=== PATIENT | male | born 1940 | race Caucasian/White ===

== ENCOUNTER 2016-12-21 11:12 | Inpatient (IN) ==
--- NOTE | 2016-12-21 12:03 | XRay Report ---
Exam: XR chest 1V portable Indication: Fever Shortness of breath Comparison study: May 26, 2014 Findings: The heart, mediastinum and bony structures are stable from prior. Right chest tube being is in similar position and appears intact. There has been development of patchy perihilar and basilar interstitial opacities, which may represent atelectasis or developing interstitial infiltrates. There is no focal consolidation, pneumothorax or pleural effusion identified. Cholecystectomy clips are noted Impression: Patchy perihilar and basilar interstitial opacities may represent atelectasis or developing infiltrates. No focal consolidation. No pneumothorax. PROCEDURE INTERPRETED AT [facility] DEPARTMENT OF RADIOLOGY Final Report Signed by: Wil Mack
[2016-12-21 12:38] LABS: Basophils # 0.1 10*3/uL (0.0-0.2); Basophils % 0.9 % (0.0-0.8); Eosinophils # 0.2 10*3/uL (0.0-0.87); Eosinophils % 3.1 % (0.00-10.9); Hematocrit 32.8 VOL% (42.0-52.0); Hemoglobin 10.2 GM/DL (14.0-18.0); Immature Granulocytes % 0.4 %; Immature Granulocytes Absolute 0.03 #; Lymphocytes # 1.2 10*3/uL (1.4-4.0); Lymphocytes % 15.5 % (21.2-54.2); Mean Corpuscular HGB Conc 31.1 GM/DL (32-36); Mean Corpuscular Hemoglobin 29 PG (27-34); Mean Corpuscular Volume 94.5 FL (87-102); Mean Platelet Volume 8.5 FL (9.6-12.0); Monocytes # 0.7 10*3/uL (0.11-0.8); Monocytes % 9.4 % (1.7-12.7); Neutrophils # 5.5 10*3/uL (1.4-7.4); Neutrophils % 70.7 % (38.7-73.9); Platelet Count 448 T/CUMM (130-400); Red Blood Count 3.47 MC/CUMM (3.8-5.5); Red Cell Distribution Width 14.2 % (9.3-17.3); White Blood Count 7.8 T/CUMM (4-12)
[2016-12-21 13:14] LABS: Alanine Aminotransferase 38 U/L (16-61); Albumin 2.7 G/DL (3.4-5.0); Alkaline Phosphatase 78 U/L (45-117); Aspartate Amino Transferase 31 U/L (0-37); Bilirubin,Total < 0.39 MG/DL (0.2-1.0); Blood Urea Nitrogen 47 MG/DL (7-18); Calcium 8.9 MG/DL (8.5-10.1); Glucose 122 MG/DL (74-106); Osmolality,Calculated 298.8 MOS/KG (273-304); Potassium 5.1 MMOL/L (3.5-5.1); Sodium 144 MMOL/L (136-145); Total Protein 7.7 G/DL (6.4-8.3)
[2016-12-21 13:40] LABS: Apearance,Urine Clear (Clear); Bilirubin,Urine Negative (Negative); Blood, Urine Small mg/dL (Negative); Glucose,Urine (UA) Negative (Negative); Ketones,Urine Negative (Negative); Nitrite,Urine Negative (Negative); Protein,Urine 100 MG/DL; RBC,Urine 33 /HPF (0-4); Urine Color Yellow (Yellow); Urine Specific Gravity 1.005 (1.001-1.035); WBC,Urine 236 /HPF (0-6)
[2016-12-21 13:41] LABS: Mucus,Urine Occasional /LPF (Occasional); Squamous Epithelial Cell,Urine Occasional /HPF (0-10); Urine Urobilinogen 0.2 EU/DL (0.2-1.0)
--- NOTE | 2016-12-21 13:41 | Emergency Department Note ---
Dylan Hurtado Brooke, am scribing for, and in the presence of, Juan Pablo Ortega MD 11:41. Shannon Hurtado Phillip K, MD, personally performed the services described in this documentation, ascribed by Roya Richardson in my presence, and it is both accurate and complete [id number] . Arrival - Arrival Chief Complaint: Non-Specific ED Nursing Triage Note: family states pt has not had a good bm in a week and has been taking stuff for constipation. strong smell to urine and low grade temp Mode of Arrival: Stretcher Limitations: No Limitations Source: Patient, Family, RN Notes Reviewed Time Seen by Provider: 12/21/16 11:26 - History of Present Illness HPI Narrative: Patient is a 76 year old male brought into the ED by EMS with c/o fever and cough. Patient is a poor historian. Family says Patient has had the fever for about two weeks and that it has been intermittent. Family says she has been [facility] know what Patient's temperature has been but says they have not done anything. Family says Patient has a "rattling" cough. Family denies any vomiting or diarrhea but says he has been constipated. Family has been giving Patient laxatives and Milk of Magnesia. She says about a week ago, there was "something green" in Patient's peg tube. She says she was unsure of what to do but says she went ahead and gave Patient his feeding. She says she has not seen anymore "green" since. Patient says EMS was able to flush the peg tube. Patient has Onset (ago): week(s) (2) Allergies/Adverse Reactions: Allergies Allergy/AdvReac Type Severity Reaction Status Date / Time Unable to Obtain Allergy Unverified 07/12/16 14:34 Home Medications: Home Medications Medication Instructions Recorded Confirmed Type Aspirin [Ecotrin] 81 mg PO DAILY 07/12/16 12/21/16 History Metoprolol Tartrate 100 mg PO DAILY 12/21/16 12/21/16 History Review of System - Review of System 12 point system: reviewed and no additional remarkable complaints except as stated - Review of System Constitutional: Present: fever Respiratory: Present: cough ("rattling"). Absent: respiratory distress Gastrointestinal: Present: constipation, other ("something green" in peg tube). Absent: nausea, vomiting, diarrhea Skin: Absent: rash Medical,Surgical,& Family Hx - Medical History Cardio: History of: Hypertension - Social History Smoking Status: Never smoker Frequency of Alcohol Use: None Type of Drug Use: None Exam Vital Signs: Vital Signs Temperature 97.8 F 12/21/16 11:19 Pulse Rate 97 H 12/21/16 11:19 Respiratory Rate 18 12/21/16 11:19 Blood Pressure 165/87 12/21/16 11:19 O2 Sat by Pulse Oximetry 98 12/21/16 11:19 - General General appearance: alert, in no apparent distress - Head Head exam: Present: atraumatic, normocephalic - Eye Eye exam: Present: normal appearance, PERRL, EOMI - ENT ENT exam: Present: normal exam - Neck Neck exam: Present: normal inspection - Chest Chest inspection: Present: normal inspection, symmetric chest wall rise - Respiratory Respiratory exam: Present: normal lung sounds bilaterally - Cardiovascular Cardiovascular exam: Present: regular rate, normal rhythm, normal heart sounds - Abdominal Exam Abdominal exam: Present: soft, normal bowel sounds. Absent: distention, tenderness - Extremities Exam Extremities exam: Present: normal inspection - Back Exam Back exam: Present: normal inspection - Neurological Exam Neurological exam: Present: alert - Psychiatric Psychiatric exam: Present: normal affect, normal mood - Skin Skin exam: Present: warm, dry, intact, normal color Course Course Narrative: Admit to the hospitalist. Results - Labs CBC & BMP: 12/21/16 12:16 12/21/16 12:16 Lab Results: I have reviewed the patients labs Labs: Laboratory Tests 12/21/16 12:16 RBC 3.47 L Hgb 10.2 L Hct 32.8 L MCHC 31.1 L Plt Count 448 H MPV 8.5 L Lymph % (Auto) 15.5 L Baso % (Auto) 0.9 H Lymph # (Auto) 1.2 L Laboratory Tests 12/21/16 12:16 Anion Gap 15.1 H BUN 47 H Creatinine 1.40 H BUN/Creatinine Ratio 33.00 H Glucose 122 H Albumin 2.7 L Globulin 5.0 H Albumin/Globulin Ratio 0.5 L Laboratory Tests 12/21/16 11:40 Urine Leukocytes Moderate H - Diagnostic Findings Procedure: Chest x-ray: report reviewed by me (Patchy perihilar and basilar interstitial opacities may represent atelectasis or developing infiltrates. No focal consolidation. No pneumothorax.) Disposition Clinical Impression: Dehydration, History of fever, perihilar pneumonia Case discussed with: patient's family Disposition: Disch To Home/Self Care Condition: Guarded Additional Instructions: Admitted to the hospitalist.
[2016-12-21] MEDS ORDERED: LEVOFLOXACIN INJ 500 MG in PREMIX 1 EACH IV STA (13:43)
[2016-12-21] MEDS ORDERED: DOCUSATE SODIUM 100 MG CAPSULE PO PRN (13:47)
[2016-12-21] MEDS ORDERED: ONDANSETRON 4 MG/2 ML VIAL IV PRN (13:47)
[2016-12-21] MEDS ORDERED: ALBUTEROL 2.5 MG/3 ML NEB RESP TX PRN (14:32)
--- NOTE | 2016-12-21 14:34 | Hospitalist History & Physical ---
Assessment and Plan (1) Pneumonia Status: Acute Assessment and plan: Admit patient to service. Pt to be starting on breathing treatments and IV antibiotics. Current Visit: Yes (2) Dehydration Status: Acute Assessment and plan: Pt will be given IV fluids. Will monitor for any electrolyte imbalance. Labs in am. Current Visit: Yes History of Present Illness Chief complaint: pneumonia/dehydration History of present illness: Patient is a 76 year old male brought into the ED by EMS with c/o fever and cough. Pt's is at bedside. She states Patient has had the fever for about two weeks on and off. Pt had a stroke 15 yrs ago which has left him nonverbal; therefore, pt is a poor historian. Pt's is also unable to answer questions about patient's medical history. CXR showed opacities that may be indicative of atelectasis and infiltrates developing. Lab work suggests dehydration. Pt will be admitted to the hospitalist program and given IV fluids along with antibiotics. MD to follow. Home Medications Medication Instructions Recorded Confirmed Type Aspirin [Ecotrin] 81 mg PO DAILY 07/12/16 12/21/16 History Metoprolol Tartrate 100 mg PO DAILY 12/21/16 12/21/16 History Allergies Allergy/AdvReac Type Severity Reaction Status Date / Time Unable to Obtain Allergy Verified 12/21/16 15:49 Medical,Surgical,& Family Hx - Medical History Cardio: History of: Hypertension Neurology: History of: Cerebrovascular Accident - Social History Smoking Status: Never smoker Frequency of Alcohol Use: None Type of Drug Use: None ROS unobtainable: due to mental status - Constitutional Constitutional: Present: fever(s) (information given per . Fever on and off since 12/04; highest being 102.4) - Respiratory Respiratory: Present: cough (per ), dyspnea (per his ) Exam - Constitutional Vitals: Period Temp Pulse Resp BP Sys/Ferrara Pulse Ox Last 24 Hr 97.8 F-97.8 F 97-97 18-18 165-165/87-87 98 General appearance: normal weight, no acute distress, disheveled - Head Head exam: Present: normal inspection, normocephalic - Respiratory Respiratory exam: Present: decreased breath sounds (decreased at the bases) - GI/Abdominal GI/Abdominal exam: Present: normal bowel sounds, soft, other (pt has peg tube) - Extremities Exam Extremities exam: Absent: full ROM, edema - Neurological Exam Neurological exam: Present: other (pt nonverbal) - Skin Skin exam: Present: warm, dry Results - Labs CBC & BMP: 12/21/16 12:16 12/21/16 12:16 Lab Results: I have reviewed the past 24 hour labs - Diagnostic Findings Procedure: Chest x-ray: report reviewed by me
[2016-12-21] MEDS ORDERED: LEVOFLOXACIN INJ 100 ML IV ONE (15:38)
[2016-12-21] MEDS: SODIUM CHLORIDE 0.9% 1,000 ML IV SCH (17:30)
[2016-12-21] MEDS: PIPERACILLIN/TAZOBACTAM 3,375 MG in SODIUM CHLORIDE 0.9% 100 ML IV SCH (18:23)
[2016-12-21] MEDS: ALBUTEROL/IPRATROPIUM 3 ML NEB RESP TX SCH (19:13)
[2016-12-22] MEDS: ALBUTEROL/IPRATROPIUM 3 ML NEB RESP TX SCH ×3 (00:21→14:36)
[2016-12-22] MEDS: PIPERACILLIN/TAZOBACTAM 3,375 MG in SODIUM CHLORIDE 0.9% 100 ML IV SCH ×3 (01:46→18:04)
[2016-12-22 08:16] LABS: Basophils # 0.1 10*3/uL (0.0-0.2); Basophils % 0.5 % (0.0-0.8); Eosinophils # 0.2 10*3/uL (0.0-0.87); Eosinophils % 2.4 % (0.00-10.9); Hematocrit 29.7 VOL% (42.0-52.0); Hemoglobin 8.9 GM/DL (14.0-18.0); Immature Granulocytes % 0.5 %; Immature Granulocytes Absolute 0.05 #; Lymphocytes # 1.5 10*3/uL (1.4-4.0); Lymphocytes % 15.1 % (21.2-54.2); Mean Corpuscular Hemoglobin 29 PG (27-34); Mean Corpuscular Volume 96.4 FL (87-102); Mean Platelet Volume 8.7 FL (9.6-12.0); Monocytes % 10.5 % (1.7-12.7); Neutrophils # 6.9 10*3/uL (1.4-7.4); Platelet Count 425 T/CUMM (130-400); Red Blood Count 3.08 MC/CUMM (3.8-5.5); Red Cell Distribution Width 14.1 % (9.3-17.3); White Blood Count 9.7 T/CUMM (4-12)
[2016-12-22] MEDS: METOPROLOL TARTRATE 100 MG TABLET PO SCH (12:38)
[2016-12-22] MEDS: PANTOPRAZOLE 40 MG TABLET PO SCH (12:38)
[2016-12-22] MEDS: ASPIRIN EC 81 MG TABLET PO SCH (12:38)
[2016-12-22] MEDS: DESITIN 4OZ/NYSTATIN 15 GRAM MIXTURE PASTE TOP SCH ×2 (12:45→22:00)
--- NOTE | 2016-12-22 14:53 | Hospitalist Progress Note ---
Assessment and Plan (1) Dehydration Status: Acute Assessment and plan: This is secondary to poor intake at home. He seemed to be getting better in turgor since starting IV fluids yesterday. If the dietitian to look into caloric needs fluid needs. Consultation going to put in today as discussed with the primary care nurse about this issue Current Visit: Yes (2) History of fever Status: Acute Assessment and plan: Is likely secondary to subclinical aspiration. According to the with the primary behavioral health care coordinator said to me that at times of heart problems are feeding him. At one point to the tube was clogged and give out some greenish gunk that she never knew what it was. My suspicion that it was probably inspissated with some bile reflux material Current Visit: Yes (3) Pneumonia Status: Acute Assessment and plan: Slightly this is secondary to aspiration pneumonia is perihilar but mostly in the right middle lobe. Patient is on broad-spectrum antibiotics. Continue this and examined and needed in the coming 4 days. Current Visit: Yes Qualifiers: Pneumonia type: aspiration pneumonia Aspiration pneumonia type: unspecified Laterality: right Lung location: middle lobe of lung Qualified Code(s): J69.0 - Pneumonitis due to inhalation of food and vomit Hospitalist: Subjective Interval history: Stent is seen and examined unfortunately no family members at the bedside. 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 I discussed the case with charge nurse on the floor, no acute events veins have occurred since I saw him last. He has a PEG tube for feeding dysfunction need to get a dietitian look into caloric needs and regular feeding. Because of low-grade temperatures of 99.9 my suspicion from the get go has been that he has continuous subclinical aspiration; this could even be of upper airway secretion. Exam - Constitutional Vitals: Period Temp Pulse Resp BP Sys/Ferrara Pulse Ox Last 24 Hr 97.6 F-99.9 F 91-115 16-20 124-160/62-80 98-100 General appearance: normal weight - Head Head exam: Present: other (Stroke) - Eye Eye exam: Present: other (Not able to assess) Pupils: Present: unequal (I cannot assess) - ENT ENT exam: Present: other (Not able to assess) - Neck Neck exam: Present: other (Generalized rigidity including neck stiffness) - Respiratory Respiratory exam: Present: other (No rhonchi no wheezing distant lung sounds) - Cardiovascular Cardiovascular exam: Present: irregular rhythm, other (Rate below 100) - GI/Abdominal GI/Abdominal exam: Present: other (Functional PEG tube in place) - Extremities Exam Extremities exam: Present: other (Contractures from old stroke) - Neurological Exam Neurological exam: Present: other (Expressive aphasia most likely receptive aphasia patient is not responding to verbal stimulus) - Psychiatric Psychiatric exam: Present: other (As above) - Skin Skin exam: Present: normal color, warm, dry Results - Labs CBC & BMP: 12/22/16 07:44 12/21/16 12:16 Lab Results: I have reviewed the past 24 hour labs
[2016-12-22] MEDS: SODIUM CHLORIDE 0.9% 1,000 ML IV SCH ×2 (16:56→20:23)
[2016-12-23] MEDS: ALBUTEROL/IPRATROPIUM 3 ML NEB RESP TX SCH ×5 (00:53→20:59)
[2016-12-23] MEDS: ACETAMINOPHEN 325 MG TABLET PO PRN (01:12)
[2016-12-23] MEDS: PIPERACILLIN/TAZOBACTAM 3,375 MG in SODIUM CHLORIDE 0.9% 100 ML IV SCH ×3 (04:32→17:42)
[2016-12-23] MEDS: DESITIN 4OZ/NYSTATIN 15 GRAM MIXTURE PASTE TOP SCH ×2 (07:00→20:00)
[2016-12-23] MEDS: PANTOPRAZOLE 40 MG TABLET PO SCH (10:12)
[2016-12-23] MEDS: METOPROLOL TARTRATE 100 MG TABLET PO SCH (10:12)
[2016-12-23] MEDS: ASPIRIN EC 81 MG TABLET PO SCH (10:12)
--- NOTE | 2016-12-23 16:13 | Hospitalist Progress Note ---
Assessment and Plan (1) Pneumonia Status: Acute Assessment and plan: We'll continue current antibiotics and follow the blood cultures repeat x-ray tomorrow morning Current Visit: Yes Qualifiers: Pneumonia type: aspiration pneumonia Aspiration pneumonia type: unspecified Laterality: right Lung location: middle lobe of lung Qualified Code(s): J69.0 - Pneumonitis due to inhalation of food and vomit (2) UTI (urinary tract infection) Status: Acute Assessment and plan: Patient has 2 different organism on urine culture will continue Zosyn as it covered both. We will follow the blood culture. I'm not sure what was the primary source of fever or is describing. We'll follow blood culture and if and patient remained stable and probably will switch to oral antibiotics Current Visit: Yes (3) Dehydration Status: Acute Assessment and plan: With my HPI on admission will check the chemistry tomorrow Current Visit: Yes Hospitalist: Subjective Interval history: Patient is a 76 year old male brought to ED by EMS with c/o fever and cough. Reported to have fever for about two weeks on and off. Pt had a stroke 15 yrs ago which has left him nonverbal unable to get subjective symptoms. Has been afebrile Patient has been afebrile now. He was treated empirically for pneumonia based on chest x-ray finding and symptoms his urine also grew Escherichia coli and Klebsiella. She has been on Zosyn. Exam - Constitutional Vitals: Period Temp Pulse Resp BP Sys/Ferrara Pulse Ox Last 24 Hr 98.0 F-99.3 F 82-108 18-20 132-158/60-92 92-99 General appearance: no no acute distress - Respiratory Respiratory exam: Present: clear to auscultation bilaterally. Absent: rales, rhonchi - Cardiovascular Cardiovascular exam: Present: regular rate and rhythm. Absent: tachycardia - GI/Abdominal GI/Abdominal exam: Present: normal bowel sounds, soft. Absent: tenderness - Extremities Exam Extremities exam: Absent: edema (nonverbal) - Neurological Exam Neurological exam: Present: other Results - Labs CBC & BMP: 12/22/16 07:44 12/21/16 12:16 Lab Results: I have reviewed the past 24 hour labs
--- NOTE | 2016-12-23 17:33 | XRay Report ---
Exam: XR chest 1V Date: 12/23/2016 4:17 PM Comparison: 12/21/2016 Indication: Pneumonia Technique:[Portable AP sitting chest] Findings: The heart is borderline in size with calcification in the aortic knob. Right COP EXAMINER shunt catheter. Chronic scarring in the lungs with progressive parenchymal findings at the lung bases, especially the left. Small left pleural effusion. Stable mediastinum with degenerative changes. Impression: Progressive bilateral infiltration especially at the left lung base with small left pleural effusion. PROCEDURE INTERPRETED AT [facility] DEPARTMENT OF RADIOLOGY Final Report Signed by: Dr. Jennifer Goyal
[2016-12-23] MEDS: SODIUM CHLORIDE 0.9% 1,000 ML IV SCH ×2 (17:44→22:49)
[2016-12-24] MEDS: PIPERACILLIN/TAZOBACTAM 3,375 MG in SODIUM CHLORIDE 0.9% 100 ML IV SCH ×3 (01:36→17:33)
[2016-12-24] MEDS: ALBUTEROL/IPRATROPIUM 3 ML NEB RESP TX SCH ×4 (01:40→20:10)
[2016-12-24 06:51] LABS: Basophils # 0.1 10*3/uL (0.0-0.2); Eosinophils # 0.3 10*3/uL (0.0-0.87); Hematocrit 26.8 VOL% (42.0-52.0); Hemoglobin 8.2 GM/DL (14.0-18.0); Immature Granulocytes % 0.3 %; Immature Granulocytes Absolute 0.02 #; Lymphocytes # 1.2 10*3/uL (1.4-4.0); Lymphocytes % 16.6 % (21.2-54.2); Mean Corpuscular HGB Conc 30.6 GM/DL (32-36); Mean Corpuscular Hemoglobin 29 PG (27-34); Mean Corpuscular Volume 93.1 FL (87-102); Mean Platelet Volume 8.8 FL (9.6-12.0); Monocytes # 0.7 10*3/uL (0.11-0.8); Monocytes % 9.8 % (1.7-12.7); Neutrophils # 4.8 10*3/uL (1.4-7.4); Neutrophils % 68.3 % (38.7-73.9); Platelet Count 367 T/CUMM (130-400); Red Blood Count 2.88 MC/CUMM (3.8-5.5); Red Cell Distribution Width 13.7 % (9.3-17.3)
[2016-12-24 07:19] LABS: Magnesium 2.3 MG/DL (1.8-2.4); Osmolality,Calculated 301.3 MOS/KG (273-304); Potassium 4.8 MMOL/L (3.5-5.1); Prealbumin 15.5 MG/DL (20-40)
[2016-12-24] MEDS: ASPIRIN EC 81 MG TABLET PO SCH (09:44)
[2016-12-24] MEDS: METOPROLOL TARTRATE 100 MG TABLET PO SCH (09:44)
[2016-12-24] MEDS: DESITIN 4OZ/NYSTATIN 15 GRAM MIXTURE PASTE TOP SCH ×2 (09:44→22:22)
[2016-12-24] MEDS: PANTOPRAZOLE 40 MG TABLET PO SCH (09:44)
--- NOTE | 2016-12-24 16:00 | Hospitalist Progress Note ---
Assessment and Plan (1) Pneumonia Status: Acute Assessment and plan: Blood c/s neg from 12/21. I had initially planned to discharge him today on by mouth clindamycin and third generation by mouth cephalosporin to combine treatment of her pneumonia and UTI noted his hemoglobin and hematocrit down from admission. I will continue IV antibiotics since he is still in the hospital. Current Visit: Yes Qualifiers: Pneumonia type: aspiration pneumonia Aspiration pneumonia type: unspecified Laterality: right Lung location: middle lobe of lung Qualified Code(s): J69.0 - Pneumonitis due to inhalation of food and vomit (2) UTI (urinary tract infection) Status: Acute Assessment and plan: Patient has 2 different organism on urine culture will continue Zosyn as it covered both. Blood cultures negative continue IV antibiotics as long as patient is staying the hospital Current Visit: Yes (3) Dehydration Status: Acute Assessment and plan: Hypernatremia noted will give IV D5 w recheck labs am Current Visit: Yes (4) Anemia Status: Acute Assessment and plan: Given hematocrit down from the admission will order a stool Hemoccult patient is on PPI . Repat labs for am ordered Current Visit: Yes Hospitalist: Subjective Interval history: Patient is a 76 year old male brought to ED by EMS with c/o fever and cough. Reported to have fever for about two weeks on and off. Pt had a stroke 15 yrs ago which has left him nonverbal unable to get subjective symptoms. He was treated empirically for pneumonia based on chest x-ray finding and symptoms his urine also grew Escherichia coli and Klebsiella. She has been on Zosyn. Pt has been afebrile stable hemodynamics Exam - Constitutional Vitals: Period Temp Pulse Resp BP Sys/Ferrara Pulse Ox Last 24 Hr 97.9 F-99.0 F 74-114 18-20 125-182/64-78 94-99 General appearance: no acute distress - Respiratory Respiratory exam: Present: clear to auscultation bilaterally. Absent: rales, rhonchi - Cardiovascular Cardiovascular exam: Present: regular rate and rhythm. Absent: tachycardia - GI/Abdominal GI/Abdominal exam: Present: normal bowel sounds, soft. Absent: tenderness - Neurological Exam Neurological exam: Present: alert, other Results - Labs CBC & BMP: 12/24/16 06:07 12/24/16 06:07
[2016-12-24] MEDS: SODIUM CHLORIDE 0.9% 1,000 ML IV SCH (16:44)
[2016-12-24] MEDS: DEXTROSE 5% 1,000 ML IV SCH (16:45)
[2016-12-24] MEDS: ACETAMINOPHEN 325 MG TABLET PO PRN (22:42)
[2016-12-25] MEDS: ALBUTEROL/IPRATROPIUM 3 ML NEB RESP TX SCH ×4 (00:57→19:14)
[2016-12-25] MEDS: PIPERACILLIN/TAZOBACTAM 3,375 MG in SODIUM CHLORIDE 0.9% 100 ML IV SCH ×3 (01:23→17:05)
[2016-12-25 03:44] LABS: Basophils # 0.1 10*3/uL (0.0-0.2); Basophils % 0.8 % (0.0-0.8); Eosinophils # 0.2 10*3/uL (0.0-0.87); Eosinophils % 3.1 % (0.00-10.9); Hematocrit 25.7 VOL% (42.0-52.0); Hemoglobin 7.9 GM/DL (14.0-18.0); Immature Granulocytes % 0.4 %; Immature Granulocytes Absolute 0.03 #; Lymphocytes # 1.4 10*3/uL (1.4-4.0); Lymphocytes % 18.7 % (21.2-54.2); Mean Corpuscular HGB Conc 30.7 GM/DL (32-36); Mean Corpuscular Hemoglobin 29 PG (27-34); Mean Corpuscular Volume 92.8 FL (87-102); Mean Platelet Volume 8.7 FL (9.6-12.0); Monocytes # 0.7 10*3/uL (0.11-0.8); Monocytes % 9.3 % (1.7-12.7); Neutrophils # 5.1 10*3/uL (1.4-7.4); Neutrophils % 67.7 % (38.7-73.9); Platelet Count 352 T/CUMM (130-400); Red Blood Count 2.77 MC/CUMM (3.8-5.5); Red Cell Distribution Width 13.7 % (9.3-17.3); White Blood Count 7.5 T/CUMM (4-12)
[2016-12-25 04:10] LABS: Calcium 7.8 MG/DL (8.5-10.1); Osmolality,Calculated 306.3 MOS/KG (273-304); Potassium 4.7 MMOL/L (3.5-5.1)
[2016-12-25] MEDS: ACETAMINOPHEN 325 MG TABLET PO PRN ×2 (04:12→23:43)
[2016-12-25 04:13] LABS: % Iron Saturation 14.4 % (18-50); Ferritin 92.7 ng/ml (26-388)
[2016-12-25 04:20] LABS: Folate 20.9 NG/ML (5.4-24.0)
[2016-12-25] MEDS: PANTOPRAZOLE 40 MG TABLET PO SCH ×2 (09:40→21:01)
[2016-12-25] MEDS: DESITIN 4OZ/NYSTATIN 15 GRAM MIXTURE PASTE TOP SCH ×2 (09:40→21:01)
[2016-12-25] MEDS: ASPIRIN EC 81 MG TABLET PO SCH (09:40)
[2016-12-25] MEDS: METOPROLOL TARTRATE 100 MG TABLET PO SCH (09:40)
--- NOTE | 2016-12-25 13:49 | Hospitalist Progress Note ---
Assessment and Plan (1) Heme positive stool Status: Acute Current Visit: Yes (2) Dehydration Status: Acute Current Visit: Yes (3) History of fever Status: Acute Current Visit: Yes (4) Pneumonia Status: Acute Current Visit: Yes Qualifiers: Pneumonia type: aspiration pneumonia Aspiration pneumonia type: unspecified Laterality: right Lung location: middle lobe of lung Qualified Code(s): J69.0 - Pneumonitis due to inhalation of food and vomit (5) UTI (urinary tract infection) Status: Acute Current Visit: Yes (6) Anemia Status: Acute Current Visit: Yes Hospitalist: Subjective Interval history: hemoglobin not change much from yesterday but he is anemic and has heme positive stools. Some of this drop in hematocrit is delusional but he does take an aspirin and now has heme positive stools. He is last bladder scan showed about 320 mL of urine. Assessment and plan 12/25/2016: Recurrent UTI possibly exacerbated by urinary retention Anemia with heme-positive stools Pneumonia I'm not sure if he has true retention and if this is a true postvoid scan. We will repeated. In the meanwhile we would last GI to see the patient and stop his aspirin. We will also double his proton pump inhibitors. Continue current antibiotics for now. Exam - Constitutional Vitals: Period Temp Pulse Resp BP Sys/Ferrara Pulse Ox Last 24 Hr 98.2 F-100.1 F 71-102 18-22 133-169/61-81 93-100 Exam: General appearance: no acute distress - Respiratory Respiratory exam: Present: clear to auscultation bilaterally. Absent: rales, rhonchi - Cardiovascular Cardiovascular exam: Present: regular rate and rhythm. Absent: tachycardia - GI/Abdominal GI/Abdominal exam: Present: normal bowel sounds, soft. Absent: tenderness - Neurological Exam Neurological exam: Present: alert, other Results - Labs CBC & BMP: 12/25/16 03:01 12/25/16 03:01 Lab Results: I have reviewed the past 24 hour labs
[2016-12-25] MEDS: DEXTROSE 5% 1,000 ML IV SCH ×2 (23:19→23:32)
[2016-12-26] MEDS: ALBUTEROL/IPRATROPIUM 3 ML NEB RESP TX SCH ×4 (00:02→19:43)
[2016-12-26] MEDS: PIPERACILLIN/TAZOBACTAM 3,375 MG in SODIUM CHLORIDE 0.9% 100 ML IV SCH ×3 (02:01→17:11)
[2016-12-26 03:42] LABS: Basophils # 0.1 10*3/uL (0.0-0.2); Basophils % 1.2 % (0.0-0.8); Eosinophils # 0.3 10*3/uL (0.0-0.87); Hematocrit 27.7 VOL% (42.0-52.0); Hemoglobin 8.5 GM/DL (14.0-18.0); Immature Granulocytes % 0.6 %; Immature Granulocytes Absolute 0.05 #; Lymphocytes # 1.5 10*3/uL (1.4-4.0); Lymphocytes % 18.1 % (21.2-54.2); Mean Corpuscular HGB Conc 30.7 GM/DL (32-36); Mean Corpuscular Hemoglobin 29 PG (27-34); Mean Corpuscular Volume 93.6 FL (87-102); Mean Platelet Volume 8.7 FL (9.6-12.0); Monocytes # 0.6 10*3/uL (0.11-0.8); Monocytes % 7.9 % (1.7-12.7); Neutrophils # 5.5 10*3/uL (1.4-7.4); Neutrophils % 68.2 % (38.7-73.9); Platelet Count 360 T/CUMM (130-400); Red Blood Count 2.96 MC/CUMM (3.8-5.5); Red Cell Distribution Width 13.8 % (9.3-17.3); White Blood Count 8.1 T/CUMM (4-12)
[2016-12-26 04:07] LABS: Magnesium 2.1 MG/DL (1.8-2.4); Osmolality,Calculated 301.6 MOS/KG (273-304); Potassium 4.7 MMOL/L (3.5-5.1)
[2016-12-26] MEDS: ACETAMINOPHEN 325 MG TABLET PO PRN ×2 (04:59→21:50)
[2016-12-26] MEDS: DESITIN 4OZ/NYSTATIN 15 GRAM MIXTURE PASTE TOP SCH ×2 (08:30→21:45)
[2016-12-26] MEDS: PANTOPRAZOLE 40 MG TABLET PO SCH ×2 (11:05→21:45)
[2016-12-26] MEDS: METOPROLOL TARTRATE 100 MG TABLET PO SCH (11:05)
--- NOTE | 2016-12-26 11:08 | Gastrointestinal Consult Note ---
Assessment and Plan - Time spent with patient Time spent with patient: Greater than 30 minutes (1) Heme positive stool Status: Acute Current Visit: Yes (2) Anemia Status: Acute Current Visit: Yes (3) Other specified counseling Status: Acute Current Visit: Yes History of Present Illness History of present illness: Mr. Preciado is a 76 year old male Home Medications Medication Instructions Recorded Confirmed Type Aspirin [Ecotrin] 81 mg PO DAILY 07/12/16 12/21/16 History Metoprolol Tartrate 100 mg PO DAILY 12/21/16 12/21/16 History Allergies Allergy/AdvReac Type Severity Reaction Status Date / Time morphine Allergy Severe RASH Verified 12/22/16 10:30 Medical,Surgical,& Family Hx - Medical History Cardio: History of: Hypertension, Cardiovascular Problems (Dr Hudson) Neurology: History of: Cerebrovascular Accident Gastrointestinal: History of: Gastrointestinal Cancer (Colon) Musculoskeletal: History of: Musculoskeletal Problems (Contracted) - Surgical History Abdominal Surgeries: Surgical HX of: Abdominal Surgery (PEG), Appendectomy, Cholecystectomy - Social History Smoking Status: Never smoker Frequency of Alcohol Use: None Type of Drug Use: None Exam - Constitutional Vitals: Period Temp Pulse Resp BP Sys/Ferrara Pulse Ox Last 24 Hr 98.4 F-99.8 F 80-102 18-21 142-169/79-97 93-100 Results - Labs CBC & BMP: 12/26/16 03:15 12/26/16 03:15 Note Addendum: PLEASE NOTE -- automatic citation of patient information is unavoidable in this electronic note. I have made a reasonable effort to review the information cited , but it is not a part of my evaluation, impression, or recommendation unless specifically discussed in the dictated text that follows. As well, voice recognition software was used in the creation of this clinical note. Reasonable effort was made to identify and correct gross errors. Despite proofreading, errors in ager operator may be present, including nonsense verbiage at times. If you encounter such an error, please contact me at for discussion and correction. -- Ivette Chief complaint: symptomatic anemia History of present illness: This is a new patient, a 76-year-old male seen by consultation for evaluation of symptomatic anemia with positive fecal occult blood test. The patient is admitted to the hospitalist service with a primary diagnosis of pneumonia. The patient is nonverbal and cannot contribute to our interview. The patient is not accompanied by family at present. Review of systems: unable to provide Outpatient medications: Toprol, aspirin Inpatient medications: Tylenol, albuterol, Duoneb, Colace, Lopressor, Zofran, Protonix, Zosyn, Flomax Past Medical History: hypertension, cerebrovascular accident, pneumonia Social history: negative tobacco. Negative alcohol Family history: no gastrointestinal cancers Physical examination: Vital Signs: Current vital signs reviewed and documented above. General Appearance: the patient is lying in bed sleeping, comfortable, and didn' t know apparent distress. Head: Normocephalic with mild torticollis. Neck: Palpation of the neck revealed no abnormalities. Eyes: No scleral icterus. No scleral injection. No conjunctival pallor. Oral Cavity: Odor of breath was normal. No drooling was observed. Lips showed no abnormalities. Floor of the mouth showed no abnormalities. Lungs: Respiration rhythm and depth was normal. Cardiovascular: Heart rate and rhythm were normal. No murmurs were appreciated. Abdomen: abdomen was not distended. Abdominal palpation revealed no tenderness and no hepatosplenomegaly. Ascites was not discovered. Abdominal auscultation revealed positive bowel sounds. Musculoskeletal System: Musculoskeletal system was grossly normal. Neurological: on arousal, patient was verbal but noncommunicative Skin: General appearance was normal. Color and pigmentation were normal. No skin lesions. Laboratory: white blood count 8.1, hemoglobin 8.5, hematocrit 7.7, platelets 360 , ALT 38, AST 31, total bilirubin 0.4, alkaline phosphatase 78 Radiology: reviewed Impressions: 1. Hematochezia -- the differential diagnosis includes diverticular bleeding, infectious/inflammatory enterocolitis, arteriovenous malformation, hemorrhoidal bleeding, colon polyps (including cancer), and upper gastrointestinal bleeding. I recommend aggressive crystalloid resuscitation in addition to transfusion as indicated. I recommend serial hemoglobin and hematocrit monitoring. I recommend intravenous proton pump inhibitor. Patient will need upper endoscopy and colonoscopy with timing dependent on clinical progress. If overt bleeding presents, this will likely need to be done during this admission. If not, we could consider outpatient colonoscopy once he is adequately resuscitated. 2. Anemia -- as discussed, this will need to be evaluated further. This will also need to be followed during convalescence for monitoring and management as indicated. 3. Other specified counseling: The patient was seen for greater than 30 minutes. The patient was counseled for greater than 50% of this time regarding differential diagnosis, likely diagnosis, diagnostic and therapeutic alternatives, risks/benefits/alternatives of medications and procedures, and plan of care generally. The patient expressed understanding and wishes to proceed. Recommendations: -- aggressive crystalloid resuscitation -- transfusion as indicated -- serial hemoglobin and hematocrit monitoring -- daily proton pump inhibitor -- upper endoscopy and colonoscopy with timing dependent on clinical progress -- thank you for consultation. Dr. Jay will assume G.I. care for this patient tomorrow
[2016-12-26 14:06] LABS: Apearance,Urine CLOUDY (Clear); Bacteria,Urine Few /HPF (Few); Bilirubin,Urine Negative (Negative); Blood, Urine Small mg/dL (Negative); Glucose,Urine (UA) Negative (Negative); Ketones,Urine Negative (Negative); Nitrite,Urine Negative (Negative); Protein,Urine 100 MG/DL; RBC,Urine 4174 /HPF (0-4); Urine Color Amber (Yellow); Urine Specific Gravity 1.011 (1.001-1.035); Urine Urobilinogen < 2.0 EU/DL (0.2-1.0); WBC,Urine 29525 /HPF (0-6)
[2016-12-26] MEDS: DEXTROSE 5% 1,000 ML IV SCH (14:25)
[2016-12-26] MEDS: TAMSULOSIN 0.4 MG CAPSULE PO SCH (14:25)
--- NOTE | 2016-12-26 14:49 | Hospitalist Progress Note ---
Assessment and Plan (1) Heme positive stool Status: Acute Current Visit: Yes (2) Dehydration Status: Acute Current Visit: Yes (3) History of fever Status: Acute Current Visit: Yes (4) Pneumonia Status: Acute Current Visit: Yes Qualifiers: Pneumonia type: aspiration pneumonia Aspiration pneumonia type: unspecified Laterality: right Lung location: middle lobe of lung Qualified Code(s): J69.0 - Pneumonitis due to inhalation of food and vomit (5) UTI (urinary tract infection) Status: Acute Current Visit: Yes (6) Anemia Status: Acute Current Visit: Yes Hospitalist: Subjective Interval history: Patient seen. He doesn't not speak and his is not in the room. He appears comfortable. His hematocrit actually slightly better than yesterday although he did have heme positive stools yesterday and GI were consulted. His repeat bladder scan still is over 400 mL. Assessment and plan recurrent urinary tract infection Bedbound status Anemia with heme-positive stools Pneumonia Patient's hematocrit is actually improved from yesterday therefore I will continue with oral PPI for the time being. Recurrent urinary tract infection more than likely is exacerbated by urinary retention. I've started him on Flomax and place a Dc catheter. A voiding trial in a due to can be done and see if he is voiding better. He may need urology evaluation. GI has seen him as well. If his hematocrit stays stable and GI did not think that he needs endoscopy anytime soon he might be able to go home in the next few days. Exam - Constitutional Vitals: Period Temp Pulse Resp BP Sys/Ferrara Pulse Ox Last 24 Hr 98.4 F-99.8 F 80-106 16-21 142-153/79-97 93-99 Exam: General appearance: no acute distress - Respiratory Respiratory exam: Present: clear to auscultation bilaterally. Absent: rales, rhonchi - Cardiovascular Cardiovascular exam: Present: regular rate and rhythm. Absent: tachycardia - GI/Abdominal GI/Abdominal exam: Present: normal bowel sounds, soft. Absent: tenderness - Neurological Exam Neurological exam: Present: alert, other Results - Labs CBC & BMP: 12/26/16 03:15 12/26/16 03:15 Lab Results: I have reviewed the past 24 hour labs
[2016-12-27] MEDS: ALBUTEROL/IPRATROPIUM 3 ML NEB RESP TX SCH ×4 (00:59→20:09)
[2016-12-27] MEDS: DEXTROSE 5% 1,000 ML IV SCH (01:47)
[2016-12-27] MEDS: PIPERACILLIN/TAZOBACTAM 3,375 MG in SODIUM CHLORIDE 0.9% 100 ML IV SCH ×2 (02:15→11:16)
[2016-12-27] MEDS: ACETAMINOPHEN 325 MG TABLET PO PRN (05:57)
[2016-12-27 05:58] LABS: Basophils # 0.1 10*3/uL (0.0-0.2); Basophils % 0.8 % (0.0-0.8); Eosinophils # 0.3 10*3/uL (0.0-0.87); Eosinophils % 4.1 % (0.00-10.9); Hematocrit 27.9 VOL% (42.0-52.0); Hemoglobin 8.7 GM/DL (14.0-18.0); Immature Granulocytes % 0.8 %; Immature Granulocytes Absolute 0.06 #; Lymphocytes # 1.3 10*3/uL (1.4-4.0); Lymphocytes % 17.5 % (21.2-54.2); Mean Corpuscular HGB Conc 31.2 GM/DL (32-36); Mean Corpuscular Hemoglobin 29 PG (27-34); Mean Corpuscular Volume 91.8 FL (87-102); Mean Platelet Volume 8.9 FL (9.6-12.0); Monocytes # 0.5 10*3/uL (0.11-0.8); Monocytes % 6.9 % (1.7-12.7); Neutrophils # 5.3 10*3/uL (1.4-7.4); Neutrophils % 69.9 % (38.7-73.9); Platelet Count 318 T/CUMM (130-400); Red Blood Count 3.04 MC/CUMM (3.8-5.5); Red Cell Distribution Width 14.1 % (9.3-17.3); White Blood Count 7.5 T/CUMM (4-12)
[2016-12-27] MEDS ORDERED: DEXTROSE 50% 25 GM/50 ML VIAL IV PRN (09:00)
[2016-12-27] MEDS ORDERED: GLUCAGON 1 MG VIAL IM PRN (09:00)
--- NOTE | 2016-12-27 10:02 | Hospitalist Progress Note ---
Assessment and Plan (1) Anemia Status: Acute Assessment and plan: H/H stable at 8.7&27.9 up from 8.5&29.7. Continue PPI's and monitor for overt bleeding. Awaiting GI for possible EGD/Colonscopy. Current Visit: Yes Qualifiers: Other causes of anemia: other cause, not classified (2) Dehydration Status: Acute Assessment and plan: Continue IVF as previously ordered; will check lytes. Current Visit: Yes Exam - Constitutional Vitals: Period Temp Pulse Resp BP Sys/Ferrara Pulse Ox Last 24 Hr 98.6 F-100.1 F 79-101 17-24 120-182/67-84 92-100 General appearance: normal weight, no acute distress - Head Head exam: Present: normal inspection - Eye Eye exam: Present: EOMI Pupils: Present: BETO - ENT ENT exam: Present: normal exam - Neck Neck exam: Present: normal inspection - Respiratory Respiratory exam: Present: decreased breath sounds - Cardiovascular Cardiovascular exam: Present: regular rate and rhythm. Absent: carotid bruit, diastolic murmur, gallop, JVD, systolic murmur, tachycardia - GI/Abdominal GI/Abdominal exam: Present: normal bowel sounds, soft. Absent: distended, firm , mass, tenderness - Extremities Exam Extremities exam: Present: normal inspection - Back Exam Back exam: Present: normal inspection - Neurological Exam Neurological exam: Present: alert - Psychiatric Psychiatric exam: Present: normal affect - Skin Skin exam: Present: normal color, dry Results - Labs CBC & BMP: 12/27/16 05:32 12/26/16 03:15
[2016-12-27 10:35] LABS: Alanine Aminotransferase 37 U/L (16-61); Albumin 2.3 G/DL (3.4-5.0); Alkaline Phosphatase 54 U/L (45-117); Aspartate Amino Transferase 15 U/L (0-37); Bilirubin,Total < 0.39 MG/DL (0.2-1.0); Blood Urea Nitrogen 24 MG/DL (7-18); Glucose 309 MG/DL (74-106); Magnesium 1.9 MG/DL (1.8-2.4); Osmolality,Calculated 303.7 MOS/KG (273-304); Potassium 4.7 MMOL/L (3.5-5.1); Sodium 145 MMOL/L (136-145); Total Protein 6.4 G/DL (6.4-8.3)
[2016-12-27] MEDS: PANTOPRAZOLE 40 MG TABLET PO SCH ×2 (11:09→23:42)
[2016-12-27] MEDS: METOPROLOL TARTRATE 100 MG TABLET PO SCH (11:09)
[2016-12-27] MEDS: TAMSULOSIN 0.4 MG CAPSULE PO SCH ×2 (11:09→23:42)
--- NOTE | 2016-12-27 11:09 | Gastrointestinal Progress Note ---
Assessment and Plan (1) Anemia Status: Acute Assessment and plan: 12/27-History of anemia per , monitored by [facility] in [place]. Findings of heme positive stool on admission, no overt bleeding reported. Hemoglobin 10 on admission now 8.7.Last colonoscopy prior to 1999, history of colon cancer surgically removed. Plan an addendum to followed by Dr. Jay Current Visit: Yes Qualifiers: Other causes of anemia: other cause, not classified Gastroenterology - PN: Subj Interval history: CC: Anemia, heme positive stool Patient is seen with eyes open however nonverbal. is at side this morning. Patient's states he seems to be in severe pain at times. She does not recall seeing any overt bleeding in his stools however states she feels like he has had some in the past. He has a reported history of colon cancer in 1999 that was surgically removed and required no further treatments. He has not had any further screening colonoscopy since this time. He is also treated at the [facility] and she does report he has a history of anemia and has been followed for this there. No report of blood transfusions. Abdomen is soft, nontender. PEG tube appears patent. Last EGD in 2008 with hiatal hernia and esophageal stricture which was dilated. He is noted to have 1+ positive occult blood stool. Hemoglobin on admission was 10.2 now down at 8.7. BUN/creatinine ratio 21. Review of systems: No acute distress noted Exam (Progress Note) - Constitutional Vitals: Period Temp Pulse Resp BP Sys/Ferrara Pulse Ox Last 24 Hr 98.6 F-100.1 F 79-101 17-24 120-182/67-84 92-100 General appearance: normal weight, no acute distress - Head Head exam: Present: normal inspection, normocephalic - Eye Eye exam: Present: other (lids and conjunctiva unremarakble). Absent: scleral icterus - ENT ENT exam: Present: normal exam, normal oropharynx - Neck Neck exam: Present: normal inspection - Respiratory Respiratory exam: Present: clear to auscultation bilaterally. Absent: rales, rhonchi, wheezes - Cardiovascular Cardiovascular exam: Present: regular rate and rhythm. Absent: diastolic murmur , JVD, systolic murmur - GI/Abdominal GI/Abdominal exam: Present: normal bowel sounds, soft. Absent: ascites, distended, mass, organomegaly, tenderness - Extremities Exam Extremities exam: Present: normal inspection, full ROM - Back Exam Back exam: Present: normal inspection - Neurological Exam Neurological exam: Present: alert, altered - Psychiatric Psychiatric exam: Present: other - Skin Skin exam: Present: normal color, warm, dry Results - Labs CBC & BMP: 12/27/16 05:32 12/27/16 05:31 Lab Results: I have reviewed the past 24 hour labs
[2016-12-27] MEDS: INSULIN REGULAR 100 UNIT/ML SUBCUT SCH ×2 (12:58→21:21)
[2016-12-27] MEDS ORDERED: cefTRIAXone 1,000 MG in SODIUM CHLORIDE 0.9% 100 ML IV SCH (15:00)
--- NOTE | 2016-12-27 16:10 | Urology Consultation ---
History of Present Illness - Data of Consult Consult date: 12/27/16 - Consult Narrative History of present illness: Mr. Preciado is a 76 year old male This 76-year-old white male is seen in consultation because of elevated residual urine on bladder scan. History is obtained from the patient's I am unable to get any information from the patient. The patient is bed ridden and post CVA and is been in a diaper voiding in the diaper and is unable to communicate if he has difficulty voiding or not. He has had 2 bladder scans one that show slightly over 300 cc and the other over 400 cc he has a Dc catheter in now. The patient has a past history of prostate problems but I am not sure if he is on prostate medication at home he is currently on Flomax. His initial urinalysis showed hematuria and pyuria and his initial urine culture grew out Klebsiella and E. coli follow-up urine culture grew out only yeast. He is currently on Levaquin. I am going recommend that we increase the Flomax dose at [facility] and will do a baseline PSA and then given a trial of voiding after a few more days of medication for BPH. Because the patient cannot tell us when he is voided is hard to tell if the bladder scan is a true residual urine CC: Steffen Reyes MD - Home Medications and Allergies Home Medications: Home Medications Medication Instructions Recorded Confirmed Type Aspirin [Ecotrin] 81 mg PO DAILY 07/12/16 12/21/16 History Metoprolol Tartrate 100 mg PO DAILY 12/21/16 12/21/16 History Allergies/Adverse Reactions: Allergies Allergy/AdvReac Type Severity Reaction Status Date / Time morphine Allergy Severe RASH Verified 12/22/16 10:30 Exam - Constitutional Vitals: Period Temp Pulse Resp BP Sys/Ferrara Pulse Ox Last 24 Hr 98.6 F-100.1 F 79-101 16-24 120-157/67-74 92-99 Results - Labs CBC & BMP: 12/27/16 05:32 12/27/16 05:31
[2016-12-27] MEDS: LEVOFLOXACIN INJ 500 MG in PREMIX 1 EACH IV SCH (17:04)
[2016-12-27] MEDS: FINASTERIDE 5 MG TABLET PO SCH (17:13)
[2016-12-27] MEDS: DESITIN 4OZ/NYSTATIN 15 GRAM MIXTURE PASTE TOP SCH ×2 (21:22→23:57)
[2016-12-28] MEDS: ALBUTEROL/IPRATROPIUM 3 ML NEB RESP TX SCH ×4 (01:04→20:18)
[2016-12-28] MEDS: ACETAMINOPHEN 325 MG TABLET PO PRN ×2 (01:36→23:05)
[2016-12-28] MEDS: INSULIN REGULAR 100 UNIT/ML SUBCUT SCH ×4 (01:37→18:32)
[2016-12-28] MEDS: DEXTROSE 5% 1,000 ML IV SCH ×3 (04:05→23:37)
[2016-12-28 06:37] LABS: Basophils # 0.1 10*3/uL (0.0-0.2); Basophils % 1.1 % (0.0-0.8); Eosinophils # 0.4 10*3/uL (0.0-0.87); Eosinophils % 4.3 % (0.00-10.9); Hematocrit 29.8 VOL% (42.0-52.0); Hemoglobin 9.2 GM/DL (14.0-18.0); Immature Granulocytes % 0.8 %; Immature Granulocytes Absolute 0.08 #; Lymphocytes # 1.3 10*3/uL (1.4-4.0); Lymphocytes % 12.4 % (21.2-54.2); Mean Corpuscular HGB Conc 30.9 GM/DL (32-36); Mean Corpuscular Hemoglobin 29 PG (27-34); Mean Corpuscular Volume 93.4 FL (87-102); Mean Platelet Volume 8.6 FL (9.6-12.0); Monocytes # 0.8 10*3/uL (0.11-0.8); Monocytes % 7.8 % (1.7-12.7); Neutrophils # 7.5 10*3/uL (1.4-7.4); Neutrophils % 73.6 % (38.7-73.9); Platelet Count 325 T/CUMM (130-400); Red Blood Count 3.19 MC/CUMM (3.8-5.5); Red Cell Distribution Width 14.1 % (9.3-17.3); White Blood Count 10.1 T/CUMM (4-12)
[2016-12-28 07:21] LABS: Alanine Aminotransferase 40 U/L (16-61); Albumin 2.4 G/DL (3.4-5.0); Alkaline Phosphatase 54 U/L (45-117); Aspartate Amino Transferase 18 U/L (0-37); Bilirubin,Total < 0.39 MG/DL (0.2-1.0); Blood Urea Nitrogen 24 MG/DL (7-18); Calcium 8.9 MG/DL (8.5-10.1); Glucose 210 MG/DL (74-106); Magnesium 2.1 MG/DL (1.8-2.4); Osmolality,Calculated 292.1 MOS/KG (273-304); Phosphorous 2.4 MG/DL (2.5-4.9); Sodium 142 MMOL/L (136-145); Total Protein 6.6 G/DL (6.4-8.3)
--- NOTE | 2016-12-28 07:41 | Urology Progress Note ---
Urology - PN: Subj Interval history: The patient's PSA is 1.7. I have increased his Flomax dose and add Proscar. I will give him a trial of voiding tomorrow Exam - Constitutional Vitals: Period Temp Pulse Resp BP Sys/Ferrara Pulse Ox Last 24 Hr 98.2 F-99.2 F 79-119 16-20 120-161/51-87 91-100 Results - Labs CBC & BMP: 12/28/16 06:21 12/28/16 06:21
[2016-12-28] MEDS ORDERED: FLUCONAZOLE 150 MG TABLET PO ONE (08:41)
--- NOTE | 2016-12-28 08:48 | Hospitalist Progress Note ---
Assessment and Plan - Time spent with patient Time spent with patient: Less than 30 minutes (1) Dehydration Status: Acute Assessment and plan: Upon admission patient's creatinine was 1.4 and with rehydration patient's creatinine is now normal. Will have dietary continue to work with patient's on PEG feedings. Dietary apparently wanting feedings every 4 hours and is refusing and only wants to feed the patient 3 times a day. Will discuss this with dietitian. Current Visit: Yes (2) Pneumonia Status: Acute Assessment and plan: Patient's white count is normal, he is afebrile, and his chest is clear. He is on Levaquin for pneumonia. We will continue this while he is here. Current Visit: Yes Qualifiers: Pneumonia type: aspiration pneumonia Aspiration pneumonia type: unspecified Laterality: right Lung location: middle lobe of lung Qualified Code(s): J69.0 - Pneumonitis due to inhalation of food and vomit (3) UTI (urinary tract infection) Status: Acute Assessment and plan: Patient's urine grew out yeast and he has been started on Diflucan. This will be continued for home. Dr. Caputo from urology is also following patient and has doubled his Flomax and will try voiding trials today. Current Visit: Yes (4) Heme positive stool Status: Acute Assessment and plan: Patient is undergoing EGD today by Dr. Jay. Patient is anemic but his anemia is stable at this time. Patient's care is all been discussed with Dr. Reyes. Patient should be able to go home tomorrow if all continues to go well. We will repeat labs in the morning. Current Visit: Yes Hospitalist: Subjective Interval history: Patient is awake and alert lying in bed. There is no family in the room and patient is nonverbal. Nursing states he is headed for EGD this morning per Dr. Jay for GI bleed. Exam - Constitutional Vitals: Period Temp Pulse Resp BP Sys/Ferrara Pulse Ox Last 24 Hr 98.2 F-99.2 F 92-119 16-20 123-161/51-87 91-100 Exam: 76-year-old white male, no acute distress Chest clear CV regular rate and rhythm Abdomen soft, PEG tube intact Extremities no edema Results - Labs CBC & BMP: 12/28/16 06:21 03/21/17 06:21 Lab Results: I have reviewed the past 24 hour labs
[2016-12-28] MEDS: FINASTERIDE 5 MG TABLET PO SCH (09:15)
[2016-12-28] MEDS: TAMSULOSIN 0.4 MG CAPSULE PO SCH ×3 (09:15→23:05)
[2016-12-28] MEDS: cephALEXin 500 MG CAPSULE PO SCH ×3 (09:15→23:05)
[2016-12-28] MEDS: PANTOPRAZOLE 40 MG TABLET PO SCH ×2 (09:15→23:05)
[2016-12-28] MEDS: METOPROLOL TARTRATE 100 MG TABLET PO SCH (09:15)
[2016-12-28] MEDS: DESITIN 4OZ/NYSTATIN 15 GRAM MIXTURE PASTE TOP SCH ×2 (09:20→23:38)
[2016-12-28] MEDS ORDERED: PROPOFOL 200 MG/20 ML VIAL IV ONE (12:46)
[2016-12-28] MEDS ORDERED: LIDOCAINE 100 MG/5 ML SYRINGE ONE (12:46)
--- NOTE | 2016-12-28 13:02 | History and Physical Update ---
History and Physical Update - Physical Exam Mental Status: alert and oriented Heart: regular rate and rhythm Lung: clear to auscultation Abdomen: within normal limits Vitals: within normal limits History and Physical Changes: 76-year-old male has had recent fall in his hemoglobin from 12 down to 8.5 with no gross GI bleeding but documented occult blood in stool. He also has had dysphagia to solids reported by family.
--- NOTE | 2016-12-28 13:06 | Operative Note ---
Date of procedure: 12/28/16 Pre-op diagnosis: Blood in stool, dysphagia Procedure: Procedure: Esophagogastroduodenoscopy Brief clinical abstract: Patient is a 76-year-old male admitted with UTI. He was noted to have had fallen his hemoglobin from 12 range down to 8.5-9 and found to have occult blood in stool. No gross GI bleeding has been noted. He has been noted to have had some dysphagia symptoms with solids. Indication for procedure: Blood in stool, dysphagia Endoscopic findings:[After informed consent was obtained, the patient was placed in the left lateral decubitus position. The gastroscope was inserted in the upper esophagus under direct vision with no resistance encountered. Esophageal mucosa appeared normal down to the squamocolumnar junction. There was a mildly obstructive ringlike stricture at that level consistent with reflux etiology. A small 1-2 cm hiatal hernia is present just distal to this. The endoscope was advanced in the stomach which was carefully examined including retroflexed view of the cardia and fundus. Patient has had previous PEG tube placement with normal appearance of this noted. Remainder the stomach appeared normal. The pyloric channel, duodenal bulb, second and third portion of the duodenum were normal. The endoscope was withdrawn and Gonzales dilator size 52 Kinyarwanda was inserted in the upper esophagus and advanced beyond the level of the GE junction with mild resistance encountered. No blood was noted on the dilator afterwards and he had no chest pain. He appeared to tolerate the procedure well. Impression: #1 distal esophageal stricture secondary to GERD-status post bougie dilation #2 small hiatal hernia #3 previous PEG tube placement Recommendations: Discussed with family about further evaluation. I have recommended not evaluating this with colonoscopy given his overall poor condition but yesterday states that she wants definitive diagnosis for source of bleeding. Anesthesia: [facility] [place], [place] Surgeon / Physician: Aryan Jay Estimated blood loss: none Specimens: none sent Condition: stable Disposition: post procedure unit Results - Labs CBC & BMP: 12/28/16 06:21 12/28/16 06:21 Discharge Plan - Discharge Medications No Action Aspirin [Ecotrin] 81 mg PO DAILY Metoprolol Tartrate 100 mg PO DAILY - Follow Up or Referral - Forms/Instructions
--- NOTE | 2016-12-28 13:49 | Anesthesia ---
Anesthesia Post OP - Post Ansesthetic Evaluation Patient seen in post op: Yes Resp: within normal limits CV: within normal limits Mental: within normal limits Temp: within normal limits [id number]: within normal limits Nausea and Vomiting: within normal limits Pain: within normal limits
[2016-12-28] MEDS: LEVOFLOXACIN INJ 500 MG in PREMIX 1 EACH IV SCH (15:47)
[2016-12-29] MEDS: ALBUTEROL/IPRATROPIUM 3 ML NEB RESP TX SCH ×4 (00:48→19:47)
[2016-12-29] MEDS: INSULIN REGULAR 100 UNIT/ML SUBCUT SCH ×4 (00:57→19:09)
[2016-12-29 02:53] LABS: Basophils # 0.1 10*3/uL (0.0-0.2); Basophils % 0.9 % (0.0-0.8); Eosinophils # 0.4 10*3/uL (0.0-0.87); Eosinophils % 3.5 % (0.00-10.9); Hematocrit 29.5 VOL% (42.0-52.0); Hemoglobin 9.1 GM/DL (14.0-18.0); Immature Granulocytes % 0.6 %; Immature Granulocytes Absolute 0.06 #; Lymphocytes # 1.3 10*3/uL (1.4-4.0); Lymphocytes % 11.8 % (21.2-54.2); Mean Corpuscular HGB Conc 30.8 GM/DL (32-36); Mean Corpuscular Hemoglobin 29 PG (27-34); Mean Corpuscular Volume 93.9 FL (87-102); Mean Platelet Volume 8.9 FL (9.6-12.0); Monocytes # 0.8 10*3/uL (0.11-0.8); Monocytes % 7.2 % (1.7-12.7); Neutrophils # 8.2 10*3/uL (1.4-7.4); Platelet Count 320 T/CUMM (130-400); Red Blood Count 3.14 MC/CUMM (3.8-5.5); Red Cell Distribution Width 14.4 % (9.3-17.3); White Blood Count 10.7 T/CUMM (4-12)
--- NOTE | 2016-12-29 07:47 | Urology Progress Note ---
Urology - PN: Subj Interval history: Trial of voiding today Exam - Constitutional Vitals: Period Temp Pulse Resp BP Sys/Ferrara Pulse Ox Last 24 Hr 98.7 F-99.1 F 72-124 18-24 101-155/49-78 93-100 Results - Labs CBC & BMP: 12/29/16 02:26 12/28/16 06:21
--- NOTE | 2016-12-29 09:43 | Gastrointestinal Progress Note ---
Assessment and Plan (1) Anemia Status: Acute Assessment and plan: 12/29-hemoglobin stable at 9.1. EGD findings noted. No plans to proceed with colonoscopy at this time. Plan an addendum to follow by Dr. Jay. 12/27-History of anemia per , monitored by [facility] in [place]. Findings of heme positive stool on admission, no overt bleeding reported. Hemoglobin 10 on admission now 8.7.Last colonoscopy prior to 1999, history of colon cancer surgically removed. Plan an addendum to followed by Dr. Jay Current Visit: Yes Qualifiers: Other causes of anemia: other cause, not classified Gastroenterology - PN: Subj Interval history: CC: Blood in stool, dysphagia Patient is seen, more alert but nonverbal. at bedside. EGD findings noted with esophageal stricture, post dilation and small hiatal hernia. Patient 's has decided this morning that she does not want to proceed with a colonoscopy at this time. She has concerns when they return home regarding detecting blood in his stools are anemia. Reviewed with patient's signs and symptoms to look for regarding this. Hemoglobin is stable at 9.1. Abdomen is soft, nontender. Review of systems: No acute distress noted Exam (Progress Note) - Constitutional Vitals: Period Temp Pulse Resp BP Sys/Ferrara Pulse Ox Last 24 Hr 98.7 F-99.6 F 72-124 18-24 101-171/49-86 93-100 General appearance: normal weight, no acute distress - Head Head exam: Present: normal inspection, normocephalic - Eye Eye exam: Present: other (Lids and conjunctive are unremarkable). Absent: scleral icterus - ENT ENT exam: Present: normal exam, normal oropharynx - Neck Neck exam: Present: normal inspection - Respiratory Respiratory exam: Present: clear to auscultation bilaterally. Absent: rales, rhonchi, wheezes - Cardiovascular Cardiovascular exam: Present: regular rate and rhythm. Absent: diastolic murmur , JVD, systolic murmur - GI/Abdominal GI/Abdominal exam: Present: normal bowel sounds, soft. Absent: ascites, distended, mass, organomegaly, tenderness - Extremities Exam Extremities exam: Present: normal inspection - Back Exam Back exam: Present: normal inspection - Neurological Exam Neurological exam: Present: alert, altered - Psychiatric Psychiatric exam: Present: flat affect, other - Skin Skin exam: Present: normal color, warm, dry Results - Labs CBC & BMP: 12/29/16 02:26 12/28/16 06:21 Lab Results: I have reviewed the past 24 hour labs
[2016-12-29] MEDS: DEXTROSE 5% 1,000 ML IV SCH ×3 (09:44→15:36)
[2016-12-29] MEDS: METOPROLOL TARTRATE 100 MG TABLET PO SCH (09:45)
--- NOTE | 2016-12-29 09:47 | Hospitalist Progress Note ---
Assessment and Plan (1) Anemia Status: Acute Assessment and plan: H/H stable 91./29.5. Continue PPI's and monitor for overt bleeding. No plans for colonoscopy at this time. Current Visit: Yes Qualifiers: Other causes of anemia: other cause, not classified (2) Dehydration Status: Acute Assessment and plan: Continue IVF as previously ordered; will check lytes. Current Visit: Yes Hospitalist: Subjective Interval history: Patient seen and examined. Trial voiding to start today. Seen by GI; however refuses colonoscopy at this time. No significant overnight events otherwise. May be appropriate for discharge in AM if okay with Urology. Exam - Constitutional Vitals: Period Temp Pulse Resp BP Sys/Ferrara Pulse Ox Last 24 Hr 98.7 F-99.6 F 72-124 18-24 101-171/49-86 93-100 General appearance: normal weight, no acute distress - Head Head exam: Present: normal inspection, normocephalic, atraumatic - Eye Eye exam: Present: EOMI. Absent: periorbital swelling, scleral icterus Pupils: Present: BETO, normal accommodation - ENT ENT exam: Present: normal exam - Neck Neck exam: Present: normal inspection. Absent: lymphadenopathy, meningismus, tenderness, thyromegaly - Respiratory Respiratory exam: Present: decreased breath sounds - Cardiovascular Cardiovascular exam: Present: regular rate and rhythm. Absent: carotid bruit, diastolic murmur, gallop, JVD, rubs, systolic murmur - GI/Abdominal GI/Abdominal exam: Present: normal bowel sounds, soft. Absent: distended, mass - Extremities Exam Extremities exam: Present: other (contractures to upper and lower extremeties) - Neurological Exam Neurological exam: Present: alert, altered - Psychiatric Psychiatric exam: Present: normal affect - Skin Skin exam: Present: dry, pallor Results - Labs CBC & BMP: 12/29/16 02:26 12/28/16 06:21 Lab Results: I have reviewed the past 24 hour labs
[2016-12-29] MEDS: cephALEXin 500 MG CAPSULE PO SCH ×3 (10:14→21:30)
[2016-12-29] MEDS: FINASTERIDE 5 MG TABLET PO SCH (10:14)
[2016-12-29] MEDS: TAMSULOSIN 0.4 MG CAPSULE PO SCH ×3 (10:15→21:30)
[2016-12-29] MEDS: DESITIN 4OZ/NYSTATIN 15 GRAM MIXTURE PASTE TOP SCH ×2 (10:15→22:39)
[2016-12-29] MEDS: PANTOPRAZOLE 40 MG TABLET PO SCH ×2 (15:08→21:30)
[2016-12-29] MEDS: LEVOFLOXACIN INJ 500 MG in PREMIX 1 EACH IV SCH (15:08)
[2016-12-29] MEDS: ACETAMINOPHEN 325 MG TABLET PO PRN (21:29)
[2016-12-30] MEDS: ALBUTEROL/IPRATROPIUM 3 ML NEB RESP TX SCH ×4 (00:59→19:46)
[2016-12-30] MEDS: INSULIN REGULAR 100 UNIT/ML SUBCUT SCH ×4 (01:20→19:54)
[2016-12-30] MEDS: ACETAMINOPHEN 325 MG TABLET PO PRN ×2 (05:10→22:56)
[2016-12-30] MEDS: DEXTROSE 5% 1,000 ML IV SCH ×2 (05:13→20:26)
[2016-12-30 05:28] LABS: Basophils # 0.1 10*3/uL (0.0-0.2); Eosinophils # 0.4 10*3/uL (0.0-0.87); Eosinophils % 4.7 % (0.00-10.9); Hematocrit 29.9 VOL% (42.0-52.0); Hemoglobin 9.3 GM/DL (14.0-18.0); Immature Granulocytes % 0.9 %; Immature Granulocytes Absolute 0.08 #; Lymphocytes # 1.5 10*3/uL (1.4-4.0); Lymphocytes % 17.4 % (21.2-54.2); Mean Corpuscular HGB Conc 31.1 GM/DL (32-36); Mean Corpuscular Hemoglobin 29 PG (27-34); Mean Corpuscular Volume 92.6 FL (87-102); Mean Platelet Volume 8.8 FL (9.6-12.0); Monocytes # 0.8 10*3/uL (0.11-0.8); Monocytes % 9.4 % (1.7-12.7); Neutrophils # 5.9 10*3/uL (1.4-7.4); Neutrophils % 66.6 % (38.7-73.9); Platelet Count 289 T/CUMM (130-400); Red Blood Count 3.23 MC/CUMM (3.8-5.5); Red Cell Distribution Width 14.8 % (9.3-17.3); White Blood Count 8.9 T/CUMM (4-12)
[2016-12-30 06:21] LABS: Albumin 2.6 G/DL (3.4-5.0); Bilirubin,Total 0.5 MG/DL (0.2-1.0); Calcium 8.6 MG/DL (8.5-10.1); Magnesium 2.2 MG/DL (1.8-2.4); Osmolality,Calculated 293.1 MOS/KG (273-304); Phosphorous 3.6 MG/DL (2.5-4.9); Potassium 4.8 MMOL/L (3.5-5.1)
--- NOTE | 2016-12-30 08:05 | Urology Progress Note ---
Urology - PN: Subj Interval history: The patient has 100-250 cc in his bladder when catheterized. Because we cannot be 100% sure that the patient voids prior to catheterization I cannot be totally sure that this is a true residual urine. The fact that he had 100 cc on one catheterization would indicate that the patient is emptying his bladder. I will have the nurses see if they can instruct the on intermittent catheterization in case this has to be done post discharge Exam - Constitutional Vitals: Period Temp Pulse Resp BP Sys/Ferrara Pulse Ox Last 24 Hr 97.4 F-99.2 F 96-119 16-20 111-131/56-67 92-99 Results - Labs CBC & BMP: 12/30/16 05:13 12/30/16 05:13
--- NOTE | 2016-12-30 08:17 | XRay Report ---
Portable chest Date: 12/30/2016 Clinical history: COPD Comparison: 12/23/2016 Technique: Portable AP sitting chest Findings: The heart is minimally enlarged with calcification in the aortic knob. Right [employer] shunt catheter with postoperative atelectasis and thoracic inlet. Chronic scarring in the lungs with right skin fold. Minimally progressive parenchymal findings in the right lung with minimal reduction in the parenchymal findings at the left lung base. Degenerative changes are noted with stable mediastinum. Prior cholecystectomy. Impression: Reduced infiltration at the left lung base. Minimally progressive diffuse infiltration in the right lung. Skinfold limits evaluation of the right chest. [employer] shunt catheter. PROCEDURE INTERPRETED AT [facility] DEPARTMENT OF RADIOLOGY Final Report Signed by: Dr. Jennifer Goyal
[2016-12-30] MEDS: TAMSULOSIN 0.4 MG CAPSULE PO SCH ×3 (08:43→20:35)
[2016-12-30] MEDS: METOPROLOL TARTRATE 100 MG TABLET PO SCH (10:07)
[2016-12-30] MEDS: FINASTERIDE 5 MG TABLET PO SCH (10:07)
[2016-12-30] MEDS: PANTOPRAZOLE 40 MG TABLET PO SCH ×2 (10:08→20:35)
[2016-12-30] MEDS: cephALEXin 500 MG CAPSULE PO SCH (10:11)
[2016-12-30] MEDS: DESITIN 4OZ/NYSTATIN 15 GRAM MIXTURE PASTE TOP SCH ×2 (10:11→20:35)
--- NOTE | 2016-12-30 10:38 | Hospitalist Progress Note ---
Assessment and Plan - Time spent with patient Time spent with patient: Less than 30 minutes (1) Dehydration Status: Acute Assessment and plan: Upon admission patient's creatinine was 1.4 and with rehydration patient's creatinine is now normal. Will have dietary continue to work with patient's on PEG feedings. Dietary apparently wanting feedings every 4 hours and is refusing and only wants to feed the patient 3 times a day. Will discuss this with dietitian. Current Visit: Yes (2) Pneumonia Status: Acute Assessment and plan: Patient's white count is normal, he is afebrile, and his chest is clear. He is on Levaquin for pneumonia. We will continue this while he is here. 12/30/16 pneumonia resolving. xr improved. on levaquin Current Visit: Yes Qualifiers: Pneumonia type: aspiration pneumonia Aspiration pneumonia type: unspecified Laterality: right Lung location: middle lobe of lung Qualified Code(s): J69.0 - Pneumonitis due to inhalation of food and vomit (3) UTI (urinary tract infection) Status: Acute Assessment and plan: Patient's urine grew out yeast and he has been started on Diflucan. This will be continued for home. Dr. Caputo from urology is also following patient and has doubled his Flomax and will try voiding trials today. 12/30/16 on diflucan. cont for home. pt w some residuals on voiding trials. nursing to teach to intermittent cath today. cont flomax. Current Visit: Yes (4) Heme positive stool Status: Acute Assessment and plan: Patient is undergoing EGD today by Dr. Jay. Patient is anemic but his anemia is stable at this time. Patient's care is all been discussed with Dr. Reyes. Patient should be able to go home tomorrow if all continues to go well. We will repeat labs in the morning. 12/30/[address] jay on 12/28/16 w esophageal dilation. pt also w peg tube feedings. is refusing CS. no bleeding noted per nursing staff. this has all been discussed w dr reyes. is really resistant to going home. am preparing her today for dc in am. pt has reached maximum hospital benefit. Current Visit: Yes Hospitalist: Subjective Interval history: pt awake and making eye contact. in the room and says shes not ready to go home today. maybe she will be ready tomorrow. Exam - Constitutional Vitals: Period Temp Pulse Resp BP Sys/Ferrara Pulse Ox Last 24 Hr 97.4 F-99.4 F 96-119 16-20 111-179/56-77 92-99 Exam: 78WM, NAD, awake chest clear cv rrr abd soft, nt ext no edema Results - Labs CBC & BMP: 12/30/16 05:13 12/30/16 05:13 Lab Results: I have reviewed the past 24 hour labs - Diagnostic Findings Procedure: Chest x-ray: report reviewed by me (mild improvement)
[2016-12-30] MEDS: FLUCONAZOLE 100 MG TABLET PO SCH (15:34)
[2016-12-30] MEDS: cephALEXin 250 MG CAPSULE PO SCH ×2 (15:34→20:35)
[2016-12-30] MEDS: LEVOFLOXACIN INJ 500 MG in PREMIX 1 EACH IV SCH (15:34)
[2016-12-31] MEDS: ALBUTEROL/IPRATROPIUM 3 ML NEB RESP TX SCH ×3 (00:01→14:04)
[2016-12-31] MEDS: INSULIN REGULAR 100 UNIT/ML SUBCUT SCH ×3 (00:46→11:52)
[2016-12-31 06:32] LABS: Calcium 8.8 MG/DL (8.5-10.1); Osmolality,Calculated 291.1 MOS/KG (273-304); Potassium 4.9 MMOL/L (3.5-5.1)
--- NOTE | 2016-12-31 07:51 | Urology Progress Note ---
Urology - PN: Subj Interval history: The patient last residual was 100 cc. Again it is hard to tell if it is a true residual collection to be 100% sure the patient is voiding prior to catheterization. I am going to decrease the frequency of catheterization to 3 times daily and as needed Exam - Constitutional Vitals: Period Temp Pulse Resp BP Sys/Ferrara Pulse Ox Last 24 Hr 98.0 F-99.6 F 91-112 16-20 128-179/55-77 95-98 Results - Labs CBC & BMP: 12/30/16 05:13 12/31/16 04:59
[2016-12-31] MEDS: FINASTERIDE 5 MG TABLET PO SCH (08:44)
[2016-12-31] MEDS: PANTOPRAZOLE 40 MG TABLET PO SCH (08:44)
[2016-12-31] MEDS: FLUCONAZOLE 100 MG TABLET PO SCH (08:44)
[2016-12-31] MEDS: METOPROLOL TARTRATE 100 MG TABLET PO SCH (08:45)
[2016-12-31] MEDS: DEXTROSE 5% 1,000 ML IV SCH (08:45)
[2016-12-31] MEDS: TAMSULOSIN 0.4 MG CAPSULE PO SCH ×2 (08:45)
[2016-12-31] MEDS: DESITIN 4OZ/NYSTATIN 15 GRAM MIXTURE PASTE TOP SCH (08:45)
[2016-12-31] MEDS: cephALEXin 250 MG CAPSULE PO SCH ×2 (08:52→14:54)
--- NOTE | 2016-12-31 09:51 | Discharge Summary ---
Hospital Course - Hospital Course Hospital Course: The patient was admitted to the hospital with fever. He was found to have urinary tract infection due to urinary retention. Urine culture revealed Klebsiella and E. coli bacteria. These were resistant to Cipro but sensitive to Keflex. We had consultation with Dr. Caputo concerning urinary retention which was apparent lead due to benign prostatic hypertrophy. Dr. Caputo added Proscar and increased Flomax to twice daily. The patient tolerated these changes well. The patient was on intermittent bladder catheterization in the last 72 hours of his hospital stay. Dr. Caputo feels that the patient should be able to be managed without intermittent catheterization program at home, but wishes home health to check the patient residual daily for 7 days and report back to him. At the time of admission to the hospital, the patient had question of rectal bleeding. Dr. Jay was consulted and offered esophagogastroduodenoscopy. The patient's esophagus was dilated due to some esophageal stricture disease. No ulcer was seen. Dr. Jay did not feel that colonoscopy was indicated. On the date of discharge, the patient's chest is clear and abdomen soft. Heart has regular rate and rhythm. I coordinated care with Dr. Caputo as well as the home health care case manager to arrange home health. The patient has a nurse practitioner who sees him in the home setting to avoid him having to go to the [facility] personally. - Time spent with patient Time with patient DS: Greater than 30 minutes Diagnosis - Discharge Diagnosis (1) Heme positive stool Status: Resolved (2) UTI (urinary tract infection) Status: Resolved Discharge Plan - Discharge Data Disposition: Home Health Service Condition at Discharge: Stable Discharge Diet: heart healthy Wound / Dressing Care Instructions: In/Out Bladder Catheter daily by home health for 7 days, then call result to Dr. Caputo - Discharge Medications New Tamsulosin [Flomax] 0.4 mg PO BID #100 capsule cephALEXin [Keflex] 250 mg PO TID #20 capsule Finasteride [Proscar] 5 mg PO DAILY #60 tablet Continue Aspirin [Ecotrin] 81 mg PO DAILY Metoprolol Tartrate 100 mg PO DAILY - Follow Up or Referral - Forms/Instructions Exam - Constitutional Vitals: Period Temp Pulse Resp BP Sys/Ferrara Pulse Ox Last 24 Hr 98.0 F-99.6 F 91-112 16-20 128-159/55-67 96-98 Discharge Results Procedures and tests throughout hospitalization: Pending Orders 12/25/16 10:05 Occult Blood, Stool Routine 01/03/17 04:00 Prealbumin MOTH Labs on day of discharge: Labs from last 24 hours 12/31/16 12/31/16 12/30/16 05:44 04:59 23:02 Sodium 142 Potassium 4.9 Chloride 104 Carbon Dioxide 28 Anion Gap 14.9 BUN 33 H Creatinine 1.20 GFR Calculation 66 BUN/Creatinine Ratio 27.00 H Glucose 140 H POC Glucose 145 H 198 H Calculated Osmolality 291.1 Calcium 8.8 12/30/16 12/30/16 18:57 11:35 Sodium Potassium Chloride Carbon Dioxide Anion Gap BUN Creatinine GFR Calculation BUN/Creatinine Ratio Glucose POC Glucose 158 H 289 H Calculated Osmolality Calcium DS: Provider Date of admission: 12/21/16 13:47 Primary care physician: . No PCP Attending physician on admission: Mohan Aguirre MD Consults: 12/21/16 14:12 Consult to Pharmacy [CONS] Routine Reason for Pharmacy Consult: Adjust Meds Renal Funct 12/22/16 17:58 Consult to Dietitian [CONS] Routine Reason for Dietitian: TF-Initiate/Manage Consult Comment: PATIENT WITH PEG. RECOMENDATIONS PLEASE! 12/25/16 13:28 Consult to Physician [CONS] Routine Comment: Consulting Provider: Aryan Jay Consulting Provider Notified: Yes When should Consulting Provider be notified: In am Consult to Specialist Group: Gastroenterology When should Consulting Provider be notified: Now Person Notified: connor Date Notified: 12/27/16 Time Notified: 09:08 Consult Notification Comment: Worsening anemia with heme-positive stools helen called with consult 12/27/16 13:22 Consult to Physician [CONS] Routine Comment: urinary retention Consulting Provider: Nicho Caputo Consulting Provider Notified: Yes When should Consulting Provider be notified: Now Person Notified: janina called Date Notified: 12/27/16 Time Notified: 13:54 Discharging clinician: Steffen Reyes MD
[2016-12-31 12:13] VITALS: BP 150/76
[2016-12-31] MEDS: LEVOFLOXACIN INJ 500 MG in PREMIX 1 EACH IV SCH (13:37)
== END 2016-12-31 16:09 | disposition home health service (06) | DRG 178 ==
LOC: EDUNIT# 11:12 → EDBD 11:12 → N.ED 11:12 → SUATTDRO 13:47 → N.EDINP 13:47 → N.3E 14:19
PROVIDERS: ADMIT Internal Medicine Infectious Disease; ATTEND Internal Medicine

== ENCOUNTER 2017-12-09 20:45 | Inpatient (IN) ==
[2017-12-09] MEDS ORDERED: LEVOFLOXACIN INJ 750 MG in PREMIX 1 EACH IV STA (21:17)
[2017-12-09] MEDS ORDERED: ALBUTEROL/IPRATROPIUM 3 ML NEB RESP TX STA (21:17)
[2017-12-09] MEDS ORDERED: SODIUM CHLORIDE 0.9% 1,000 ML IV STA ×2 (21:17→22:29)
[2017-12-09] MEDS ORDERED: LEVOFLOXACIN INJ 150 ML IV ONE (21:26)
[2017-12-09 21:33] LABS: Basophils # 0.1 10*3/uL (0.0-0.2); Basophils % 0.5 % (0.0-0.8); Eosinophils # 0.1 10*3/uL (0.0-0.87); Eosinophils % 1.2 % (0.00-10.9); Hematocrit 35.1 VOL% (42.0-52.0); Hemoglobin 11.1 GM/DL (14.0-18.0); Immature Granulocytes % 0.3 %; Immature Granulocytes Absolute 0.04 #; Lymphocytes # 0.6 10*3/uL (1.4-4.0); Mean Corpuscular HGB Conc 31.6 GM/DL (32-36); Mean Corpuscular Hemoglobin 31 PG (27-34); Mean Corpuscular Volume 97.8 FL (87-102); Mean Platelet Volume 9.4 FL (9.6-12.0); Monocytes % 8.9 % (1.7-12.7); Neutrophils # 9.7 10*3/uL (1.4-7.4); Neutrophils % 84.1 % (38.7-73.9); Platelet Count 215 T/CUMM (130-400); Red Blood Count 3.59 MC/CUMM (3.8-5.5); Red Cell Distribution Width 14.7 % (9.3-17.3); White Blood Count 11.6 T/CUMM (4-12)
[2017-12-09 21:42] LABS: PT Patient Result 10.8 SECS
[2017-12-09 21:56] LABS: Alanine Aminotransferase 498 U/L (16-61); Alkaline Phosphatase 239 U/L (45-117); Aspartate Amino Transferase 230 U/L (0-37); Blood Urea Nitrogen 40 MG/DL (7-18); Calcium 8.7 MG/DL (8.5-10.1); Glucose 153 MG/DL (74-106); Osmolality,Calculated 285.8 MOS/KG (273-304); Potassium 5.4 MMOL/L (3.5-5.1); Sodium 137 MMOL/L (136-145); Total Protein 7.4 G/DL (6.4-8.3)
[2017-12-09 21:57] LABS: Apearance,Urine CLOUDY (Clear); Bacteria,Urine Many /HPF (Few); Bilirubin,Urine Negative (Negative); Blood, Urine Large mg/dL (Negative); Glucose,Urine (UA) Negative (Negative); Ketones,Urine Negative (Negative); Lactic Acid 2.6 MMOL/L (0.4-2.0); Nitrite,Urine Negative (Negative); Protein,Urine 100 MG/DL; RBC,Urine 532 /HPF (0-4); Urine Color Amber (Yellow); Urine Urobilinogen < 2.0 EU/DL (0.2-1.0); WBC,Urine 879 /HPF (0-6)
[2017-12-10] MEDS ORDERED: ONDANSETRON 4 MG/2 ML VIAL IV PRN (01:07)
[2017-12-10] MEDS ORDERED: MEROPENEM 1,000 MG VIAL IV ONE (01:14)
[2017-12-10] MEDS: MEROPENEM 1,000 MG in SYRINGE 1 EACH IV SCH ×3 (01:53→17:17)
[2017-12-10] MEDS ORDERED: ALBUTEROL 2.5 MG/3 ML NEB RESP TX PRN (02:30)
[2017-12-10] MEDS: SODIUM CHLORIDE 0.9% 1,000 ML IV SCH ×2 (03:46→15:05)
[2017-12-10] MEDS: ACETAMINOPHEN 325 MG TABLET PO PRN (05:41)
[2017-12-10 07:06] LABS: Basophils % 0.4 % (0.0-0.8); Eosinophils # 0.1 10*3/uL (0.0-0.87); Eosinophils % 1.5 % (0.00-10.9); Hemoglobin 10.2 GM/DL (14.0-18.0); Immature Granulocytes % 0.5 %; Immature Granulocytes Absolute 0.04 #; Lymphocytes # 0.6 10*3/uL (1.4-4.0); Lymphocytes % 7.7 % (21.2-54.2); Mean Corpuscular HGB Conc 31.9 GM/DL (32-36); Mean Corpuscular Hemoglobin 31 PG (27-34); Mean Corpuscular Volume 96.7 FL (87-102); Mean Platelet Volume 9.9 FL (9.6-12.0); Monocytes # 0.7 10*3/uL (0.11-0.8); Neutrophils # 5.9 10*3/uL (1.4-7.4); Neutrophils % 80.9 % (38.7-73.9); Platelet Count 206 T/CUMM (130-400); Red Blood Count 3.31 MC/CUMM (3.8-5.5); White Blood Count 7.3 T/CUMM (4-12)
[2017-12-10 07:17] LABS: Bacteria,Urine Occasional /HPF (Few); RBC,Urine 6986 /HPF (0-4); WBC,Urine 10099 /HPF (0-6)
[2017-12-10 07:18] LABS: Apearance,Urine Turbid (Clear); Bilirubin,Urine Negative (Negative); Glucose,Urine (UA) Negative (Negative); Ketones,Urine Negative (Negative); Nitrite,Urine Negative (Negative); Protein,Urine 100 MG/DL; Urine Color Red (Yellow)
[2017-12-10 07:19] LABS: Blood, Urine Large mg/dL (Negative); Urine Urobilinogen 0.2 EU/DL (0.2-1.0)
[2017-12-10] MEDS: ALBUTEROL/IPRATROPIUM 3 ML NEB RESP TX SCH ×3 (07:34→19:44)
[2017-12-10 07:36] LABS: Albumin 2.6 G/DL (3.4-5.0); Bilirubin,Total 0.7 MG/DL (0.2-1.0); Calcium 8.6 MG/DL (8.5-10.1); Osmolality,Calculated 286.4 MOS/KG (273-304); Potassium 5.1 MMOL/L (3.5-5.1); Total Protein 6.7 G/DL (6.4-8.3)
[2017-12-10] MEDS: MULTIVITAMIN (BEROCCA) TABLET PO SCH (08:59)
[2017-12-10] MEDS: TAMSULOSIN 0.4 MG CAPSULE PO SCH ×2 (08:59→21:27)
[2017-12-10] MEDS: FINASTERIDE 5 MG TABLET PO SCH (08:59)
[2017-12-10] MEDS: METOPROLOL TARTRATE 100 MG TABLET PO SCH (08:59)
[2017-12-10] MEDS: ASPIRIN EC 81 MG TABLET PO SCH (08:59)
[2017-12-10] MEDS ORDERED: ENOXAPARIN 40 MG/0.4 ML SYRINGE SUBCUT SCH (09:00)
[2017-12-10] MEDS: BISACODYL 10 MG SUPP RECTAL PRN (13:01)
[2017-12-10] MEDS: HYDROcod/ACETAMIN 7.5-325 MG/15 ML UDCUP PO PRN ×2 (15:05→22:36)
[2017-12-10] MEDS ORDERED: DEXTROSE 50% 25 GM/50 ML VIAL IV PRN (15:26)
[2017-12-10] MEDS ORDERED: GLUCAGON 1 MG VIAL IM PRN (15:26)
[2017-12-10] MEDS: OXYBUTYNIN 5 MG TABLET PO SCH (21:27)
[2017-12-10] MEDS: LEVOFLOXACIN INJ 750 MG in PREMIX 1 EACH IV SCH (21:32)
[2017-12-11] MEDS: ALBUTEROL/IPRATROPIUM 3 ML NEB RESP TX SCH ×4 (00:12→20:10)
[2017-12-11] MEDS: MEROPENEM 1,000 MG in SYRINGE 1 EACH IV SCH ×3 (04:18→16:50)
[2017-12-11] MEDS: HYDROcod/ACETAMIN 7.5-325 MG/15 ML UDCUP PO PRN ×3 (04:19→16:50)
[2017-12-11 06:32] LABS: Basophils % 0.6 % (0.0-0.8); Eosinophils # 0.2 10*3/uL (0.0-0.87); Eosinophils % 4.7 % (0.00-10.9); Hematocrit 26.9 VOL% (42.0-52.0); Hemoglobin 8.8 GM/DL (14.0-18.0); Immature Granulocytes % 0.6 %; Immature Granulocytes Absolute 0.03 #; Lymphocytes # 0.5 10*3/uL (1.4-4.0); Lymphocytes % 10.3 % (21.2-54.2); Mean Corpuscular HGB Conc 32.7 GM/DL (32-36); Mean Corpuscular Hemoglobin 32 PG (27-34); Mean Corpuscular Volume 97.5 FL (87-102); Mean Platelet Volume 9.2 FL (9.6-12.0); Monocytes # 0.6 10*3/uL (0.11-0.8); Monocytes % 12.5 % (1.7-12.7); Neutrophils # 3.7 10*3/uL (1.4-7.4); Neutrophils % 71.3 % (38.7-73.9); Platelet Count 181 T/CUMM (130-400); Red Blood Count 2.76 MC/CUMM (3.8-5.5); Red Cell Distribution Width 14.6 % (9.3-17.3); White Blood Count 5.1 T/CUMM (4-12)
[2017-12-11] MEDS: SODIUM CHLORIDE 0.9% 1,000 ML IV SCH ×2 (06:32→16:58)
[2017-12-11 06:55] LABS: Band Neutrophils 4 % (0-10); Eosinophils 4 % (0-10); Lymphocytes 23 % (20-55); Platelet Estimate Normal; Segmented Neutrophils 60 % (50-85); Total Cells Counted 100
[2017-12-11 06:56] LABS: Macrocytosis 2+
[2017-12-11 07:02] LABS: Albumin 2.2 G/DL (3.4-5.0); Bilirubin,Total 0.4 MG/DL (0.2-1.0); Calcium 8.3 MG/DL (8.5-10.1); Osmolality,Calculated 284.3 MOS/KG (273-304); Potassium 4.6 MMOL/L (3.5-5.1); Total Protein 5.9 G/DL (6.4-8.3)
[2017-12-11] MEDS: ASPIRIN EC 81 MG TABLET PO SCH (08:36)
[2017-12-11] MEDS: OXYBUTYNIN 5 MG TABLET PO SCH ×2 (08:36→14:36)
[2017-12-11] MEDS: TAMSULOSIN 0.4 MG CAPSULE PO SCH ×2 (08:36→21:54)
[2017-12-11] MEDS: FINASTERIDE 5 MG TABLET PO SCH (08:36)
[2017-12-11] MEDS: METOPROLOL TARTRATE 100 MG TABLET PO SCH (08:36)
[2017-12-11] MEDS: MULTIVITAMIN (BEROCCA) TABLET PO SCH (08:36)
[2017-12-11] MEDS: ACETAMINOPHEN 325 MG TABLET PO PRN ×3 (09:32→22:07)
[2017-12-11] MEDS ORDERED: HYDROmorphone 2 MG/1 ML VIAL IV PRN (09:37)
[2017-12-11] MEDS: VANCOMYCIN INJ 1,250 MG in SODIUM CHLORIDE 0.9% 250 ML IV SCH (14:36)
[2017-12-11] MEDS: LEVOFLOXACIN INJ 750 MG in PREMIX 1 EACH IV SCH (21:55)
[2017-12-12] MEDS: ALBUTEROL/IPRATROPIUM 3 ML NEB RESP TX SCH ×4 (00:41→19:41)
[2017-12-12] MEDS: MEROPENEM 1,000 MG in SYRINGE 1 EACH IV SCH ×4 (00:41→23:27)
[2017-12-12] MEDS: VANCOMYCIN INJ 1,250 MG in SODIUM CHLORIDE 0.9% 250 ML IV SCH ×2 (02:32→14:59)
[2017-12-12 06:27] LABS: Basophils % 0.5 % (0.0-0.8); Eosinophils # 0.2 10*3/uL (0.0-0.87); Eosinophils % 2.7 % (0.00-10.9); Hematocrit 31.1 VOL% (42.0-52.0); Immature Granulocytes % 0.9 %; Immature Granulocytes Absolute 0.06 #; Lymphocytes # 0.7 10*3/uL (1.4-4.0); Lymphocytes % 11.2 % (21.2-54.2); Mean Corpuscular HGB Conc 32.2 GM/DL (32-36); Mean Corpuscular Hemoglobin 31 PG (27-34); Mean Corpuscular Volume 96.9 FL (87-102); Mean Platelet Volume 9.1 FL (9.6-12.0); Monocytes # 0.7 10*3/uL (0.11-0.8); Monocytes % 10.2 % (1.7-12.7); Neutrophils # 4.9 10*3/uL (1.4-7.4); Neutrophils % 74.5 % (38.7-73.9); Platelet Count 223 T/CUMM (130-400); Red Blood Count 3.21 MC/CUMM (3.8-5.5); Red Cell Distribution Width 14.5 % (9.3-17.3); White Blood Count 6.6 T/CUMM (4-12)
[2017-12-12 06:47] LABS: Calcium 8.2 MG/DL (8.5-10.1); Osmolality,Calculated 276.7 MOS/KG (273-304); Prealbumin 15.4 MG/DL (20-40)
[2017-12-12] MEDS: ACETAMINOPHEN 325 MG TABLET PO PRN (06:47)
[2017-12-12 06:50] LABS: Giant Platelets Few; Hypochromasia 1+; Platelet Estimate Adequate
[2017-12-12] MEDS: SODIUM CHLORIDE 0.9% 1,000 ML IV SCH ×2 (07:14→23:11)
[2017-12-12] MEDS: TAMSULOSIN 0.4 MG CAPSULE PO SCH ×2 (09:58→23:11)
[2017-12-12] MEDS: METOPROLOL TARTRATE 100 MG TABLET PO SCH (09:58)
[2017-12-12] MEDS: FINASTERIDE 5 MG TABLET PO SCH (09:58)
[2017-12-12] MEDS: ASPIRIN EC 81 MG TABLET PO SCH (09:58)
[2017-12-12] MEDS: MULTIVITAMIN (BEROCCA) TABLET PO SCH (09:58)
[2017-12-12] MEDS: LACTULOSE 20 GM/30 ML UDCUP PO SCH ×2 (10:23→23:11)
[2017-12-12] MEDS: OXYBUTYNIN 5 MG TABLET PO SCH ×2 (15:00→23:11)
[2017-12-12] MEDS: HYDROcod/ACETAMIN 7.5-325 MG/15 ML UDCUP PO PRN (15:47)
[2017-12-12] MEDS ORDERED: MAGNESIUM CITRATE 300 ML BOTTLE PEG ONE (18:20)
[2017-12-13] MEDS: ALBUTEROL/IPRATROPIUM 3 ML NEB RESP TX SCH ×5 (00:58→23:46)
[2017-12-13] MEDS: VANCOMYCIN INJ 1,250 MG in SODIUM CHLORIDE 0.9% 250 ML IV SCH ×2 (01:42→14:40)
[2017-12-13 08:08] LABS: Basophils % 0.7 % (0.0-0.8); Eosinophils # 0.2 10*3/uL (0.0-0.87); Eosinophils % 3.7 % (0.00-10.9); Hemoglobin 9.3 GM/DL (14.0-18.0); Immature Granulocytes % 0.7 %; Immature Granulocytes Absolute 0.04 #; Lymphocytes # 0.9 10*3/uL (1.4-4.0); Lymphocytes % 14.5 % (21.2-54.2); Mean Corpuscular Hemoglobin 30 PG (27-34); Mean Platelet Volume 9.1 FL (9.6-12.0); Monocytes # 0.7 10*3/uL (0.11-0.8); Monocytes % 11.5 % (1.7-12.7); Neutrophils # 4.1 10*3/uL (1.4-7.4); Neutrophils % 68.9 % (38.7-73.9); Platelet Count 209 T/CUMM (130-400); Red Blood Count 3.06 MC/CUMM (3.8-5.5); Red Cell Distribution Width 14.4 % (9.3-17.3)
[2017-12-13] MEDS: FINASTERIDE 5 MG TABLET PO SCH (08:09)
[2017-12-13] MEDS: TAMSULOSIN 0.4 MG CAPSULE PO SCH ×2 (08:09→22:43)
[2017-12-13] MEDS: OXYBUTYNIN 5 MG TABLET PO SCH ×3 (08:09→22:43)
[2017-12-13] MEDS: MULTIVITAMIN (BEROCCA) TABLET PO SCH (08:09)
[2017-12-13] MEDS: ASPIRIN EC 81 MG TABLET PO SCH (08:09)
[2017-12-13] MEDS: METOPROLOL TARTRATE 100 MG TABLET PO SCH (08:09)
[2017-12-13] MEDS: LACTULOSE 20 GM/30 ML UDCUP PO SCH (08:09)
[2017-12-13] MEDS: MEROPENEM 1,000 MG in SYRINGE 1 EACH IV SCH (08:10)
[2017-12-13 08:33] LABS: Calcium 8.1 MG/DL (8.5-10.1); Osmolality,Calculated 286.8 MOS/KG (273-304); Potassium 4.5 MMOL/L (3.5-5.1)
[2017-12-13] MEDS: BISACODYL 10 MG SUPP RECTAL PRN (10:04)
[2017-12-13] MEDS: ERTAPENEM 1,000 MG in SODIUM CHLORIDE 0.9% 100 ML IV SCH (15:37)
[2017-12-14 06:46] LABS: Basophils # 0.1 10*3/uL (0.0-0.2); Basophils % 1.1 % (0.0-0.8); Eosinophils # 0.4 10*3/uL (0.0-0.87); Hemoglobin 9.4 GM/DL (14.0-18.0); Immature Granulocytes % 1.1 %; Immature Granulocytes Absolute 0.07 #; Lymphocytes % 15.7 % (21.2-54.2); Mean Corpuscular HGB Conc 31.3 GM/DL (32-36); Mean Corpuscular Hemoglobin 31 PG (27-34); Monocytes # 0.6 10*3/uL (0.11-0.8); Monocytes % 9.5 % (1.7-12.7); Neutrophils % 65.6 % (38.7-73.9); Platelet Count 220 T/CUMM (130-400); Red Blood Count 3.06 MC/CUMM (3.8-5.5); Red Cell Distribution Width 14.3 % (9.3-17.3); White Blood Count 6.1 T/CUMM (4-12)
[2017-12-14 07:14] LABS: Albumin 2.3 G/DL (3.4-5.0); Bilirubin,Total 0.4 MG/DL (0.2-1.0); Calcium 7.9 MG/DL (8.5-10.1); Osmolality,Calculated 285.8 MOS/KG (273-304); Potassium 4.3 MMOL/L (3.5-5.1)
[2017-12-14] MEDS: ALBUTEROL/IPRATROPIUM 3 ML NEB RESP TX SCH ×3 (07:20→19:12)
[2017-12-14] MEDS: SODIUM CHLORIDE 0.9% 1,000 ML IV SCH ×2 (09:40→10:05)
[2017-12-14] MEDS: ASPIRIN EC 81 MG TABLET PO SCH (09:41)
[2017-12-14] MEDS: FINASTERIDE 5 MG TABLET PO SCH (09:41)
[2017-12-14] MEDS: MULTIVITAMIN (BEROCCA) TABLET PO SCH (09:41)
[2017-12-14] MEDS: METOPROLOL TARTRATE 100 MG TABLET PO SCH (09:41)
[2017-12-14] MEDS: MAGNESIUM HYDROXIDE SUSP 30 ML UDCUP PO SCH (09:41)
[2017-12-14] MEDS: TAMSULOSIN 0.4 MG CAPSULE PO SCH ×2 (09:41→22:27)
[2017-12-14] MEDS: OXYBUTYNIN 5 MG TABLET PO SCH ×3 (09:41→22:27)
[2017-12-14] MEDS: VANCOMYCIN INJ 1,250 MG in SODIUM CHLORIDE 0.9% 250 ML IV SCH (09:42)
[2017-12-14] MEDS: ERTAPENEM 1,000 MG in SODIUM CHLORIDE 0.9% 100 ML IV SCH (16:05)
[2017-12-15] MEDS: ALBUTEROL/IPRATROPIUM 3 ML NEB RESP TX SCH ×4 (00:10→20:17)
[2017-12-15] MEDS: SODIUM CHLORIDE 0.9% 1,000 ML IV SCH (04:12)
[2017-12-15 05:42] LABS: Basophils # 0.1 10*3/uL (0.0-0.2); Eosinophils # 0.5 10*3/uL (0.0-0.87); Eosinophils % 7.7 % (0.00-10.9); Hematocrit 27.8 VOL% (42.0-52.0); Hemoglobin 8.8 GM/DL (14.0-18.0); Immature Granulocytes % 0.9 %; Immature Granulocytes Absolute 0.06 #; Lymphocytes # 1.2 10*3/uL (1.4-4.0); Lymphocytes % 17.6 % (21.2-54.2); Mean Corpuscular HGB Conc 31.7 GM/DL (32-36); Mean Corpuscular Hemoglobin 30 PG (27-34); Mean Corpuscular Volume 96.2 FL (87-102); Mean Platelet Volume 8.7 FL (9.6-12.0); Monocytes # 0.7 10*3/uL (0.11-0.8); Monocytes % 9.4 % (1.7-12.7); Neutrophils # 4.5 10*3/uL (1.4-7.4); Neutrophils % 63.4 % (38.7-73.9); Platelet Count 224 T/CUMM (130-400); Red Blood Count 2.89 MC/CUMM (3.8-5.5); Red Cell Distribution Width 14.4 % (9.3-17.3); White Blood Count 7.1 T/CUMM (4-12)
[2017-12-15 06:27] LABS: Calcium 7.8 MG/DL (8.5-10.1); Osmolality,Calculated 285.3 MOS/KG (273-304); Potassium 4.2 MMOL/L (3.5-5.1)
[2017-12-15] MEDS: ASPIRIN EC 81 MG TABLET PO SCH (11:23)
[2017-12-15] MEDS: MULTIVITAMIN (BEROCCA) TABLET PO SCH (11:23)
[2017-12-15] MEDS: FINASTERIDE 5 MG TABLET PO SCH (11:24)
[2017-12-15] MEDS: VANCOMYCIN INJ 1,250 MG in SODIUM CHLORIDE 0.9% 250 ML IV SCH (11:24)
[2017-12-15] MEDS: OXYBUTYNIN 5 MG TABLET PO SCH ×3 (11:24→20:57)
[2017-12-15] MEDS: TAMSULOSIN 0.4 MG CAPSULE PO SCH ×2 (11:24→20:57)
[2017-12-15] MEDS: MAGNESIUM HYDROXIDE SUSP 30 ML UDCUP PO SCH (11:24)
[2017-12-15] MEDS: METOPROLOL TARTRATE 100 MG TABLET PO SCH (11:24)
[2017-12-15] MEDS: ERTAPENEM 1,000 MG in SODIUM CHLORIDE 0.9% 100 ML IV SCH (15:34)
[2017-12-15 16:22] LABS: Apearance,Urine CLOUDY (Clear); Bilirubin,Urine Negative (Negative); Blood, Urine Moderate mg/dL (Negative); Glucose,Urine (UA) 50 mg/dL (Negative); Ketones,Urine Negative (Negative); Mucus,Urine Occasional /LPF (Occasional); Nitrite,Urine Negative (Negative); Protein,Urine 30 MG/DL; RBC,Urine 158 /HPF (0-4); Urine Color Yellow (Yellow); Urine Specific Gravity 1.015 (1.001-1.035); Urine Urobilinogen < 2.0 EU/DL (0.2-1.0); WBC,Urine 69 /HPF (0-6)
[2017-12-15] MEDS: ACETAMINOPHEN 325 MG TABLET PO PRN (20:57)
[2017-12-16] MEDS: SODIUM CHLORIDE 0.9% 1,000 ML IV SCH (00:15)
[2017-12-16] MEDS: ALBUTEROL/IPRATROPIUM 3 ML NEB RESP TX SCH ×4 (01:48→19:10)
[2017-12-16 07:38] LABS: Basophils # 0.1 10*3/uL (0.0-0.2); Basophils % 0.8 % (0.0-0.8); Eosinophils # 0.5 10*3/uL (0.0-0.87); Eosinophils % 6.7 % (0.00-10.9); Hematocrit 28.9 VOL% (42.0-52.0); Hemoglobin 9.1 GM/DL (14.0-18.0); Immature Granulocytes % 1.4 %; Lymphocytes # 1.2 10*3/uL (1.4-4.0); Lymphocytes % 16.8 % (21.2-54.2); Mean Corpuscular HGB Conc 31.5 GM/DL (32-36); Mean Corpuscular Hemoglobin 31 PG (27-34); Mean Platelet Volume 8.7 FL (9.6-12.0); Monocytes # 0.7 10*3/uL (0.11-0.8); Monocytes % 9.9 % (1.7-12.7); Neutrophils # 4.7 10*3/uL (1.4-7.4); Neutrophils % 64.4 % (38.7-73.9); Platelet Count 249 T/CUMM (130-400); Red Blood Count 2.98 MC/CUMM (3.8-5.5); Red Cell Distribution Width 14.4 % (9.3-17.3); White Blood Count 7.3 T/CUMM (4-12)
[2017-12-16] MEDS ORDERED: FUROSEMIDE 40 MG/4 ML VIAL IV ONE (08:40)
[2017-12-16 08:47] LABS: Calcium 7.6 MG/DL (8.5-10.1); Potassium 4.7 MMOL/L (3.5-5.1)
[2017-12-16] MEDS: TAMSULOSIN 0.4 MG CAPSULE PO SCH ×2 (09:42→20:12)
[2017-12-16] MEDS: OXYBUTYNIN 5 MG TABLET PO SCH ×3 (09:43→20:12)
[2017-12-16] MEDS: MAGNESIUM HYDROXIDE SUSP 30 ML UDCUP PO SCH (09:43)
[2017-12-16] MEDS: VANCOMYCIN INJ 1,250 MG in SODIUM CHLORIDE 0.9% 250 ML IV SCH (09:43)
[2017-12-16] MEDS: ASPIRIN EC 81 MG TABLET PO SCH (09:43)
[2017-12-16] MEDS: MULTIVITAMIN (BEROCCA) TABLET PO SCH (09:43)
[2017-12-16] MEDS: METOPROLOL TARTRATE 100 MG TABLET PO SCH (09:43)
[2017-12-16] MEDS: FINASTERIDE 5 MG TABLET PO SCH (09:43)
[2017-12-16] MEDS: ERTAPENEM 1,000 MG in SODIUM CHLORIDE 0.9% 100 ML IV SCH (16:26)
[2017-12-17] MEDS: ALBUTEROL/IPRATROPIUM 3 ML NEB RESP TX SCH ×4 (00:32→19:29)
[2017-12-17] MEDS: OXYBUTYNIN 5 MG TABLET PO SCH ×3 (09:09→20:35)
[2017-12-17] MEDS: ASPIRIN EC 81 MG TABLET PO SCH (09:09)
[2017-12-17] MEDS: MULTIVITAMIN (BEROCCA) TABLET PO SCH (09:09)
[2017-12-17] MEDS: METOPROLOL TARTRATE 100 MG TABLET PO SCH (09:09)
[2017-12-17] MEDS: TAMSULOSIN 0.4 MG CAPSULE PO SCH ×2 (09:09→20:36)
[2017-12-17] MEDS: FINASTERIDE 5 MG TABLET PO SCH (09:10)
[2017-12-17] MEDS: MAGNESIUM HYDROXIDE SUSP 30 ML UDCUP PO SCH (09:10)
[2017-12-17] MEDS: VANCOMYCIN INJ 1,250 MG in SODIUM CHLORIDE 0.9% 250 ML IV SCH (09:23)
[2017-12-17] MEDS: ERTAPENEM 1,000 MG in SODIUM CHLORIDE 0.9% 100 ML IV SCH (15:22)
[2017-12-18] MEDS: ALBUTEROL/IPRATROPIUM 3 ML NEB RESP TX SCH ×4 (00:16→19:25)
[2017-12-18] MEDS: ACETAMINOPHEN 325 MG/10.15 ML UDCUP PO PRN (00:31)
[2017-12-18 07:49] LABS: Alanine Aminotransferase 43 U/L (16-61); Albumin 2.4 G/DL (3.4-5.0); Alkaline Phosphatase 116 U/L (45-117); Aspartate Amino Transferase 22 U/L (0-37); Bilirubin,Direct < 0.100 MG/DL (0.0-0.20); Bilirubin,Indirect 0.3 MG/DL (0.0-1.0); Bilirubin,Total < 0.39 MG/DL (0.2-1.0)
[2017-12-18] MEDS ORDERED: FUROSEMIDE 40 MG/4 ML VIAL IV SCH ×2 (08:19→16:00)
[2017-12-18] MEDS ORDERED: FUROSEMIDE 40 MG/4 ML VIAL IV ONE (08:36)
[2017-12-18] MEDS: FLUCONAZOLE INJ 200 MG in PREMIX 1 EACH IV SCH (08:51)
[2017-12-18] MEDS: MAGNESIUM HYDROXIDE SUSP 30 ML UDCUP PO SCH (08:54)
[2017-12-18] MEDS: ASPIRIN EC 81 MG TABLET PO SCH (08:55)
[2017-12-18] MEDS: OXYBUTYNIN 5 MG TABLET PO SCH ×3 (08:55→20:40)
[2017-12-18] MEDS: MULTIVITAMIN (BEROCCA) TABLET PO SCH (08:55)
[2017-12-18] MEDS: TAMSULOSIN 0.4 MG CAPSULE PO SCH ×2 (08:55→20:40)
[2017-12-18] MEDS: FINASTERIDE 5 MG TABLET PO SCH (08:55)
[2017-12-18] MEDS: METOPROLOL TARTRATE 100 MG TABLET PO SCH (08:55)
[2017-12-18] MEDS: VANCOMYCIN INJ 1,250 MG in SODIUM CHLORIDE 0.9% 250 ML IV SCH (10:35)
[2017-12-18] MEDS: ERTAPENEM 1,000 MG in SODIUM CHLORIDE 0.9% 100 ML IV SCH (15:44)
[2017-12-19] MEDS: ALBUTEROL/IPRATROPIUM 3 ML NEB RESP TX SCH ×4 (01:22→19:30)
[2017-12-19 06:32] LABS: Basophils # 0.1 10*3/uL (0.0-0.2); Eosinophils # 0.4 10*3/uL (0.0-0.87); Eosinophils % 4.8 % (0.00-10.9); Hematocrit 31.9 VOL% (42.0-52.0); Hemoglobin 10.4 GM/DL (14.0-18.0); Immature Granulocytes % 0.8 %; Immature Granulocytes Absolute 0.07 #; Lymphocytes # 1.7 10*3/uL (1.4-4.0); Mean Corpuscular HGB Conc 32.6 GM/DL (32-36); Mean Corpuscular Hemoglobin 31 PG (27-34); Mean Corpuscular Volume 93.5 FL (87-102); Mean Platelet Volume 8.7 FL (9.6-12.0); Monocytes # 0.8 10*3/uL (0.11-0.8); Monocytes % 8.4 % (1.7-12.7); Neutrophils # 6.2 10*3/uL (1.4-7.4); Platelet Count 322 T/CUMM (130-400); Red Blood Count 3.41 MC/CUMM (3.8-5.5); Red Cell Distribution Width 14.7 % (9.3-17.3); White Blood Count 9.2 T/CUMM (4-12)
[2017-12-19 06:58] LABS: Calcium 8.7 MG/DL (8.5-10.1); Osmolality,Calculated 288.4 MOS/KG (273-304); Potassium 4.9 MMOL/L (3.5-5.1); Prealbumin 20.8 MG/DL (20-40)
[2017-12-19] MEDS: FLUCONAZOLE INJ 200 MG in PREMIX 1 EACH IV SCH (09:14)
[2017-12-19] MEDS: ASPIRIN EC 81 MG TABLET PO SCH (09:15)
[2017-12-19] MEDS: FINASTERIDE 5 MG TABLET PO SCH (09:15)
[2017-12-19] MEDS: FUROSEMIDE 40 MG/4 ML VIAL IV SCH ×2 (09:15→15:55)
[2017-12-19] MEDS: TAMSULOSIN 0.4 MG CAPSULE PO SCH ×2 (09:15→21:52)
[2017-12-19] MEDS: OXYBUTYNIN 5 MG TABLET PO SCH ×3 (09:15→21:52)
[2017-12-19] MEDS: MAGNESIUM HYDROXIDE SUSP 30 ML UDCUP PO SCH (09:15)
[2017-12-19] MEDS: METOPROLOL TARTRATE 100 MG TABLET PO SCH (09:15)
[2017-12-19] MEDS: MULTIVITAMIN (BEROCCA) TABLET PO SCH (09:15)
[2017-12-19] MEDS: VANCOMYCIN INJ 1,250 MG in SODIUM CHLORIDE 0.9% 250 ML IV SCH (10:37)
[2017-12-19] MEDS: ERTAPENEM 1,000 MG in SODIUM CHLORIDE 0.9% 100 ML IV SCH (15:09)
[2017-12-19] MEDS: ACETAMINOPHEN 325 MG/10.15 ML UDCUP PO PRN (21:54)
[2017-12-20] MEDS: ALBUTEROL/IPRATROPIUM 3 ML NEB RESP TX SCH ×2 (00:29→07:47)
[2017-12-20 06:28] LABS: Basophils # 0.1 10*3/uL (0.0-0.2); Basophils % 0.7 % (0.0-0.8); Eosinophils # 0.4 10*3/uL (0.0-0.87); Eosinophils % 3.4 % (0.00-10.9); Hematocrit 31.5 VOL% (42.0-52.0); Hemoglobin 10.3 GM/DL (14.0-18.0); Immature Granulocytes % 0.8 %; Lymphocytes # 1.7 10*3/uL (1.4-4.0); Lymphocytes % 14.5 % (21.2-54.2); Mean Corpuscular HGB Conc 32.7 GM/DL (32-36); Mean Corpuscular Hemoglobin 31 PG (27-34); Mean Corpuscular Volume 93.2 FL (87-102); Mean Platelet Volume 8.8 FL (9.6-12.0); Monocytes % 8.8 % (1.7-12.7); Neutrophils # 8.5 10*3/uL (1.4-7.4); Neutrophils % 71.8 % (38.7-73.9); Platelet Count 319 T/CUMM (130-400); Red Blood Count 3.38 MC/CUMM (3.8-5.5); Red Cell Distribution Width 14.6 % (9.3-17.3); White Blood Count 11.8 T/CUMM (4-12)
[2017-12-20 07:00] LABS: Calcium 8.7 MG/DL (8.5-10.1); Osmolality,Calculated 286.8 MOS/KG (273-304); Potassium 5.2 MMOL/L (3.5-5.1)
[2017-12-20 07:39] VITALS: BP 126/74
[2017-12-20] MEDS: FLUCONAZOLE INJ 200 MG in PREMIX 1 EACH IV SCH (08:08)
[2017-12-20] MEDS: FINASTERIDE 5 MG TABLET PO SCH (08:12)
[2017-12-20] MEDS: MAGNESIUM HYDROXIDE SUSP 30 ML UDCUP PO SCH (08:12)
[2017-12-20] MEDS: METOPROLOL TARTRATE 100 MG TABLET PO SCH (08:12)
[2017-12-20] MEDS: FUROSEMIDE 40 MG/4 ML VIAL IV SCH (08:12)
[2017-12-20] MEDS: MULTIVITAMIN (BEROCCA) TABLET PO SCH (08:12)
[2017-12-20] MEDS: OXYBUTYNIN 5 MG TABLET PO SCH (08:13)
[2017-12-20] MEDS: ASPIRIN EC 81 MG TABLET PO SCH (08:13)
[2017-12-20] MEDS: TAMSULOSIN 0.4 MG CAPSULE PO SCH (08:13)
== END 2017-12-20 11:27 | disposition home health service (06) | DRG 871 ==
LOC: EDUNIT# → EDBD → N.ED 20:45 → N.EDINP 12-10 00:55 → N.5E 12-10 01:34

== ENCOUNTER 2018-02-11 19:13 | Inpatient (IN) ==
[2018-02-11] MEDS ORDERED: PIPERACILLIN/TAZOBACTAM 3,375 MG in SODIUM CHLORIDE 0.9% 100 ML IV STA (19:40)
[2018-02-11] MEDS ORDERED: SODIUM CHLORIDE 0.9% 1,000 ML IV STA (19:40)
[2018-02-11 20:03] LABS: Basophils # 0.1 10*3/uL (0.0-0.2); Basophils % 0.6 % (0.0-0.8); Eosinophils % 0.3 % (0.00-10.9); Hematocrit 32.4 VOL% (42.0-52.0); Hemoglobin 10.7 GM/DL (14.0-18.0); Immature Granulocytes % 0.4 %; Immature Granulocytes Absolute 0.07 #; Lymphocytes # 0.4 10*3/uL (1.4-4.0); Lymphocytes % 2.5 % (21.2-54.2); Mean Corpuscular Hemoglobin 30 PG (27-34); Mean Corpuscular Volume 91.5 FL (87-102); Mean Platelet Volume 9.3 FL (9.6-12.0); Monocytes % 6.2 % (1.7-12.7); Neutrophils # 14.1 10*3/uL (1.4-7.4); Platelet Count 251 T/CUMM (130-400); Red Blood Count 3.54 MC/CUMM (3.8-5.5); Red Cell Distribution Width 14.7 % (9.3-17.3); White Blood Count 15.7 T/CUMM (4-12)
[2018-02-11 20:12] LABS: Alanine Aminotransferase 25 U/L (16-61); Albumin 2.8 G/DL (3.4-5.0); Alkaline Phosphatase 89 U/L (45-117); Aspartate Amino Transferase 21 U/L (0-37); Bilirubin,Total < 0.39 MG/DL (0.2-1.0); Blood Urea Nitrogen 36 MG/DL (7-18); Calcium 8.3 MG/DL (8.5-10.1); Glucose 138 MG/DL (74-106); Lactic Acid 2.2 MMOL/L (0.4-2.0); Osmolality,Calculated 273.5 MOS/KG (273-304); PT Patient Result 10.4 SECS; Potassium 4.8 MMOL/L (3.5-5.1); Sodium 132 MMOL/L (136-145); Total Protein 7.3 G/DL (6.4-8.3)
[2018-02-11 20:59] LABS: Band Neutrophils 8 % (0-10); Eosinophils 1 % (0-10); Lymphocytes 4 % (20-55); Segmented Neutrophils 82 % (50-85); Total Cells Counted 100
[2018-02-11 21:00] LABS: Anisocytosis 1+; Polychromasia Few
[2018-02-11 21:01] LABS: Ovalocytes Few
[2018-02-11 21:03] LABS: Macrocytosis 1+
[2018-02-11 21:04] LABS: Stomatocytes 1+
[2018-02-11 21:06] LABS: Platelet Estimate Normal
[2018-02-11] MEDS ORDERED: PIPERACILLIN/TAZOBACTAM 3,375 MG VIAL IV ONE (21:10)
[2018-02-11] MEDS ORDERED: SODIUM CHLORIDE 0.9% 100 ML IV ONE (21:11)
[2018-02-11 21:33] LABS: Apearance,Urine CLOUDY (Clear); Bacteria,Urine Many /HPF (Few); Bilirubin,Urine Negative (Negative); Blood, Urine Large mg/dL (Negative); Glucose,Urine (UA) 150 mg/dL (Negative); Ketones,Urine Negative (Negative); Nitrite,Urine Negative (Negative); Protein,Urine 30 MG/DL; RBC,Urine 61 /HPF (0-4); Urine Color Amber (Yellow); Urine Specific Gravity 1.006 (1.001-1.035); Urine Urobilinogen < 2.0 EU/DL (0.2-1.0); WBC,Urine 403 /HPF (0-6)
[2018-02-11 22:35] LABS: Sedimentation Rate-Westergren 109 MM/HR (0-20)
[2018-02-11] MEDS ORDERED: ONDANSETRON 4 MG/2 ML VIAL IV PRN (23:19)
[2018-02-12] MEDS ORDERED: SODIUM CHLORIDE 0.9% 100 ML IV ONE (00:34)
[2018-02-12] MEDS: ENOXAPARIN 40 MG/0.4 ML SYRINGE SUBCUT SCH ×2 (00:35→20:40)
[2018-02-12] MEDS: MEROPENEM 1,000 MG in SYRINGE 1 EACH IV SCH ×4 (00:36→23:19)
[2018-02-12] MEDS: SODIUM CHLORIDE 0.9% 1,000 ML IV SCH ×2 (00:37→14:45)
[2018-02-12 06:50] LABS: Basophils # 0.1 10*3/uL (0.0-0.2); Basophils % 0.5 % (0.0-0.8); Eosinophils # 0.1 10*3/uL (0.0-0.87); Hematocrit 30.3 VOL% (42.0-52.0); Hemoglobin 9.9 GM/DL (14.0-18.0); Immature Granulocytes % 0.3 %; Immature Granulocytes Absolute 0.04 #; Lymphocytes # 1.2 10*3/uL (1.4-4.0); Lymphocytes % 9.4 % (21.2-54.2); Mean Corpuscular HGB Conc 32.7 GM/DL (32-36); Mean Corpuscular Hemoglobin 30 PG (27-34); Mean Corpuscular Volume 92.7 FL (87-102); Mean Platelet Volume 9.1 FL (9.6-12.0); Monocytes # 1.1 10*3/uL (0.11-0.8); Monocytes % 8.5 % (1.7-12.7); Neutrophils % 80.3 % (38.7-73.9); Platelet Count 232 T/CUMM (130-400); Red Blood Count 3.27 MC/CUMM (3.8-5.5); Red Cell Distribution Width 14.9 % (9.3-17.3); White Blood Count 12.5 T/CUMM (4-12)
[2018-02-12 07:31] LABS: Calcium 8.2 MG/DL (8.5-10.1); Osmolality,Calculated 282.7 MOS/KG (273-304); Potassium 4.8 MMOL/L (3.5-5.1)
[2018-02-12] MEDS: OXYBUTYNIN 5 MG TABLET PO SCH ×3 (10:50→20:40)
[2018-02-12] MEDS: ASPIRIN EC 81 MG TABLET PO SCH (10:50)
[2018-02-12] MEDS: METOPROLOL TARTRATE 100 MG TABLET PO SCH (10:50)
[2018-02-13] MEDS: SODIUM CHLORIDE 0.9% 1,000 ML IV SCH ×3 (02:45→21:20)
[2018-02-13 07:04] LABS: Basophils # 0.1 10*3/uL (0.0-0.2); Basophils % 1.2 % (0.0-0.8); Eosinophils # 0.2 10*3/uL (0.0-0.87); Eosinophils % 3.3 % (0.00-10.9); Hematocrit 29.8 VOL% (42.0-52.0); Hemoglobin 9.6 GM/DL (14.0-18.0); Immature Granulocytes % 0.5 %; Immature Granulocytes Absolute 0.03 #; Mean Corpuscular HGB Conc 32.2 GM/DL (32-36); Mean Corpuscular Hemoglobin 30 PG (27-34); Mean Corpuscular Volume 92.3 FL (87-102); Mean Platelet Volume 9.5 FL (9.6-12.0); Monocytes # 0.7 10*3/uL (0.11-0.8); Monocytes % 11.2 % (1.7-12.7); Neutrophils # 4.1 10*3/uL (1.4-7.4); Neutrophils % 67.8 % (38.7-73.9); Platelet Count 218 T/CUMM (130-400); Red Blood Count 3.23 MC/CUMM (3.8-5.5); Red Cell Distribution Width 14.8 % (9.3-17.3); White Blood Count 6.1 T/CUMM (4-12)
[2018-02-13 07:23] LABS: Calcium 8.2 MG/DL (8.5-10.1); Osmolality,Calculated 282.3 MOS/KG (273-304); Osmolality,Calculated 284.1 MOS/KG (273-304); Potassium 4.5 MMOL/L (3.5-5.1)
[2018-02-13] MEDS ORDERED: GLUCAGON 1 MG VIAL IM PRN (08:02)
[2018-02-13] MEDS ORDERED: DEXTROSE 50% 25 GM/50 ML VIAL IV PRN (08:02)
[2018-02-13] MEDS: MEROPENEM 1,000 MG in SYRINGE 1 EACH IV SCH ×2 (09:25→16:15)
[2018-02-13] MEDS: METOPROLOL TARTRATE 100 MG TABLET PO SCH (09:26)
[2018-02-13] MEDS: ASPIRIN EC 81 MG TABLET PO SCH (09:26)
[2018-02-13] MEDS: OXYBUTYNIN 5 MG TABLET PO SCH ×3 (09:26→21:15)
[2018-02-13] MEDS ORDERED: VANCOMYCIN INJ 2,000 MG in SODIUM CHLORIDE 0.9% 500 ML IV ONE (10:00)
[2018-02-13] MEDS: INSULIN REGULAR 100 UNIT/ML SUBCUT SCH ×2 (12:34→17:42)
[2018-02-13] MEDS: VANCOMYCIN INJ 1,250 MG in SODIUM CHLORIDE 0.9% 250 ML IV SCH (21:15)
[2018-02-13] MEDS: ACETAMINOPHEN 500 MG TABLET PER TUBE PRN (21:15)
[2018-02-13] MEDS: ENOXAPARIN 40 MG/0.4 ML SYRINGE SUBCUT SCH (21:15)
[2018-02-14] MEDS: INSULIN REGULAR 100 UNIT/ML SUBCUT SCH ×4 (00:57→17:31)
[2018-02-14] MEDS: MEROPENEM 1,000 MG in SYRINGE 1 EACH IV SCH ×3 (01:33→17:04)
[2018-02-14 05:32] LABS: Calcium 7.8 MG/DL (8.5-10.1); Osmolality,Calculated 286.1 MOS/KG (273-304); Potassium 4.3 MMOL/L (3.5-5.1); Prealbumin 16.8 MG/DL (20-40)
[2018-02-14] MEDS: OXYBUTYNIN 5 MG TABLET PO SCH ×3 (08:37→21:13)
[2018-02-14] MEDS: ASPIRIN EC 81 MG TABLET PO SCH (08:37)
[2018-02-14] MEDS: METOPROLOL TARTRATE 100 MG TABLET PO SCH (08:37)
[2018-02-14] MEDS: VANCOMYCIN INJ 1,250 MG in SODIUM CHLORIDE 0.9% 250 ML IV SCH ×2 (10:12→23:18)
[2018-02-14] MEDS: SODIUM CHLORIDE 0.9% 1,000 ML IV SCH ×2 (11:59→23:23)
[2018-02-14] MEDS: ACETAMINOPHEN 500 MG TABLET PER TUBE PRN (17:05)
[2018-02-14] MEDS: ENOXAPARIN 40 MG/0.4 ML SYRINGE SUBCUT SCH (21:13)
[2018-02-14] MEDS: ceFAZolin 2,000 MG in SYRINGE 1 EACH IV SCH (21:13)
[2018-02-15] MEDS: INSULIN REGULAR 100 UNIT/ML SUBCUT SCH ×4 (00:17→18:32)
[2018-02-15] MEDS: SODIUM CHLORIDE 0.9% 1,000 ML IV SCH ×3 (01:14→17:48)
[2018-02-15] MEDS: ceFAZolin 2,000 MG in SYRINGE 1 EACH IV SCH ×3 (04:50→21:01)
[2018-02-15 07:53] LABS: Basophils # 0.1 10*3/uL (0.0-0.2); Basophils % 0.7 % (0.0-0.8); Eosinophils # 0.4 10*3/uL (0.0-0.87); Eosinophils % 5.2 % (0.00-10.9); Hematocrit 31.9 VOL% (42.0-52.0); Hemoglobin 10.5 GM/DL (14.0-18.0); Immature Granulocytes % 0.7 %; Immature Granulocytes Absolute 0.05 #; Lymphocytes # 1.1 10*3/uL (1.4-4.0); Lymphocytes % 16.6 % (21.2-54.2); Mean Corpuscular HGB Conc 32.9 GM/DL (32-36); Mean Corpuscular Hemoglobin 30 PG (27-34); Mean Corpuscular Volume 89.9 FL (87-102); Monocytes # 0.5 10*3/uL (0.11-0.8); Monocytes % 7.8 % (1.7-12.7); Neutrophils # 4.7 10*3/uL (1.4-7.4); Platelet Count 247 T/CUMM (130-400); Red Blood Count 3.55 MC/CUMM (3.8-5.5); Red Cell Distribution Width 14.6 % (9.3-17.3); White Blood Count 6.8 T/CUMM (4-12)
[2018-02-15 08:22] LABS: Calcium 8.4 MG/DL (8.5-10.1); Potassium 4.5 MMOL/L (3.5-5.1)
[2018-02-15] MEDS: METOPROLOL TARTRATE 100 MG TABLET PO SCH (11:15)
[2018-02-15] MEDS: OXYBUTYNIN 5 MG TABLET PO SCH ×3 (11:15→21:01)
[2018-02-15] MEDS: ASPIRIN EC 81 MG TABLET PO SCH (11:15)
[2018-02-15] MEDS ORDERED: VANCOMYCIN INJ 1,250 MG in SODIUM CHLORIDE 0.9% 250 ML IV SCH (20:00)
[2018-02-15] MEDS: ENOXAPARIN 40 MG/0.4 ML SYRINGE SUBCUT SCH (21:01)
[2018-02-16] MEDS: INSULIN REGULAR 100 UNIT/ML SUBCUT SCH ×4 (00:18→18:15)
[2018-02-16] MEDS: cloNIDine 0.1 MG TABLET PO PRN ×2 (00:24→16:34)
[2018-02-16] MEDS: ACETAMINOPHEN 500 MG TABLET PER TUBE PRN ×2 (00:34→21:00)
[2018-02-16] MEDS: SODIUM CHLORIDE 0.9% 1,000 ML IV SCH ×3 (03:10→23:25)
[2018-02-16 05:27] LABS: Calcium 7.8 MG/DL (8.5-10.1); Potassium 4.4 MMOL/L (3.5-5.1); Prealbumin 17.4 MG/DL (20-40)
[2018-02-16] MEDS: METOPROLOL TARTRATE 100 MG TABLET PO SCH (10:15)
[2018-02-16] MEDS: ASPIRIN EC 81 MG TABLET PO SCH (10:15)
[2018-02-16] MEDS: OXYBUTYNIN 5 MG TABLET PO SCH ×3 (10:15→21:00)
[2018-02-16] MEDS: cefTRIAXone 2,000 MG in SYRINGE 1 EACH IV SCH (10:15)
[2018-02-16] MEDS: VANCOMYCIN INJ 1,250 MG in SODIUM CHLORIDE 0.9% 250 ML IV SCH (16:26)
[2018-02-16] MEDS: ENOXAPARIN 40 MG/0.4 ML SYRINGE SUBCUT SCH (21:00)
[2018-02-17] MEDS: INSULIN REGULAR 100 UNIT/ML SUBCUT SCH ×3 (01:14→12:11)
[2018-02-17] MEDS: SODIUM CHLORIDE 0.9% 1,000 ML IV SCH (02:33)
[2018-02-17] MEDS: cefTRIAXone 2,000 MG in SYRINGE 1 EACH IV SCH (09:55)
[2018-02-17] MEDS: OXYBUTYNIN 5 MG TABLET PO SCH ×2 (09:55→18:29)
[2018-02-17] MEDS: METOPROLOL TARTRATE 100 MG TABLET PO SCH (09:55)
[2018-02-17] MEDS: ASPIRIN EC 81 MG TABLET PO SCH (09:55)
[2018-02-17] MEDS: VANCOMYCIN INJ 1,250 MG in SODIUM CHLORIDE 0.9% 250 ML IV SCH (12:05)
[2018-02-17] MEDS ORDERED: VANCOMYCIN INJ 1,250 MG in SODIUM CHLORIDE 0.9% 250 ML IV SCH (16:00)
[2018-02-17 16:04] VITALS: BP 141/65
== END 2018-02-17 17:55 | disposition home health service (06) | DRG 871 ==
LOC: EDBD → EDUNIT# → N.ED 19:13 → N.EDINP 23:19 → SUATTDRO 23:19 → N.2E 02-12 00:48
PROVIDERS: ADMIT Internal Medicine; ATTEND Internal Medicine

== ENCOUNTER 2018-03-31 14:32 | Inpatient (IN) ==
[2018-03-31] MEDS ORDERED: SODIUM CHLORIDE 0.9% 1,000 ML IV STA (15:01)
[2018-03-31] MEDS ORDERED: PIPERACILLIN/TAZOBACTAM 3,375 MG in SODIUM CHLORIDE 0.9% 100 ML IV STA (15:02)
[2018-03-31 15:20] LABS: Basophils # 0.1 10*3/uL (0.0-0.2); Basophils % 0.6 % (0.0-0.8); Eosinophils % 0.3 % (0.00-10.9); Hematocrit 34.4 VOL% (42.0-52.0); Hemoglobin 10.8 GM/DL (14.0-18.0); Immature Granulocytes % 0.3 %; Immature Granulocytes Absolute 0.04 #; Lymphocytes # 1.6 10*3/uL (1.4-4.0); Lymphocytes % 10.7 % (21.2-54.2); Mean Corpuscular HGB Conc 31.4 GM/DL (32-36); Mean Corpuscular Hemoglobin 29 PG (27-34); Mean Corpuscular Volume 92.5 FL (87-102); Mean Platelet Volume 9.4 FL (9.6-12.0); Monocytes # 1.3 10*3/uL (0.11-0.8); Monocytes % 8.6 % (1.7-12.7); Neutrophils # 11.7 10*3/uL (1.4-7.4); Neutrophils % 79.5 % (38.7-73.9); Platelet Count 264 T/CUMM (130-400); Red Blood Count 3.72 MC/CUMM (3.8-5.5); Red Cell Distribution Width 14.4 % (9.3-17.3); White Blood Count 14.7 T/CUMM (4-12)
[2018-03-31 15:28] LABS: Partial Thromboplastin Time 31.3 SECS (0-40)
[2018-03-31 15:35] LABS: Albumin 2.9 G/DL (3.4-5.0); Bilirubin,Total 0.4 MG/DL (0.2-1.0); Calcium 8.8 MG/DL (8.5-10.1); Osmolality,Calculated 279.2 MOS/KG (273-304); Total Protein 7.9 G/DL (6.4-8.3)
[2018-03-31 16:03] LABS: Lactic Acid 2.2 MMOL/L (0.4-2.0)
[2018-03-31 16:30] LABS: Apearance,Urine CLOUDY (Clear); Bilirubin,Urine Negative (Negative); Blood, Urine Large mg/dL (Negative); Glucose,Urine (UA) Negative (Negative); Ketones,Urine Negative (Negative); Nitrite,Urine Negative (Negative); Protein,Urine 100 MG/DL; RBC,Urine 709 /HPF (0-4); Urine Color Yellow (Yellow); Urine Specific Gravity 1.013 (1.001-1.035); Urine Urobilinogen < 2.0 EU/DL (0.2-1.0); WBC,Urine 848 /HPF (0-6)
[2018-03-31] MEDS ORDERED: cefTRIAXone 1,000 MG VIAL ONE (16:31)
[2018-03-31] MEDS ORDERED: cefTRIAXone 1,000 MG in SYRINGE 1 EACH IV SCH (17:00)
[2018-03-31] MEDS ORDERED: GLUCAGON 1 MG VIAL IM PRN (17:49)
[2018-03-31] MEDS ORDERED: DEXTROSE 50% 25 GM/50 ML VIAL IV PRN (17:49)
[2018-03-31] MEDS: INSULIN LISPRO 100 UNIT/ML SUBCUT SCH (21:08)
[2018-03-31] MEDS: TAMSULOSIN 0.4 MG CAPSULE PO SCH (21:10)
[2018-03-31] MEDS: OXYBUTYNIN 5 MG TABLET PEG SCH (21:10)
[2018-03-31] MEDS: LEVOFLOXACIN INJ 750 MG in PREMIX 1 EACH IV SCH (23:20)
[2018-04-01] MEDS: PIPERACILLIN/TAZOBACTAM 3,375 MG in SODIUM CHLORIDE 0.9% 100 ML IV SCH ×3 (02:52→17:52)
[2018-04-01 05:17] LABS: Basophils # 0.1 10*3/uL (0.0-0.2); Basophils % 0.7 % (0.0-0.8); Eosinophils # 0.2 10*3/uL (0.0-0.87); Eosinophils % 2.3 % (0.00-10.9); Hematocrit 31.6 VOL% (42.0-52.0); Hemoglobin 9.8 GM/DL (14.0-18.0); Immature Granulocytes % 0.4 %; Immature Granulocytes Absolute 0.04 #; Mean Corpuscular Hemoglobin 29 PG (27-34); Mean Corpuscular Volume 93.2 FL (87-102); Mean Platelet Volume 9.7 FL (9.6-12.0); Monocytes % 10.2 % (1.7-12.7); Neutrophils # 7.6 10*3/uL (1.4-7.4); Neutrophils % 76.4 % (38.7-73.9); Platelet Count 245 T/CUMM (130-400); Red Blood Count 3.39 MC/CUMM (3.8-5.5); Red Cell Distribution Width 14.2 % (9.3-17.3); White Blood Count 9.9 T/CUMM (4-12)
[2018-04-01 05:24] LABS: Calcium 8.5 MG/DL (8.5-10.1); Potassium 4.6 MMOL/L (3.5-5.1)
[2018-04-01] MEDS: ASPIRIN EC 81 MG TABLET PO SCH (10:35)
[2018-04-01] MEDS: CLOPIDOGREL 75 MG TABLET PEG SCH (10:36)
[2018-04-01] MEDS: OXYBUTYNIN 5 MG TABLET PEG SCH ×3 (10:36→20:57)
[2018-04-01] MEDS: TAMSULOSIN 0.4 MG CAPSULE PO SCH ×2 (10:36→20:57)
[2018-04-01] MEDS: INSULIN LISPRO 100 UNIT/ML SUBCUT SCH ×4 (11:07→20:58)
[2018-04-01] MEDS: POLYETHYLENE GLYCOL POWDER 17 GM PACK PO SCH (20:57)
[2018-04-01] MEDS: LEVOFLOXACIN INJ 750 MG in PREMIX 1 EACH IV SCH (22:55)
[2018-04-02] MEDS: PIPERACILLIN/TAZOBACTAM 3,375 MG in SODIUM CHLORIDE 0.9% 100 ML IV SCH ×3 (03:26→17:53)
[2018-04-02 04:32] LABS: Basophils # 0.1 10*3/uL (0.0-0.2); Basophils % 0.6 % (0.0-0.8); Eosinophils # 0.2 10*3/uL (0.0-0.87); Eosinophils % 1.6 % (0.00-10.9); Hematocrit 33.1 VOL% (42.0-52.0); Hemoglobin 10.4 GM/DL (14.0-18.0); Immature Granulocytes % 1.1 %; Lymphocytes # 0.9 10*3/uL (1.4-4.0); Lymphocytes % 9.2 % (21.2-54.2); Mean Corpuscular HGB Conc 31.4 GM/DL (32-36); Mean Corpuscular Hemoglobin 29 PG (27-34); Mean Corpuscular Volume 92.2 FL (87-102); Monocytes # 0.8 10*3/uL (0.11-0.8); Monocytes % 8.7 % (1.7-12.7); Neutrophils # 7.3 10*3/uL (1.4-7.4); Neutrophils % 78.8 % (38.7-73.9); Platelet Count 252 T/CUMM (130-400); Red Blood Count 3.59 MC/CUMM (3.8-5.5); Red Cell Distribution Width 13.7 % (9.3-17.3); White Blood Count 9.3 T/CUMM (4-12)
[2018-04-02 05:08] LABS: Calcium 8.8 MG/DL (8.5-10.1); Potassium 4.3 MMOL/L (3.5-5.1)
[2018-04-02] MEDS: OXYBUTYNIN 5 MG TABLET PEG SCH ×3 (09:16→21:34)
[2018-04-02] MEDS: ASPIRIN EC 81 MG TABLET PO SCH (09:16)
[2018-04-02] MEDS: TAMSULOSIN 0.4 MG CAPSULE PO SCH ×2 (09:16→21:34)
[2018-04-02] MEDS: CLOPIDOGREL 75 MG TABLET PEG SCH (09:16)
[2018-04-02] MEDS: POLYETHYLENE GLYCOL POWDER 17 GM PACK PO SCH (09:16)
[2018-04-02] MEDS: INSULIN LISPRO 100 UNIT/ML SUBCUT SCH ×4 (09:18→22:02)
[2018-04-02] MEDS: SODIUM CHLORIDE 0.9% 1,000 ML IV SCH (21:31)
[2018-04-02] MEDS: LEVOFLOXACIN INJ 750 MG in PREMIX 1 EACH IV SCH (21:34)
[2018-04-03] MEDS: PIPERACILLIN/TAZOBACTAM 3,375 MG in SODIUM CHLORIDE 0.9% 100 ML IV SCH ×3 (02:59→17:13)
[2018-04-03 05:31] LABS: Basophils # 0.1 10*3/uL (0.0-0.2); Basophils % 0.7 % (0.0-0.8); Eosinophils # 0.3 10*3/uL (0.0-0.87); Eosinophils % 3.1 % (0.00-10.9); Hematocrit 33.4 VOL% (42.0-52.0); Hemoglobin 10.4 GM/DL (14.0-18.0); Immature Granulocytes % 0.7 %; Immature Granulocytes Absolute 0.06 #; Lymphocytes # 1.2 10*3/uL (1.4-4.0); Lymphocytes % 14.6 % (21.2-54.2); Mean Corpuscular HGB Conc 31.1 GM/DL (32-36); Mean Corpuscular Hemoglobin 29 PG (27-34); Mean Corpuscular Volume 92.3 FL (87-102); Mean Platelet Volume 9.1 FL (9.6-12.0); Monocytes # 0.8 10*3/uL (0.11-0.8); Monocytes % 9.8 % (1.7-12.7); Neutrophils # 5.9 10*3/uL (1.4-7.4); Neutrophils % 71.1 % (38.7-73.9); Platelet Count 295 T/CUMM (130-400); Red Blood Count 3.62 MC/CUMM (3.8-5.5); Red Cell Distribution Width 13.8 % (9.3-17.3); White Blood Count 8.3 T/CUMM (4-12)
[2018-04-03 05:50] LABS: Calcium 8.8 MG/DL (8.5-10.1); Osmolality,Calculated 286.4 MOS/KG (273-304); Potassium 4.4 MMOL/L (3.5-5.1)
[2018-04-03 05:54] LABS: Prealbumin 15.5 MG/DL (20-40)
[2018-04-03] MEDS: POLYETHYLENE GLYCOL POWDER 17 GM PACK PO SCH (09:28)
[2018-04-03] MEDS: INSULIN LISPRO 100 UNIT/ML SUBCUT SCH ×4 (09:28→21:49)
[2018-04-03] MEDS: TAMSULOSIN 0.4 MG CAPSULE PO SCH ×2 (09:29→21:48)
[2018-04-03] MEDS: ASPIRIN EC 81 MG TABLET PO SCH (09:29)
[2018-04-03] MEDS: OXYBUTYNIN 5 MG TABLET PEG SCH ×3 (09:29→21:48)
[2018-04-03] MEDS: CLOPIDOGREL 75 MG TABLET PEG SCH (09:29)
[2018-04-03] MEDS: SODIUM CHLORIDE 0.9% 1,000 ML IV SCH ×2 (09:30→21:39)
[2018-04-03] MEDS: DESITIN 4OZ/NYSTATIN 15 GRAM MIXTURE PASTE TOP SCH ×2 (13:44→23:32)
[2018-04-03] MEDS: LEVOFLOXACIN INJ 750 MG in PREMIX 1 EACH IV SCH (23:32)
[2018-04-04] MEDS: PIPERACILLIN/TAZOBACTAM 3,375 MG in SODIUM CHLORIDE 0.9% 100 ML IV SCH ×3 (01:17→17:14)
[2018-04-04 05:51] LABS: Basophils # 0.1 10*3/uL (0.0-0.2); Basophils % 0.8 % (0.0-0.8); Eosinophils # 0.4 10*3/uL (0.0-0.87); Hematocrit 33.4 VOL% (42.0-52.0); Hemoglobin 10.7 GM/DL (14.0-18.0); Immature Granulocytes % 1.6 %; Immature Granulocytes Absolute 0.14 #; Lymphocytes # 1.3 10*3/uL (1.4-4.0); Lymphocytes % 14.6 % (21.2-54.2); Mean Corpuscular Hemoglobin 29 PG (27-34); Mean Corpuscular Volume 91.3 FL (87-102); Mean Platelet Volume 9.2 FL (9.6-12.0); Monocytes # 0.8 10*3/uL (0.11-0.8); Monocytes % 9.2 % (1.7-12.7); Neutrophils # 6.3 10*3/uL (1.4-7.4); Neutrophils % 69.8 % (38.7-73.9); Platelet Count 288 T/CUMM (130-400); Red Blood Count 3.66 MC/CUMM (3.8-5.5); Red Cell Distribution Width 13.7 % (9.3-17.3)
[2018-04-04 06:24] LABS: Calcium 8.7 MG/DL (8.5-10.1); Osmolality,Calculated 285.5 MOS/KG (273-304); Potassium 4.7 MMOL/L (3.5-5.1)
[2018-04-04] MEDS: INSULIN LISPRO 100 UNIT/ML SUBCUT SCH ×4 (09:15→21:03)
[2018-04-04] MEDS: TAMSULOSIN 0.4 MG CAPSULE PO SCH ×2 (09:15→21:03)
[2018-04-04] MEDS: LACTOBACILLUS RHAMNOSUS GG CAPSULE PO SCH ×2 (09:15→21:03)
[2018-04-04] MEDS: CLOPIDOGREL 75 MG TABLET PEG SCH (09:15)
[2018-04-04] MEDS: ASPIRIN EC 81 MG TABLET PO SCH (09:15)
[2018-04-04] MEDS: OXYBUTYNIN 5 MG TABLET PEG SCH ×3 (09:15→21:03)
[2018-04-04] MEDS: DESITIN 4OZ/NYSTATIN 15 GRAM MIXTURE PASTE TOP SCH ×2 (10:55→21:03)
[2018-04-04] MEDS: SODIUM CHLORIDE 0.9% 1,000 ML IV SCH ×2 (10:55→23:26)
[2018-04-04] MEDS: POLYETHYLENE GLYCOL POWDER 17 GM PACK PO SCH (10:55)
[2018-04-04] MEDS: LEVOFLOXACIN INJ 750 MG in PREMIX 1 EACH IV SCH (21:04)
[2018-04-05] MEDS: PIPERACILLIN/TAZOBACTAM 3,375 MG in SODIUM CHLORIDE 0.9% 100 ML IV SCH ×2 (01:59→15:49)
[2018-04-05 04:29] LABS: Basophils # 0.1 10*3/uL (0.0-0.2); Basophils % 0.8 % (0.0-0.8); Eosinophils # 0.3 10*3/uL (0.0-0.87); Eosinophils % 3.8 % (0.00-10.9); Hematocrit 32.1 VOL% (42.0-52.0); Hemoglobin 10.3 GM/DL (14.0-18.0); Immature Granulocytes % 2.3 %; Immature Granulocytes Absolute 0.17 #; Lymphocytes # 1.2 10*3/uL (1.4-4.0); Lymphocytes % 15.9 % (21.2-54.2); Mean Corpuscular HGB Conc 32.1 GM/DL (32-36); Mean Corpuscular Hemoglobin 29 PG (27-34); Mean Corpuscular Volume 90.4 FL (87-102); Mean Platelet Volume 9.3 FL (9.6-12.0); Monocytes # 0.8 10*3/uL (0.11-0.8); Monocytes % 10.6 % (1.7-12.7); Neutrophils # 4.9 10*3/uL (1.4-7.4); Neutrophils % 66.6 % (38.7-73.9); Platelet Count 278 T/CUMM (130-400); Red Blood Count 3.55 MC/CUMM (3.8-5.5); Red Cell Distribution Width 13.6 % (9.3-17.3); White Blood Count 7.4 T/CUMM (4-12)
[2018-04-05 05:06] LABS: Calcium 8.5 MG/DL (8.5-10.1); Osmolality,Calculated 286.4 MOS/KG (273-304); Potassium 4.5 MMOL/L (3.5-5.1)
[2018-04-05] MEDS: TAMSULOSIN 0.4 MG CAPSULE PO SCH ×2 (09:31→21:12)
[2018-04-05] MEDS: POLYETHYLENE GLYCOL POWDER 17 GM PACK PO SCH (09:32)
[2018-04-05] MEDS: LACTOBACILLUS RHAMNOSUS GG CAPSULE PO SCH ×2 (09:32→21:12)
[2018-04-05] MEDS: CLOPIDOGREL 75 MG TABLET PEG SCH (09:32)
[2018-04-05] MEDS: OXYBUTYNIN 5 MG TABLET PEG SCH ×3 (09:32→22:42)
[2018-04-05] MEDS: DESITIN 4OZ/NYSTATIN 15 GRAM MIXTURE PASTE TOP SCH ×2 (09:33→22:19)
[2018-04-05] MEDS: ASPIRIN EC 81 MG TABLET PO SCH (09:44)
[2018-04-05] MEDS: INSULIN LISPRO 100 UNIT/ML SUBCUT SCH ×4 (14:37→21:12)
[2018-04-05] MEDS: SODIUM CHLORIDE 0.9% 1,000 ML IV SCH (15:39)
[2018-04-05] MEDS: LEVOFLOXACIN INJ 750 MG in PREMIX 1 EACH IV SCH (22:42)
[2018-04-06] MEDS: SODIUM CHLORIDE 0.9% 1,000 ML IV SCH (00:38)
[2018-04-06] MEDS: INSULIN LISPRO 100 UNIT/ML SUBCUT SCH ×2 (09:20→12:00)
[2018-04-06] MEDS: OXYBUTYNIN 5 MG TABLET PEG SCH (09:21)
[2018-04-06] MEDS: CLOPIDOGREL 75 MG TABLET PEG SCH (09:21)
[2018-04-06] MEDS: ASPIRIN EC 81 MG TABLET PO SCH (09:21)
[2018-04-06] MEDS: TAMSULOSIN 0.4 MG CAPSULE PO SCH (09:21)
[2018-04-06] MEDS: POLYETHYLENE GLYCOL POWDER 17 GM PACK PO SCH (09:21)
[2018-04-06] MEDS: LACTOBACILLUS RHAMNOSUS GG CAPSULE PO SCH (09:21)
[2018-04-06] MEDS: DESITIN 4OZ/NYSTATIN 15 GRAM MIXTURE PASTE TOP SCH (09:22)
[2018-04-06 12:04] VITALS: BP 150/74
== END 2018-04-06 17:00 | disposition home health service (06) | DRG 871 ==
LOC: EDUNIT# → EDBD → N.ED 14:32 → SUATTDRO 15:45 → N.EDINP 15:45 → N.TELEN 19:09
PROVIDERS: ADMIT Internal Medicine; ATTEND Internal Medicine

== ENCOUNTER 2018-10-05 21:08 | Inpatient (IN) ==
[2018-10-05] MEDS ORDERED: LEVOFLOXACIN INJ 750 MG in PREMIX 1 EACH IV STA (21:40)
[2018-10-05] MEDS ORDERED: ALBUTEROL/IPRATROPIUM 3 ML NEB RESP TX STA (21:40)
[2018-10-05] MEDS ORDERED: SODIUM CHLORIDE 0.9% 1,000 ML IV STA (21:40)
[2018-10-05] MEDS ORDERED: ACETAMINOPHEN 325 MG/10.15 ML UDCUP PO STA (21:40)
[2018-10-05 22:38] LABS: Apearance,Urine CLOUDY (Clear); Bilirubin,Urine Negative (Negative); Blood, Urine Moderate mg/dL (Negative); Glucose,Urine (UA) 50 mg/dL (Negative); Ketones,Urine Negative (Negative); Mucus,Urine Occasional /LPF (Occasional); Nitrite,Urine Negative (Negative); Protein,Urine 100 MG/DL; RBC,Urine 21 /HPF (0-4); Urine Color Yellow (Yellow); Urine Specific Gravity 1.011 (1.001-1.035); Urine Urobilinogen < 2.0 EU/DL (0.2-1.0); WBC,Urine 187 /HPF (0-6)
[2018-10-05 23:09] LABS: Basophils # 0.1 10*3/uL (0.0-0.2); Basophils % 0.4 % (0.0-0.8); Eosinophils % 0.1 % (0.00-10.9); Hematocrit 35.5 VOL% (42.0-52.0); Hemoglobin 11.7 GM/DL (14.0-18.0); Immature Granulocytes % 0.4 %; Immature Granulocytes Absolute 0.06 #; Lymphocytes % 7.1 % (21.2-54.2); Mean Corpuscular Hemoglobin 31 PG (27-34); Mean Corpuscular Volume 94.7 FL (87-102); Mean Platelet Volume 8.9 FL (9.6-12.0); Monocytes # 1.2 10*3/uL (0.11-0.8); Monocytes % 8.9 % (1.7-12.7); Neutrophils # 11.6 10*3/uL (1.4-7.4); Neutrophils % 83.1 % (38.7-73.9); Platelet Count 223 T/CUMM (130-400); Red Blood Count 3.75 MC/CUMM (3.8-5.5); Red Cell Distribution Width 14.7 % (9.3-17.3)
[2018-10-05 23:18] LABS: PT Patient Result 10.7 SECS
[2018-10-05 23:36] LABS: Alanine Aminotransferase 27 U/L (16-61); Albumin 2.6 G/DL (3.4-5.0); Alkaline Phosphatase 98 U/L (45-117); Aspartate Amino Transferase 20 U/L (0-37); Blood Urea Nitrogen 34 MG/DL (7-18); Calcium 8.6 MG/DL (8.5-10.1); Glucose 226 MG/DL (74-106); Osmolality,Calculated 269.2 MOS/KG (273-304); Potassium 5.3 MMOL/L (3.5-5.1); Sodium 127 MMOL/L (136-145); Total Protein 7.6 G/DL (6.4-8.3); Troponin I < 0.015 NG/ML (0.00-0.045)
[2018-10-05 23:59] LABS: Lactic Acid 2.3 MMOL/L (0.4-2.0)
[2018-10-06] MEDS ORDERED: guaiFENesin 200 MG/10 ML UDCUP PEG PRN (02:35)
[2018-10-06] MEDS ORDERED: ONDANSETRON 4 MG/2 ML VIAL IV PRN (02:35)
[2018-10-06] MEDS ORDERED: ACETAMINOPHEN 325 MG TABLET PO PRN (02:35)
[2018-10-06] MEDS ORDERED: diphenhydrAMINE CAP 25 MG CAPSULE PO PRN (02:35)
[2018-10-06] MEDS ORDERED: guaiFENesin/DM ER 600-30 MG TABLET PO PRN (02:35)
[2018-10-06] MEDS ORDERED: SODIUM CHLORIDE 0.9% 1,000 ML IV ONE (02:35)
[2018-10-06] MEDS: ALBUTEROL/IPRATROPIUM 3 ML NEB RESP TX SCH ×6 (03:38→23:23)
[2018-10-06 04:20] LABS: Basophils # 0.1 10*3/uL (0.0-0.2); Basophils % 0.3 % (0.0-0.8); Eosinophils % 0.1 % (0.00-10.9); Hematocrit 32.3 VOL% (42.0-52.0); Hemoglobin 10.6 GM/DL (14.0-18.0); Immature Granulocytes % 0.6 %; Immature Granulocytes Absolute 0.09 #; Lymphocytes # 1.5 10*3/uL (1.4-4.0); Lymphocytes % 9.7 % (21.2-54.2); Mean Corpuscular HGB Conc 32.8 GM/DL (32-36); Mean Corpuscular Hemoglobin 32 PG (27-34); Mean Corpuscular Volume 96.7 FL (87-102); Mean Platelet Volume 9.1 FL (9.6-12.0); Monocytes # 1.6 10*3/uL (0.11-0.8); Monocytes % 10.7 % (1.7-12.7); Neutrophils % 78.6 % (38.7-73.9); Platelet Count 235 T/CUMM (130-400); Red Blood Count 3.34 MC/CUMM (3.8-5.5); Red Cell Distribution Width 14.7 % (9.3-17.3); White Blood Count 15.2 T/CUMM (4-12)
[2018-10-06 04:39] LABS: Lactic Acid 3.1 MMOL/L (0.4-2.0)
[2018-10-06] MEDS: SODIUM CHLORIDE 0.9% 1,000 ML IV SCH ×2 (05:46→21:43)
[2018-10-06] MEDS: LEVOFLOXACIN INJ 750 MG in PREMIX 1 EACH IV SCH (05:56)
[2018-10-06] MEDS ORDERED: SODIUM CHLORIDE 0.9% IV ONE (06:40)
[2018-10-06] MEDS: METOPROLOL TARTRATE 100 MG TABLET PEG SCH (09:17)
[2018-10-06] MEDS: PIPERACILLIN/TAZOBACTAM 3,375 MG in SODIUM CHLORIDE 0.9% 100 ML IV SCH ×2 (09:17→16:32)
[2018-10-06] MEDS: ENOXAPARIN 40 MG/0.4 ML SYRINGE SUBCUT SCH (09:18)
[2018-10-06] MEDS: CLOPIDOGREL 75 MG TABLET PEG SCH (09:18)
[2018-10-06] MEDS ORDERED: GLUCAGON 1 MG VIAL IM PRN (10:12)
[2018-10-06] MEDS ORDERED: DEXTROSE 50% 25 GM/50 ML VIAL IV PRN (10:12)
[2018-10-06] MEDS: INSULIN REGULAR 100 UNIT/ML SUBCUT SCH ×2 (12:00→19:02)
[2018-10-06] MEDS: ACETAMINOPHEN 325 MG TABLET PO PRN ×2 (16:33→21:03)
[2018-10-07] MEDS: INSULIN REGULAR 100 UNIT/ML SUBCUT SCH ×4 (00:51→18:30)
[2018-10-07] MEDS: PIPERACILLIN/TAZOBACTAM 3,375 MG in SODIUM CHLORIDE 0.9% 100 ML IV SCH ×3 (00:52→15:58)
[2018-10-07] MEDS: ALBUTEROL/IPRATROPIUM 3 ML NEB RESP TX SCH ×6 (02:39→22:45)
[2018-10-07] MEDS: LEVOFLOXACIN INJ 750 MG in PREMIX 1 EACH IV SCH (05:57)
[2018-10-07 07:19] LABS: Basophils % 0.2 % (0.0-0.8); Eosinophils % 0.2 % (0.00-10.9); Hematocrit 31.7 VOL% (42.0-52.0); Hemoglobin 10.1 GM/DL (14.0-18.0); Immature Granulocytes % 0.4 %; Immature Granulocytes Absolute 0.04 #; Lymphocytes # 0.6 10*3/uL (1.4-4.0); Lymphocytes % 6.2 % (21.2-54.2); Mean Corpuscular HGB Conc 31.9 GM/DL (32-36); Mean Corpuscular Hemoglobin 31 PG (27-34); Mean Corpuscular Volume 96.6 FL (87-102); Mean Platelet Volume 8.7 FL (9.6-12.0); Monocytes # 1.1 10*3/uL (0.11-0.8); Monocytes % 10.8 % (1.7-12.7); Neutrophils # 8.3 10*3/uL (1.4-7.4); Neutrophils % 82.2 % (38.7-73.9); Platelet Count 226 T/CUMM (130-400); Red Blood Count 3.28 MC/CUMM (3.8-5.5); Red Cell Distribution Width 14.8 % (9.3-17.3); White Blood Count 10.1 T/CUMM (4-12)
[2018-10-07 07:36] LABS: Alanine Aminotransferase 30 U/L (16-61); Albumin 2.2 G/DL (3.4-5.0); Alkaline Phosphatase 80 U/L (45-117); Aspartate Amino Transferase 23 U/L (0-37); Bilirubin,Total < 0.39 MG/DL (0.2-1.0); Blood Urea Nitrogen 32 MG/DL (7-18); Calcium 8.1 MG/DL (8.5-10.1); Glucose 182 MG/DL (74-106); Potassium 5.1 MMOL/L (3.5-5.1); Sodium 136 MMOL/L (136-145)
[2018-10-07 07:38] LABS: Calcium 8.2 MG/DL (8.5-10.1); Osmolality,Calculated 280.1 MOS/KG (273-304); Potassium 5.1 MMOL/L (3.5-5.1); Prealbumin 10.4 MG/DL (20-40)
[2018-10-07] MEDS: LACTOBACILLUS ACIDOPHILUS/BULGARICUS 1 PACKET PEG SCH (09:00)
[2018-10-07] MEDS ORDERED: FUROSEMIDE 40 MG/4 ML VIAL IV ONE (09:54)
[2018-10-07] MEDS ORDERED: POTASSIUM CHLORIDE RIDER 10 MEQ in PREMIX 1 EACH IV PRN (09:56)
[2018-10-07] MEDS ORDERED: MAGNESIUM SULF RIDER 2 GM in PREMIX 1 EACH IV PRN (09:56)
[2018-10-07] MEDS ORDERED: MAGNESIUM SULF RIDER 4 GM in PREMIX 1 EACH IV PRN (09:56)
[2018-10-07] MEDS: GLIMEPIRIDE 2 MG TABLET PEG SCH (09:59)
[2018-10-07] MEDS: CLOPIDOGREL 75 MG TABLET PEG SCH (10:00)
[2018-10-07] MEDS: METOPROLOL TARTRATE 100 MG TABLET PEG SCH (10:00)
[2018-10-07] MEDS: ENOXAPARIN 40 MG/0.4 ML SYRINGE SUBCUT SCH (11:33)
[2018-10-07] MEDS: INSULIN GLARGINE 100 UNIT/ML SUBCUT SCH (21:13)
[2018-10-07] MEDS: ACETAMINOPHEN 325 MG TABLET PO PRN (21:16)
[2018-10-07] MEDS: MAGNESIUM HYDROXIDE SUSP 30 ML UDCUP PO PRN (21:27)
[2018-10-07] MEDS ORDERED: METOPROLOL TARTRATE 100 MG TABLET PO ONE (22:09)
[2018-10-08] MEDS: PIPERACILLIN/TAZOBACTAM 3,375 MG in SODIUM CHLORIDE 0.9% 100 ML IV SCH ×3 (00:17→16:31)
[2018-10-08] MEDS: INSULIN REGULAR 100 UNIT/ML SUBCUT SCH ×5 (00:20→18:35)
[2018-10-08] MEDS: SODIUM CHLORIDE 0.9% 1,000 ML IV SCH ×3 (01:30→21:12)
[2018-10-08] MEDS: ALBUTEROL/IPRATROPIUM 3 ML NEB RESP TX SCH ×5 (03:17→19:52)
[2018-10-08 05:55] LABS: Basophils % 0.3 % (0.0-0.8); Eosinophils % 0.3 % (0.00-10.9); Hematocrit 31.1 VOL% (42.0-52.0); Hemoglobin 9.9 GM/DL (14.0-18.0); Immature Granulocytes % 0.5 %; Immature Granulocytes Absolute 0.05 #; Lymphocytes # 0.9 10*3/uL (1.4-4.0); Lymphocytes % 9.1 % (21.2-54.2); Mean Corpuscular HGB Conc 31.8 GM/DL (32-36); Mean Corpuscular Hemoglobin 31 PG (27-34); Mean Platelet Volume 8.7 FL (9.6-12.0); Monocytes # 1.2 10*3/uL (0.11-0.8); Monocytes % 12.3 % (1.7-12.7); Neutrophils # 7.4 10*3/uL (1.4-7.4); Neutrophils % 77.5 % (38.7-73.9); Platelet Count 230 T/CUMM (130-400); Red Blood Count 3.24 MC/CUMM (3.8-5.5); Red Cell Distribution Width 14.7 % (9.3-17.3); White Blood Count 9.5 T/CUMM (4-12)
[2018-10-08] MEDS: LEVOFLOXACIN INJ 750 MG in PREMIX 1 EACH IV SCH (06:10)
[2018-10-08 06:12] LABS: Albumin 2.1 G/DL (3.4-5.0); Bilirubin,Total 0.8 MG/DL (0.2-1.0); Calcium 8.4 MG/DL (8.5-10.1); Osmolality,Calculated 279.8 MOS/KG (273-304); Potassium 4.5 MMOL/L (3.5-5.1)
[2018-10-08] MEDS: GLIMEPIRIDE 2 MG TABLET PEG SCH (07:35)
[2018-10-08] MEDS: CLOPIDOGREL 75 MG TABLET PEG SCH (08:25)
[2018-10-08] MEDS: ENOXAPARIN 40 MG/0.4 ML SYRINGE SUBCUT SCH (08:25)
[2018-10-08] MEDS: METOPROLOL TARTRATE 100 MG TABLET PEG SCH (08:25)
[2018-10-08] MEDS: LACTOBACILLUS ACIDOPHILUS/BULGARICUS 1 PACKET PEG SCH (09:32)
[2018-10-08] MEDS: methylPREDNISolone SOD SUC 125 MG/2 ML VIAL IV SCH ×3 (10:28→21:26)
[2018-10-08] MEDS: LACTULOSE 20 GM/30 ML UDCUP PO PRN (10:32)
[2018-10-08] MEDS: VANCOMYCIN INJ 1,250 MG in SODIUM CHLORIDE 0.9% 250 ML IV SCH (14:45)
[2018-10-08] MEDS: MAGNESIUM HYDROXIDE SUSP 30 ML UDCUP PO PRN (14:58)
[2018-10-08] MEDS ORDERED: FUROSEMIDE 40 MG/4 ML VIAL IV SCH (16:00)
[2018-10-08] MEDS: INSULIN GLARGINE 100 UNIT/ML SUBCUT SCH (21:32)
[2018-10-09] MEDS: ALBUTEROL/IPRATROPIUM 3 ML NEB RESP TX SCH ×7 (00:03→23:10)
[2018-10-09] MEDS: PIPERACILLIN/TAZOBACTAM 3,375 MG in SODIUM CHLORIDE 0.9% 100 ML IV SCH ×3 (00:22→21:30)
[2018-10-09] MEDS ORDERED: BISACODYL 10 MG SUPP RECTAL ONE (00:32)
[2018-10-09] MEDS: INSULIN REGULAR 100 UNIT/ML SUBCUT SCH ×4 (00:40→19:32)
[2018-10-09] MEDS: methylPREDNISolone SOD SUC 125 MG/2 ML VIAL IV SCH ×2 (04:51→21:27)
[2018-10-09] MEDS: LEVOFLOXACIN INJ 750 MG in PREMIX 1 EACH IV SCH (04:53)
[2018-10-09 05:29] LABS: Basophils % 0.1 % (0.0-0.8); Hematocrit 29.7 VOL% (42.0-52.0); Hemoglobin 9.3 GM/DL (14.0-18.0); Immature Granulocytes Absolute 0.08 #; Lymphocytes # 0.6 10*3/uL (1.4-4.0); Lymphocytes % 7.1 % (21.2-54.2); Mean Corpuscular HGB Conc 31.3 GM/DL (32-36); Mean Corpuscular Hemoglobin 30 PG (27-34); Mean Corpuscular Volume 96.4 FL (87-102); Monocytes # 0.4 10*3/uL (0.11-0.8); Monocytes % 5.2 % (1.7-12.7); Neutrophils % 86.6 % (38.7-73.9); Platelet Count 268 T/CUMM (130-400); Red Blood Count 3.08 MC/CUMM (3.8-5.5); Red Cell Distribution Width 14.6 % (9.3-17.3); White Blood Count 8.1 T/CUMM (4-12)
[2018-10-09 05:46] LABS: Alanine Aminotransferase 29 U/L (16-61); Alkaline Phosphatase 75 U/L (45-117); Aspartate Amino Transferase 29 U/L (0-37); Bilirubin,Total < 0.39 MG/DL (0.2-1.0); Blood Urea Nitrogen 45 MG/DL (7-18); Calcium 8.8 MG/DL (8.5-10.1); Glucose 243 MG/DL (74-106); Osmolality,Calculated 302.1 MOS/KG (273-304); Sodium 142 MMOL/L (136-145)
[2018-10-09 05:48] LABS: Calcium 8.3 MG/DL (8.5-10.1); Osmolality,Calculated 296.6 MOS/KG (273-304); Potassium 3.8 MMOL/L (3.5-5.1); Prealbumin 11.1 MG/DL (20-40)
[2018-10-09 06:05] LABS: Hypochromasia Slight; Platelet Estimate Normal; Polychromasia Few
[2018-10-09] MEDS: ENOXAPARIN 40 MG/0.4 ML SYRINGE SUBCUT SCH (09:37)
[2018-10-09] MEDS: GLIMEPIRIDE 2 MG TABLET PEG SCH (09:38)
[2018-10-09] MEDS: CLOPIDOGREL 75 MG TABLET PEG SCH (09:38)
[2018-10-09] MEDS: LACTOBACILLUS ACIDOPHILUS/BULGARICUS 1 PACKET PEG SCH (09:40)
[2018-10-09] MEDS: METOPROLOL TARTRATE 100 MG TABLET PEG SCH (09:40)
[2018-10-09] MEDS: VANCOMYCIN INJ 1,250 MG in SODIUM CHLORIDE 0.9% 250 ML IV SCH (16:34)
[2018-10-09] MEDS: SODIUM CHLORIDE 0.9% 1,000 ML IV SCH (19:33)
[2018-10-09] MEDS: INSULIN GLARGINE 100 UNIT/ML SUBCUT SCH (21:29)
[2018-10-10] MEDS: INSULIN REGULAR 100 UNIT/ML SUBCUT SCH ×4 (00:56→19:18)
[2018-10-10] MEDS: ALBUTEROL/IPRATROPIUM 3 ML NEB RESP TX SCH ×5 (03:10→19:00)
[2018-10-10] MEDS: LEVOFLOXACIN INJ 750 MG in PREMIX 1 EACH IV SCH (03:25)
[2018-10-10] MEDS: PIPERACILLIN/TAZOBACTAM 3,375 MG in SODIUM CHLORIDE 0.9% 100 ML IV SCH ×3 (05:38→21:47)
[2018-10-10 07:00] LABS: Alanine Aminotransferase 36 U/L (16-61); Albumin 2.2 G/DL (3.4-5.0); Alkaline Phosphatase 69 U/L (45-117); Aspartate Amino Transferase 29 U/L (0-37); Bilirubin,Total < 0.39 MG/DL (0.2-1.0); Blood Urea Nitrogen 53 MG/DL (7-18); Calcium 8.9 MG/DL (8.5-10.1); Glucose 257 MG/DL (74-106); Osmolality,Calculated 312.6 MOS/KG (273-304); Potassium 4.7 MMOL/L (3.5-5.1); Sodium 146 MMOL/L (136-145); Total Protein 7.1 G/DL (6.4-8.3)
[2018-10-10] MEDS: CLOPIDOGREL 75 MG TABLET PEG SCH (09:09)
[2018-10-10] MEDS: METOPROLOL TARTRATE 100 MG TABLET PEG SCH (09:09)
[2018-10-10] MEDS: GLIMEPIRIDE 2 MG TABLET PEG SCH (09:09)
[2018-10-10] MEDS: ENOXAPARIN 40 MG/0.4 ML SYRINGE SUBCUT SCH (09:09)
[2018-10-10] MEDS: methylPREDNISolone SOD SUC 125 MG/2 ML VIAL IV SCH ×2 (09:10→21:49)
[2018-10-10] MEDS: LACTOBACILLUS ACIDOPHILUS/BULGARICUS 1 PACKET PEG SCH (11:31)
[2018-10-10] MEDS: LACTULOSE 20 GM/30 ML UDCUP PO PRN (11:31)
[2018-10-10] MEDS: VANCOMYCIN INJ 1,250 MG in SODIUM CHLORIDE 0.9% 250 ML IV SCH (11:31)
[2018-10-10] MEDS: MAGNESIUM HYDROXIDE SUSP 30 ML UDCUP PO PRN (11:31)
[2018-10-10] MEDS: INSULIN GLARGINE 100 UNIT/ML SUBCUT SCH (21:49)
[2018-10-11] MEDS: ALBUTEROL/IPRATROPIUM 3 ML NEB RESP TX SCH ×7 (00:32→23:51)
[2018-10-11] MEDS: INSULIN REGULAR 100 UNIT/ML SUBCUT SCH ×4 (01:40→18:36)
[2018-10-11] MEDS: LEVOFLOXACIN INJ 750 MG in PREMIX 1 EACH IV SCH (01:56)
[2018-10-11] MEDS: PIPERACILLIN/TAZOBACTAM 3,375 MG in SODIUM CHLORIDE 0.9% 100 ML IV SCH ×3 (05:00→23:26)
[2018-10-11] MEDS: ENOXAPARIN 40 MG/0.4 ML SYRINGE SUBCUT SCH (09:37)
[2018-10-11] MEDS: GLIMEPIRIDE 2 MG TABLET PEG SCH (09:37)
[2018-10-11] MEDS: methylPREDNISolone SOD SUC 125 MG/2 ML VIAL IV SCH (09:37)
[2018-10-11] MEDS: CLOPIDOGREL 75 MG TABLET PEG SCH (09:37)
[2018-10-11] MEDS: METOPROLOL TARTRATE 100 MG TABLET PEG SCH (09:43)
[2018-10-11] MEDS: LACTOBACILLUS ACIDOPHILUS/BULGARICUS 1 PACKET PEG SCH (09:43)
[2018-10-11] MEDS: methylPREDNISolone SOD SUC 40 MG/1 ML VIAL IV SCH (15:52)
[2018-10-11] MEDS: VANCOMYCIN INJ 1,250 MG in SODIUM CHLORIDE 0.9% 250 ML IV SCH (16:12)
[2018-10-11] MEDS: INSULIN GLARGINE 100 UNIT/ML SUBCUT SCH (23:26)
[2018-10-12] MEDS: INSULIN REGULAR 100 UNIT/ML SUBCUT SCH ×4 (00:43→23:00)
[2018-10-12] MEDS: ALBUTEROL/IPRATROPIUM 3 ML NEB RESP TX SCH ×5 (03:34→20:25)
[2018-10-12] MEDS: methylPREDNISolone SOD SUC 40 MG/1 ML VIAL IV SCH (03:35)
[2018-10-12] MEDS: PIPERACILLIN/TAZOBACTAM 3,375 MG in SODIUM CHLORIDE 0.9% 100 ML IV SCH ×2 (04:28→13:39)
[2018-10-12 05:38] LABS: Calcium 8.5 MG/DL (8.5-10.1); Osmolality,Calculated 311.3 MOS/KG (273-304); Potassium 4.3 MMOL/L (3.5-5.1); Prealbumin 21.9 MG/DL (20-40)
[2018-10-12 08:08] LABS: Basophils % 0.1 % (0.0-0.8); Hematocrit 30.7 VOL% (42.0-52.0); Hemoglobin 9.4 GM/DL (14.0-18.0); Immature Granulocytes % 4.3 %; Immature Granulocytes Absolute 0.39 #; Lymphocytes % 11.4 % (21.2-54.2); Mean Corpuscular HGB Conc 30.6 GM/DL (32-36); Mean Corpuscular Hemoglobin 31 PG (27-34); Mean Platelet Volume 8.7 FL (9.6-12.0); Monocytes % 10.9 % (1.7-12.7); Neutrophils # 6.7 10*3/uL (1.4-7.4); Neutrophils % 73.3 % (38.7-73.9); Platelet Count 301 T/CUMM (130-400); Red Blood Count 3.07 MC/CUMM (3.8-5.5); Red Cell Distribution Width 14.8 % (9.3-17.3); White Blood Count 9.1 T/CUMM (4-12)
[2018-10-12] MEDS: METOPROLOL TARTRATE 100 MG TABLET PEG SCH (08:58)
[2018-10-12] MEDS: CLOPIDOGREL 75 MG TABLET PEG SCH (08:58)
[2018-10-12] MEDS: GLIMEPIRIDE 2 MG TABLET PEG SCH (08:58)
[2018-10-12] MEDS: ENOXAPARIN 40 MG/0.4 ML SYRINGE SUBCUT SCH (08:59)
[2018-10-12] MEDS: LACTOBACILLUS ACIDOPHILUS/BULGARICUS 1 PACKET PEG SCH (08:59)
[2018-10-12] MEDS: VANCOMYCIN INJ 1,250 MG in SODIUM CHLORIDE 0.9% 250 ML IV SCH (11:54)
[2018-10-12] MEDS ORDERED: BISACODYL 10 MG SUPP RECTAL PRN (12:12)
[2018-10-12] MEDS: INSULIN GLARGINE 100 UNIT/ML SUBCUT SCH (22:17)
[2018-10-12] MEDS: DOCUSATE SODIUM 100 MG/10 ML UDCUP PEG SCH (22:17)
[2018-10-12] MEDS: CEFUROXIME 50 MG/ML 100 ML/BOTTLE PEG SCH (22:17)
[2018-10-13] MEDS: ALBUTEROL/IPRATROPIUM 3 ML NEB RESP TX SCH ×4 (00:07→11:39)
[2018-10-13] MEDS: INSULIN REGULAR 100 UNIT/ML SUBCUT SCH ×2 (00:57→07:03)
[2018-10-13] MEDS ORDERED: POLYETHYLENE GLYCOL POWDER 17 GM PACK PEG SCH (09:00)
[2018-10-13] MEDS ORDERED: predniSONE 10 MG TABLET PER TUBE SCH (09:00)
[2018-10-13] MEDS: MAGNESIUM HYDROXIDE SUSP 30 ML UDCUP PO PRN (09:04)
[2018-10-13] MEDS: ENOXAPARIN 40 MG/0.4 ML SYRINGE SUBCUT SCH (09:04)
[2018-10-13] MEDS: DOCUSATE SODIUM 100 MG/10 ML UDCUP PEG SCH (09:04)
[2018-10-13] MEDS: GLIMEPIRIDE 2 MG TABLET PEG SCH (09:05)
[2018-10-13] MEDS: METOPROLOL TARTRATE 100 MG TABLET PEG SCH (09:05)
[2018-10-13] MEDS: CLOPIDOGREL 75 MG TABLET PEG SCH (09:05)
[2018-10-13] MEDS: LACTOBACILLUS ACIDOPHILUS/BULGARICUS 1 PACKET PEG SCH (09:13)
[2018-10-13] MEDS: CEFUROXIME 50 MG/ML 100 ML/BOTTLE PEG SCH (09:13)
[2018-10-13 17:29] VITALS: BP 138/88
== END 2018-10-13 16:30 | disposition home or self-care (01) | DRG 871 ==
LOC: EDBD → EDUNIT# → N.ED 21:08 → N.EDINP 10-06 00:03 → SUATTDRO 10-06 00:03 → N.5E 10-06 02:06
PROVIDERS: ADMIT Internal Medicine; ATTEND Internal Medicine

== ENCOUNTER 2018-11-09 17:15 | Inpatient (IN) ==
[2018-11-09] MEDS ORDERED: SODIUM CHLORIDE 0.9% 1,000 ML IV STA (18:56)
[2018-11-09] MEDS ORDERED: VANCOMYCIN INJ 1,250 MG in SODIUM CHLORIDE 0.9% 250 ML IV STA (18:56)
[2018-11-09] MEDS ORDERED: CEFEPIME 2,000 MG in SODIUM CHLORIDE 0.9% 100 ML IV STA (18:56)
[2018-11-09 19:28] LABS: Basophils % 0.4 % (0.0-0.8); Eosinophils # 0.2 10*3/uL (0.0-0.87); Eosinophils % 1.5 % (0.00-10.9); Hematocrit 33.6 VOL% (42.0-52.0); Hemoglobin 10.9 GM/DL (14.0-18.0); Immature Granulocytes % 1.4 %; Immature Granulocytes Absolute 0.14 #; Lymphocytes # 1.1 10*3/uL (1.4-4.0); Lymphocytes % 10.4 % (21.2-54.2); Mean Corpuscular HGB Conc 32.4 GM/DL (32-36); Mean Corpuscular Hemoglobin 31 PG (27-34); Mean Corpuscular Volume 95.7 FL (87-102); Mean Platelet Volume 9.6 FL (9.6-12.0); Monocytes # 1.1 10*3/uL (0.11-0.8); Monocytes % 10.9 % (1.7-12.7); Neutrophils # 7.6 10*3/uL (1.4-7.4); Neutrophils % 75.4 % (38.7-73.9); Platelet Count 262 T/CUMM (130-400); Red Blood Count 3.51 MC/CUMM (3.8-5.5); Red Cell Distribution Width 15.9 % (9.3-17.3); White Blood Count 10.1 T/CUMM (4-12)
[2018-11-09 20:10] LABS: Alanine Aminotransferase 18 U/L (16-61); Albumin 2.7 G/DL (3.4-5.0); Alkaline Phosphatase 111 U/L (45-117); Aspartate Amino Transferase 17 U/L (0-37); Bilirubin,Total < 0.39 MG/DL (0.2-1.0); Blood Urea Nitrogen 37 MG/DL (7-18); Glucose 259 MG/DL (74-106); Osmolality,Calculated 275.9 MOS/KG (273-304); Potassium 5.2 MMOL/L (3.5-5.1); Sodium 129 MMOL/L (136-145); Total Protein 7.7 G/DL (6.4-8.3)
[2018-11-09 20:13] LABS: Calcium 8.5 MG/DL (8.5-10.1)
[2018-11-09] MEDS ORDERED: CEFEPIME 2,000 MG VIAL ONE (20:18)
[2018-11-09 20:28] LABS: Apearance,Urine CLOUDY (Clear); Bacteria,Urine Many /HPF (Few); Bilirubin,Urine Negative (Negative); Blood, Urine Moderate mg/dL (Negative); Glucose,Urine (UA) >=500 mg/dL (Negative); Ketones,Urine Negative (Negative); Nitrite,Urine Negative (Negative); Protein,Urine 100 MG/DL; RBC,Urine 48 /HPF (0-4); Urine Color Amber (Yellow); Urine Specific Gravity 1.011 (1.001-1.035); Urine Urobilinogen < 2.0 EU/DL (0.2-1.0); WBC,Urine 1083 /HPF (0-6)
[2018-11-09] MEDS ORDERED: MEROPENEM 1,000 MG in SODIUM CHLORIDE 0.9% 100 ML IV SCH (23:45)
[2018-11-09] MEDS ORDERED: ACETAMINOPHEN 325 MG TABLET PO PRN (23:52)
[2018-11-09] MEDS ORDERED: ONDANSETRON 4 MG/2 ML VIAL IV PRN (23:52)
[2018-11-10] MEDS: SODIUM CHLORIDE 0.9% 1,000 ML IV SCH ×2 (01:30→17:41)
[2018-11-10] MEDS: MEROPENEM 1,000 MG in SODIUM CHLORIDE 0.9% 100 ML IV SCH ×4 (03:30→18:20)
[2018-11-10 05:46] LABS: Basophils % 0.4 % (0.0-0.8); Eosinophils # 0.2 10*3/uL (0.0-0.87); Eosinophils % 1.8 % (0.00-10.9); Hematocrit 28.7 VOL% (42.0-52.0); Hemoglobin 9.2 GM/DL (14.0-18.0); Immature Granulocytes % 1.3 %; Immature Granulocytes Absolute 0.12 #; Lymphocytes # 0.7 10*3/uL (1.4-4.0); Lymphocytes % 7.9 % (21.2-54.2); Mean Corpuscular HGB Conc 32.1 GM/DL (32-36); Mean Corpuscular Hemoglobin 31 PG (27-34); Mean Corpuscular Volume 96.3 FL (87-102); Monocytes # 0.7 10*3/uL (0.11-0.8); Monocytes % 8.2 % (1.7-12.7); Neutrophils # 7.2 10*3/uL (1.4-7.4); Neutrophils % 80.4 % (38.7-73.9); Platelet Count 225 T/CUMM (130-400); Red Blood Count 2.98 MC/CUMM (3.8-5.5); Red Cell Distribution Width 16.1 % (9.3-17.3); White Blood Count 8.9 T/CUMM (4-12)
[2018-11-10 06:03] LABS: Calcium 8.1 MG/DL (8.5-10.1); Osmolality,Calculated 287.2 MOS/KG (273-304)
[2018-11-10] MEDS ORDERED: DEXTROSE 50% 25 GM/50 ML VIAL IV PRN (07:19)
[2018-11-10] MEDS ORDERED: GLUCAGON 1 MG VIAL IM PRN (07:19)
[2018-11-10] MEDS ORDERED: CLOPIDOGREL 75 MG TABLET PEG SCH (09:00)
[2018-11-10] MEDS ORDERED: ASPIRIN EC 81 MG TABLET PO SCH (09:00)
[2018-11-10] MEDS ORDERED: PANTOPRAZOLE 40 MG TABLET PO SCH (09:00)
[2018-11-10] MEDS ORDERED: METOPROLOL TARTRATE 100 MG TABLET PEG SCH (09:00)
[2018-11-10] MEDS: TAMSULOSIN 0.4 MG CAPSULE PO SCH ×2 (09:01→22:52)
[2018-11-10] MEDS: CHOLECALCIFEROL 1,000 UNIT TABLET PEG SCH (09:01)
[2018-11-10] MEDS: GLIMEPIRIDE 2 MG TABLET PEG SCH (09:01)
[2018-11-10] MEDS: POLYETHYLENE GLYCOL POWDER 17 GM PACK PEG SCH (09:01)
[2018-11-10] MEDS: VANCOMYCIN INJ 1,250 MG in SODIUM CHLORIDE 0.9% 250 ML IV SCH ×2 (09:01→22:52)
[2018-11-10] MEDS: PANTOPRAZOLE 40 MG VIAL IV SCH (09:02)
[2018-11-10] MEDS: LACTOBACILLUS ACIDOPHILUS/BULGARICUS 1 PACKET PEG SCH (09:12)
[2018-11-10] MEDS: INSULIN REGULAR 100 UNIT/ML SUBCUT SCH ×2 (12:15→17:39)
[2018-11-10] MEDS ORDERED: MAGNESIUM HYDROXIDE SUSP 30 ML UDCUP PO PRN (21:01)
[2018-11-10] MEDS: DESITIN 4OZ/NYSTATIN 15 GRAM MIXTURE PASTE TOP SCH (22:52)
[2018-11-10] MEDS: METOPROLOL TARTRATE 100 MG TABLET PEG SCH (22:52)
[2018-11-11] MEDS: INSULIN REGULAR 100 UNIT/ML SUBCUT SCH ×4 (00:10→17:43)
[2018-11-11] MEDS: MEROPENEM 1,000 MG in SODIUM CHLORIDE 0.9% 100 ML IV SCH ×4 (03:19→18:34)
[2018-11-11] MEDS: SODIUM CHLORIDE 0.9% 1,000 ML IV SCH ×2 (03:21→07:10)
[2018-11-11 05:01] LABS: Basophils # 0.1 10*3/uL (0.0-0.2); Basophils % 1.3 % (0.0-0.8); Eosinophils # 0.4 10*3/uL (0.0-0.87); Eosinophils % 6.3 % (0.00-10.9); Hematocrit 29.7 VOL% (42.0-52.0); Hemoglobin 9.3 GM/DL (14.0-18.0); Immature Granulocytes % 2.5 %; Immature Granulocytes Absolute 0.14 #; Lymphocytes # 0.9 10*3/uL (1.4-4.0); Lymphocytes % 16.7 % (21.2-54.2); Mean Corpuscular HGB Conc 31.3 GM/DL (32-36); Mean Corpuscular Hemoglobin 31 PG (27-34); Mean Corpuscular Volume 97.4 FL (87-102); Mean Platelet Volume 9.2 FL (9.6-12.0); Monocytes # 0.5 10*3/uL (0.11-0.8); Neutrophils # 3.6 10*3/uL (1.4-7.4); Neutrophils % 64.2 % (38.7-73.9); Platelet Count 262 T/CUMM (130-400); Red Blood Count 3.05 MC/CUMM (3.8-5.5); Red Cell Distribution Width 15.9 % (9.3-17.3); White Blood Count 5.6 T/CUMM (4-12)
[2018-11-11 05:17] LABS: Albumin 2.2 G/DL (3.4-5.0); Calcium 8.4 MG/DL (8.5-10.1); Osmolality,Calculated 284.4 MOS/KG (273-304); Potassium 4.7 MMOL/L (3.5-5.1); Total Protein 6.5 G/DL (6.4-8.3)
[2018-11-11 05:35] LABS: Calcium 8.4 MG/DL (8.5-10.1); Osmolality,Calculated 285.4 MOS/KG (273-304); Potassium 4.8 MMOL/L (3.5-5.1)
[2018-11-11] MEDS: TAMSULOSIN 0.4 MG CAPSULE PO SCH ×2 (08:26→21:38)
[2018-11-11] MEDS: GLIMEPIRIDE 2 MG TABLET PEG SCH (08:26)
[2018-11-11] MEDS: CHOLECALCIFEROL 1,000 UNIT TABLET PEG SCH (08:26)
[2018-11-11] MEDS: PANTOPRAZOLE 40 MG VIAL IV SCH (08:27)
[2018-11-11] MEDS: POLYETHYLENE GLYCOL POWDER 17 GM PACK PEG SCH (08:27)
[2018-11-11] MEDS: METOPROLOL TARTRATE 100 MG TABLET PEG SCH ×2 (08:28→21:38)
[2018-11-11] MEDS: VANCOMYCIN INJ 1,250 MG in SODIUM CHLORIDE 0.9% 250 ML IV SCH ×2 (08:35→21:39)
[2018-11-11] MEDS: DESITIN 4OZ/NYSTATIN 15 GRAM MIXTURE PASTE TOP SCH ×2 (08:35→21:39)
[2018-11-11] MEDS: LACTOBACILLUS ACIDOPHILUS/BULGARICUS 1 PACKET PEG SCH (08:35)
[2018-11-11] MEDS ORDERED: ALBUTEROL/IPRATROPIUM 3 ML NEB RESP TX PRN (20:34)
[2018-11-12] MEDS: INSULIN REGULAR 100 UNIT/ML SUBCUT SCH ×4 (00:40→17:41)
[2018-11-12] MEDS: MEROPENEM 1,000 MG in SODIUM CHLORIDE 0.9% 100 ML IV SCH ×3 (03:31→18:25)
[2018-11-12] MEDS: SODIUM CHLORIDE 0.9% 1,000 ML IV SCH ×2 (05:23→14:50)
[2018-11-12 05:30] LABS: Basophils % 0.7 % (0.0-0.8); Eosinophils # 0.3 10*3/uL (0.0-0.87); Eosinophils % 5.2 % (0.00-10.9); Hematocrit 29.7 VOL% (42.0-52.0); Hemoglobin 9.2 GM/DL (14.0-18.0); Immature Granulocytes % 2.1 %; Immature Granulocytes Absolute 0.13 #; Lymphocytes # 1.1 10*3/uL (1.4-4.0); Lymphocytes % 18.4 % (21.2-54.2); Mean Corpuscular Hemoglobin 31 PG (27-34); Mean Corpuscular Volume 98.3 FL (87-102); Mean Platelet Volume 9.4 FL (9.6-12.0); Monocytes # 0.7 10*3/uL (0.11-0.8); Monocytes % 11.9 % (1.7-12.7); Neutrophils # 3.8 10*3/uL (1.4-7.4); Neutrophils % 61.7 % (38.7-73.9); Platelet Count 283 T/CUMM (130-400); Red Blood Count 3.02 MC/CUMM (3.8-5.5); Red Cell Distribution Width 15.9 % (9.3-17.3); White Blood Count 6.1 T/CUMM (4-12)
[2018-11-12 06:10] LABS: Alanine Aminotransferase 23 U/L (16-61); Albumin 2.3 G/DL (3.4-5.0); Alkaline Phosphatase 90 U/L (45-117); Aspartate Amino Transferase 17 U/L (0-37); Bilirubin,Total < 0.39 MG/DL (0.2-1.0); Blood Urea Nitrogen 24 MG/DL (7-18); Calcium 8.2 MG/DL (8.5-10.1); Glucose 137 MG/DL (74-106); Osmolality,Calculated 288.1 MOS/KG (273-304); Potassium 4.7 MMOL/L (3.5-5.1); Sodium 142 MMOL/L (136-145); Total Protein 6.6 G/DL (6.4-8.3)
[2018-11-12] MEDS ORDERED: SODIUM PHOSPHATE INJ 30 MMOL in SODIUM CHLORIDE 0.9% 250 ML IV ONE (08:00)
[2018-11-12] MEDS: POLYETHYLENE GLYCOL POWDER 17 GM PACK PEG SCH (09:03)
[2018-11-12] MEDS: GLIMEPIRIDE 2 MG TABLET PEG SCH (09:03)
[2018-11-12] MEDS: LACTOBACILLUS ACIDOPHILUS/BULGARICUS 1 PACKET PEG SCH (09:03)
[2018-11-12] MEDS: CHOLECALCIFEROL 1,000 UNIT TABLET PEG SCH (09:03)
[2018-11-12] MEDS: TAMSULOSIN 0.4 MG CAPSULE PO SCH ×2 (09:03→22:30)
[2018-11-12] MEDS: DESITIN 4OZ/NYSTATIN 15 GRAM MIXTURE PASTE TOP SCH ×2 (09:04→22:29)
[2018-11-12] MEDS: METOPROLOL TARTRATE 100 MG TABLET PEG SCH ×2 (09:06→22:30)
[2018-11-12] MEDS: PANTOPRAZOLE 40 MG VIAL IV SCH (11:27)
[2018-11-12] MEDS: FLUCONAZOLE INJ 200 MG in PREMIX 1 EACH IV SCH (11:28)
[2018-11-12] MEDS ORDERED: IPRATROPIUM 500 MCG/2.5 ML NEB RESP TX ONE (12:55)
[2018-11-12 13:21] LABS: ABG HCO3 21.9 MMOL/L (20-26); ABG Oxygen Saturation 94.5 % (95-100); ABG PH 7.354 (7.35-7.45); ABG PO2 73.6 MM HG (80-95); ABG TCO2 20.3 MMOL/L (23-27)
[2018-11-12] MEDS: HEPARIN 5,000 UNIT/1 ML VIAL SUBCUT SCH ×2 (14:49→22:30)
[2018-11-12 14:53] LABS: Basophils # 0.1 10*3/uL (0.0-0.2); Basophils % 0.6 % (0.0-0.8); Eosinophils # 0.1 10*3/uL (0.0-0.87); Hematocrit 28.6 VOL% (42.0-52.0); Immature Granulocytes % 1.7 %; Immature Granulocytes Absolute 0.15 #; Lymphocytes # 0.5 10*3/uL (1.4-4.0); Lymphocytes % 5.5 % (21.2-54.2); Mean Corpuscular HGB Conc 31.5 GM/DL (32-36); Mean Corpuscular Hemoglobin 31 PG (27-34); Mean Corpuscular Volume 99.3 FL (87-102); Mean Platelet Volume 8.9 FL (9.6-12.0); Monocytes # 0.5 10*3/uL (0.11-0.8); Monocytes % 5.2 % (1.7-12.7); Neutrophils # 7.8 10*3/uL (1.4-7.4); Platelet Count 254 T/CUMM (130-400); Red Blood Count 2.88 MC/CUMM (3.8-5.5); Red Cell Distribution Width 15.7 % (9.3-17.3); White Blood Count 9.1 T/CUMM (4-12)
[2018-11-12 15:22] LABS: Alanine Aminotransferase 25 U/L (16-61); Albumin 2.2 G/DL (3.4-5.0); Alkaline Phosphatase 95 U/L (45-117); Aspartate Amino Transferase 16 U/L (0-37); Bilirubin,Total < 0.39 MG/DL (0.2-1.0); Blood Urea Nitrogen 30 MG/DL (7-18); Calcium 7.9 MG/DL (8.5-10.1); Glucose 245 MG/DL (74-106); Osmolality,Calculated 292.4 MOS/KG (273-304); Sodium 140 MMOL/L (136-145); Total Protein 6.4 G/DL (6.4-8.3)
[2018-11-12] MEDS: ALBUTEROL/IPRATROPIUM 3 ML NEB RESP TX SCH (19:29)
[2018-11-13] MEDS: INSULIN REGULAR 100 UNIT/ML SUBCUT SCH ×4 (01:23→18:40)
[2018-11-13] MEDS: ALBUTEROL/IPRATROPIUM 3 ML NEB RESP TX SCH ×4 (02:11→19:05)
[2018-11-13] MEDS: MEROPENEM 1,000 MG in SODIUM CHLORIDE 0.9% 100 ML IV SCH ×3 (03:28→18:44)
[2018-11-13 06:35] LABS: Basophils # 0.1 10*3/uL (0.0-0.2); Basophils % 0.8 % (0.0-0.8); Eosinophils # 0.3 10*3/uL (0.0-0.87); Eosinophils % 4.7 % (0.00-10.9); Immature Granulocytes % 2.1 %; Immature Granulocytes Absolute 0.14 #; Lymphocytes # 0.8 10*3/uL (1.4-4.0); Lymphocytes % 12.7 % (21.2-54.2); Mean Corpuscular Hemoglobin 31 PG (27-34); Mean Platelet Volume 9.7 FL (9.6-12.0); Monocytes # 0.6 10*3/uL (0.11-0.8); Monocytes % 9.4 % (1.7-12.7); NRBC # 0.02 10*3/uL; Neutrophils # 4.7 10*3/uL (1.4-7.4); Neutrophils % 70.3 % (38.7-73.9); Platelet Count 248 T/CUMM (130-400); Red Blood Count 2.93 MC/CUMM (3.8-5.5); Red Cell Distribution Width 15.9 % (9.3-17.3); White Blood Count 6.6 T/CUMM (4-12)
[2018-11-13] MEDS: SODIUM CHLORIDE 0.9% 1,000 ML IV SCH ×2 (06:45→22:05)
[2018-11-13] MEDS: HEPARIN 5,000 UNIT/1 ML VIAL SUBCUT SCH ×3 (06:45→22:09)
[2018-11-13 06:59] LABS: Albumin 2.1 G/DL (3.4-5.0); Bilirubin,Total 1.4 MG/DL (0.2-1.0); Calcium 8.1 MG/DL (8.5-10.1); Osmolality,Calculated 289.8 MOS/KG (273-304); Potassium 4.4 MMOL/L (3.5-5.1)
[2018-11-13] MEDS: LACTOBACILLUS ACIDOPHILUS/BULGARICUS 1 PACKET PEG SCH (09:00)
[2018-11-13] MEDS: DESITIN 4OZ/NYSTATIN 15 GRAM MIXTURE PASTE TOP SCH ×2 (09:30→22:09)
[2018-11-13] MEDS: PANTOPRAZOLE 40 MG VIAL IV SCH (09:30)
[2018-11-13] MEDS: TAMSULOSIN 0.4 MG CAPSULE PO SCH ×2 (10:00→22:05)
[2018-11-13] MEDS: CHOLECALCIFEROL 1,000 UNIT TABLET PEG SCH (10:28)
[2018-11-13] MEDS: METOPROLOL TARTRATE 100 MG TABLET PEG SCH ×2 (10:28→22:05)
[2018-11-13] MEDS: GLIMEPIRIDE 2 MG TABLET PEG SCH (10:28)
[2018-11-13] MEDS: POLYETHYLENE GLYCOL POWDER 17 GM PACK PEG SCH (10:28)
[2018-11-13 14:38] LABS: ABG Base Excess -0.3 MMOL/L (-2.5-2.5); ABG HCO3 24.2 MMOL/L (20-26); ABG Oxygen Saturation 98.9 % (95-100); ABG TCO2 22.8 MMOL/L (23-27)
[2018-11-13] MEDS: VANCOMYCIN INJ 1,250 MG in SODIUM CHLORIDE 0.9% 250 ML IV SCH (14:55)
[2018-11-13] MEDS: FLUCONAZOLE INJ 200 MG in PREMIX 1 EACH IV SCH (18:49)
[2018-11-13] MEDS ORDERED: guaiFENesin 200 MG/10 ML UDCUP PO PRN (23:46)
[2018-11-14] MEDS: INSULIN REGULAR 100 UNIT/ML SUBCUT SCH ×4 (00:23→22:42)
[2018-11-14] MEDS: ALBUTEROL/IPRATROPIUM 3 ML NEB RESP TX SCH ×4 (00:49→19:01)
[2018-11-14 01:32] LABS: ABG Base Excess -2.8 MMOL/L (-2.5-2.5); ABG HCO3 22.1 MMOL/L (20-26); ABG PCO2 42.5 MM HG (35-48); ABG TCO2 20.2 MMOL/L (23-27); Allen Test Positive; Pt O2 Delivery Device Other
[2018-11-14] MEDS: MEROPENEM 1,000 MG in SODIUM CHLORIDE 0.9% 100 ML IV SCH ×3 (03:38→22:42)
[2018-11-14 06:10] LABS: Basophils # 0.1 10*3/uL (0.0-0.2); Basophils % 0.8 % (0.0-0.8); Eosinophils # 0.2 10*3/uL (0.0-0.87); Eosinophils % 3.1 % (0.00-10.9); Hemoglobin 8.7 GM/DL (14.0-18.0); Immature Granulocytes % 2.1 %; Immature Granulocytes Absolute 0.16 #; Lymphocytes # 1.3 10*3/uL (1.4-4.0); Lymphocytes % 16.7 % (21.2-54.2); Mean Corpuscular Hemoglobin 30 PG (27-34); Mean Corpuscular Volume 100.3 FL (87-102); Mean Platelet Volume 9.1 FL (9.6-12.0); Monocytes # 0.7 10*3/uL (0.11-0.8); Monocytes % 8.5 % (1.7-12.7); Neutrophils # 5.3 10*3/uL (1.4-7.4); Neutrophils % 68.8 % (38.7-73.9); Platelet Count 267 T/CUMM (130-400); Red Blood Count 2.89 MC/CUMM (3.8-5.5); Red Cell Distribution Width 15.7 % (9.3-17.3); White Blood Count 7.7 T/CUMM (4-12)
[2018-11-14 06:26] LABS: Albumin 2.3 G/DL (3.4-5.0); Calcium 8.3 MG/DL (8.5-10.1); Osmolality,Calculated 291.8 MOS/KG (273-304); Potassium 5.2 MMOL/L (3.5-5.1); Total Protein 6.3 G/DL (6.4-8.3)
[2018-11-14] MEDS: HEPARIN 5,000 UNIT/1 ML VIAL SUBCUT SCH ×3 (06:49→22:42)
[2018-11-14] MEDS: GLIMEPIRIDE 2 MG TABLET PEG SCH (07:30)
[2018-11-14] MEDS: LACTOBACILLUS ACIDOPHILUS/BULGARICUS 1 PACKET PEG SCH (09:00)
[2018-11-14] MEDS ORDERED: SODIUM POLYSTYRENE SULFATE 15 GM/60 ML BOTTLE PEG ONE (10:21)
[2018-11-14] MEDS ORDERED: FUROSEMIDE 40 MG/4 ML VIAL IV ONE (10:24)
[2018-11-14] MEDS: PANTOPRAZOLE 40 MG VIAL IV SCH (10:45)
[2018-11-14] MEDS: METOPROLOL TARTRATE 100 MG TABLET PEG SCH ×2 (10:45→22:42)
[2018-11-14] MEDS: TAMSULOSIN 0.4 MG CAPSULE PO SCH ×2 (10:45→22:42)
[2018-11-14] MEDS: CHOLECALCIFEROL 1,000 UNIT TABLET PEG SCH (10:45)
[2018-11-14] MEDS: DESITIN 4OZ/NYSTATIN 15 GRAM MIXTURE PASTE TOP SCH ×2 (13:00→22:43)
[2018-11-14 14:09] LABS: Alanine Aminotransferase 26 U/L (16-61); Albumin 2.2 G/DL (3.4-5.0); Alkaline Phosphatase 91 U/L (45-117); Aspartate Amino Transferase 16 U/L (0-37); Bilirubin,Total < 0.39 MG/DL (0.2-1.0); Blood Urea Nitrogen 19 MG/DL (7-18); Calcium 8.1 MG/DL (8.5-10.1); Glucose 179 MG/DL (74-106); Osmolality,Calculated 286.3 MOS/KG (273-304); Potassium 4.8 MMOL/L (3.5-5.1); Sodium 141 MMOL/L (136-145); Total Protein 6.5 G/DL (6.4-8.3)
[2018-11-14] MEDS: POLYETHYLENE GLYCOL POWDER 17 GM PACK PEG SCH (16:24)
[2018-11-14] MEDS: VANCOMYCIN INJ 1,250 MG in SODIUM CHLORIDE 0.9% 250 ML IV SCH (16:56)
[2018-11-14] MEDS: SODIUM CHLORIDE 0.9% 1,000 ML IV SCH (23:40)
[2018-11-15] MEDS: ALBUTEROL/IPRATROPIUM 3 ML NEB RESP TX SCH ×3 (00:42→13:00)
[2018-11-15] MEDS: INSULIN REGULAR 100 UNIT/ML SUBCUT SCH ×3 (01:03→14:00)
[2018-11-15] MEDS: MEROPENEM 1,000 MG in SODIUM CHLORIDE 0.9% 100 ML IV SCH (03:18)
[2018-11-15 05:08] LABS: Basophils # 0.1 10*3/uL (0.0-0.2); Basophils % 0.8 % (0.0-0.8); Eosinophils # 0.3 10*3/uL (0.0-0.87); Eosinophils % 3.8 % (0.00-10.9); Hematocrit 28.4 VOL% (42.0-52.0); Hemoglobin 8.8 GM/DL (14.0-18.0); Immature Granulocytes % 1.6 %; Immature Granulocytes Absolute 0.12 #; Lymphocytes # 1.6 10*3/uL (1.4-4.0); Lymphocytes % 21.3 % (21.2-54.2); Mean Corpuscular Hemoglobin 31 PG (27-34); Monocytes # 0.7 10*3/uL (0.11-0.8); Monocytes % 8.8 % (1.7-12.7); Neutrophils # 4.7 10*3/uL (1.4-7.4); Neutrophils % 63.7 % (38.7-73.9); Platelet Count 262 T/CUMM (130-400); Red Blood Count 2.87 MC/CUMM (3.8-5.5); Red Cell Distribution Width 15.8 % (9.3-17.3); White Blood Count 7.4 T/CUMM (4-12)
[2018-11-15 05:22] LABS: Albumin 2.2 G/DL (3.4-5.0); Bilirubin,Total 0.4 MG/DL (0.2-1.0); Calcium 8.3 MG/DL (8.5-10.1); Osmolality,Calculated 288.1 MOS/KG (273-304); Potassium 4.6 MMOL/L (3.5-5.1); Total Protein 6.3 G/DL (6.4-8.3)
[2018-11-15] MEDS: HEPARIN 5,000 UNIT/1 ML VIAL SUBCUT SCH ×2 (06:47→14:00)
[2018-11-15] MEDS ORDERED: SODIUM PHOSPHATE INJ 15 MMOL in SODIUM CHLORIDE 0.9% 250 ML IV ONE (08:00)
[2018-11-15] MEDS: TAMSULOSIN 0.4 MG CAPSULE PO SCH (09:24)
[2018-11-15] MEDS: LACTOBACILLUS ACIDOPHILUS/BULGARICUS 1 PACKET PEG SCH (09:24)
[2018-11-15] MEDS: GLIMEPIRIDE 2 MG TABLET PEG SCH (09:24)
[2018-11-15] MEDS: CHOLECALCIFEROL 1,000 UNIT TABLET PEG SCH (09:24)
[2018-11-15] MEDS: DESITIN 4OZ/NYSTATIN 15 GRAM MIXTURE PASTE TOP SCH (09:24)
[2018-11-15] MEDS: POLYETHYLENE GLYCOL POWDER 17 GM PACK PEG SCH (09:24)
[2018-11-15] MEDS: PANTOPRAZOLE 40 MG VIAL IV SCH (09:24)
[2018-11-15] MEDS: METOPROLOL TARTRATE 100 MG TABLET PEG SCH (09:24)
[2018-11-15] MEDS: VANCOMYCIN INJ 1,250 MG in SODIUM CHLORIDE 0.9% 250 ML IV SCH (14:00)
[2018-11-15 16:03] VITALS: BP 138/76
== END 2018-11-15 16:30 | disposition home health service (06) | DRG 871 ==
LOC: EDUNIT# → EDBD → N.ED 17:15 → N.EDINP 23:35 → SUATTDRO 23:35 → N.EDINP 11-10 00:32 → N.5E 11-10 00:50
PROVIDERS: ADMIT Internal Medicine; ATTEND Internal Medicine Geriatric Medicine

== ENCOUNTER 2019-05-02 17:52 | Inpatient (IN) ==
[2019-05-02] MEDS ORDERED: LEVOFLOXACIN INJ 750 MG in PREMIX 1 EACH IV STA (18:16)
[2019-05-02] MEDS ORDERED: SODIUM CHLORIDE 0.9% 1,000 ML IV STA ×2 (18:16→19:53)
[2019-05-02 18:30] LABS: Basophils # 0.1 10*3/uL (0.0-0.2); Basophils % 0.5 % (0.0-0.8); Eosinophils # 0.4 10*3/uL (0.0-0.87); Eosinophils % 3.4 % (0.00-10.9); Hematocrit 26.2 VOL% (42.0-52.0); Hemoglobin 8.1 GM/DL (14.0-18.0); Immature Granulocytes % 1.6 %; Immature Granulocytes Absolute 0.17 #; Lymphocytes # 1.4 10*3/uL (1.4-4.0); Lymphocytes % 12.4 % (21.2-54.2); Mean Corpuscular HGB Conc 30.9 GM/DL (32-36); Mean Corpuscular Volume 92.6 FL (87-102); Mean Platelet Volume 8.7 FL (9.6-12.0); Monocytes % 9.8 % (1.7-12.7); Neutrophils % 72.3 % (38.7-73.9); Platelet Count 335 T/CUMM (130-400); Red Blood Count 2.83 MC/CUMM (3.8-5.5); White Blood Count 10.9 T/CUMM (4-12)
[2019-05-02 18:57] LABS: Apearance,Urine CLOUDY (Clear); Bilirubin,Urine Negative (Negative); Blood, Urine Small mg/dL (Negative); Glucose,Urine (UA) 50 mg/dL (Negative); Ketones,Urine Negative (Negative); Mucus,Urine Occasional /LPF (Occasional); Nitrite,Urine Negative (Negative); Protein,Urine Negative; RBC,Urine 132 /HPF (0-4); Urine Color Yellow (Yellow); Urine Specific Gravity 1.011 (1.001-1.035); Urine Urobilinogen < 2.0 EU/DL (0.2-1.0); WBC,Urine 514 /HPF (0-6)
[2019-05-02 18:59] LABS: INR 0.9; PT Patient Result 9.5 SECS
[2019-05-02 19:01] LABS: Alanine Aminotransferase 19 U/L (16-61); Albumin 2.3 G/DL (3.4-5.0); Alkaline Phosphatase 89 U/L (45-117); Amylase 39 U/L (25-115); Aspartate Amino Transferase 11 U/L (0-37); Bilirubin,Total < 0.39 MG/DL (0.2-1.0); Blood Urea Nitrogen 133 MG/DL (7-18); Calcium 8.4 MG/DL (8.5-10.1); Glucose 224 MG/DL (74-106); Osmolality,Calculated 294.9 MOS/KG (273-304); Total Protein 7.3 G/DL (6.4-8.3); Troponin I < 0.015 NG/ML (0.00-0.045)
[2019-05-02] MEDS ORDERED: CALCIUM CHLORIDE 1,000 MG/10 ML SYRINGE IV STA (19:17)
[2019-05-02] MEDS ORDERED: ALBUTEROL NEB SOLN 5 MG/ML 20 ML/BOTTLE CONT NEB STA (19:17)
[2019-05-02] MEDS ORDERED: ALBUTEROL/IPRATROPIUM 3 ML NEB RESP TX PRN (20:37)
[2019-05-02] MEDS ORDERED: POLYETHYLENE GLYCOL POWDER 17 GM PACK PEG PRN (20:37)
[2019-05-02] MEDS ORDERED: DEXTROSE 50% 25 GM/50 ML VIAL IV PRN ×3 (20:41→20:55)
[2019-05-02] MEDS ORDERED: GLUCAGON 1 MG VIAL IM PRN ×2 (20:41→20:55)
[2019-05-02] MEDS ORDERED: ONDANSETRON 4 MG/2 ML VIAL IV PRN (20:41)
[2019-05-02 22:39] LABS: Calcium 8.5 MG/DL (8.5-10.1); Osmolality,Calculated 298.1 MOS/KG (273-304)
[2019-05-02] MEDS: INSULIN LISPRO 100 UNIT/ML SUBCUT SCH (23:53)
[2019-05-03] MEDS: SODIUM CHLORIDE 0.9% 1,000 ML IV SCH ×5 (00:11→21:52)
[2019-05-03 05:26] LABS: Basophils % 0.2 % (0.0-0.8); Eosinophils # 0.2 10*3/uL (0.0-0.87); Eosinophils % 1.7 % (0.00-10.9); Hematocrit 24.4 VOL% (42.0-52.0); Hemoglobin 7.7 GM/DL (14.0-18.0); Immature Granulocytes % 1.5 %; Immature Granulocytes Absolute 0.13 #; Lymphocytes # 1.2 10*3/uL (1.4-4.0); Lymphocytes % 13.1 % (21.2-54.2); Mean Corpuscular HGB Conc 31.6 GM/DL (32-36); Mean Corpuscular Volume 93.8 FL (87-102); Mean Platelet Volume 8.8 FL (9.6-12.0); Monocytes % 9.6 % (1.7-12.7); Neutrophils % 73.9 % (38.7-73.9); Platelet Count 323 T/CUMM (130-400); Red Cell Distribution Width 17.2 % (9.3-17.3); White Blood Count 8.9 T/CUMM (4-12)
[2019-05-03 05:46] LABS: Osmolality,Calculated 297.7 MOS/KG (273-304); Thyroid Stimulating Hormone 2.39 uIU/ml (0.358-3.74); VLDL CHOLESTEROL 27.8 MG/DL
[2019-05-03] MEDS: CLOPIDOGREL 75 MG TABLET PEG SCH (09:53)
[2019-05-03] MEDS: ASCORBIC ACID 500 MG TABLET PEG SCH (09:54)
[2019-05-03] MEDS: LACTOBACILLUS ACIDOPHILUS/BULGARICUS CAPLET PEG SCH (09:54)
[2019-05-03] MEDS: INSULIN LISPRO 100 UNIT/ML SUBCUT SCH ×4 (09:54→21:11)
[2019-05-03] MEDS: CHOLECALCIFEROL 1,000 UNIT TABLET PEG SCH (09:54)
[2019-05-03] MEDS: TAMSULOSIN 0.4 MG CAPSULE PO SCH (11:38)
[2019-05-03] MEDS: OXYBUTYNIN 5 MG TABLET PO SCH ×2 (15:41→21:11)
[2019-05-03] MEDS: ACETAMINOPHEN 325 MG/10.15 ML UDCUP PO PRN (17:12)
[2019-05-04 05:09] LABS: Osmolality,Calculated 301.1 MOS/KG (273-304); Prealbumin 15.7 MG/DL (20-40)
[2019-05-04 05:22] LABS: Basophils % 0.4 % (0.0-0.8); Eosinophils # 0.2 10*3/uL (0.0-0.87); Eosinophils % 2.8 % (0.00-10.9); Hematocrit 23.8 VOL% (42.0-52.0); Hemoglobin 7.2 GM/DL (14.0-18.0); Immature Granulocytes % 2.1 %; Immature Granulocytes Absolute 0.16 #; Lymphocytes # 1.2 10*3/uL (1.4-4.0); Lymphocytes % 16.2 % (21.2-54.2); Mean Corpuscular HGB Conc 30.3 GM/DL (32-36); Mean Platelet Volume 8.7 FL (9.6-12.0); Monocytes % 12.4 % (1.7-12.7); NRBC # 0.05 10*3/uL; Neutrophils % 66.1 % (38.7-73.9); Platelet Count 276 T/CUMM (130-400); Red Blood Count 2.48 MC/CUMM (3.8-5.5); Red Cell Distribution Width 17.2 % (9.3-17.3); White Blood Count 7.5 T/CUMM (4-12)
[2019-05-04] MEDS ORDERED: SODIUM CHLORIDE 0.9% 1,000 ML IV PRN (07:08)
[2019-05-04] MEDS: OXYBUTYNIN 5 MG TABLET PO SCH ×3 (09:17→22:09)
[2019-05-04] MEDS: TAMSULOSIN 0.4 MG CAPSULE PO SCH (09:17)
[2019-05-04] MEDS: ASCORBIC ACID 500 MG TABLET PEG SCH (09:18)
[2019-05-04] MEDS: CHOLECALCIFEROL 1,000 UNIT TABLET PEG SCH (09:18)
[2019-05-04] MEDS: LACTOBACILLUS ACIDOPHILUS/BULGARICUS CAPLET PEG SCH (09:18)
[2019-05-04] MEDS: CLOPIDOGREL 75 MG TABLET PEG SCH (09:21)
[2019-05-04] MEDS: SODIUM CHLORIDE 0.9% 1,000 ML IV SCH ×2 (10:03→20:00)
[2019-05-04] MEDS: INSULIN LISPRO 100 UNIT/ML SUBCUT SCH ×4 (11:46→22:33)
[2019-05-04 18:14] LABS: Hematocrit 26.8 VOL% (42.0-52.0); Hemoglobin 8.4 GM/DL (14.0-18.0)
[2019-05-04] MEDS ORDERED: LEVOFLOXACIN INJ 750 MG in PREMIX 1 EACH IV SCH (21:00)
[2019-05-05] MEDS: SODIUM CHLORIDE 0.9% 1,000 ML IV SCH ×2 (05:18→12:40)
[2019-05-05 06:03] LABS: Basophils # 0.1 10*3/uL (0.0-0.2); Basophils % 0.8 % (0.0-0.8); Eosinophils # 0.2 10*3/uL (0.0-0.87); Eosinophils % 2.1 % (0.00-10.9); Hematocrit 28.3 VOL% (42.0-52.0); Hemoglobin 8.8 GM/DL (14.0-18.0); Immature Granulocytes % 4.3 %; Immature Granulocytes Absolute 0.43 #; Lymphocytes # 1.2 10*3/uL (1.4-4.0); Lymphocytes % 12.3 % (21.2-54.2); Mean Corpuscular HGB Conc 31.1 GM/DL (32-36); Mean Corpuscular Volume 96.3 FL (87-102); Mean Platelet Volume 8.6 FL (9.6-12.0); Monocytes % 9.5 % (1.7-12.7); NRBC # 0.05 10*3/uL; Platelet Count 315 T/CUMM (130-400); Red Blood Count 2.94 MC/CUMM (3.8-5.5); Red Cell Distribution Width 17.2 % (9.3-17.3); White Blood Count 10.1 T/CUMM (4-12)
[2019-05-05 06:41] LABS: Calcium 8.7 MG/DL (8.5-10.1); Osmolality,Calculated 300.7 MOS/KG (273-304)
[2019-05-05] MEDS ORDERED: SODIUM CHLORIDE 0.65% NASAL SPRAY 45 ML BOTTLE BOTH NARES PRN (08:47)
[2019-05-05] MEDS: OXYBUTYNIN 5 MG TABLET PO SCH ×3 (09:56→22:44)
[2019-05-05] MEDS: LACTOBACILLUS ACIDOPHILUS/BULGARICUS CAPLET PEG SCH (09:56)
[2019-05-05] MEDS: CHOLECALCIFEROL 1,000 UNIT TABLET PEG SCH (09:56)
[2019-05-05] MEDS: guaiFENesin 200 MG/10 ML UDCUP PO PRN (09:56)
[2019-05-05] MEDS: TAMSULOSIN 0.4 MG CAPSULE PO SCH (09:57)
[2019-05-05] MEDS: ASCORBIC ACID 500 MG TABLET PEG SCH (09:57)
[2019-05-05] MEDS: FLUCONAZOLE INJ 200 MG in PREMIX 1 EACH IV SCH (09:57)
[2019-05-05] MEDS: CLOPIDOGREL 75 MG TABLET PEG SCH (09:58)
[2019-05-05] MEDS: INSULIN LISPRO 100 UNIT/ML SUBCUT SCH ×4 (09:58→22:45)
[2019-05-05] MEDS: ALBUTEROL/IPRATROPIUM 3 ML NEB RESP TX SCH ×2 (13:58→19:28)
[2019-05-05] MEDS ORDERED: INSULIN GLARGINE 100 UNIT/ML SUBCUT SCH (21:00)
[2019-05-06] MEDS: ALBUTEROL/IPRATROPIUM 3 ML NEB RESP TX SCH ×4 (00:54→19:24)
[2019-05-06 03:45] LABS: Basophils # 0.1 10*3/uL (0.0-0.2); Basophils % 0.6 % (0.0-0.8); Eosinophils # 0.2 10*3/uL (0.0-0.87); Eosinophils % 2.2 % (0.00-10.9); Hematocrit 26.5 VOL% (42.0-52.0); Hemoglobin 7.9 GM/DL (14.0-18.0); Immature Granulocytes % 4.3 %; Immature Granulocytes Absolute 0.43 #; Lymphocytes # 1.6 10*3/uL (1.4-4.0); Lymphocytes % 15.9 % (21.2-54.2); Mean Corpuscular HGB Conc 29.8 GM/DL (32-36); Mean Corpuscular Volume 97.4 FL (87-102); Mean Platelet Volume 8.3 FL (9.6-12.0); Monocytes % 11.6 % (1.7-12.7); NRBC # 0.04 10*3/uL; Neutrophils % 65.4 % (38.7-73.9); Platelet Count 304 T/CUMM (130-400); Red Blood Count 2.72 MC/CUMM (3.8-5.5); Red Cell Distribution Width 17.3 % (9.3-17.3); White Blood Count 9.9 T/CUMM (4-12)
[2019-05-06 04:12] LABS: Calcium 8.4 MG/DL (8.5-10.1); Osmolality,Calculated 299.6 MOS/KG (273-304)
[2019-05-06] MEDS ORDERED: FUROSEMIDE 40 MG/4 ML VIAL IV ONE (09:55)
[2019-05-06] MEDS: INSULIN LISPRO 100 UNIT/ML SUBCUT SCH ×2 (10:12→13:54)
[2019-05-06] MEDS: LACTOBACILLUS ACIDOPHILUS/BULGARICUS CAPLET PEG SCH (10:12)
[2019-05-06] MEDS: CLOPIDOGREL 75 MG TABLET PEG SCH (10:13)
[2019-05-06] MEDS: ASCORBIC ACID 500 MG TABLET PEG SCH (10:13)
[2019-05-06] MEDS: TAMSULOSIN 0.4 MG CAPSULE PO SCH (10:13)
[2019-05-06] MEDS: SODIUM CHLORIDE 0.9% 1,000 ML IV SCH (10:13)
[2019-05-06] MEDS: OXYBUTYNIN 5 MG TABLET PO SCH ×3 (10:13→21:44)
[2019-05-06] MEDS: CHOLECALCIFEROL 1,000 UNIT TABLET PEG SCH (10:13)
[2019-05-06] MEDS: GLIMEPIRIDE 2 MG TABLET PEG SCH (10:14)
[2019-05-06] MEDS ORDERED: GLUCAGON 1 MG VIAL IM PRN (11:54)
[2019-05-06] MEDS ORDERED: DEXTROSE 50% 25 GM/50 ML VIAL IV PRN (11:54)
[2019-05-06] MEDS: FLUCONAZOLE INJ 200 MG in PREMIX 1 EACH IV SCH (12:18)
[2019-05-06] MEDS: INSULIN REGULAR 100 UNIT/ML SUBCUT SCH ×2 (12:18→16:42)
[2019-05-06 16:29] LABS: Hematocrit 29.2 VOL% (42.0-52.0); Hemoglobin 8.8 GM/DL (14.0-18.0)
[2019-05-06] MEDS: guaiFENesin 200 MG/10 ML UDCUP PO PRN (21:44)
[2019-05-07] MEDS: ALBUTEROL/IPRATROPIUM 3 ML NEB RESP TX SCH ×4 (00:25→20:05)
[2019-05-07] MEDS: INSULIN REGULAR 100 UNIT/ML SUBCUT SCH ×5 (00:53→23:42)
[2019-05-07 06:03] LABS: Basophils # 0.1 10*3/uL (0.0-0.2); Basophils % 0.8 % (0.0-0.8); Eosinophils # 0.3 10*3/uL (0.0-0.87); Eosinophils % 3.7 % (0.00-10.9); Hematocrit 28.2 VOL% (42.0-52.0); Hemoglobin 8.6 GM/DL (14.0-18.0); Immature Granulocytes % 3.4 %; Immature Granulocytes Absolute 0.31 #; Lymphocytes # 1.4 10*3/uL (1.4-4.0); Lymphocytes % 15.5 % (21.2-54.2); Mean Corpuscular HGB Conc 30.5 GM/DL (32-36); Mean Corpuscular Volume 97.9 FL (87-102); Mean Platelet Volume 8.3 FL (9.6-12.0); Monocytes % 10.5 % (1.7-12.7); NRBC # 0.02 10*3/uL; Neutrophils % 66.1 % (38.7-73.9); Platelet Count 345 T/CUMM (130-400); Red Blood Count 2.88 MC/CUMM (3.8-5.5)
[2019-05-07] MEDS: SODIUM CHLORIDE 0.9% 1,000 ML IV SCH (06:30)
[2019-05-07 06:41] LABS: Calcium 8.9 MG/DL (8.5-10.1); Osmolality,Calculated 297.6 MOS/KG (273-304); Prealbumin 16.2 MG/DL (20-40)
[2019-05-07] MEDS: LACTOBACILLUS ACIDOPHILUS/BULGARICUS CAPLET PEG SCH (09:21)
[2019-05-07] MEDS: GLIMEPIRIDE 2 MG TABLET PEG SCH (09:21)
[2019-05-07] MEDS: CHOLECALCIFEROL 1,000 UNIT TABLET PEG SCH (09:21)
[2019-05-07] MEDS: ASCORBIC ACID 500 MG TABLET PEG SCH (09:21)
[2019-05-07] MEDS: TAMSULOSIN 0.4 MG CAPSULE PO SCH (09:22)
[2019-05-07] MEDS: CLOPIDOGREL 75 MG TABLET PEG SCH (09:22)
[2019-05-07] MEDS: FLUCONAZOLE INJ 200 MG in PREMIX 1 EACH IV SCH (09:22)
[2019-05-07] MEDS: OXYBUTYNIN 5 MG TABLET PO SCH ×3 (09:22→20:23)
[2019-05-07] MEDS: ERYTHROMYCIN 0.5% OPHT OINT 3.5 GM TUBE RIGHT EYE SCH ×3 (13:02→20:23)
[2019-05-07] MEDS: METOPROLOL TARTRATE 100 MG TABLET PEG SCH ×2 (13:02→20:23)
[2019-05-07] MEDS: ACETAMINOPHEN 325 MG/10.15 ML UDCUP PO PRN (21:13)
[2019-05-08] MEDS: ALBUTEROL/IPRATROPIUM 3 ML NEB RESP TX SCH ×4 (00:42→19:21)
[2019-05-08 05:38] LABS: Basophils # 0.1 10*3/uL (0.0-0.2); Basophils % 0.9 % (0.0-0.8); Eosinophils # 0.4 10*3/uL (0.0-0.87); Eosinophils % 4.8 % (0.00-10.9); Hematocrit 30.3 VOL% (42.0-52.0); Hemoglobin 9.1 GM/DL (14.0-18.0); Immature Granulocytes % 1.6 %; Immature Granulocytes Absolute 0.13 #; Lymphocytes # 1.5 10*3/uL (1.4-4.0); Lymphocytes % 18.3 % (21.2-54.2); Mean Corpuscular Volume 98.7 FL (87-102); Mean Platelet Volume 8.1 FL (9.6-12.0); Neutrophils % 63.4 % (38.7-73.9); Platelet Count 318 T/CUMM (130-400); Red Blood Count 3.07 MC/CUMM (3.8-5.5); Red Cell Distribution Width 16.8 % (9.3-17.3); White Blood Count 8.2 T/CUMM (4-12)
[2019-05-08 05:46] LABS: Calcium 8.8 MG/DL (8.5-10.1); Osmolality,Calculated 291.8 MOS/KG (273-304)
[2019-05-08] MEDS: INSULIN REGULAR 100 UNIT/ML SUBCUT SCH ×3 (05:54→17:30)
[2019-05-08] MEDS ORDERED: MAGNESIUM SULF RIDER 4 GM in PREMIX 1 EACH IV PRN (08:05)
[2019-05-08] MEDS ORDERED: MAGNESIUM SULF RIDER 2 GM in PREMIX 1 EACH IV PRN (08:05)
[2019-05-08] MEDS: FLUCONAZOLE INJ 200 MG in PREMIX 1 EACH IV SCH (08:27)
[2019-05-08] MEDS: ERYTHROMYCIN 0.5% OPHT OINT 3.5 GM TUBE RIGHT EYE SCH ×4 (08:28→21:21)
[2019-05-08] MEDS ORDERED: LIDOCAINE 2% 5 ML VIAL ONE (09:00)
[2019-05-08] MEDS ORDERED: PROPOFOL 200 MG/20 ML VIAL IV ONE (09:00)
[2019-05-08] MEDS: LACTATED RINGERS 1,000 ML IV SCH (12:39)
[2019-05-08] MEDS: OXYBUTYNIN 5 MG TABLET PO SCH ×3 (14:49→21:20)
[2019-05-08] MEDS: METOPROLOL TARTRATE 100 MG TABLET PEG SCH ×2 (14:49→21:20)
[2019-05-08] MEDS: LACTOBACILLUS ACIDOPHILUS/BULGARICUS CAPLET PEG SCH (15:25)
[2019-05-08] MEDS: CHOLECALCIFEROL 1,000 UNIT TABLET PEG SCH (15:25)
[2019-05-08] MEDS: ASCORBIC ACID 500 MG TABLET PEG SCH (15:25)
[2019-05-08] MEDS: GLIMEPIRIDE 2 MG TABLET PEG SCH (15:26)
[2019-05-08] MEDS: TAMSULOSIN 0.4 MG CAPSULE PO SCH (15:26)
[2019-05-08] MEDS: ACETAMINOPHEN 325 MG/10.15 ML UDCUP PO PRN (21:21)
[2019-05-09] MEDS: INSULIN REGULAR 100 UNIT/ML SUBCUT SCH ×4 (00:14→19:22)
[2019-05-09] MEDS: ALBUTEROL/IPRATROPIUM 3 ML NEB RESP TX SCH ×4 (01:44→19:27)
[2019-05-09 06:21] LABS: Basophils # 0.1 10*3/uL (0.0-0.2); Eosinophils # 0.2 10*3/uL (0.0-0.87); Eosinophils % 2.9 % (0.00-10.9); Hematocrit 31.8 VOL% (42.0-52.0); Immature Granulocytes % 1.1 %; Immature Granulocytes Absolute 0.09 #; Lymphocytes # 1.4 10*3/uL (1.4-4.0); Lymphocytes % 16.8 % (21.2-54.2); Mean Corpuscular HGB Conc 28.9 GM/DL (32-36); Mean Corpuscular Volume 100.6 FL (87-102); Mean Platelet Volume 8.1 FL (9.6-12.0); Monocytes % 10.4 % (1.7-12.7); Neutrophils % 67.8 % (38.7-73.9); Platelet Count 314 T/CUMM (130-400); Red Blood Count 3.16 MC/CUMM (3.8-5.5); Red Cell Distribution Width 16.1 % (9.3-17.3); White Blood Count 8.2 T/CUMM (4-12)
[2019-05-09 06:22] LABS: Hemoglobin 9.2 GM/DL (14.0-18.0)
[2019-05-09 06:26] LABS: Hypochromasia 1+; Platelet Estimate Adequate
[2019-05-09] MEDS: METOPROLOL TARTRATE 100 MG TABLET PEG SCH ×2 (08:51→20:32)
[2019-05-09] MEDS: CHOLECALCIFEROL 1,000 UNIT TABLET PEG SCH (08:51)
[2019-05-09] MEDS: FLUCONAZOLE INJ 200 MG in PREMIX 1 EACH IV SCH (08:52)
[2019-05-09] MEDS: LACTOBACILLUS ACIDOPHILUS/BULGARICUS CAPLET PEG SCH (08:52)
[2019-05-09] MEDS: OXYBUTYNIN 5 MG TABLET PO SCH ×3 (08:52→20:33)
[2019-05-09] MEDS: ASCORBIC ACID 500 MG TABLET PEG SCH (08:52)
[2019-05-09] MEDS: GLIMEPIRIDE 2 MG TABLET PEG SCH (08:52)
[2019-05-09] MEDS: TAMSULOSIN 0.4 MG CAPSULE PO SCH (08:52)
[2019-05-09] MEDS: LACTATED RINGERS 1,000 ML IV SCH (08:53)
[2019-05-09] MEDS: ERYTHROMYCIN 0.5% OPHT OINT 3.5 GM TUBE RIGHT EYE SCH ×4 (08:55→20:33)
[2019-05-09] MEDS: ACETAMINOPHEN 325 MG/10.15 ML UDCUP PO PRN (20:33)
[2019-05-10] MEDS: ALBUTEROL/IPRATROPIUM 3 ML NEB RESP TX SCH ×4 (00:33→19:06)
[2019-05-10] MEDS: INSULIN REGULAR 100 UNIT/ML SUBCUT SCH ×4 (00:35→18:17)
[2019-05-10] MEDS: LACTATED RINGERS 1,000 ML IV SCH (08:59)
[2019-05-10] MEDS: CHOLECALCIFEROL 1,000 UNIT TABLET PEG SCH (09:03)
[2019-05-10] MEDS: ASCORBIC ACID 500 MG TABLET PEG SCH (09:04)
[2019-05-10] MEDS: LACTOBACILLUS ACIDOPHILUS/BULGARICUS CAPLET PEG SCH (09:04)
[2019-05-10] MEDS: OXYBUTYNIN 5 MG TABLET PO SCH ×3 (09:04→21:05)
[2019-05-10] MEDS: GLIMEPIRIDE 2 MG TABLET PEG SCH (09:04)
[2019-05-10] MEDS: TAMSULOSIN 0.4 MG CAPSULE PO SCH (09:04)
[2019-05-10] MEDS: METOPROLOL TARTRATE 100 MG TABLET PEG SCH ×2 (09:04→21:05)
[2019-05-10] MEDS: FLUCONAZOLE INJ 200 MG in PREMIX 1 EACH IV SCH (09:20)
[2019-05-10] MEDS: ERYTHROMYCIN 0.5% OPHT OINT 3.5 GM TUBE RIGHT EYE SCH ×4 (09:23→21:05)
[2019-05-10] MEDS ORDERED: BISACODYL 5 MG TABLET PO ONE (12:00)
[2019-05-10] MEDS ORDERED: POLYETHYLENE GLYCOL 3350/ELECTROLYTES 4,000 ML BOTTLE PO ONE (15:00)
[2019-05-11] MEDS: ALBUTEROL/IPRATROPIUM 3 ML NEB RESP TX SCH ×4 (00:13→19:11)
[2019-05-11] MEDS: INSULIN REGULAR 100 UNIT/ML SUBCUT SCH ×4 (00:32→18:18)
[2019-05-11 04:58] LABS: Basophils # 0.1 10*3/uL (0.0-0.2); Basophils % 1.1 % (0.0-0.8); Eosinophils # 0.2 10*3/uL (0.0-0.87); Eosinophils % 2.2 % (0.00-10.9); Hematocrit 28.9 VOL% (42.0-52.0); Hemoglobin 8.4 GM/DL (14.0-18.0); Immature Granulocytes % 0.4 %; Immature Granulocytes Absolute 0.03 #; Lymphocytes % 13.6 % (21.2-54.2); Mean Corpuscular HGB Conc 29.1 GM/DL (32-36); Mean Corpuscular Volume 98.3 FL (87-102); Mean Platelet Volume 8.4 FL (9.6-12.0); Monocytes % 10.7 % (1.7-12.7); Platelet Count 278 T/CUMM (130-400); Red Blood Count 2.94 MC/CUMM (3.8-5.5); Red Cell Distribution Width 15.8 % (9.3-17.3); White Blood Count 7.6 T/CUMM (4-12)
[2019-05-11 05:22] LABS: Calcium 8.7 MG/DL (8.5-10.1)
[2019-05-11] MEDS ORDERED: MAGNESIUM CITRATE 300 ML BOTTLE PO ONE (06:00)
[2019-05-11] MEDS: OXYBUTYNIN 5 MG TABLET PO SCH ×2 (08:13→15:58)
[2019-05-11] MEDS: GLIMEPIRIDE 2 MG TABLET PEG SCH (08:13)
[2019-05-11] MEDS: TAMSULOSIN 0.4 MG CAPSULE PO SCH (08:13)
[2019-05-11] MEDS: METOPROLOL TARTRATE 100 MG TABLET PEG SCH (08:13)
[2019-05-11] MEDS: CHOLECALCIFEROL 1,000 UNIT TABLET PEG SCH (08:13)
[2019-05-11] MEDS: ASCORBIC ACID 500 MG TABLET PEG SCH (08:13)
[2019-05-11] MEDS: LACTOBACILLUS ACIDOPHILUS/BULGARICUS CAPLET PEG SCH (08:14)
[2019-05-11] MEDS: FLUCONAZOLE INJ 200 MG in PREMIX 1 EACH IV SCH (08:24)
[2019-05-11] MEDS: ERYTHROMYCIN 0.5% OPHT OINT 3.5 GM TUBE RIGHT EYE SCH ×3 (08:42→17:56)
[2019-05-11] MEDS: LACTATED RINGERS 1,000 ML IV SCH ×2 (08:57→13:53)
[2019-05-11] MEDS ORDERED: ETOMIDATE 20 MG/10 ML VIAL IV ONE (09:00)
[2019-05-11] MEDS ORDERED: LIDOCAINE 100 MG/5 ML SYRINGE ONE (09:00)
[2019-05-11 16:07] VITALS: BP 138/69
== END 2019-05-11 22:40 | disposition home health service (06) | DRG 727 ==
LOC: EDUNIT# → EDBD → N.ED 17:52 → N.EDINP 20:41 → SUATTDRO 20:41 → N.2E 22:48
PROVIDERS: ADMIT Internal Medicine Cardiovascular Disease; ATTEND Internal Medicine Nephrology

== ENCOUNTER 2019-12-19 11:35 | Inpatient (IN) ==
[2019-12-19] MEDS ORDERED: SODIUM CHLORIDE 0.9% 1,000 ML IV STA (12:17)
[2019-12-19 13:08] LABS: Alanine Aminotransferase 28 U/L (16-61); Albumin 2.5 G/DL (3.4-5.0); Alkaline Phosphatase 78 U/L (45-117); Aspartate Amino Transferase 21 U/L (0-37); Bilirubin,Total < 0.39 MG/DL (0.2-1.0); Blood Urea Nitrogen 75 MG/DL (7-18); Calcium 10.2 MG/DL (8.5-10.1); Estimated Glom Filtration Rate 44 ML/MIN; Glucose 267 MG/DL (74-106); Osmolality,Calculated 292.7 MOS/KG (273-304); Total Protein 7.3 G/DL (6.4-8.3)
[2019-12-19 13:09] LABS: ABG Base Excess 4.8 MMOL/L (-2.5-2.5); ABG HCO3 28.4 MMOL/L (20-26); ABG Oxygen Saturation 81.7 % (95-100); ABG PCO2 57.7 MM HG (35-48); ABG PH 7.347 (7.35-7.45); ABG PO2 48.7 MM HG (80-95); ABG TCO2 29.3 MMOL/L (23-27)
[2019-12-19 13:14] LABS: Apearance,Urine CLOUDY (Clear); Bacteria,Urine Many /HPF (Few); Bilirubin,Urine Negative (Negative); Blood, Urine Moderate mg/dL (Negative); Glucose,Urine (UA) Negative (Negative); Ketones,Urine Negative (Negative); Mucus,Urine Occasional /LPF (Occasional); Nitrite,Urine Negative (Negative); Protein,Urine 30 MG/DL; RBC,Urine 8 /HPF (0-4); Urine Color Yellow (Yellow); Urine Specific Gravity 1.012 (1.001-1.035); Urine Urobilinogen < 2.0 EU/DL (0.2-1.0); WBC,Urine 69 /HPF (0-6)
[2019-12-19 13:24] LABS: Basophils % 0.3 % (0.0-0.8); Hematocrit 29.8 VOL% (42.0-52.0); Hemoglobin 9.1 GM/DL (14.0-18.0); Immature Granulocytes % 1.8 %; Immature Granulocytes Absolute 0.22 #; Lymphocytes # 0.9 10*3/uL (1.4-4.0); Lymphocytes % 7.1 % (21.2-54.2); Mean Corpuscular HGB Conc 30.5 GM/DL (32-36); Mean Platelet Volume 8.9 FL (9.6-12.0); Monocytes % 8.8 % (1.7-12.7); NRBC # 0.02 10*3/uL; Platelet Count 389 T/CUMM (130-400); Red Blood Count 3.17 MC/CUMM (3.8-5.5); Red Cell Distribution Width 17.3 % (9.3-17.3); White Blood Count 12.4 T/CUMM (4-12)
[2019-12-19 13:31] LABS: INR 0.9; PT Patient Result 10.3 SECS (9.6-12.2)
[2019-12-19 13:44] LABS: Anisocytosis Slight; Macrocytosis 1+; Platelet Estimate Normal; Polychromasia 1+
[2019-12-19] MEDS ORDERED: SODIUM CHLORIDE 0.9% 500 ML IV STA (13:55)
[2019-12-19] MEDS ORDERED: ONDANSETRON 4 MG/2 ML VIAL IV PRN (15:30)
[2019-12-19] MEDS ORDERED: POLYVINYL ALCOHOL 1.4% OPH SOLN 15 ML BOTTLE BOTH EYES PRN (15:33)
[2019-12-19] MEDS ORDERED: SODIUM CHLORIDE 0.65% NASAL SPRAY 45 ML BOTTLE BOTH NARES PRN (15:33)
[2019-12-19] MEDS ORDERED: LEVOFLOXACIN INJ 750 MG in PREMIX 1 EACH IV SCH (17:00)
[2019-12-19] MEDS: PIPERACILLIN/TAZOBACTAM 3,375 MG in SODIUM CHLORIDE 0.9% 100 ML IV SCH (19:28)
[2019-12-19] MEDS: INSULIN GLARGINE 100 UNIT/ML SUBCUT SCH (19:28)
[2019-12-19] MEDS: SODIUM CHLORIDE 0.9% 1,000 ML IV SCH (19:29)
[2019-12-19] MEDS: ALBUTEROL/IPRATROPIUM 3 ML NEB RESP TX SCH (20:14)
[2019-12-19] MEDS: METOPROLOL TARTRATE 25 MG TABLET PEG SCH (22:24)
[2019-12-19] MEDS: MAGNESIUM OXIDE 400 MG TABLET PEG SCH (22:24)
[2019-12-19] MEDS: OXYBUTYNIN 5 MG TABLET PEG SCH (22:24)
[2019-12-19] MEDS: MINERAL OIL/PETROLATUM OPH OINT 3.5 GM TUBE BOTH EYES SCH (23:02)
[2019-12-20] MEDS: ALBUTEROL/IPRATROPIUM 3 ML NEB RESP TX SCH ×4 (01:08→19:29)
[2019-12-20] MEDS: PIPERACILLIN/TAZOBACTAM 3,375 MG in SODIUM CHLORIDE 0.9% 100 ML IV SCH ×3 (02:36→16:48)
[2019-12-20 06:49] LABS: Basophils # 0.1 10*3/uL (0.0-0.2); Basophils % 0.6 % (0.0-0.8); Eosinophils % 0.4 % (0.00-10.9); Hematocrit 25.6 VOL% (42.0-52.0); Hemoglobin 7.9 GM/DL (14.0-18.0); Immature Granulocytes % 1.1 %; Immature Granulocytes Absolute 0.12 #; Lymphocytes # 1.1 10*3/uL (1.4-4.0); Lymphocytes % 9.9 % (21.2-54.2); Mean Corpuscular HGB Conc 30.9 GM/DL (32-36); Mean Corpuscular Volume 91.1 FL (87-102); Mean Platelet Volume 8.6 FL (9.6-12.0); Monocytes % 9.8 % (1.7-12.7); Neutrophils % 78.2 % (38.7-73.9); Platelet Count 336 T/CUMM (130-400); Red Blood Count 2.81 MC/CUMM (3.8-5.5); Red Cell Distribution Width 17.3 % (9.3-17.3); White Blood Count 11.3 T/CUMM (4-12)
[2019-12-20 08:00] LABS: Calcium 9.3 MG/DL (8.5-10.1); Thyroid Stimulating Hormone 1.92 uIU/ml (0.358-3.74)
[2019-12-20] MEDS ORDERED: LANSOPRAZOLE ODT 30 MG TABLET PEG SCH (09:00)
[2019-12-20] MEDS: MAGNESIUM OXIDE 400 MG TABLET PEG SCH ×2 (09:08→20:49)
[2019-12-20] MEDS: CHOLECALCIFEROL 1,000 UNIT TABLET PEG SCH (09:09)
[2019-12-20] MEDS: ASPIRIN CHEW 81 MG TABLET PO SCH (09:09)
[2019-12-20] MEDS: CLOPIDOGREL 75 MG TABLET PEG SCH (09:09)
[2019-12-20] MEDS: METOPROLOL TARTRATE 25 MG TABLET PEG SCH ×2 (09:09→22:56)
[2019-12-20] MEDS: OXYBUTYNIN 5 MG TABLET PEG SCH ×3 (09:09→20:50)
[2019-12-20] MEDS: lisinopriL 2.5 MG TABLET PEG SCH (09:09)
[2019-12-20] MEDS: POTASSIUM CHLORIDE 20 MEQ TABLET PO SCH (09:10)
[2019-12-20] MEDS: ENOXAPARIN 40 MG/0.4 ML SYRINGE SUBCUT SCH (09:10)
[2019-12-20 12:41] LABS: Hematocrit 28.9 VOL% (42.0-52.0); Hemoglobin 8.7 GM/DL (14.0-18.0)
[2019-12-20] MEDS: INSULIN REGULAR 100 UNIT/ML SUBCUT SCH ×2 (13:25→16:49)
[2019-12-20] MEDS: SODIUM CHLORIDE 0.9% 1,000 ML IV SCH (16:51)
[2019-12-20] MEDS: INSULIN GLARGINE 100 UNIT/ML SUBCUT SCH (18:26)
[2019-12-20] MEDS: ACETAMINOPHEN 325 MG TABLET PO PRN (20:49)
[2019-12-20] MEDS: MINERAL OIL/PETROLATUM OPH OINT 3.5 GM TUBE BOTH EYES SCH (22:56)
[2019-12-21] MEDS: ALBUTEROL/IPRATROPIUM 3 ML NEB RESP TX SCH ×4 (00:39→19:47)
[2019-12-21] MEDS: PIPERACILLIN/TAZOBACTAM 3,375 MG in SODIUM CHLORIDE 0.9% 100 ML IV SCH ×2 (02:37→09:59)
[2019-12-21 06:27] LABS: Basophils # 0.1 10*3/uL (0.0-0.2); Basophils % 0.9 % (0.0-0.8); Eosinophils # 0.2 10*3/uL (0.0-0.87); Eosinophils % 1.9 % (0.00-10.9); Hematocrit 27.4 VOL% (42.0-52.0); Immature Granulocytes % 1.1 %; Immature Granulocytes Absolute 0.09 #; Lymphocytes # 1.2 10*3/uL (1.4-4.0); Lymphocytes % 15.7 % (21.2-54.2); Mean Corpuscular HGB Conc 29.2 GM/DL (32-36); Mean Corpuscular Volume 95.8 FL (87-102); Monocytes % 12.5 % (1.7-12.7); Neutrophils % 67.9 % (38.7-73.9); Platelet Count 318 T/CUMM (130-400); Red Blood Count 2.86 MC/CUMM (3.8-5.5); Red Cell Distribution Width 17.1 % (9.3-17.3); White Blood Count 7.8 T/CUMM (4-12)
[2019-12-21 07:00] LABS: Calcium 9.6 MG/DL (8.5-10.1)
[2019-12-21] MEDS: OMEPRAZOLE ODT 20 MG TABLET PEG SCH (09:59)
[2019-12-21] MEDS: METOPROLOL TARTRATE 25 MG TABLET PEG SCH ×2 (09:59→22:11)
[2019-12-21] MEDS: lisinopriL 2.5 MG TABLET PEG SCH (09:59)
[2019-12-21] MEDS: CLOPIDOGREL 75 MG TABLET PEG SCH (10:00)
[2019-12-21] MEDS: ASPIRIN CHEW 81 MG TABLET PO SCH (10:00)
[2019-12-21] MEDS: POTASSIUM CHLORIDE 20 MEQ TABLET PO SCH (10:00)
[2019-12-21] MEDS: ENOXAPARIN 40 MG/0.4 ML SYRINGE SUBCUT SCH (10:00)
[2019-12-21] MEDS: MAGNESIUM OXIDE 400 MG TABLET PEG SCH ×2 (10:00→22:11)
[2019-12-21] MEDS: OXYBUTYNIN 5 MG TABLET PEG SCH ×3 (10:00→22:10)
[2019-12-21] MEDS: CHOLECALCIFEROL 1,000 UNIT TABLET PEG SCH (10:00)
[2019-12-21] MEDS: INSULIN REGULAR 100 UNIT/ML SUBCUT SCH ×3 (10:40→16:36)
[2019-12-21] MEDS: DESITIN 4OZ/NYSTATIN 15 GRAM MIXTURE PASTE TOP SCH ×2 (16:36→22:17)
[2019-12-21] MEDS: SODIUM CHLORIDE 0.9% 1,000 ML IV SCH (17:21)
[2019-12-21] MEDS: INSULIN GLARGINE 100 UNIT/ML SUBCUT SCH (18:06)
[2019-12-21] MEDS: MEROPENEM 500 MG in SODIUM CHLORIDE 0.9% 100 ML IV SCH (18:07)
[2019-12-21] MEDS: MINERAL OIL/PETROLATUM OPH OINT 3.5 GM TUBE BOTH EYES SCH (22:17)
[2019-12-22] MEDS: ALBUTEROL/IPRATROPIUM 3 ML NEB RESP TX SCH ×4 (00:16→19:48)
[2019-12-22] MEDS: MEROPENEM 500 MG in SODIUM CHLORIDE 0.9% 100 ML IV SCH ×4 (01:17→17:06)
[2019-12-22 05:48] LABS: Basophils # 0.1 10*3/uL (0.0-0.2); Basophils % 1.1 % (0.0-0.8); Eosinophils # 0.2 10*3/uL (0.0-0.87); Eosinophils % 2.3 % (0.00-10.9); Hematocrit 27.2 VOL% (42.0-52.0); Immature Granulocytes % 1.4 %; Immature Granulocytes Absolute 0.13 #; Lymphocytes # 1.1 10*3/uL (1.4-4.0); Lymphocytes % 11.3 % (21.2-54.2); Mean Corpuscular HGB Conc 29.4 GM/DL (32-36); Mean Corpuscular Volume 93.8 FL (87-102); Mean Platelet Volume 8.1 FL (9.6-12.0); Monocytes % 8.6 % (1.7-12.7); Neutrophils % 75.3 % (38.7-73.9); Platelet Count 319 T/CUMM (130-400); Red Cell Distribution Width 16.9 % (9.3-17.3); White Blood Count 9.3 T/CUMM (4-12)
[2019-12-22 06:16] LABS: Calcium 9.7 MG/DL (8.5-10.1); Osmolality,Calculated 293.8 MOS/KG (273-304)
[2019-12-22] MEDS: INSULIN REGULAR 100 UNIT/ML SUBCUT SCH ×3 (08:17→17:05)
[2019-12-22] MEDS: MAGNESIUM OXIDE 400 MG TABLET PEG SCH ×2 (10:04→21:36)
[2019-12-22] MEDS: POTASSIUM CHLORIDE 20 MEQ TABLET PO SCH (10:04)
[2019-12-22] MEDS: CHOLECALCIFEROL 1,000 UNIT TABLET PEG SCH (10:05)
[2019-12-22] MEDS: METOPROLOL TARTRATE 25 MG TABLET PEG SCH ×2 (10:05→21:35)
[2019-12-22] MEDS: lisinopriL 2.5 MG TABLET PEG SCH (10:05)
[2019-12-22] MEDS: CLOPIDOGREL 75 MG TABLET PEG SCH (10:05)
[2019-12-22] MEDS: OMEPRAZOLE ODT 20 MG TABLET PEG SCH (10:05)
[2019-12-22] MEDS: ASPIRIN CHEW 81 MG TABLET PO SCH (10:05)
[2019-12-22] MEDS: ENOXAPARIN 40 MG/0.4 ML SYRINGE SUBCUT SCH (10:06)
[2019-12-22] MEDS: DESITIN 4OZ/NYSTATIN 15 GRAM MIXTURE PASTE TOP SCH ×2 (10:06→21:36)
[2019-12-22] MEDS: OXYBUTYNIN 5 MG TABLET PEG SCH ×3 (10:06→21:35)
[2019-12-22] MEDS: SODIUM CHLORIDE 0.9% 1,000 ML IV SCH ×2 (12:42→13:55)
[2019-12-22] MEDS: INSULIN GLARGINE 100 UNIT/ML SUBCUT SCH (17:05)
[2019-12-22] MEDS: MINERAL OIL/PETROLATUM OPH OINT 3.5 GM TUBE BOTH EYES SCH (21:36)
[2019-12-23] MEDS: ALBUTEROL/IPRATROPIUM 3 ML NEB RESP TX SCH ×4 (00:26→19:38)
[2019-12-23] MEDS: MEROPENEM 500 MG in SODIUM CHLORIDE 0.9% 100 ML IV SCH ×4 (00:50→17:37)
[2019-12-23] MEDS: SODIUM CHLORIDE 0.9% 1,000 ML IV SCH ×2 (02:45→17:58)
[2019-12-23 05:29] LABS: Basophils # 0.1 10*3/uL (0.0-0.2); Basophils % 1.1 % (0.0-0.8); Eosinophils # 0.4 10*3/uL (0.0-0.87); Eosinophils % 3.6 % (0.00-10.9); Hematocrit 27.2 VOL% (42.0-52.0); Hemoglobin 7.9 GM/DL (14.0-18.0); Immature Granulocytes % 1.4 %; Immature Granulocytes Absolute 0.14 #; Lymphocytes # 1.4 10*3/uL (1.4-4.0); Lymphocytes % 13.7 % (21.2-54.2); Mean Corpuscular Volume 95.1 FL (87-102); Mean Platelet Volume 8.1 FL (9.6-12.0); Monocytes % 7.8 % (1.7-12.7); Neutrophils % 72.4 % (38.7-73.9); Platelet Count 328 T/CUMM (130-400); Red Blood Count 2.86 MC/CUMM (3.8-5.5); White Blood Count 10.1 T/CUMM (4-12)
[2019-12-23 05:45] LABS: Calcium 9.2 MG/DL (8.5-10.1); Osmolality,Calculated 299.6 MOS/KG (273-304)
[2019-12-23] MEDS: lisinopriL 2.5 MG TABLET PEG SCH (10:16)
[2019-12-23] MEDS: POTASSIUM CHLORIDE 20 MEQ TABLET PO SCH (10:16)
[2019-12-23] MEDS: OMEPRAZOLE ODT 20 MG TABLET PEG SCH (10:16)
[2019-12-23] MEDS: ASPIRIN CHEW 81 MG TABLET PO SCH (10:17)
[2019-12-23] MEDS: CLOPIDOGREL 75 MG TABLET PEG SCH (10:17)
[2019-12-23] MEDS: OXYBUTYNIN 5 MG TABLET PEG SCH ×3 (10:17→22:08)
[2019-12-23] MEDS: MAGNESIUM OXIDE 400 MG TABLET PEG SCH ×2 (10:17→22:09)
[2019-12-23] MEDS: METOPROLOL TARTRATE 25 MG TABLET PEG SCH ×2 (10:17→22:08)
[2019-12-23] MEDS: INSULIN REGULAR 100 UNIT/ML SUBCUT SCH ×3 (10:17→17:36)
[2019-12-23] MEDS: CHOLECALCIFEROL 1,000 UNIT TABLET PEG SCH (10:17)
[2019-12-23] MEDS: DESITIN 4OZ/NYSTATIN 15 GRAM MIXTURE PASTE TOP SCH ×2 (10:21→22:09)
[2019-12-23] MEDS: POLYETHYLENE GLYCOL POWDER 17 GM PACK PO SCH (10:21)
[2019-12-23] MEDS: ENOXAPARIN 40 MG/0.4 ML SYRINGE SUBCUT SCH (10:21)
[2019-12-23] MEDS: INSULIN GLARGINE 100 UNIT/ML SUBCUT SCH (17:37)
[2019-12-23] MEDS: MINERAL OIL/PETROLATUM OPH OINT 3.5 GM TUBE BOTH EYES SCH (22:09)
[2019-12-24] MEDS: MEROPENEM 500 MG in SODIUM CHLORIDE 0.9% 100 ML IV SCH ×4 (00:33→18:05)
[2019-12-24] MEDS: ALBUTEROL/IPRATROPIUM 3 ML NEB RESP TX SCH ×4 (02:05→20:09)
[2019-12-24] MEDS: ACETAMINOPHEN 325 MG TABLET PO PRN (04:23)
[2019-12-24 05:56] LABS: Basophils # 0.1 10*3/uL (0.0-0.2); Basophils % 0.8 % (0.0-0.8); Eosinophils # 0.2 10*3/uL (0.0-0.87); Eosinophils % 1.7 % (0.00-10.9); Hematocrit 28.3 VOL% (42.0-52.0); Hemoglobin 8.6 GM/DL (14.0-18.0); Immature Granulocytes % 1.3 %; Immature Granulocytes Absolute 0.17 #; Lymphocytes # 1.4 10*3/uL (1.4-4.0); Lymphocytes % 10.4 % (21.2-54.2); Mean Corpuscular HGB Conc 30.4 GM/DL (32-36); Mean Corpuscular Volume 92.5 FL (87-102); Monocytes % 7.8 % (1.7-12.7); NRBC # 0.02 10*3/uL; Platelet Count 317 T/CUMM (130-400); Red Blood Count 3.06 MC/CUMM (3.8-5.5); Red Cell Distribution Width 16.7 % (9.3-17.3); White Blood Count 13.3 T/CUMM (4-12)
[2019-12-24 06:16] LABS: Calcium 8.7 MG/DL (8.5-10.1)
[2019-12-24] MEDS: INSULIN REGULAR 100 UNIT/ML SUBCUT SCH ×3 (09:40→16:51)
[2019-12-24] MEDS: MAGNESIUM OXIDE 400 MG TABLET PEG SCH ×2 (11:53→20:48)
[2019-12-24] MEDS: CHOLECALCIFEROL 1,000 UNIT TABLET PEG SCH (11:53)
[2019-12-24] MEDS: METOPROLOL TARTRATE 25 MG TABLET PEG SCH ×2 (11:53→20:48)
[2019-12-24] MEDS: OXYBUTYNIN 5 MG TABLET PEG SCH ×3 (11:53→20:48)
[2019-12-24] MEDS: CLOPIDOGREL 75 MG TABLET PEG SCH (11:53)
[2019-12-24] MEDS: POTASSIUM CHLORIDE 20 MEQ TABLET PO SCH (11:53)
[2019-12-24] MEDS: DESITIN 4OZ/NYSTATIN 15 GRAM MIXTURE PASTE TOP SCH ×2 (11:54→20:48)
[2019-12-24] MEDS: lisinopriL 2.5 MG TABLET PEG SCH (11:54)
[2019-12-24] MEDS: OMEPRAZOLE ODT 20 MG TABLET PEG SCH (11:54)
[2019-12-24] MEDS: ENOXAPARIN 40 MG/0.4 ML SYRINGE SUBCUT SCH (11:54)
[2019-12-24] MEDS: POLYETHYLENE GLYCOL POWDER 17 GM PACK PO SCH (11:54)
[2019-12-24] MEDS: ASPIRIN CHEW 81 MG TABLET PO SCH (11:54)
[2019-12-24] MEDS: INSULIN GLARGINE 100 UNIT/ML SUBCUT SCH (18:05)
[2019-12-24] MEDS: MINERAL OIL/PETROLATUM OPH OINT 3.5 GM TUBE BOTH EYES SCH (20:48)
[2019-12-25] MEDS: MEROPENEM 500 MG in SODIUM CHLORIDE 0.9% 100 ML IV SCH ×5 (00:41→23:46)
[2019-12-25] MEDS: ALBUTEROL/IPRATROPIUM 3 ML NEB RESP TX SCH ×4 (01:25→19:27)
[2019-12-25 05:59] LABS: Basophils # 0.1 10*3/uL (0.0-0.2); Basophils % 0.9 % (0.0-0.8); Eosinophils # 0.3 10*3/uL (0.0-0.87); Eosinophils % 3.2 % (0.00-10.9); Immature Granulocytes % 1.5 %; Immature Granulocytes Absolute 0.16 #; Lymphocytes # 1.4 10*3/uL (1.4-4.0); Lymphocytes % 12.9 % (21.2-54.2); Mean Corpuscular HGB Conc 27.8 GM/DL (32-36); Mean Corpuscular Volume 98.4 FL (87-102); Mean Platelet Volume 8.2 FL (9.6-12.0); Monocytes % 7.4 % (1.7-12.7); Neutrophils % 74.1 % (38.7-73.9); Platelet Count 341 T/CUMM (130-400); Red Blood Count 3.11 MC/CUMM (3.8-5.5); Red Cell Distribution Width 16.9 % (9.3-17.3); White Blood Count 10.5 T/CUMM (4-12)
[2019-12-25 06:17] LABS: Calcium 9.1 MG/DL (8.5-10.1); Osmolality,Calculated 287.3 MOS/KG (273-304)
[2019-12-25 06:28] LABS: Hematocrit 30.5 VOL% (42.0-52.0)
[2019-12-25 06:29] LABS: Hemoglobin 8.6 GM/DL (14.0-18.0)
[2019-12-25 06:31] LABS: Hypochromasia 1+
[2019-12-25 06:32] LABS: Macrocytosis 1+; Platelet Estimate Normal; Polychromasia Slight
[2019-12-25] MEDS: INSULIN REGULAR 100 UNIT/ML SUBCUT SCH ×3 (07:41→17:14)
[2019-12-25] MEDS ORDERED: LIDOCAINE 2% VISCOUS 100 ML BOTTLE SWISH/SPIT ONE (08:00)
[2019-12-25] MEDS ORDERED: LIDOCAINE 2% 20 ML VIAL RESP TX ONE (08:00)
[2019-12-25] MEDS ORDERED: LIDOCAINE 1% 20 ML VIAL MISC INJ ONE (08:00)
[2019-12-25] MEDS: lisinopriL 2.5 MG TABLET PEG SCH (09:31)
[2019-12-25] MEDS: CHOLECALCIFEROL 1,000 UNIT TABLET PEG SCH (09:31)
[2019-12-25] MEDS: CLOPIDOGREL 75 MG TABLET PEG SCH (09:32)
[2019-12-25] MEDS: ENOXAPARIN 40 MG/0.4 ML SYRINGE SUBCUT SCH (09:32)
[2019-12-25] MEDS: MAGNESIUM OXIDE 400 MG TABLET PEG SCH ×2 (09:32→20:54)
[2019-12-25] MEDS: POLYETHYLENE GLYCOL POWDER 17 GM PACK PO SCH (09:32)
[2019-12-25] MEDS: OMEPRAZOLE ODT 20 MG TABLET PEG SCH (09:32)
[2019-12-25] MEDS: METOPROLOL TARTRATE 25 MG TABLET PEG SCH ×2 (09:32→20:54)
[2019-12-25] MEDS: ASPIRIN CHEW 81 MG TABLET PO SCH (09:33)
[2019-12-25] MEDS: POTASSIUM CHLORIDE 20 MEQ TABLET PO SCH (09:33)
[2019-12-25] MEDS: OXYBUTYNIN 5 MG TABLET PEG SCH ×3 (09:33→20:54)
[2019-12-25] MEDS: DESITIN 4OZ/NYSTATIN 15 GRAM MIXTURE PASTE TOP SCH ×2 (09:39→20:55)
[2019-12-25] MEDS: INSULIN GLARGINE 100 UNIT/ML SUBCUT SCH (17:15)
[2019-12-25] MEDS: MINERAL OIL/PETROLATUM OPH OINT 3.5 GM TUBE BOTH EYES SCH (22:25)
[2019-12-26] MEDS: ALBUTEROL/IPRATROPIUM 3 ML NEB RESP TX SCH ×5 (00:10→23:50)
[2019-12-26] MEDS: MEROPENEM 500 MG in SODIUM CHLORIDE 0.9% 100 ML IV SCH ×4 (05:43→23:45)
[2019-12-26] MEDS: INSULIN REGULAR 100 UNIT/ML SUBCUT SCH ×3 (08:02→17:35)
[2019-12-26] MEDS: OMEPRAZOLE ODT 20 MG TABLET PEG SCH (08:39)
[2019-12-26] MEDS: CLOPIDOGREL 75 MG TABLET PEG SCH (08:39)
[2019-12-26] MEDS: CHOLECALCIFEROL 1,000 UNIT TABLET PEG SCH (08:39)
[2019-12-26] MEDS: POTASSIUM CHLORIDE 20 MEQ TABLET PO SCH (08:39)
[2019-12-26] MEDS: ASPIRIN CHEW 81 MG TABLET PO SCH (08:39)
[2019-12-26] MEDS: lisinopriL 2.5 MG TABLET PEG SCH (08:39)
[2019-12-26] MEDS: MAGNESIUM OXIDE 400 MG TABLET PEG SCH ×2 (08:40→21:15)
[2019-12-26] MEDS: METOPROLOL TARTRATE 25 MG TABLET PEG SCH ×2 (08:40→21:15)
[2019-12-26] MEDS: POLYETHYLENE GLYCOL POWDER 17 GM PACK PO SCH (08:40)
[2019-12-26] MEDS: OXYBUTYNIN 5 MG TABLET PEG SCH ×3 (08:40→21:15)
[2019-12-26] MEDS: ENOXAPARIN 40 MG/0.4 ML SYRINGE SUBCUT SCH (08:44)
[2019-12-26] MEDS: DESITIN 4OZ/NYSTATIN 15 GRAM MIXTURE PASTE TOP SCH ×2 (09:14→21:12)
[2019-12-26] MEDS: INSULIN GLARGINE 100 UNIT/ML SUBCUT SCH (17:34)
[2019-12-26] MEDS: MINERAL OIL/PETROLATUM OPH OINT 3.5 GM TUBE BOTH EYES SCH (21:12)
[2019-12-26] MEDS: METHENAMINE HIPPURATE 1 GM TABLET PO SCH (21:15)
[2019-12-27] MEDS: ALBUTEROL/IPRATROPIUM 3 ML NEB RESP TX SCH ×4 (00:55→19:42)
[2019-12-27] MEDS: MEROPENEM 500 MG in SODIUM CHLORIDE 0.9% 100 ML IV SCH ×4 (05:06→19:48)
[2019-12-27 05:46] LABS: Basophils # 0.1 10*3/uL (0.0-0.2); Basophils % 0.8 % (0.0-0.8); Eosinophils # 0.4 10*3/uL (0.0-0.87); Eosinophils % 4.3 % (0.00-10.9); Hemoglobin 8.1 GM/DL (14.0-18.0); Immature Granulocytes % 1.1 %; Lymphocytes # 1.3 10*3/uL (1.4-4.0); Lymphocytes % 14.5 % (21.2-54.2); Mean Corpuscular HGB Conc 28.9 GM/DL (32-36); Mean Corpuscular Volume 95.2 FL (87-102); Mean Platelet Volume 9.3 FL (9.6-12.0); Monocytes % 7.9 % (1.7-12.7); Neutrophils % 71.4 % (38.7-73.9); Platelet Count 360 T/CUMM (130-400); Red Blood Count 2.94 MC/CUMM (3.8-5.5); Red Cell Distribution Width 16.5 % (9.3-17.3); White Blood Count 8.8 T/CUMM (4-12)
[2019-12-27 06:10] LABS: Osmolality,Calculated 284.5 MOS/KG (273-304)
[2019-12-27 06:14] LABS: Hypochromasia 1+; Platelet Estimate Adequate
[2019-12-27 06:15] LABS: Macrocytosis Slight; Polychromasia Slight
[2019-12-27] MEDS: INSULIN REGULAR 100 UNIT/ML SUBCUT SCH ×3 (07:39→17:33)
[2019-12-27] MEDS: ENOXAPARIN 40 MG/0.4 ML SYRINGE SUBCUT SCH (09:07)
[2019-12-27] MEDS: OXYBUTYNIN 5 MG TABLET PEG SCH ×3 (09:07→21:11)
[2019-12-27] MEDS: ASPIRIN CHEW 81 MG TABLET PO SCH (09:07)
[2019-12-27] MEDS: METHENAMINE HIPPURATE 1 GM TABLET PO SCH ×2 (09:07→21:11)
[2019-12-27] MEDS: METOPROLOL TARTRATE 25 MG TABLET PEG SCH ×2 (09:07→21:11)
[2019-12-27] MEDS: POLYETHYLENE GLYCOL POWDER 17 GM PACK PO SCH (09:08)
[2019-12-27] MEDS: MAGNESIUM OXIDE 400 MG TABLET PEG SCH ×2 (09:08→21:10)
[2019-12-27] MEDS: OMEPRAZOLE ODT 20 MG TABLET PEG SCH (09:08)
[2019-12-27] MEDS: CLOPIDOGREL 75 MG TABLET PEG SCH (09:08)
[2019-12-27] MEDS: lisinopriL 2.5 MG TABLET PEG SCH (09:09)
[2019-12-27] MEDS: DESITIN 4OZ/NYSTATIN 15 GRAM MIXTURE PASTE TOP SCH ×2 (09:09→21:11)
[2019-12-27] MEDS: CHOLECALCIFEROL 1,000 UNIT TABLET PEG SCH (09:09)
[2019-12-27] MEDS: POTASSIUM CHLORIDE 20 MEQ TABLET PO SCH (09:09)
[2019-12-27] MEDS: TOBRAMYCIN 80 MG/2 ML VIAL RESP TX SCH ×2 (14:38→19:50)
[2019-12-27] MEDS: INSULIN GLARGINE 100 UNIT/ML SUBCUT SCH (17:34)
[2019-12-27] MEDS: MINERAL OIL/PETROLATUM OPH OINT 3.5 GM TUBE BOTH EYES SCH (21:11)
[2019-12-28] MEDS: MEROPENEM 500 MG in SODIUM CHLORIDE 0.9% 100 ML IV SCH ×3 (00:35→13:07)
[2019-12-28] MEDS: ALBUTEROL/IPRATROPIUM 3 ML NEB RESP TX SCH ×3 (00:40→12:30)
[2019-12-28 05:29] LABS: Basophils # 0.1 10*3/uL (0.0-0.2); Eosinophils # 0.3 10*3/uL (0.0-0.87); Eosinophils % 4.2 % (0.00-10.9); Hematocrit 28.7 VOL% (42.0-52.0); Hemoglobin 8.4 GM/DL (14.0-18.0); Immature Granulocytes % 0.6 %; Immature Granulocytes Absolute 0.05 #; Lymphocytes # 1.2 10*3/uL (1.4-4.0); Lymphocytes % 15.3 % (21.2-54.2); Mean Corpuscular HGB Conc 29.3 GM/DL (32-36); Mean Corpuscular Volume 94.1 FL (87-102); Mean Platelet Volume 8.7 FL (9.6-12.0); Monocytes % 8.7 % (1.7-12.7); Neutrophils % 70.2 % (38.7-73.9); Platelet Count 371 T/CUMM (130-400); Red Blood Count 3.05 MC/CUMM (3.8-5.5); Red Cell Distribution Width 16.7 % (9.3-17.3)
[2019-12-28 06:11] LABS: Calcium 9.1 MG/DL (8.5-10.1)
[2019-12-28] MEDS: TOBRAMYCIN 80 MG/2 ML VIAL RESP TX SCH (07:15)
[2019-12-28] MEDS: METHENAMINE HIPPURATE 1 GM TABLET PO SCH (09:42)
[2019-12-28] MEDS: MAGNESIUM OXIDE 400 MG TABLET PEG SCH (09:42)
[2019-12-28] MEDS: CHOLECALCIFEROL 1,000 UNIT TABLET PEG SCH (09:42)
[2019-12-28] MEDS: CLOPIDOGREL 75 MG TABLET PEG SCH (09:42)
[2019-12-28] MEDS: METOPROLOL TARTRATE 25 MG TABLET PEG SCH (09:42)
[2019-12-28] MEDS: INSULIN REGULAR 100 UNIT/ML SUBCUT SCH ×2 (09:42→13:06)
[2019-12-28] MEDS: lisinopriL 2.5 MG TABLET PEG SCH (09:43)
[2019-12-28] MEDS: OXYBUTYNIN 5 MG TABLET PEG SCH (09:43)
[2019-12-28] MEDS: POTASSIUM CHLORIDE 20 MEQ TABLET PO SCH (09:43)
[2019-12-28] MEDS: POLYETHYLENE GLYCOL POWDER 17 GM PACK PO SCH (09:43)
[2019-12-28] MEDS: ASPIRIN CHEW 81 MG TABLET PO SCH (09:43)
[2019-12-28] MEDS: DESITIN 4OZ/NYSTATIN 15 GRAM MIXTURE PASTE TOP SCH (09:43)
[2019-12-28] MEDS: ENOXAPARIN 40 MG/0.4 ML SYRINGE SUBCUT SCH (09:43)
[2019-12-28] MEDS: OMEPRAZOLE ODT 20 MG TABLET PEG SCH (09:43)
[2019-12-28 16:10] VITALS: BP 118/44
== END 2019-12-28 15:40 | disposition home health service (06) | DRG 177 ==
LOC: N.ED 11:35 → SUATTDRO 14:31 → N.EDINP 14:31 → N.2E 16:14
PROVIDERS: ADMIT Internal Medicine; ATTEND Internal Medicine Geriatric Medicine

== ENCOUNTER 2020-02-28 19:31 | Inpatient (IN) ==
[2020-02-28] MEDS ORDERED: SODIUM CHLORIDE 0.9% 1,000 ML IV STA (19:55)
[2020-02-28 20:47] LABS: INR 1.1; PT Patient Result 11.7 SECS (9.8-11.9)
[2020-02-28 20:55] LABS: Apearance,Urine CLOUDY (Clear); Bilirubin,Urine Negative (Negative); Blood, Urine Large mg/dL (Negative); Glucose,Urine (UA) 50 mg/dL (Negative); Ketones,Urine Negative (Negative); Nitrite,Urine Negative (Negative); Protein,Urine 30 MG/DL; RBC,Urine 221 /HPF (0-4); Urine Color Yellow (Yellow); Urine Specific Gravity 1.011 (1.001-1.035); Urine Urobilinogen < 2.0 EU/DL (0.2-1.0); WBC,Urine 1052 /HPF (0-6)
[2020-02-28 21:10] LABS: Alanine Aminotransferase 10 U/L (16-61); Albumin 1.5 G/DL (3.4-5.0); Alkaline Phosphatase 50 U/L (45-117); Amylase 20 U/L (25-115); Aspartate Amino Transferase 7 U/L (0-37); Bilirubin,Total < 0.39 MG/DL (0.2-1.0); Blood Urea Nitrogen 110 MG/DL (7-18); Estimated Glom Filtration Rate 71 ML/MIN; Ferritin 15.5 ng/ml (26-388); Glucose 171 MG/DL (74-106); Total Protein 4.7 G/DL (6.4-8.3)
[2020-02-28] MEDS ORDERED: cefTRIAXone 1,000 MG in SODIUM CHLORIDE 0.9% 100 ML IV STA (21:13)
[2020-02-28] MEDS ORDERED: AZITHROMYCIN INJ 500 MG in SODIUM CHLORIDE 0.9% 250 ML IV STA (21:13)
[2020-02-28 21:43] LABS: Basophils % 0.4 % (0.0-0.8); Eosinophils # 0.2 10*3/uL (0.0-0.87); Eosinophils % 2.3 % (0.00-10.9); Hematocrit 25.3 VOL% (42.0-52.0); Hemoglobin 8.1 GM/DL (14.0-18.0); Lymphocytes % 10.1 % (21.2-54.2); Mean Corpuscular Volume 88.2 FL (87-102); Mean Platelet Volume 8.5 FL (9.6-12.0); Monocytes % 8.7 % (1.7-12.7); Neutrophils % 77.5 % (38.7-73.9); Platelet Count 290 T/CUMM (130-400); Red Blood Count 2.87 MC/CUMM (3.8-5.5); Red Cell Distribution Width 16.4 % (9.3-17.3); White Blood Count 9.6 T/CUMM (4-12)
[2020-02-28] MEDS ORDERED: DEXTROSE 10% 250 ML BAG IV PRN (23:10)
[2020-02-28] MEDS ORDERED: GLUCAGON 1 MG VIAL IM PRN (23:10)
[2020-02-28] MEDS ORDERED: ONDANSETRON 4 MG/2 ML VIAL IV PRN (23:22)
[2020-02-28] MEDS ORDERED: POTASSIUM CHLORIDE 20 MEQ/15 ML UDCUP PEG PRN (23:28)
[2020-02-29] MEDS: SODIUM BICARB INJ 50 MEQ in SODIUM CHLORIDE 0.45% 1,000 ML IV SCH ×3 (00:52→19:19)
[2020-02-29] MEDS: INSULIN REGULAR 100 UNIT/ML SUBCUT SCH ×5 (01:42→23:45)
[2020-02-29] MEDS: PANTOPRAZOLE 40 MG TABLET PO SCH (09:15)
[2020-02-29 10:09] LABS: Basophils # 0.1 10*3/uL (0.0-0.2); Basophils % 0.5 % (0.0-0.8); Eosinophils # 0.3 10*3/uL (0.0-0.87); Hematocrit 28.1 VOL% (42.0-52.0); Hemoglobin 9.2 GM/DL (14.0-18.0); Immature Granulocytes % 0.6 %; Immature Granulocytes Absolute 0.06 #; Lymphocytes # 0.9 10*3/uL (1.4-4.0); Lymphocytes % 9.6 % (21.2-54.2); Mean Corpuscular HGB Conc 32.7 GM/DL (32-36); Mean Corpuscular Volume 85.7 FL (87-102); Mean Platelet Volume 8.8 FL (9.6-12.0); Monocytes % 7.4 % (1.7-12.7); Neutrophils % 78.9 % (38.7-73.9); Platelet Count 359 T/CUMM (130-400); Red Blood Count 3.28 MC/CUMM (3.8-5.5); Red Cell Distribution Width 16.6 % (9.3-17.3); White Blood Count 9.5 T/CUMM (4-12)
[2020-02-29 10:34] LABS: Albumin 2.6 G/DL (3.4-5.0); Bilirubin,Total 0.4 MG/DL (0.2-1.0); Calcium 9.2 MG/DL (8.5-10.1); Ferritin 37.5 ng/ml (26-388); Osmolality,Calculated 311.5 MOS/KG (273-304); Total Protein 8.3 G/DL (6.4-8.3)
[2020-02-29] MEDS ORDERED: INSULIN GLARGINE 100 UNIT/ML SUBCUT SCH (18:00)
[2020-02-29] MEDS ORDERED: AZITHROMYCIN INJ 500 MG in SODIUM CHLORIDE 0.9% 250 ML IV SCH (21:00)
[2020-02-29] MEDS: ENOXAPARIN 40 MG/0.4 ML SYRINGE SUBCUT SCH (21:15)
[2020-02-29] MEDS: cefTRIAXone 1,000 MG in SODIUM CHLORIDE 0.9% 100 ML IV SCH (21:15)
[2020-03-01] MEDS: INSULIN REGULAR 100 UNIT/ML SUBCUT SCH ×3 (05:24→18:56)
[2020-03-01] MEDS: SODIUM BICARB INJ 50 MEQ in SODIUM CHLORIDE 0.45% 1,000 ML IV SCH (05:25)
[2020-03-01 07:04] LABS: Basophils % 0.4 % (0.0-0.8); Eosinophils # 0.2 10*3/uL (0.0-0.87); Eosinophils % 2.6 % (0.00-10.9); Hematocrit 25.2 VOL% (42.0-52.0); Immature Granulocytes % 0.5 %; Immature Granulocytes Absolute 0.04 #; Lymphocytes # 0.9 10*3/uL (1.4-4.0); Lymphocytes % 10.2 % (21.2-54.2); Mean Corpuscular HGB Conc 31.7 GM/DL (32-36); Mean Corpuscular Volume 86.9 FL (87-102); Mean Platelet Volume 8.6 FL (9.6-12.0); Monocytes % 9.6 % (1.7-12.7); Neutrophils % 76.7 % (38.7-73.9); Platelet Count 315 T/CUMM (130-400); Red Cell Distribution Width 16.9 % (9.3-17.3); White Blood Count 8.4 T/CUMM (4-12)
[2020-03-01 07:30] LABS: Calcium 8.2 MG/DL (8.5-10.1); Osmolality,Calculated 311.8 MOS/KG (273-304)
[2020-03-01] MEDS: PANTOPRAZOLE 40 MG TABLET PO SCH (08:05)
[2020-03-01] MEDS: cefTRIAXone 1,000 MG in SODIUM CHLORIDE 0.9% 100 ML IV SCH (20:38)
[2020-03-01] MEDS: INSULIN GLARGINE 100 UNIT/ML SUBCUT SCH (20:38)
[2020-03-01] MEDS: ENOXAPARIN 40 MG/0.4 ML SYRINGE SUBCUT SCH (20:38)
[2020-03-01] MEDS: AZITHROMYCIN 40 MG/ML 15 ML/BOTTLE PEG SCH (20:38)
[2020-03-02] MEDS: INSULIN REGULAR 100 UNIT/ML SUBCUT SCH ×4 (00:15→18:05)
[2020-03-02 06:26] LABS: Basophils # 0.1 10*3/uL (0.0-0.2); Basophils % 0.7 % (0.0-0.8); Eosinophils # 0.3 10*3/uL (0.0-0.87); Eosinophils % 4.3 % (0.00-10.9); Hematocrit 26.1 VOL% (42.0-52.0); Immature Granulocytes % 0.7 %; Immature Granulocytes Absolute 0.05 #; Lymphocytes % 13.9 % (21.2-54.2); Mean Corpuscular HGB Conc 30.7 GM/DL (32-36); Mean Corpuscular Volume 89.7 FL (87-102); Mean Platelet Volume 8.5 FL (9.6-12.0); Neutrophils % 68.4 % (38.7-73.9); Platelet Count 344 T/CUMM (130-400); Red Blood Count 2.91 MC/CUMM (3.8-5.5); Red Cell Distribution Width 17.1 % (9.3-17.3); White Blood Count 7.1 T/CUMM (4-12)
[2020-03-02 06:49] LABS: Calcium 8.4 MG/DL (8.5-10.1); Osmolality,Calculated 312.3 MOS/KG (273-304)
[2020-03-02] MEDS: ACETAMINOPHEN 325 MG/10.15 ML UDCUP PO PRN ×2 (16:05→22:44)
[2020-03-02] MEDS: ENOXAPARIN 40 MG/0.4 ML SYRINGE SUBCUT SCH (22:44)
[2020-03-02] MEDS: cefTRIAXone 1,000 MG in SODIUM CHLORIDE 0.9% 100 ML IV SCH (22:44)
[2020-03-02] MEDS: INSULIN GLARGINE 100 UNIT/ML SUBCUT SCH (22:44)
[2020-03-02] MEDS: SODIUM CHLORIDE 0.45% 1,000 ML IV SCH (22:44)
[2020-03-02] MEDS: AZITHROMYCIN 40 MG/ML 15 ML/BOTTLE PEG SCH (22:44)
[2020-03-03] MEDS: INSULIN REGULAR 100 UNIT/ML SUBCUT SCH ×5 (00:30→23:36)
[2020-03-03] MEDS: SODIUM CHLORIDE 0.45% 1,000 ML IV SCH ×2 (00:38→12:32)
[2020-03-03] MEDS ORDERED: hydrALAZINE 20 MG/1 ML VIAL IV PRN (04:22)
[2020-03-03 05:55] LABS: Basophils % 0.4 % (0.0-0.8); Eosinophils % 0.1 % (0.00-10.9); Hematocrit 27.1 VOL% (42.0-52.0); Hemoglobin 8.3 GM/DL (14.0-18.0); Lymphocytes # 0.8 10*3/uL (1.4-4.0); Lymphocytes % 7.7 % (21.2-54.2); Mean Corpuscular HGB Conc 30.6 GM/DL (32-36); Mean Platelet Volume 8.3 FL (9.6-12.0); Neutrophils % 84.8 % (38.7-73.9); Platelet Count 382 T/CUMM (130-400); Red Blood Count 3.01 MC/CUMM (3.8-5.5); White Blood Count 9.8 T/CUMM (4-12)
[2020-03-03 06:14] LABS: Prealbumin 16.4 MG/DL (20-40)
[2020-03-03 06:15] LABS: Calcium 8.7 MG/DL (8.5-10.1); Osmolality,Calculated 322.4 MOS/KG (273-304)
[2020-03-03] MEDS: ACETAMINOPHEN 325 MG/10.15 ML UDCUP PO PRN (06:45)
[2020-03-03] MEDS: METOPROLOL TARTRATE 25 MG TABLET PEG SCH ×2 (14:13→20:27)
[2020-03-03] MEDS: CHOLECALCIFEROL 1,000 UNIT TABLET PEG SCH (14:13)
[2020-03-03] MEDS: amLODIPine 2.5 MG TABLET PEG SCH (14:13)
[2020-03-03] MEDS: METHENAMINE HIPPURATE 1 GM TABLET PEG SCH ×2 (14:13→20:27)
[2020-03-03] MEDS: FAMOTIDINE 20 MG TABLET PEG SCH ×2 (14:13→20:27)
[2020-03-03] MEDS: LACTOBACILLUS ACIDOPHILUS/BULGARICUS CAPLET PEG SCH (14:13)
[2020-03-03] MEDS: ASPIRIN EC 81 MG TABLET PO SCH (14:13)
[2020-03-03] MEDS: POLYETHYLENE GLYCOL POWDER 17 GM PACK PO SCH (14:13)
[2020-03-03] MEDS: PIPERACILLIN/TAZOBACTAM 3,375 MG in SODIUM CHLORIDE 0.9% 100 ML IV SCH ×2 (14:14→20:27)
[2020-03-03] MEDS: OXYBUTYNIN 5 MG TABLET PEG SCH ×2 (14:15→20:27)
[2020-03-03] MEDS: ACETAMINOPHEN 325 MG TABLET PEG PRN (15:48)
[2020-03-03] MEDS: FLUCONAZOLE INJ 100 MG in IV BAG 1 EACH IV SCH (17:56)
[2020-03-03] MEDS: VANCOMYCIN INJ 1,500 MG in SODIUM CHLORIDE 0.9% 500 ML IV SCH (18:34)
[2020-03-03] MEDS: ENOXAPARIN 40 MG/0.4 ML SYRINGE SUBCUT SCH (20:27)
[2020-03-03] MEDS: INSULIN GLARGINE 100 UNIT/ML SUBCUT SCH (20:27)
[2020-03-04 05:21] LABS: Basophils % 0.4 % (0.0-0.8); Eosinophils % 0.2 % (0.00-10.9); Hematocrit 28.4 VOL% (42.0-52.0); Hemoglobin 8.3 GM/DL (14.0-18.0); Immature Granulocytes % 0.7 %; Immature Granulocytes Absolute 0.07 #; Lymphocytes # 1.2 10*3/uL (1.4-4.0); Lymphocytes % 10.9 % (21.2-54.2); Mean Corpuscular HGB Conc 29.2 GM/DL (32-36); Mean Corpuscular Volume 94.4 FL (87-102); Mean Platelet Volume 8.1 FL (9.6-12.0); Monocytes % 8.7 % (1.7-12.7); NRBC # 0.02 10*3/uL; Neutrophils % 79.1 % (38.7-73.9); Platelet Count 326 T/CUMM (130-400); Red Blood Count 3.01 MC/CUMM (3.8-5.5); Red Cell Distribution Width 17.2 % (9.3-17.3); White Blood Count 10.6 T/CUMM (4-12)
[2020-03-04 05:35] LABS: Calcium 8.3 MG/DL (8.5-10.1); Osmolality,Calculated 331.3 MOS/KG (273-304)
[2020-03-04] MEDS: PIPERACILLIN/TAZOBACTAM 3,375 MG in SODIUM CHLORIDE 0.9% 100 ML IV SCH ×3 (05:35→21:20)
[2020-03-04] MEDS: INSULIN REGULAR 100 UNIT/ML SUBCUT SCH ×3 (06:01→18:33)
[2020-03-04] MEDS ORDERED: DEXTROSE 5% NACL 0.45% 1,000 ML IV SCH (08:30)
[2020-03-04] MEDS: OXYBUTYNIN 5 MG TABLET PEG SCH ×3 (09:12→21:20)
[2020-03-04] MEDS: FAMOTIDINE 20 MG TABLET PEG SCH ×2 (09:12→21:20)
[2020-03-04] MEDS: METHENAMINE HIPPURATE 1 GM TABLET PEG SCH ×2 (09:12→21:20)
[2020-03-04] MEDS: ASPIRIN EC 81 MG TABLET PO SCH (09:12)
[2020-03-04] MEDS: METOPROLOL TARTRATE 25 MG TABLET PEG SCH (09:13)
[2020-03-04] MEDS: LACTOBACILLUS ACIDOPHILUS/BULGARICUS CAPLET PEG SCH (09:13)
[2020-03-04] MEDS: amLODIPine 2.5 MG TABLET PEG SCH (09:13)
[2020-03-04] MEDS: POLYETHYLENE GLYCOL POWDER 17 GM PACK PO SCH (09:13)
[2020-03-04] MEDS: ACETAMINOPHEN 325 MG TABLET PEG PRN (09:29)
[2020-03-04] MEDS: CHOLECALCIFEROL 1,000 UNIT TABLET PEG SCH (10:08)
[2020-03-04] MEDS: DESITIN 4OZ/NYSTATIN 15 GRAM MIXTURE PASTE TOP SCH ×2 (11:49→20:45)
[2020-03-04] MEDS: SODIUM CHLORIDE 0.45% 1,000 ML IV SCH ×2 (12:53→22:32)
[2020-03-04] MEDS: FLUCONAZOLE INJ 100 MG in IV BAG 1 EACH IV SCH (17:39)
[2020-03-04] MEDS: VANCOMYCIN INJ 1,500 MG in SODIUM CHLORIDE 0.9% 500 ML IV SCH (18:34)
[2020-03-04] MEDS: ENOXAPARIN 40 MG/0.4 ML SYRINGE SUBCUT SCH (21:20)
[2020-03-04] MEDS: METOPROLOL TARTRATE 50 MG TABLET PEG SCH (21:20)
[2020-03-04] MEDS: INSULIN GLARGINE 100 UNIT/ML SUBCUT SCH (21:20)
[2020-03-05] MEDS: INSULIN REGULAR 100 UNIT/ML SUBCUT SCH ×5 (00:48→23:05)
[2020-03-05 05:27] LABS: Basophils % 0.5 % (0.0-0.8); Eosinophils # 0.1 10*3/uL (0.0-0.87); Eosinophils % 0.7 % (0.00-10.9); Hematocrit 23.5 VOL% (42.0-52.0); Hemoglobin 6.6 GM/DL (14.0-18.0); Immature Granulocytes % 0.8 %; Immature Granulocytes Absolute 0.07 #; Lymphocytes # 1.2 10*3/uL (1.4-4.0); Lymphocytes % 13.5 % (21.2-54.2); Mean Corpuscular HGB Conc 28.1 GM/DL (32-36); Mean Corpuscular Volume 97.1 FL (87-102); Mean Platelet Volume 8.5 FL (9.6-12.0); Monocytes % 8.9 % (1.7-12.7); NRBC # 0.02 10*3/uL; Neutrophils % 75.6 % (38.7-73.9); Platelet Count 254 T/CUMM (130-400); Red Blood Count 2.42 MC/CUMM (3.8-5.5); Red Cell Distribution Width 17.4 % (9.3-17.3); White Blood Count 8.5 T/CUMM (4-12)
[2020-03-05 05:39] LABS: Osmolality,Calculated 306.8 MOS/KG (273-304)
[2020-03-05 05:41] LABS: Calcium 5.5 MG/DL (8.5-10.1)
[2020-03-05] MEDS: PIPERACILLIN/TAZOBACTAM 3,375 MG in SODIUM CHLORIDE 0.9% 100 ML IV SCH ×3 (05:50→22:16)
[2020-03-05 05:54] LABS: Hypochromasia 2+; Microcytosis Slight; Platelet Estimate Adequate
[2020-03-05] MEDS ORDERED: MAGNESIUM SULF RIDER 4 GM in PREMIX 1 EACH IV PRN (06:31)
[2020-03-05] MEDS ORDERED: MAGNESIUM SULF RIDER 2 GM in PREMIX 1 EACH IV PRN (06:31)
[2020-03-05] MEDS ORDERED: CALCIUM GLUCONATE 1,000 MG in SODIUM CHLORIDE 0.9% 100 ML IV ONE (07:30)
[2020-03-05 09:33] LABS: Basophils # 0.1 10*3/uL (0.0-0.2); Basophils % 0.5 % (0.0-0.8); Eosinophils # 0.1 10*3/uL (0.0-0.87); Hematocrit 27.5 VOL% (42.0-52.0); Immature Granulocytes % 0.5 %; Immature Granulocytes Absolute 0.05 #; Lymphocytes # 1.7 10*3/uL (1.4-4.0); Lymphocytes % 15.8 % (21.2-54.2); Mean Corpuscular HGB Conc 29.1 GM/DL (32-36); Mean Corpuscular Volume 94.2 FL (87-102); Mean Platelet Volume 8.8 FL (9.6-12.0); Monocytes % 8.5 % (1.7-12.7); NRBC # 0.02 10*3/uL; Neutrophils % 73.7 % (38.7-73.9); Platelet Count 306 T/CUMM (130-400); Red Blood Count 2.92 MC/CUMM (3.8-5.5); Red Cell Distribution Width 17.4 % (9.3-17.3); White Blood Count 10.4 T/CUMM (4-12)
[2020-03-05 09:41] LABS: Calcium 7.2 MG/DL (8.5-10.1); Osmolality,Calculated 330.2 MOS/KG (273-304)
[2020-03-05] MEDS: DESITIN 4OZ/NYSTATIN 15 GRAM MIXTURE PASTE TOP SCH ×2 (10:00→22:30)
[2020-03-05] MEDS: METOPROLOL TARTRATE 50 MG TABLET PEG SCH ×2 (10:00→22:16)
[2020-03-05] MEDS: OXYBUTYNIN 5 MG TABLET PEG SCH ×3 (10:00→22:15)
[2020-03-05] MEDS: ASPIRIN EC 81 MG TABLET PO SCH (10:00)
[2020-03-05] MEDS: amLODIPine 2.5 MG TABLET PEG SCH (10:00)
[2020-03-05] MEDS: LACTOBACILLUS ACIDOPHILUS/BULGARICUS CAPLET PEG SCH (10:00)
[2020-03-05] MEDS: CHOLECALCIFEROL 1,000 UNIT TABLET PEG SCH (10:00)
[2020-03-05] MEDS: FAMOTIDINE 20 MG TABLET PEG SCH ×2 (10:00→22:15)
[2020-03-05] MEDS: METHENAMINE HIPPURATE 1 GM TABLET PEG SCH ×2 (10:00→22:15)
[2020-03-05] MEDS: POLYETHYLENE GLYCOL POWDER 17 GM PACK PO SCH (10:00)
[2020-03-05 10:09] LABS: Hypochromasia 1+; Microcytosis 1+
[2020-03-05] MEDS: SODIUM CHLORIDE 0.45% 1,000 ML IV SCH ×2 (12:50→13:22)
[2020-03-05] MEDS: FLUCONAZOLE INJ 100 MG in IV BAG 1 EACH IV SCH (16:50)
[2020-03-05] MEDS: VANCOMYCIN INJ 1,500 MG in SODIUM CHLORIDE 0.9% 500 ML IV SCH (17:20)
[2020-03-05] MEDS: INSULIN GLARGINE 100 UNIT/ML SUBCUT SCH (22:15)
[2020-03-05] MEDS: ACETAMINOPHEN 325 MG TABLET PEG PRN (22:15)
[2020-03-05] MEDS: ENOXAPARIN 40 MG/0.4 ML SYRINGE SUBCUT SCH (22:15)
[2020-03-06] MEDS: PIPERACILLIN/TAZOBACTAM 3,375 MG in SODIUM CHLORIDE 0.9% 100 ML IV SCH (04:00)
[2020-03-06 05:34] LABS: Basophils # 0.1 10*3/uL (0.0-0.2); Basophils % 0.5 % (0.0-0.8); Eosinophils # 0.1 10*3/uL (0.0-0.87); Hematocrit 25.9 VOL% (42.0-52.0); Immature Granulocytes % 0.6 %; Immature Granulocytes Absolute 0.07 #; Lymphocytes # 1.3 10*3/uL (1.4-4.0); Lymphocytes % 11.5 % (21.2-54.2); Mean Corpuscular HGB Conc 29.3 GM/DL (32-36); Mean Corpuscular Volume 95.2 FL (87-102); Mean Platelet Volume 9.1 FL (9.6-12.0); NRBC # 0.02 10*3/uL; Neutrophils % 79.4 % (38.7-73.9); Platelet Count 269 T/CUMM (130-400); Red Blood Count 2.72 MC/CUMM (3.8-5.5); Red Cell Distribution Width 17.6 % (9.3-17.3); White Blood Count 10.8 T/CUMM (4-12)
[2020-03-06 05:36] LABS: Hemoglobin 7.6 GM/DL (14.0-18.0)
[2020-03-06 05:40] LABS: Calcium 6.4 MG/DL (8.5-10.1); Osmolality,Calculated 330.6 MOS/KG (273-304)
[2020-03-06 05:41] LABS: Ferritin 28.8 ng/ml (26-388)
[2020-03-06 06:15] LABS: Platelet Estimate Normal
[2020-03-06 06:16] LABS: Anisocytosis 1+; Polychromasia Slight
[2020-03-06] MEDS: INSULIN REGULAR 100 UNIT/ML SUBCUT SCH ×3 (06:40→17:57)
[2020-03-06] MEDS: FAMOTIDINE 20 MG TABLET PEG SCH ×2 (09:41→21:40)
[2020-03-06] MEDS: METHENAMINE HIPPURATE 1 GM TABLET PEG SCH ×2 (09:41→21:40)
[2020-03-06] MEDS: amLODIPine 2.5 MG TABLET PEG SCH (09:41)
[2020-03-06] MEDS: POLYETHYLENE GLYCOL POWDER 17 GM PACK PO SCH (09:41)
[2020-03-06] MEDS: ASPIRIN EC 81 MG TABLET PO SCH (09:41)
[2020-03-06] MEDS: CHOLECALCIFEROL 1,000 UNIT TABLET PEG SCH (09:41)
[2020-03-06] MEDS: METOPROLOL TARTRATE 50 MG TABLET PEG SCH ×2 (09:41→21:40)
[2020-03-06] MEDS: LACTOBACILLUS ACIDOPHILUS/BULGARICUS CAPLET PEG SCH (09:41)
[2020-03-06] MEDS: OXYBUTYNIN 5 MG TABLET PEG SCH ×3 (09:41→21:40)
[2020-03-06] MEDS: DESITIN 4OZ/NYSTATIN 15 GRAM MIXTURE PASTE TOP SCH ×2 (09:42→20:30)
[2020-03-06] MEDS: SODIUM CHLORIDE 0.45% 1,000 ML IV SCH ×2 (10:51→10:52)
[2020-03-06] MEDS: AMOXICILLIN/CLAV ES 600 125 ML/BOTTLE PO SCH (17:35)
[2020-03-06] MEDS: ENOXAPARIN 40 MG/0.4 ML SYRINGE SUBCUT SCH (21:40)
[2020-03-06] MEDS: INSULIN GLARGINE 100 UNIT/ML SUBCUT SCH (21:40)
[2020-03-07] MEDS: INSULIN REGULAR 100 UNIT/ML SUBCUT SCH ×4 (00:50→17:21)
[2020-03-07] MEDS: ACETAMINOPHEN 325 MG/10.15 ML UDCUP PO PRN (06:40)
[2020-03-07] MEDS ORDERED: AMOXICILLIN/CLAV ES 600 125 ML/BOTTLE PO SCH (08:01)
[2020-03-07] MEDS: ASPIRIN EC 81 MG TABLET PO SCH (08:31)
[2020-03-07] MEDS: DESITIN 4OZ/NYSTATIN 15 GRAM MIXTURE PASTE TOP SCH ×2 (08:32→21:00)
[2020-03-07] MEDS: FAMOTIDINE 20 MG TABLET PEG SCH ×2 (08:32→21:00)
[2020-03-07] MEDS: METHENAMINE HIPPURATE 1 GM TABLET PEG SCH ×2 (08:32→21:00)
[2020-03-07] MEDS: METOPROLOL TARTRATE 50 MG TABLET PEG SCH ×2 (08:32→21:00)
[2020-03-07] MEDS: LACTOBACILLUS ACIDOPHILUS/BULGARICUS CAPLET PEG SCH (08:32)
[2020-03-07] MEDS: CHOLECALCIFEROL 1,000 UNIT TABLET PEG SCH (08:32)
[2020-03-07] MEDS: POLYETHYLENE GLYCOL POWDER 17 GM PACK PO SCH (08:32)
[2020-03-07] MEDS: OXYBUTYNIN 5 MG TABLET PEG SCH ×3 (08:32→21:00)
[2020-03-07] MEDS: amLODIPine 2.5 MG TABLET PEG SCH (08:32)
[2020-03-07] MEDS: AMOXICILLIN/CLAV ES 600 125 ML/BOTTLE PO SCH (08:33)
[2020-03-07 09:30] LABS: Calcium 6.9 MG/DL (8.5-10.1); Osmolality,Calculated 322.3 MOS/KG (273-304)
[2020-03-07] MEDS: ENOXAPARIN 40 MG/0.4 ML SYRINGE SUBCUT SCH (21:00)
[2020-03-07] MEDS: INSULIN GLARGINE 100 UNIT/ML SUBCUT SCH (21:15)
[2020-03-08] MEDS: INSULIN REGULAR 100 UNIT/ML SUBCUT SCH ×4 (02:17→17:54)
[2020-03-08] MEDS: ERTAPENEM 1,000 MG in SODIUM CHLORIDE 0.9% 100 ML IV SCH ×2 (06:20→06:50)
[2020-03-08 06:26] LABS: Calcium 6.7 MG/DL (8.5-10.1); Osmolality,Calculated 328.2 MOS/KG (273-304)
[2020-03-08 07:23] LABS: Amorphous Crystals,Urine Occasional /HPF (Few); Apearance,Urine CLOUDY (Clear); Bilirubin,Urine Negative (Negative); Blood, Urine Small mg/dL (Negative); Glucose,Urine (UA) 150 mg/dL (Negative); Ketones,Urine Negative (Negative); Nitrite,Urine Negative (Negative); Protein,Urine 100 MG/DL; RBC,Urine 85 /HPF (0-4); Urine Color Yellow (Yellow); Urine Specific Gravity 1.014 (1.001-1.035); Urine Urobilinogen < 2.0 EU/DL (0.2-1.0); WBC,Urine 548 /HPF (0-6)
[2020-03-08] MEDS: ASPIRIN EC 81 MG TABLET PO SCH (08:32)
[2020-03-08] MEDS: OXYBUTYNIN 5 MG TABLET PEG SCH ×3 (08:34→20:52)
[2020-03-08] MEDS: DESITIN 4OZ/NYSTATIN 15 GRAM MIXTURE PASTE TOP SCH ×2 (08:34→20:52)
[2020-03-08] MEDS: FAMOTIDINE 20 MG TABLET PEG SCH ×2 (08:34→20:52)
[2020-03-08] MEDS: amLODIPine 2.5 MG TABLET PEG SCH (08:34)
[2020-03-08] MEDS: METOPROLOL TARTRATE 50 MG TABLET PEG SCH ×2 (08:34→20:52)
[2020-03-08] MEDS: CHOLECALCIFEROL 1,000 UNIT TABLET PEG SCH (08:34)
[2020-03-08] MEDS: METHENAMINE HIPPURATE 1 GM TABLET PEG SCH ×2 (08:34→20:52)
[2020-03-08] MEDS: LACTOBACILLUS ACIDOPHILUS/BULGARICUS CAPLET PEG SCH (08:34)
[2020-03-08] MEDS: POLYETHYLENE GLYCOL POWDER 17 GM PACK PO SCH (08:35)
[2020-03-08] MEDS: DEXTROSE 5% NACL 0.22% 1,000 ML IV SCH (11:30)
[2020-03-08] MEDS: ACETAMINOPHEN 325 MG TABLET PEG PRN (12:23)
[2020-03-08] MEDS: INSULIN GLARGINE 100 UNIT/ML SUBCUT SCH (20:52)
[2020-03-08] MEDS: ENOXAPARIN 40 MG/0.4 ML SYRINGE SUBCUT SCH (20:52)
[2020-03-08] MEDS: ALBUTEROL/IPRATROPIUM 3 ML NEB RESP TX SCH (22:40)
[2020-03-09] MEDS: INSULIN REGULAR 100 UNIT/ML SUBCUT SCH ×4 (00:12→18:00)
[2020-03-09] MEDS: DEXTROSE 5% NACL 0.22% 1,000 ML IV SCH ×3 (00:46→16:22)
[2020-03-09] MEDS: ERTAPENEM 1,000 MG in SODIUM CHLORIDE 0.9% 100 ML IV SCH (06:15)
[2020-03-09] MEDS: ALBUTEROL/IPRATROPIUM 3 ML NEB RESP TX SCH ×5 (06:18→19:44)
[2020-03-09] MEDS: METHENAMINE HIPPURATE 1 GM TABLET PEG SCH ×2 (08:42→20:45)
[2020-03-09] MEDS: POLYETHYLENE GLYCOL POWDER 17 GM PACK PO SCH (08:43)
[2020-03-09] MEDS: CHOLECALCIFEROL 1,000 UNIT TABLET PEG SCH (08:43)
[2020-03-09] MEDS: METOPROLOL TARTRATE 50 MG TABLET PEG SCH ×2 (08:43→20:45)
[2020-03-09] MEDS: OXYBUTYNIN 5 MG TABLET PEG SCH ×3 (08:43→20:45)
[2020-03-09] MEDS: FAMOTIDINE 20 MG TABLET PEG SCH ×2 (08:43→20:45)
[2020-03-09] MEDS: ASPIRIN EC 81 MG TABLET PO SCH (08:43)
[2020-03-09] MEDS: LACTOBACILLUS ACIDOPHILUS/BULGARICUS CAPLET PEG SCH (08:43)
[2020-03-09] MEDS: DESITIN 4OZ/NYSTATIN 15 GRAM MIXTURE PASTE TOP SCH ×2 (08:43→20:45)
[2020-03-09] MEDS: amLODIPine 2.5 MG TABLET PEG SCH (08:45)
[2020-03-09 09:15] LABS: Basophils # 0.1 10*3/uL (0.0-0.2); Basophils % 0.5 % (0.0-0.8); Eosinophils # 0.2 10*3/uL (0.0-0.87); Eosinophils % 1.9 % (0.00-10.9); Hematocrit 26.7 VOL% (42.0-52.0); Hemoglobin 7.6 GM/DL (14.0-18.0); Immature Granulocytes % 0.5 %; Immature Granulocytes Absolute 0.07 #; Lymphocytes # 1.6 10*3/uL (1.4-4.0); Lymphocytes % 12.7 % (21.2-54.2); Mean Corpuscular HGB Conc 28.5 GM/DL (32-36); Mean Corpuscular Volume 97.8 FL (87-102); Mean Platelet Volume 9.2 FL (9.6-12.0); Monocytes % 6.6 % (1.7-12.7); NRBC # 0.02 10*3/uL; Neutrophils % 77.8 % (38.7-73.9); Platelet Count 244 T/CUMM (130-400); Red Blood Count 2.73 MC/CUMM (3.8-5.5); Red Cell Distribution Width 18.3 % (9.3-17.3); White Blood Count 12.8 T/CUMM (4-12)
[2020-03-09 09:42] LABS: Hypochromasia 2+; Microcytosis 1+; Platelet Estimate Adequate
[2020-03-09 09:44] LABS: Calcium 7.4 MG/DL (8.5-10.1); Osmolality,Calculated 312.4 MOS/KG (273-304)
[2020-03-09] MEDS: ENOXAPARIN 40 MG/0.4 ML SYRINGE SUBCUT SCH (20:45)
[2020-03-09] MEDS: INSULIN GLARGINE 100 UNIT/ML SUBCUT SCH (22:00)
[2020-03-10] MEDS: ALBUTEROL/IPRATROPIUM 3 ML NEB RESP TX SCH ×5 (00:15→15:15)
[2020-03-10] MEDS: INSULIN REGULAR 100 UNIT/ML SUBCUT SCH ×3 (00:41→11:29)
[2020-03-10] MEDS: DEXTROSE 5% NACL 0.22% 1,000 ML IV SCH (04:07)
[2020-03-10] MEDS: ERTAPENEM 1,000 MG in SODIUM CHLORIDE 0.9% 100 ML IV SCH (05:33)
[2020-03-10 06:24] LABS: Calcium 7.7 MG/DL (8.5-10.1); Osmolality,Calculated 312.4 MOS/KG (273-304)
[2020-03-10] MEDS: FAMOTIDINE 20 MG TABLET PEG SCH (08:12)
[2020-03-10] MEDS: LACTOBACILLUS ACIDOPHILUS/BULGARICUS CAPLET PEG SCH (08:12)
[2020-03-10] MEDS: METHENAMINE HIPPURATE 1 GM TABLET PEG SCH (08:12)
[2020-03-10] MEDS: amLODIPine 2.5 MG TABLET PEG SCH (08:12)
[2020-03-10] MEDS: CHOLECALCIFEROL 1,000 UNIT TABLET PEG SCH (08:12)
[2020-03-10] MEDS: ASPIRIN EC 81 MG TABLET PO SCH (08:13)
[2020-03-10] MEDS: OXYBUTYNIN 5 MG TABLET PEG SCH ×2 (08:13→15:30)
[2020-03-10] MEDS: DESITIN 4OZ/NYSTATIN 15 GRAM MIXTURE PASTE TOP SCH (08:13)
[2020-03-10] MEDS: POLYETHYLENE GLYCOL POWDER 17 GM PACK PO SCH (08:13)
[2020-03-10] MEDS: METOPROLOL TARTRATE 50 MG TABLET PEG SCH (09:22)
[2020-03-10] MEDS: ACETAMINOPHEN 325 MG TABLET PEG PRN (11:30)
[2020-03-10 16:37] VITALS: BP 99/41
== END 2020-03-10 16:38 | DRG 177 ==
LOC: EDBD → EDUNIT# → N.ED 19:31 → N.EDINP 23:10 → SUATTDRO 23:10 → N.2E 02-29 00:23
PROVIDERS: ADMIT Family Medicine; ATTEND Family Medicine

== ENCOUNTER 2020-04-30 16:30 | Inpatient (IN) ==
[2020-04-30] MEDS ORDERED: methylPREDNISolone SOD SUC 125 MG/2 ML VIAL IV STA (17:15)
[2020-04-30] MEDS ORDERED: cefTRIAXone 1,000 MG in SODIUM CHLORIDE 0.9% 100 ML IV STA (17:15)
[2020-04-30 17:35] LABS: Basophils # 0.1 10*3/uL (0.0-0.2); Basophils % 0.6 % (0.0-0.8); Eosinophils # 0.1 10*3/uL (0.0-0.87); Eosinophils % 0.5 % (0.00-10.9); Hematocrit 30.8 VOL% (42.0-52.0); Hemoglobin 10.2 GM/DL (14.0-18.0); Immature Granulocytes % 1.7 %; Immature Granulocytes Absolute 0.27 #; Lymphocytes # 1.6 10*3/uL (1.4-4.0); Lymphocytes % 10.1 % (21.2-54.2); Mean Corpuscular HGB Conc 33.1 GM/DL (32-36); Mean Corpuscular Volume 86.8 FL (87-102); Mean Platelet Volume 8.9 FL (9.6-12.0); Monocytes % 8.8 % (1.7-12.7); Neutrophils % 78.3 % (38.7-73.9); Platelet Count 400 T/CUMM (130-400); Red Blood Count 3.55 MC/CUMM (3.8-5.5); Red Cell Distribution Width 16.3 % (9.3-17.3); White Blood Count 16.1 T/CUMM (4-12)
[2020-04-30 17:53] LABS: Alanine Aminotransferase 25 U/L (16-61); Albumin 2.8 G/DL (3.4-5.0); Alkaline Phosphatase 103 U/L (45-117); Aspartate Amino Transferase 11 U/L (0-37); Bilirubin,Total < 0.39 MG/DL (0.2-1.0); Blood Urea Nitrogen 94 MG/DL (7-18); Estimated Glom Filtration Rate 60 ML/MIN; Glucose 395 MG/DL (74-106); Osmolality,Calculated 288.1 MOS/KG (273-304); Total Protein 8.1 G/DL (6.4-8.3)
[2020-04-30] MEDS ORDERED: PIPERACILLIN/TAZOBACTAM 3,375 MG in SODIUM CHLORIDE 0.9% 100 ML IV STA (18:08)
[2020-04-30 18:11] LABS: Calcium 14.2 MG/DL (8.5-10.1)
[2020-04-30 18:19] LABS: Apearance,Urine CLOUDY (Clear); Bacteria,Urine Occasional /HPF (Few); Bilirubin,Urine Negative (Negative); Blood, Urine Large mg/dL (Negative); Glucose,Urine (UA) 150 mg/dL (Negative); Ketones,Urine Negative (Negative); Nitrite,Urine Negative (Negative); Protein,Urine Negative; RBC,Urine 147 /HPF (0-4); Urine Color Yellow (Yellow); Urine Specific Gravity 1.011 (1.001-1.035); Urine Urobilinogen < 2.0 EU/DL (0.2-1.0); WBC,Urine 144 /HPF (0-6)
[2020-04-30] MEDS ORDERED: LACTATED RINGERS 1,000 ML IV ONE (18:51)
[2020-04-30] MEDS ORDERED: INSULIN REGULAR 100 UNIT/ML SUBCUT STA (19:10)
[2020-04-30] MEDS: LACTATED RINGERS 1,000 ML IV SCH (20:04)
[2020-04-30] MEDS ORDERED: DEXTROSE 50% 25 GM/50 ML VIAL IV PRN (20:05)
[2020-04-30] MEDS ORDERED: ONDANSETRON 4 MG/2 ML VIAL IV PRN (20:05)
[2020-04-30] MEDS ORDERED: GLUCAGON 1 MG VIAL IM PRN (20:05)
[2020-04-30] MEDS ORDERED: SODIUM CHLORIDE 0.65% NASAL SPRAY 45 ML BOTTLE BOTH NARES PRN (20:12)
[2020-04-30] MEDS ORDERED: POLYVINYL ALCOHOL 1.4% OPH SOLN 15 ML BOTTLE BOTH EYES PRN (21:50)
[2020-04-30] MEDS ORDERED: CALCITONIN 400 UNIT/2 ML VIAL IM SCH (22:30)
[2020-04-30] MEDS: METOPROLOL TARTRATE 50 MG TABLET PEG SCH (23:05)
[2020-04-30] MEDS: FAMOTIDINE 20 MG TABLET PEG SCH (23:06)
[2020-04-30] MEDS: OXYBUTYNIN 5 MG TABLET PEG SCH (23:06)
[2020-04-30] MEDS: METHENAMINE HIPPURATE 1 GM TABLET PEG SCH (23:06)
[2020-04-30] MEDS: MAGNESIUM OXIDE 400 MG TABLET PEG SCH (23:06)
[2020-04-30] MEDS: CALCITONIN 400 UNIT/2 ML VIAL IM SCH (23:11)
[2020-04-30] MEDS: ERTAPENEM 1,000 MG in SODIUM CHLORIDE 0.9% 100 ML IV SCH (23:24)
[2020-05-01] MEDS: ALBUTEROL/IPRATROPIUM 3 ML NEB RESP TX SCH ×4 (00:03→19:06)
[2020-05-01] MEDS: INSULIN REGULAR 100 UNIT/ML SUBCUT SCH ×6 (00:30→19:47)
[2020-05-01 03:27] LABS: Basophils % 0.2 % (0.0-0.8); Hemoglobin 8.5 GM/DL (14.0-18.0); Immature Granulocytes % 0.9 %; Immature Granulocytes Absolute 0.11 #; Lymphocytes # 0.6 10*3/uL (1.4-4.0); Lymphocytes % 5.3 % (21.2-54.2); Mean Corpuscular HGB Conc 32.7 GM/DL (32-36); Mean Platelet Volume 8.9 FL (9.6-12.0); Monocytes % 2.3 % (1.7-12.7); Neutrophils % 91.3 % (38.7-73.9); Platelet Count 290 T/CUMM (130-400); Red Blood Count 2.99 MC/CUMM (3.8-5.5); White Blood Count 12.1 T/CUMM (4-12)
[2020-05-01 03:44] LABS: Calcium 13.2 MG/DL (8.5-10.1); Osmolality,Calculated 300.1 MOS/KG (273-304)
[2020-05-01 04:26] LABS: Band Neutrophils 2 % (0-10); Lymphocytes 1 % (20-55); Platelet Estimate Adequate; Segmented Neutrophils 93 % (50-85); Total Cells Counted 100
[2020-05-01 04:27] LABS: Hypochromasia 1+; Microcytosis Slight
[2020-05-01] MEDS: LACTATED RINGERS 1,000 ML IV SCH ×3 (06:18→23:16)
[2020-05-01] MEDS: SIMETHICONE CHEW 80 MG TABLET PO SCH ×3 (08:05→17:39)
[2020-05-01] MEDS: CHOLECALCIFEROL 1,000 UNIT TABLET PEG SCH (09:00)
[2020-05-01] MEDS: CLOPIDOGREL 75 MG TABLET PEG SCH (09:00)
[2020-05-01] MEDS: MAGNESIUM OXIDE 400 MG TABLET PEG SCH ×2 (09:07→21:40)
[2020-05-01] MEDS: OXYBUTYNIN 5 MG TABLET PEG SCH ×3 (09:07→21:40)
[2020-05-01] MEDS: METHENAMINE HIPPURATE 1 GM TABLET PEG SCH ×2 (09:08→21:40)
[2020-05-01] MEDS: FAMOTIDINE 20 MG TABLET PEG SCH ×2 (09:08→21:40)
[2020-05-01] MEDS: PANTOPRAZOLE 40 MG TABLET PO SCH (09:08)
[2020-05-01] MEDS: ASPIRIN EC 81 MG TABLET PO SCH (09:15)
[2020-05-01] MEDS: CALCITONIN 400 UNIT/2 ML VIAL IM SCH ×2 (15:20→23:15)
[2020-05-01] MEDS: CARBOXYMETHYLCELLULOSE 1% OPH SOLN BOTH EYES SCH (21:40)
[2020-05-01] MEDS: ERTAPENEM 1,000 MG in SODIUM CHLORIDE 0.9% 100 ML IV SCH (23:15)
[2020-05-02] MEDS: INSULIN REGULAR 100 UNIT/ML SUBCUT SCH ×6 (00:09→21:11)
[2020-05-02] MEDS: ALBUTEROL/IPRATROPIUM 3 ML NEB RESP TX SCH ×4 (00:43→19:57)
[2020-05-02] MEDS: LACTATED RINGERS 1,000 ML IV SCH ×3 (02:09→21:11)
[2020-05-02 04:51] LABS: Basophils % 0.3 % (0.0-0.8); Eosinophils # 0.1 10*3/uL (0.0-0.87); Eosinophils % 0.5 % (0.00-10.9); Hematocrit 27.5 VOL% (42.0-52.0); Hemoglobin 8.4 GM/DL (14.0-18.0); Immature Granulocytes % 1.5 %; Immature Granulocytes Absolute 0.17 #; Lymphocytes # 1.1 10*3/uL (1.4-4.0); Lymphocytes % 9.2 % (21.2-54.2); Mean Corpuscular HGB Conc 30.5 GM/DL (32-36); Mean Corpuscular Volume 92.6 FL (87-102); Mean Platelet Volume 8.9 FL (9.6-12.0); Monocytes % 9.8 % (1.7-12.7); Neutrophils % 78.7 % (38.7-73.9); Platelet Count 305 T/CUMM (130-400); Red Blood Count 2.97 MC/CUMM (3.8-5.5); Red Cell Distribution Width 16.2 % (9.3-17.3); White Blood Count 11.7 T/CUMM (4-12)
[2020-05-02 05:04] LABS: Calcium 11.1 MG/DL (8.5-10.1); Osmolality,Calculated 301.5 MOS/KG (273-304)
[2020-05-02 05:33] LABS: Prealbumin 16.2 MG/DL (20-40)
[2020-05-02] MEDS: SIMETHICONE CHEW 80 MG TABLET PO SCH ×3 (09:27→18:22)
[2020-05-02] MEDS: ASPIRIN EC 81 MG TABLET PO SCH (09:27)
[2020-05-02] MEDS: MAGNESIUM OXIDE 400 MG TABLET PEG SCH ×2 (09:27→21:10)
[2020-05-02] MEDS: METHENAMINE HIPPURATE 1 GM TABLET PEG SCH ×2 (09:27→21:10)
[2020-05-02] MEDS: PANTOPRAZOLE 40 MG TABLET PO SCH (09:27)
[2020-05-02] MEDS: FAMOTIDINE 20 MG TABLET PEG SCH ×2 (09:27→21:10)
[2020-05-02] MEDS: CHOLECALCIFEROL 1,000 UNIT TABLET PEG SCH (09:27)
[2020-05-02] MEDS: CLOPIDOGREL 75 MG TABLET PEG SCH (09:27)
[2020-05-02] MEDS: OXYBUTYNIN 5 MG TABLET PEG SCH ×3 (09:27→21:10)
[2020-05-02] MEDS: CALCITONIN 400 UNIT/2 ML VIAL IM SCH (15:08)
[2020-05-02] MEDS: CARBOXYMETHYLCELLULOSE 1% OPH SOLN BOTH EYES SCH (21:10)
[2020-05-02] MEDS: ERTAPENEM 1,000 MG in SODIUM CHLORIDE 0.9% 100 ML IV SCH (23:42)
[2020-05-03] MEDS: ALBUTEROL/IPRATROPIUM 3 ML NEB RESP TX SCH ×4 (01:05→20:09)
[2020-05-03] MEDS: INSULIN REGULAR 100 UNIT/ML SUBCUT SCH ×6 (01:46→21:38)
[2020-05-03 06:04] LABS: Basophils # 0.1 10*3/uL (0.0-0.2); Basophils % 0.5 % (0.0-0.8); Eosinophils # 0.1 10*3/uL (0.0-0.87); Eosinophils % 1.3 % (0.00-10.9); Hematocrit 28.2 VOL% (42.0-52.0); Hemoglobin 8.4 GM/DL (14.0-18.0); Immature Granulocytes % 0.9 %; Lymphocytes # 1.1 10*3/uL (1.4-4.0); Mean Corpuscular HGB Conc 29.8 GM/DL (32-36); Mean Corpuscular Volume 94.6 FL (87-102); Mean Platelet Volume 8.9 FL (9.6-12.0); Monocytes % 10.5 % (1.7-12.7); Neutrophils % 76.8 % (38.7-73.9); Platelet Count 343 T/CUMM (130-400); Red Blood Count 2.98 MC/CUMM (3.8-5.5); Red Cell Distribution Width 16.5 % (9.3-17.3)
[2020-05-03] MEDS: LACTATED RINGERS 1,000 ML IV SCH ×2 (06:53→15:30)
[2020-05-03] MEDS: OXYBUTYNIN 5 MG TABLET PEG SCH ×3 (09:53→21:39)
[2020-05-03] MEDS: CLOPIDOGREL 75 MG TABLET PEG SCH (09:53)
[2020-05-03] MEDS: PANTOPRAZOLE 40 MG TABLET PO SCH (09:53)
[2020-05-03] MEDS: CHOLECALCIFEROL 1,000 UNIT TABLET PEG SCH (09:53)
[2020-05-03] MEDS: METHENAMINE HIPPURATE 1 GM TABLET PEG SCH ×2 (09:53→21:39)
[2020-05-03] MEDS: ASPIRIN EC 81 MG TABLET PO SCH (09:53)
[2020-05-03] MEDS: SIMETHICONE CHEW 80 MG TABLET PO SCH ×3 (09:53→16:16)
[2020-05-03] MEDS: FAMOTIDINE 20 MG TABLET PEG SCH ×2 (09:53→21:39)
[2020-05-03] MEDS: MAGNESIUM OXIDE 400 MG TABLET PEG SCH ×2 (09:53→21:39)
[2020-05-03] MEDS: CALCITONIN 400 UNIT/2 ML VIAL IM SCH ×2 (09:55→21:38)
[2020-05-03] MEDS: DORNASE ALFA 2.5 MG/2.5 ML VIAL RESP TX SCH ×2 (12:07→20:19)
[2020-05-03] MEDS: CARBOXYMETHYLCELLULOSE 1% OPH SOLN BOTH EYES SCH (21:38)
[2020-05-03] MEDS: ERTAPENEM 1,000 MG in SODIUM CHLORIDE 0.9% 100 ML IV SCH (21:50)
[2020-05-04] MEDS: ALBUTEROL/IPRATROPIUM 3 ML NEB RESP TX SCH ×4 (00:54→19:54)
[2020-05-04] MEDS: INSULIN REGULAR 100 UNIT/ML SUBCUT SCH ×6 (01:02→20:00)
[2020-05-04] MEDS: LACTATED RINGERS 1,000 ML IV SCH ×2 (01:04→16:07)
[2020-05-04 03:56] LABS: Allen Test Positive
[2020-05-04 03:58] LABS: ABG HCO3 37.8 MMOL/L (20-26); ABG Oxygen Saturation 94.6 % (95-100); ABG PCO2 54.8 MM HG (35-48); ABG PH 7.469 (7.35-7.45); ABG PO2 64.4 MM HG (80-95)
[2020-05-04] MEDS: DORNASE ALFA 2.5 MG/2.5 ML VIAL RESP TX SCH ×2 (07:20→20:04)
[2020-05-04 07:39] LABS: Basophils # 0.1 10*3/uL (0.0-0.2); Basophils % 0.5 % (0.0-0.8); Eosinophils % 0.3 % (0.00-10.9); Hematocrit 29.7 VOL% (42.0-52.0); Hemoglobin 8.8 GM/DL (14.0-18.0); Immature Granulocytes % 1.2 %; Immature Granulocytes Absolute 0.16 #; Lymphocytes # 1.2 10*3/uL (1.4-4.0); Lymphocytes % 8.6 % (21.2-54.2); Mean Corpuscular HGB Conc 29.6 GM/DL (32-36); Mean Corpuscular Volume 95.5 FL (87-102); Mean Platelet Volume 8.4 FL (9.6-12.0); Neutrophils % 82.4 % (38.7-73.9); Platelet Count 347 T/CUMM (130-400); Red Blood Count 3.11 MC/CUMM (3.8-5.5); Red Cell Distribution Width 16.8 % (9.3-17.3); White Blood Count 13.5 T/CUMM (4-12)
[2020-05-04 08:11] LABS: Calcium 9.7 MG/DL (8.5-10.1); Osmolality,Calculated 304.6 MOS/KG (273-304)
[2020-05-04] MEDS: SIMETHICONE CHEW 80 MG TABLET PO SCH ×3 (09:29→17:08)
[2020-05-04] MEDS: CHOLECALCIFEROL 1,000 UNIT TABLET PEG SCH (09:30)
[2020-05-04] MEDS: CLOPIDOGREL 75 MG TABLET PEG SCH (09:30)
[2020-05-04] MEDS: OXYBUTYNIN 5 MG TABLET PEG SCH ×3 (09:30→21:50)
[2020-05-04] MEDS: ASPIRIN EC 81 MG TABLET PO SCH (09:30)
[2020-05-04] MEDS: PANTOPRAZOLE 40 MG TABLET PO SCH (09:30)
[2020-05-04] MEDS: MAGNESIUM OXIDE 400 MG TABLET PEG SCH ×2 (09:30→21:51)
[2020-05-04] MEDS: FAMOTIDINE 20 MG TABLET PEG SCH ×2 (09:30→21:51)
[2020-05-04] MEDS: METHENAMINE HIPPURATE 1 GM TABLET PEG SCH ×2 (09:30→21:50)
[2020-05-04] MEDS: CALCITONIN 400 UNIT/2 ML VIAL IM SCH (13:36)
[2020-05-04] MEDS ORDERED: CALCITONIN 400 UNIT/2 ML VIAL IM PRN (14:44)
[2020-05-04 16:50] LABS: ABG HCO3 36.8 MMOL/L (20-26); ABG Oxygen Saturation 95.4 % (95-100); ABG PCO2 53.7 MM HG (35-48); ABG PH 7.467 (7.35-7.45); ABG PO2 69.6 MM HG (80-95); ABG TCO2 35.4 MMOL/L (23-27); Allen Test Positive
[2020-05-04 17:16] LABS: Apearance,Urine CLOUDY (Clear); Bilirubin,Urine Negative (Negative); Blood, Urine Small mg/dL (Negative); Glucose,Urine (UA) 150 mg/dL (Negative); Ketones,Urine Negative (Negative); Nitrite,Urine Negative (Negative); Protein,Urine 100 MG/DL; RBC,Urine 91 /HPF (0-4); Urine Color Yellow (Yellow); Urine Specific Gravity 1.011 (1.001-1.035); Urine Urobilinogen < 2.0 EU/DL (0.2-1.0); WBC,Urine 800 /HPF (0-6)
[2020-05-04] MEDS: METOPROLOL TARTRATE 50 MG TABLET PEG SCH (21:51)
[2020-05-04] MEDS: CARBOXYMETHYLCELLULOSE 1% OPH SOLN BOTH EYES SCH (21:52)
[2020-05-04] MEDS: ERTAPENEM 1,000 MG in SODIUM CHLORIDE 0.9% 100 ML IV SCH (23:50)
[2020-05-05] MEDS: INSULIN REGULAR 100 UNIT/ML SUBCUT SCH ×7 (00:44→23:37)
[2020-05-05] MEDS: LACTATED RINGERS 1,000 ML IV SCH (01:19)
[2020-05-05 04:48] LABS: Basophils # 0.1 10*3/uL (0.0-0.2); Basophils % 0.4 % (0.0-0.8); Eosinophils % 0.1 % (0.00-10.9); Hematocrit 28.3 VOL% (42.0-52.0); Hemoglobin 8.4 GM/DL (14.0-18.0); Immature Granulocytes % 0.7 %; Mean Corpuscular HGB Conc 29.7 GM/DL (32-36); Mean Corpuscular Volume 97.6 FL (87-102); Mean Platelet Volume 8.5 FL (9.6-12.0); Monocytes % 5.3 % (1.7-12.7); Neutrophils % 86.5 % (38.7-73.9); Platelet Count 322 T/CUMM (130-400); Red Cell Distribution Width 16.6 % (9.3-17.3); White Blood Count 13.6 T/CUMM (4-12)
[2020-05-05] MEDS: ALBUTEROL/IPRATROPIUM 3 ML NEB RESP TX SCH ×4 (04:52→19:45)
[2020-05-05 05:06] LABS: Calcium 9.5 MG/DL (8.5-10.1); Osmolality,Calculated 309.1 MOS/KG (273-304)
[2020-05-05] MEDS: DORNASE ALFA 2.5 MG/2.5 ML VIAL RESP TX SCH ×2 (07:17→19:45)
[2020-05-05] MEDS: SIMETHICONE CHEW 80 MG TABLET PO SCH ×3 (08:15→16:35)
[2020-05-05] MEDS: FAMOTIDINE 20 MG TABLET PEG SCH ×2 (09:00→21:39)
[2020-05-05] MEDS: OXYBUTYNIN 5 MG TABLET PEG SCH ×3 (09:05→21:38)
[2020-05-05] MEDS: METOPROLOL TARTRATE 50 MG TABLET PEG SCH ×2 (09:05→21:38)
[2020-05-05] MEDS: MAGNESIUM OXIDE 400 MG TABLET PEG SCH ×2 (09:05→21:39)
[2020-05-05] MEDS: CHOLECALCIFEROL 1,000 UNIT TABLET PEG SCH (09:05)
[2020-05-05] MEDS: CLOPIDOGREL 75 MG TABLET PEG SCH (09:10)
[2020-05-05] MEDS: METHENAMINE HIPPURATE 1 GM TABLET PEG SCH ×2 (09:29→21:38)
[2020-05-05] MEDS: amLODIPine 2.5 MG TABLET PEG SCH (09:30)
[2020-05-05] MEDS: PANTOPRAZOLE 40 MG TABLET PO SCH (09:32)
[2020-05-05] MEDS: ASPIRIN EC 81 MG TABLET PO SCH (09:32)
[2020-05-05] MEDS: POLYETHYLENE GLYCOL POWDER 17 GM PACK PO SCH (10:30)
[2020-05-05] MEDS ORDERED: DEXTROSE 50% 25 GM/50 ML VIAL IV PRN (15:48)
[2020-05-05] MEDS ORDERED: GLUCAGON 1 MG VIAL IM PRN (15:48)
[2020-05-05] MEDS: CARBOXYMETHYLCELLULOSE 1% OPH SOLN BOTH EYES SCH (21:39)
[2020-05-05] MEDS: ERTAPENEM 1,000 MG in SODIUM CHLORIDE 0.9% 100 ML IV SCH (22:45)
[2020-05-06] MEDS: ALBUTEROL/IPRATROPIUM 3 ML NEB RESP TX SCH ×4 (03:20→19:23)
[2020-05-06] MEDS: INSULIN REGULAR 100 UNIT/ML SUBCUT SCH ×5 (03:37→21:46)
[2020-05-06 04:47] LABS: Calcium 8.9 MG/DL (8.5-10.1)
[2020-05-06] MEDS: DORNASE ALFA 2.5 MG/2.5 ML VIAL RESP TX SCH ×2 (07:07→19:23)
[2020-05-06] MEDS: FAMOTIDINE 20 MG TABLET PEG SCH ×2 (08:10→21:46)
[2020-05-06] MEDS: amLODIPine 2.5 MG TABLET PEG SCH (08:10)
[2020-05-06] MEDS: CHOLECALCIFEROL 1,000 UNIT TABLET PEG SCH (08:10)
[2020-05-06] MEDS: METHENAMINE HIPPURATE 1 GM TABLET PEG SCH ×2 (08:10→21:46)
[2020-05-06] MEDS: PANTOPRAZOLE 40 MG TABLET PO SCH (08:10)
[2020-05-06] MEDS: MAGNESIUM OXIDE 400 MG TABLET PEG SCH ×2 (08:10→21:46)
[2020-05-06] MEDS: ASPIRIN EC 81 MG TABLET PO SCH (08:10)
[2020-05-06] MEDS: METOPROLOL TARTRATE 50 MG TABLET PEG SCH ×2 (08:11→21:46)
[2020-05-06] MEDS: CLOPIDOGREL 75 MG TABLET PEG SCH (08:11)
[2020-05-06] MEDS: SIMETHICONE CHEW 80 MG TABLET PO SCH ×3 (08:11→17:32)
[2020-05-06] MEDS: POLYETHYLENE GLYCOL POWDER 17 GM PACK PO SCH (08:11)
[2020-05-06] MEDS: OXYBUTYNIN 5 MG TABLET PEG SCH ×3 (08:11→21:46)
[2020-05-06] MEDS: DEXTROSE 5% 1,000 ML IV SCH (17:33)
[2020-05-06] MEDS: ERTAPENEM 1,000 MG in SODIUM CHLORIDE 0.9% 100 ML IV SCH (21:43)
[2020-05-06] MEDS: CARBOXYMETHYLCELLULOSE 1% OPH SOLN BOTH EYES SCH (21:57)
[2020-05-07] MEDS: ALBUTEROL/IPRATROPIUM 3 ML NEB RESP TX SCH ×4 (00:03→19:40)
[2020-05-07] MEDS: INSULIN REGULAR 100 UNIT/ML SUBCUT SCH ×6 (01:56→21:54)
[2020-05-07 05:58] LABS: Calcium 8.6 MG/DL (8.5-10.1); Osmolality,Calculated 305.6 MOS/KG (273-304)
[2020-05-07 05:59] LABS: Basophils % 0.3 % (0.0-0.8); Eosinophils # 0.3 10*3/uL (0.0-0.87); Eosinophils % 2.6 % (0.00-10.9); Hematocrit 26.5 VOL% (42.0-52.0); Hemoglobin 7.7 GM/DL (14.0-18.0); Immature Granulocytes % 1.3 %; Immature Granulocytes Absolute 0.14 #; Lymphocytes # 1.4 10*3/uL (1.4-4.0); Lymphocytes % 12.8 % (21.2-54.2); Mean Corpuscular HGB Conc 29.1 GM/DL (32-36); Mean Corpuscular Volume 98.1 FL (87-102); Mean Platelet Volume 8.8 FL (9.6-12.0); Monocytes % 8.3 % (1.7-12.7); Neutrophils % 74.7 % (38.7-73.9); Platelet Count 296 T/CUMM (130-400); Red Cell Distribution Width 16.7 % (9.3-17.3); White Blood Count 10.9 T/CUMM (4-12)
[2020-05-07] MEDS: DEXTROSE 5% 1,000 ML IV SCH ×2 (06:05→14:15)
[2020-05-07 06:06] LABS: Hypochromasia 2+; Microcytosis 1+; Platelet Estimate Adequate
[2020-05-07] MEDS: DORNASE ALFA 2.5 MG/2.5 ML VIAL RESP TX SCH ×2 (08:49→19:46)
[2020-05-07] MEDS: MAGNESIUM OXIDE 400 MG TABLET PEG SCH ×2 (10:05→20:25)
[2020-05-07] MEDS: CLOPIDOGREL 75 MG TABLET PEG SCH (10:06)
[2020-05-07] MEDS: POLYETHYLENE GLYCOL POWDER 17 GM PACK PO SCH (10:06)
[2020-05-07] MEDS: METHENAMINE HIPPURATE 1 GM TABLET PEG SCH ×2 (10:06→20:25)
[2020-05-07] MEDS: CHOLECALCIFEROL 1,000 UNIT TABLET PEG SCH (10:06)
[2020-05-07] MEDS: METOPROLOL TARTRATE 50 MG TABLET PEG SCH ×2 (10:07→20:25)
[2020-05-07] MEDS: OXYBUTYNIN 5 MG TABLET PEG SCH ×3 (10:07→20:26)
[2020-05-07] MEDS: PANTOPRAZOLE 40 MG TABLET PO SCH (10:07)
[2020-05-07] MEDS: SIMETHICONE CHEW 80 MG TABLET PO SCH ×3 (10:07→18:01)
[2020-05-07] MEDS: ASPIRIN EC 81 MG TABLET PO SCH (10:07)
[2020-05-07] MEDS: FAMOTIDINE 20 MG TABLET PEG SCH ×2 (10:11→20:25)
[2020-05-07] MEDS: amLODIPine 2.5 MG TABLET PEG SCH (10:11)
[2020-05-07] MEDS: MAGNESIUM HYDROXIDE SUSP 30 ML UDCUP PO PRN (18:01)
[2020-05-07] MEDS: CARBOXYMETHYLCELLULOSE 1% OPH SOLN BOTH EYES SCH (20:26)
[2020-05-07] MEDS: MEROPENEM 500 MG in SODIUM CHLORIDE 0.9% 100 ML IV SCH (21:38)
[2020-05-08] MEDS: INSULIN REGULAR 100 UNIT/ML SUBCUT SCH ×5 (01:22→16:38)
[2020-05-08] MEDS: ALBUTEROL/IPRATROPIUM 3 ML NEB RESP TX SCH ×4 (01:25→19:57)
[2020-05-08 05:35] LABS: Basophils # 0.1 10*3/uL (0.0-0.2); Basophils % 0.5 % (0.0-0.8); Eosinophils # 0.3 10*3/uL (0.0-0.87); Eosinophils % 2.3 % (0.00-10.9); Hematocrit 27.4 VOL% (42.0-52.0); Immature Granulocytes Absolute 0.12 #; Lymphocytes # 1.4 10*3/uL (1.4-4.0); Lymphocytes % 11.1 % (21.2-54.2); Mean Corpuscular HGB Conc 29.2 GM/DL (32-36); Mean Corpuscular Volume 96.1 FL (87-102); Mean Platelet Volume 9.1 FL (9.6-12.0); Monocytes % 6.1 % (1.7-12.7); Platelet Count 314 T/CUMM (130-400); Red Blood Count 2.85 MC/CUMM (3.8-5.5); Red Cell Distribution Width 16.7 % (9.3-17.3); White Blood Count 12.2 T/CUMM (4-12)
[2020-05-08 06:05] LABS: Calcium 8.6 MG/DL (8.5-10.1); Osmolality,Calculated 297.3 MOS/KG (273-304)
[2020-05-08 06:09] LABS: Calcium 8.6 MG/DL (8.5-10.1); Prealbumin 10.2 MG/DL (20-40)
[2020-05-08] MEDS: MEROPENEM 500 MG in SODIUM CHLORIDE 0.9% 100 ML IV SCH ×3 (06:14→21:17)
[2020-05-08 07:10] LABS: Osmolality,Calculated 295.4 MOS/KG (273-304)
[2020-05-08] MEDS: DORNASE ALFA 2.5 MG/2.5 ML VIAL RESP TX SCH ×2 (08:05→19:57)
[2020-05-08] MEDS ORDERED: ACETAMINOPHEN 325 MG/10.15 ML UDCUP PO PRN (12:49)
[2020-05-08] MEDS: SIMETHICONE CHEW 80 MG TABLET PO SCH ×3 (13:07→16:42)
[2020-05-08] MEDS: OXYBUTYNIN 5 MG TABLET PEG SCH ×3 (13:08→21:16)
[2020-05-08] MEDS: FAMOTIDINE 20 MG TABLET PEG SCH ×2 (13:31→21:17)
[2020-05-08] MEDS: POLYETHYLENE GLYCOL POWDER 17 GM PACK PO SCH (13:31)
[2020-05-08] MEDS: CHOLECALCIFEROL 1,000 UNIT TABLET PEG SCH (13:31)
[2020-05-08] MEDS: PANTOPRAZOLE 40 MG TABLET PO SCH (13:31)
[2020-05-08] MEDS: METOPROLOL TARTRATE 50 MG TABLET PEG SCH ×2 (13:31→21:16)
[2020-05-08] MEDS: ASPIRIN EC 81 MG TABLET PO SCH (13:31)
[2020-05-08] MEDS: CLOPIDOGREL 75 MG TABLET PEG SCH (13:31)
[2020-05-08] MEDS: amLODIPine 2.5 MG TABLET PEG SCH (13:31)
[2020-05-08] MEDS: METHENAMINE HIPPURATE 1 GM TABLET PEG SCH (13:32)
[2020-05-08] MEDS: MAGNESIUM OXIDE 400 MG TABLET PEG SCH ×2 (13:33→21:17)
[2020-05-08] MEDS: CARBOXYMETHYLCELLULOSE 1% OPH SOLN BOTH EYES SCH (21:28)
[2020-05-09] MEDS: ALBUTEROL/IPRATROPIUM 3 ML NEB RESP TX SCH ×4 (01:20→19:55)
[2020-05-09] MEDS: INSULIN REGULAR 100 UNIT/ML SUBCUT SCH ×7 (02:15→21:26)
[2020-05-09] MEDS: DEXTROSE 5% 1,000 ML IV SCH ×2 (02:19→02:20)
[2020-05-09 05:34] LABS: Basophils # 0.1 10*3/uL (0.0-0.2); Basophils % 0.5 % (0.0-0.8); Eosinophils # 0.2 10*3/uL (0.0-0.87); Eosinophils % 2.1 % (0.00-10.9); Hematocrit 25.9 VOL% (42.0-52.0); Hemoglobin 7.9 GM/DL (14.0-18.0); Immature Granulocytes Absolute 0.11 #; Lymphocytes % 9.2 % (21.2-54.2); Mean Corpuscular HGB Conc 30.5 GM/DL (32-36); Mean Corpuscular Volume 93.2 FL (87-102); Mean Platelet Volume 8.8 FL (9.6-12.0); Monocytes % 6.3 % (1.7-12.7); Neutrophils % 80.9 % (38.7-73.9); Platelet Count 291 T/CUMM (130-400); Red Blood Count 2.78 MC/CUMM (3.8-5.5); Red Cell Distribution Width 16.4 % (9.3-17.3)
[2020-05-09] MEDS: MEROPENEM 500 MG in SODIUM CHLORIDE 0.9% 100 ML IV SCH ×3 (06:32→21:31)
[2020-05-09] MEDS ORDERED: MIDAZOLAM 2 MG/2 ML VIAL ONE (07:26)
[2020-05-09] MEDS ORDERED: LIDOCAINE 1% 20 ML VIAL MISC INJ ONE (08:00)
[2020-05-09] MEDS ORDERED: LIDOCAINE 2% VISCOUS 100 ML BOTTLE SWISH/SPIT ONE (08:00)
[2020-05-09] MEDS ORDERED: LIDOCAINE 2% 20 ML VIAL RESP TX ONE (08:00)
[2020-05-09] MEDS: DORNASE ALFA 2.5 MG/2.5 ML VIAL RESP TX SCH ×2 (10:13→19:55)
[2020-05-09] MEDS: POLYETHYLENE GLYCOL POWDER 17 GM PACK PO SCH (10:16)
[2020-05-09] MEDS: CLOPIDOGREL 75 MG TABLET PEG SCH (10:16)
[2020-05-09] MEDS: CHOLECALCIFEROL 1,000 UNIT TABLET PEG SCH (10:16)
[2020-05-09] MEDS: SIMETHICONE CHEW 80 MG TABLET PO SCH ×3 (10:17→16:28)
[2020-05-09] MEDS: OXYBUTYNIN 5 MG TABLET PEG SCH ×3 (10:17→21:43)
[2020-05-09] MEDS: amLODIPine 2.5 MG TABLET PEG SCH (10:17)
[2020-05-09] MEDS: PANTOPRAZOLE 40 MG TABLET PO SCH (10:18)
[2020-05-09] MEDS: FAMOTIDINE 20 MG TABLET PEG SCH ×2 (10:18→21:43)
[2020-05-09] MEDS: METOPROLOL TARTRATE 50 MG TABLET PEG SCH ×2 (10:18→21:43)
[2020-05-09] MEDS: ASPIRIN EC 81 MG TABLET PO SCH (10:18)
[2020-05-09] MEDS: MAGNESIUM OXIDE 400 MG TABLET PEG SCH ×2 (10:18→21:43)
[2020-05-09] MEDS: CARBOXYMETHYLCELLULOSE 1% OPH SOLN BOTH EYES SCH (21:40)
[2020-05-09] MEDS: MAGNESIUM HYDROXIDE SUSP 30 ML UDCUP PO PRN (23:26)
[2020-05-10] MEDS: ALBUTEROL/IPRATROPIUM 3 ML NEB RESP TX SCH ×4 (01:50→19:05)
[2020-05-10] MEDS: INSULIN REGULAR 100 UNIT/ML SUBCUT SCH ×6 (02:07→21:02)
[2020-05-10] MEDS: MEROPENEM 500 MG in SODIUM CHLORIDE 0.9% 100 ML IV SCH ×3 (06:24→21:01)
[2020-05-10 06:42] LABS: Basophils # 0.1 10*3/uL (0.0-0.2); Basophils % 0.6 % (0.0-0.8); Eosinophils # 0.2 10*3/uL (0.0-0.87); Eosinophils % 2.2 % (0.00-10.9); Hematocrit 26.4 VOL% (42.0-52.0); Immature Granulocytes % 1.2 %; Immature Granulocytes Absolute 0.12 #; Lymphocytes # 1.1 10*3/uL (1.4-4.0); Lymphocytes % 10.8 % (21.2-54.2); Mean Corpuscular HGB Conc 30.3 GM/DL (32-36); Mean Corpuscular Volume 92.6 FL (87-102); Monocytes % 7.6 % (1.7-12.7); Neutrophils % 77.6 % (38.7-73.9); Platelet Count 307 T/CUMM (130-400); Red Blood Count 2.85 MC/CUMM (3.8-5.5); Red Cell Distribution Width 16.1 % (9.3-17.3); White Blood Count 10.4 T/CUMM (4-12)
[2020-05-10] MEDS: DORNASE ALFA 2.5 MG/2.5 ML VIAL RESP TX SCH ×2 (07:33→19:13)
[2020-05-10] MEDS: MAGNESIUM OXIDE 400 MG TABLET PEG SCH ×2 (09:31→21:04)
[2020-05-10] MEDS: POLYETHYLENE GLYCOL POWDER 17 GM PACK PO SCH (09:31)
[2020-05-10] MEDS: SIMETHICONE CHEW 80 MG TABLET PO SCH ×3 (09:32→16:00)
[2020-05-10] MEDS: FAMOTIDINE 20 MG TABLET PEG SCH ×2 (09:32→21:04)
[2020-05-10] MEDS: amLODIPine 2.5 MG TABLET PEG SCH (09:32)
[2020-05-10] MEDS: CLOPIDOGREL 75 MG TABLET PEG SCH (09:33)
[2020-05-10] MEDS: ASPIRIN EC 81 MG TABLET PO SCH (09:33)
[2020-05-10] MEDS: CHOLECALCIFEROL 1,000 UNIT TABLET PEG SCH (09:33)
[2020-05-10] MEDS: OXYBUTYNIN 5 MG TABLET PEG SCH ×3 (09:33→21:04)
[2020-05-10] MEDS: PANTOPRAZOLE 40 MG TABLET PO SCH (09:34)
[2020-05-10] MEDS: METOPROLOL TARTRATE 50 MG TABLET PEG SCH ×2 (09:34→21:04)
[2020-05-10] MEDS: CARBOXYMETHYLCELLULOSE 1% OPH SOLN BOTH EYES SCH (21:08)
[2020-05-11] MEDS: ALBUTEROL/IPRATROPIUM 3 ML NEB RESP TX SCH ×4 (01:14→19:04)
[2020-05-11] MEDS: INSULIN REGULAR 100 UNIT/ML SUBCUT SCH ×6 (01:17→21:45)
[2020-05-11] MEDS: MEROPENEM 500 MG in SODIUM CHLORIDE 0.9% 100 ML IV SCH ×3 (05:21→21:52)
[2020-05-11 06:39] LABS: Basophils % 0.4 % (0.0-0.8); Eosinophils # 0.2 10*3/uL (0.0-0.87); Eosinophils % 2.5 % (0.00-10.9); Hematocrit 26.4 VOL% (42.0-52.0); Hemoglobin 7.8 GM/DL (14.0-18.0); Immature Granulocytes % 1.1 %; Immature Granulocytes Absolute 0.11 #; Lymphocytes # 1.1 10*3/uL (1.4-4.0); Lymphocytes % 11.6 % (21.2-54.2); Mean Corpuscular HGB Conc 29.5 GM/DL (32-36); Mean Corpuscular Volume 94.6 FL (87-102); Mean Platelet Volume 9.1 FL (9.6-12.0); Monocytes % 7.2 % (1.7-12.7); Neutrophils % 77.2 % (38.7-73.9); Platelet Count 304 T/CUMM (130-400); Red Blood Count 2.79 MC/CUMM (3.8-5.5); Red Cell Distribution Width 16.3 % (9.3-17.3); White Blood Count 9.7 T/CUMM (4-12)
[2020-05-11 07:07] LABS: Calcium 9.2 MG/DL (8.5-10.1); Osmolality,Calculated 294.5 MOS/KG (273-304)
[2020-05-11] MEDS: DORNASE ALFA 2.5 MG/2.5 ML VIAL RESP TX SCH ×2 (07:23→19:04)
[2020-05-11] MEDS: MAGNESIUM HYDROXIDE SUSP 30 ML UDCUP PO PRN (09:40)
[2020-05-11] MEDS: OXYBUTYNIN 5 MG TABLET PEG SCH ×3 (09:41→21:46)
[2020-05-11] MEDS: POLYETHYLENE GLYCOL POWDER 17 GM PACK PO SCH (09:41)
[2020-05-11] MEDS: CHOLECALCIFEROL 1,000 UNIT TABLET PEG SCH (09:43)
[2020-05-11] MEDS: ASPIRIN EC 81 MG TABLET PO SCH (09:43)
[2020-05-11] MEDS: PANTOPRAZOLE 40 MG TABLET PO SCH (09:43)
[2020-05-11] MEDS: METOPROLOL TARTRATE 50 MG TABLET PEG SCH ×2 (09:43→21:46)
[2020-05-11] MEDS: FAMOTIDINE 20 MG TABLET PEG SCH ×2 (09:44→21:46)
[2020-05-11] MEDS: CLOPIDOGREL 75 MG TABLET PEG SCH (09:44)
[2020-05-11] MEDS: SIMETHICONE CHEW 80 MG TABLET PO SCH ×3 (09:44→16:38)
[2020-05-11] MEDS: amLODIPine 2.5 MG TABLET PEG SCH (09:46)
[2020-05-11] MEDS: MAGNESIUM OXIDE 400 MG TABLET PEG SCH ×2 (09:47→22:29)
[2020-05-11] MEDS: CARBOXYMETHYLCELLULOSE 1% OPH SOLN BOTH EYES SCH (21:45)
[2020-05-12] MEDS: ALBUTEROL/IPRATROPIUM 3 ML NEB RESP TX SCH ×3 (01:11→12:22)
[2020-05-12] MEDS: INSULIN REGULAR 100 UNIT/ML SUBCUT SCH ×4 (01:27→13:03)
[2020-05-12] MEDS: MEROPENEM 500 MG in SODIUM CHLORIDE 0.9% 100 ML IV SCH ×2 (05:15→13:05)
[2020-05-12 05:55] LABS: Calcium 9.7 MG/DL (8.5-10.1); Osmolality,Calculated 290.4 MOS/KG (273-304)
[2020-05-12] MEDS: DORNASE ALFA 2.5 MG/2.5 ML VIAL RESP TX SCH (07:29)
[2020-05-12] MEDS: amLODIPine 2.5 MG TABLET PEG SCH (08:58)
[2020-05-12] MEDS: MAGNESIUM OXIDE 400 MG TABLET PEG SCH (08:58)
[2020-05-12] MEDS: FAMOTIDINE 20 MG TABLET PEG SCH (08:58)
[2020-05-12] MEDS: ASPIRIN EC 81 MG TABLET PO SCH (08:59)
[2020-05-12] MEDS: OXYBUTYNIN 5 MG TABLET PEG SCH (08:59)
[2020-05-12] MEDS: METOPROLOL TARTRATE 50 MG TABLET PEG SCH (08:59)
[2020-05-12] MEDS: CLOPIDOGREL 75 MG TABLET PEG SCH (08:59)
[2020-05-12] MEDS: PANTOPRAZOLE 40 MG TABLET PO SCH (08:59)
[2020-05-12] MEDS: CHOLECALCIFEROL 1,000 UNIT TABLET PEG SCH (08:59)
[2020-05-12] MEDS: MAGNESIUM HYDROXIDE SUSP 30 ML UDCUP PO PRN (08:59)
[2020-05-12] MEDS: SIMETHICONE CHEW 80 MG TABLET PO SCH ×2 (08:59→13:04)
[2020-05-12] MEDS: POLYETHYLENE GLYCOL POWDER 17 GM PACK PO SCH (09:00)
[2020-05-12 12:15] VITALS: BP 123/59
== END 2020-05-12 15:30 | disposition home health service (06) | DRG 871 ==
LOC: EDBD → EDUNIT# → N.ED 16:30 → SUATTDRO 18:50 → N.EDINP 18:50 → N.ICU 21:21 → N.4E 05-02 15:38 → N.ICU 05-04 15:53 → N.4E 05-06 11:01
PROVIDERS: ADMIT Internal Medicine; ATTEND Internal Medicine Geriatric Medicine

== ENCOUNTER 2020-05-19 21:01 | Inpatient (IN) ==
[2020-05-19] MEDS ORDERED: PANTOPRAZOLE 40 MG VIAL IV STA (21:16)
[2020-05-19] MEDS ORDERED: ONDANSETRON 4 MG/2 ML VIAL IV STA (21:16)
[2020-05-19] MEDS ORDERED: SODIUM CHLORIDE 0.9% 500 ML IV STA (21:16)
[2020-05-19] MEDS ORDERED: PIPERACILLIN/TAZOBACTAM 3,375 MG in SODIUM CHLORIDE 0.9% 100 ML IV STA (22:05)
[2020-05-19 22:35] LABS: Allen Test Positive; Pt O2 Delivery Device Ventilator
[2020-05-19 22:36] LABS: ABG Base Excess 11.8 MMOL/L (-2.5-2.5); ABG HCO3 35.6 MMOL/L (20-26); ABG PCO2 45.6 MM HG (35-48); ABG PH 7.508 (7.35-7.45); ABG TCO2 33.7 MMOL/L (23-27)
[2020-05-20 00:21] LABS: Basophils % 0.3 % (0.0-0.8); Eosinophils # 0.1 10*3/uL (0.0-0.87); Hematocrit 25.2 VOL% (42.0-52.0); Immature Granulocytes Absolute 0.09 #; Lymphocytes # 1.1 10*3/uL (1.4-4.0); Lymphocytes % 12.5 % (21.2-54.2); Mean Corpuscular HGB Conc 29.8 GM/DL (32-36); Mean Corpuscular Volume 91.3 FL (87-102); Mean Platelet Volume 9.3 FL (9.6-12.0); Monocytes % 7.2 % (1.7-12.7); NRBC # 0.02 10*3/uL; Platelet Count 325 T/CUMM (130-400); Red Blood Count 2.76 MC/CUMM (3.8-5.5); Red Cell Distribution Width 16.5 % (9.3-17.3); White Blood Count 8.7 T/CUMM (4-12)
[2020-05-20 00:35] LABS: Hemoglobin 7.5 GM/DL (14.0-18.0)
[2020-05-20 01:02] LABS: Calcium 11.2 MG/DL (8.5-10.1)
[2020-05-20 01:03] LABS: Albumin 1.8 G/DL (3.4-5.0); Blood Urea Nitrogen 62 MG/DL (7-18); Glucose 177 MG/DL (74-106); Osmolality,Calculated 296.7 MOS/KG (273-304)
[2020-05-20 01:04] LABS: Alanine Aminotransferase 16 U/L (16-61); Amylase 17 U/L (25-115); Aspartate Amino Transferase 15 U/L (0-37); Estimated Glom Filtration Rate 66 ML/MIN
[2020-05-20 01:05] LABS: Alkaline Phosphatase 123 U/L (45-117); Bilirubin,Total < 0.39 MG/DL (0.2-1.0); Total Protein 7.3 G/DL (6.4-8.3)
[2020-05-20] MEDS ORDERED: VECURONIUM 10 MG VIAL IV ONE (01:10)
[2020-05-20] MEDS ORDERED: POTASSIUM CHLORIDE RIDER 20 MEQ in PREMIX 1 EACH IV STA ×2 (01:11→01:13)
[2020-05-20] MEDS ORDERED: MIDAZOLAM 100 MG in SODIUM CHLORIDE 0.9% 80 ML IV PRN (02:26)
[2020-05-20] MEDS ORDERED: ALBUTEROL 2.5 MG/3 ML NEB RESP TX PRN (02:26)
[2020-05-20] MEDS: ENOXAPARIN 30 MG/0.3 ML SYRINGE SUBCUT SCH (03:31)
[2020-05-20] MEDS: LACTATED RINGERS 1,000 ML IV SCH ×2 (04:57→14:02)
[2020-05-20] MEDS: PIPERACILLIN/TAZOBACTAM 3,375 MG in SODIUM CHLORIDE 0.9% 100 ML IV SCH ×3 (05:03→21:21)
[2020-05-20 05:41] LABS: Apearance,Urine CLEAR (Clear); Bacteria,Urine Occasional /HPF (Few); Bilirubin,Urine Negative (Negative); Blood, Urine Negative (Negative); Glucose,Urine (UA) Negative (Negative); Hyaline Casts,Urine 7 /LPF (0-3); Ketones,Urine Negative (Negative); Mucus,Urine Occasional /LPF (Occasional); Nitrite,Urine Negative (Negative); Protein,Urine 30 MG/DL; RBC,Urine 1 /HPF (0-4); Urine Color Yellow (Yellow); Urine Specific Gravity 1.013 (1.001-1.035); Urine Urobilinogen < 2.0 EU/DL (0.2-1.0); WBC,Urine 23 /HPF (0-6)
[2020-05-20] MEDS ORDERED: NOREPINEPHRINE 8 MG in SODIUM CHLORIDE 0.9% 242 ML IV PRN (06:04)
[2020-05-20 06:10] LABS: ABG Base Excess 11.3 MMOL/L (-2.5-2.5); ABG HCO3 35.1 MMOL/L (20-26); ABG Oxygen Saturation 99.6 % (95-100); ABG PCO2 40.4 MM HG (35-48); ABG PH 7.545 (7.35-7.45); ABG TCO2 32.8 MMOL/L (23-27)
[2020-05-20] MEDS ORDERED: POLYETHYLENE GLYCOL 3350/ELECTROLYTES 4,000 ML BOTTLE PEG ONE (07:06)
[2020-05-20 07:11] LABS: Basophils % 0.5 % (0.0-0.8); Eosinophils # 0.1 10*3/uL (0.0-0.87); Eosinophils % 1.6 % (0.00-10.9); Hematocrit 24.7 VOL% (42.0-52.0); Hemoglobin 7.2 GM/DL (14.0-18.0); Immature Granulocytes Absolute 0.08 #; Lymphocytes # 1.2 10*3/uL (1.4-4.0); Lymphocytes % 15.3 % (21.2-54.2); Mean Corpuscular HGB Conc 29.1 GM/DL (32-36); Mean Corpuscular Volume 93.2 FL (87-102); Monocytes % 7.3 % (1.7-12.7); NRBC # 0.04 10*3/uL; Neutrophils % 74.3 % (38.7-73.9); Platelet Count 492 T/CUMM (130-400); Red Blood Count 2.65 MC/CUMM (3.8-5.5); Red Cell Distribution Width 16.5 % (9.3-17.3)
[2020-05-20 07:30] LABS: Alanine Aminotransferase 15 U/L (16-61); Albumin 1.8 G/DL (3.4-5.0); Alkaline Phosphatase 119 U/L (45-117); Aspartate Amino Transferase 15 U/L (0-37); Bilirubin,Total < 0.39 MG/DL (0.2-1.0); Blood Urea Nitrogen 66 MG/DL (7-18); Calcium 11.5 MG/DL (8.5-10.1); Estimated Glom Filtration Rate 58 ML/MIN; Glucose 157 MG/DL (74-106); Osmolality,Calculated 304.1 MOS/KG (273-304); Total Protein 7.1 G/DL (6.4-8.3)
[2020-05-20 07:31] LABS: Troponin I 0.017 NG/ML (0.00-0.045)
[2020-05-20] MEDS: POTASSIUM CHLORIDE RIDER 20 MEQ in PREMIX 1 EACH IV PRN ×5 (08:24→16:29)
[2020-05-20] MEDS ORDERED: PANTOPRAZOLE 40 MG VIAL IV SCH (09:00)
[2020-05-20] MEDS: POLYETHYLENE GLYCOL POWDER 17 GM PACK PEG SCH ×2 (14:25→21:21)
[2020-05-20] MEDS: PANTOPRAZOLE 40 MG VIAL IV SCH (21:20)
[2020-05-21 04:24] LABS: Basophils % 0.5 % (0.0-0.8); Eosinophils # 0.4 10*3/uL (0.0-0.87); Eosinophils % 5.5 % (0.00-10.9); Hematocrit 25.7 VOL% (42.0-52.0); Hemoglobin 7.7 GM/DL (14.0-18.0); Immature Granulocytes % 0.5 %; Immature Granulocytes Absolute 0.04 #; Lymphocytes # 1.4 10*3/uL (1.4-4.0); Lymphocytes % 18.6 % (21.2-54.2); Mean Corpuscular Volume 90.2 FL (87-102); Mean Platelet Volume 8.8 FL (9.6-12.0); Monocytes % 7.3 % (1.7-12.7); Neutrophils % 67.6 % (38.7-73.9); Platelet Count 517 T/CUMM (130-400); Red Blood Count 2.85 MC/CUMM (3.8-5.5); Red Cell Distribution Width 16.4 % (9.3-17.3); White Blood Count 7.5 T/CUMM (4-12)
[2020-05-21 04:58] LABS: ABG Base Excess 8.8 MMOL/L (-2.5-2.5); ABG HCO3 32.6 MMOL/L (20-26); ABG Oxygen Saturation 99.4 % (95-100); ABG PCO2 41.3 MM HG (35-48); ABG PH 7.507 (7.35-7.45); ABG TCO2 29.7 MMOL/L (23-27); Allen Test Positive; Pt O2 Delivery Device Ventilator
[2020-05-21 05:34] LABS: Albumin 1.8 G/DL (3.4-5.0); Bilirubin,Total 0.9 MG/DL (0.2-1.0); Calcium 11.1 MG/DL (8.5-10.1); Osmolality,Calculated 302.6 MOS/KG (273-304)
[2020-05-21] MEDS: POTASSIUM CHLORIDE RIDER 10 MEQ in PREMIX 1 EACH IV PRN ×2 (06:22→07:30)
[2020-05-21] MEDS: PIPERACILLIN/TAZOBACTAM 3,375 MG in SODIUM CHLORIDE 0.9% 100 ML IV SCH ×3 (06:22→21:50)
[2020-05-21] MEDS ORDERED: DEXTROSE 10% 250 ML BAG IV PRN (08:55)
[2020-05-21] MEDS ORDERED: GLUCAGON 1 MG VIAL IM PRN (08:55)
[2020-05-21] MEDS ORDERED: LORazepam 2 MG/1 ML VIAL IV PRN (09:40)
[2020-05-21] MEDS ORDERED: HYDROmorphone 2 MG/1 ML VIAL IV PRN (09:42)
[2020-05-21] MEDS: POTASSIUM CHLORIDE 20 MEQ TABLET PO SCH ×2 (09:42→13:49)
[2020-05-21] MEDS: POLYETHYLENE GLYCOL POWDER 17 GM PACK PEG SCH ×2 (09:42→20:20)
[2020-05-21] MEDS: PANTOPRAZOLE 40 MG VIAL IV SCH ×2 (09:42→20:20)
[2020-05-21] MEDS: LACTATED RINGERS 1,000 ML IV SCH ×3 (10:53→16:09)
[2020-05-21 12:20] LABS: Calcium 9.9 MG/DL (8.5-10.1); Osmolality,Calculated 303.4 MOS/KG (273-304)
[2020-05-21] MEDS ORDERED: POTASSIUM CHLORIDE INJ 40 MEQ in LACTATED RINGERS 1,000 ML IV SCH (16:00)
[2020-05-21] MEDS: POTASSIUM CHLORIDE 20 MEQ/15 ML UDCUP PER TUBE SCH ×2 (16:27→20:20)
[2020-05-22] MEDS: POTASSIUM CHLORIDE 20 MEQ/15 ML UDCUP PER TUBE SCH ×4 (00:35→11:30)
[2020-05-22 04:17] LABS: ABG Base Excess 7.8 MMOL/L (-2.5-2.5); ABG HCO3 31.6 MMOL/L (20-26); ABG Oxygen Saturation 99.8 % (95-100); ABG PCO2 42.4 MM HG (35-48); ABG PH 7.485 (7.35-7.45); ABG TCO2 30.2 MMOL/L (23-27)
[2020-05-22 04:38] LABS: Basophils % 0.3 % (0.0-0.8); Eosinophils # 0.3 10*3/uL (0.0-0.87); Eosinophils % 4.3 % (0.00-10.9); Hematocrit 23.3 VOL% (42.0-52.0); Hemoglobin 6.8 GM/DL (14.0-18.0); Immature Granulocytes % 1.5 %; Immature Granulocytes Absolute 0.09 #; Lymphocytes # 1.1 10*3/uL (1.4-4.0); Lymphocytes % 17.9 % (21.2-54.2); Mean Corpuscular HGB Conc 29.2 GM/DL (32-36); Mean Corpuscular Volume 92.8 FL (87-102); Mean Platelet Volume 8.6 FL (9.6-12.0); Monocytes % 8.2 % (1.7-12.7); Neutrophils % 67.8 % (38.7-73.9); Platelet Count 382 T/CUMM (130-400); Red Blood Count 2.51 MC/CUMM (3.8-5.5); Red Cell Distribution Width 16.5 % (9.3-17.3)
[2020-05-22 05:10] LABS: Alanine Aminotransferase 13 U/L (16-61); Albumin 1.8 G/DL (3.4-5.0); Alkaline Phosphatase 96 U/L (45-117); Aspartate Amino Transferase 10 U/L (0-37); Bilirubin,Total < 0.39 MG/DL (0.2-1.0); Blood Urea Nitrogen 36 MG/DL (7-18); Calcium 10.3 MG/DL (8.5-10.1); Estimated Glom Filtration Rate 78 ML/MIN; Glucose 235 MG/DL (74-106); Osmolality,Calculated 316.7 MOS/KG (273-304); Total Protein 6.8 G/DL (6.4-8.3)
[2020-05-22] MEDS: PIPERACILLIN/TAZOBACTAM 3,375 MG in SODIUM CHLORIDE 0.9% 100 ML IV SCH ×3 (05:53→23:20)
[2020-05-22] MEDS ORDERED: SODIUM CHLORIDE 0.9% 1,000 ML IV PRN (07:15)
[2020-05-22] MEDS: PANTOPRAZOLE 40 MG VIAL IV SCH ×2 (08:36→21:11)
[2020-05-22] MEDS: POLYETHYLENE GLYCOL POWDER 17 GM PACK PEG SCH ×2 (08:36→21:11)
[2020-05-22] MEDS: POTASSIUM CHLORIDE INJ 40 MEQ in SODIUM CHLORIDE 0.45% 1,000 ML IV SCH ×2 (08:42→23:20)
[2020-05-22] MEDS: VANCOMYCIN INJ 1,500 MG in SODIUM CHLORIDE 0.9% 500 ML IV SCH ×2 (09:57→21:11)
[2020-05-22] MEDS: INSULIN REGULAR 100 UNIT/ML SUBCUT SCH ×2 (11:30→17:10)
[2020-05-22] MEDS ORDERED: ACETAMINOPHEN 325 MG/10.15 ML UDCUP PO PRN (16:24)
[2020-05-22 16:55] LABS: Osmolality,Calculated 318.4 MOS/KG (273-304)
[2020-05-22] MEDS: INSULIN GLARGINE 100 UNIT/ML SUBCUT SCH (17:26)
[2020-05-22] MEDS ORDERED: POTASSIUM CHLORIDE 20 MEQ/15 ML UDCUP PER TUBE SCH (21:00)
[2020-05-23 03:43] LABS: ABG Base Excess 3.4 MMOL/L (-2.5-2.5); ABG HCO3 27.5 MMOL/L (20-26); ABG Oxygen Saturation 99.7 % (95-100); ABG PH 7.439 (7.35-7.45); ABG TCO2 25.8 MMOL/L (23-27); Allen Test Positive; Pt O2 Delivery Device Ventilator
[2020-05-23] MEDS: ENOXAPARIN 30 MG/0.3 ML SYRINGE SUBCUT SCH (04:00)
[2020-05-23 05:15] LABS: Basophils % 0.3 % (0.0-0.8); Eosinophils # 0.2 10*3/uL (0.0-0.87); Eosinophils % 3.2 % (0.00-10.9); Hematocrit 29.7 VOL% (42.0-52.0); Hemoglobin 8.8 GM/DL (14.0-18.0); Immature Granulocytes % 1.3 %; Immature Granulocytes Absolute 0.09 #; Lymphocytes # 1.2 10*3/uL (1.4-4.0); Lymphocytes % 16.2 % (21.2-54.2); Mean Corpuscular HGB Conc 29.6 GM/DL (32-36); Mean Platelet Volume 8.3 FL (9.6-12.0); Monocytes % 8.5 % (1.7-12.7); Neutrophils % 70.5 % (38.7-73.9); Platelet Count 349 T/CUMM (130-400); Red Blood Count 3.16 MC/CUMM (3.8-5.5); Red Cell Distribution Width 16.4 % (9.3-17.3); White Blood Count 7.2 T/CUMM (4-12)
[2020-05-23 05:32] LABS: Albumin 1.9 G/DL (3.4-5.0); Bilirubin,Total 0.9 MG/DL (0.2-1.0); Calcium 9.5 MG/DL (8.5-10.1); Total Protein 7.1 G/DL (6.4-8.3)
[2020-05-23] MEDS: PIPERACILLIN/TAZOBACTAM 3,375 MG in SODIUM CHLORIDE 0.9% 100 ML IV SCH ×3 (06:05→21:29)
[2020-05-23] MEDS: PANTOPRAZOLE 40 MG VIAL IV SCH ×2 (08:50→21:25)
[2020-05-23] MEDS: POLYETHYLENE GLYCOL POWDER 17 GM PACK PEG SCH ×2 (08:50→21:27)
[2020-05-23] MEDS: INSULIN REGULAR 100 UNIT/ML SUBCUT SCH ×3 (08:50→17:10)
[2020-05-23] MEDS: POTASSIUM CHLORIDE 20 MEQ/15 ML UDCUP PER TUBE SCH ×3 (08:50→21:27)
[2020-05-23] MEDS: POTASSIUM CHLORIDE INJ 40 MEQ in SODIUM CHLORIDE 0.45% 1,000 ML IV SCH ×2 (08:51→09:13)
[2020-05-23] MEDS: VANCOMYCIN INJ 1,500 MG in SODIUM CHLORIDE 0.9% 500 ML IV SCH ×2 (08:52→21:29)
[2020-05-23] MEDS: POTASSIUM CHLORIDE INJ 40 MEQ in DEXTROSE 5% 1,000 ML IV SCH ×2 (11:13→21:24)
[2020-05-23] MEDS: INSULIN GLARGINE 100 UNIT/ML SUBCUT SCH (17:10)
[2020-05-24] MEDS: ENOXAPARIN 30 MG/0.3 ML SYRINGE SUBCUT SCH (04:21)
[2020-05-24 04:57] LABS: ABG Base Excess -0.9 MMOL/L (-2.5-2.5); ABG HCO3 23.7 MMOL/L (20-26); ABG Oxygen Saturation 99.4 % (95-100); ABG PCO2 43.2 MM HG (35-48); ABG PH 7.362 (7.35-7.45); ABG TCO2 22.7 MMOL/L (23-27); Allen Test Positive; Pt O2 Delivery Device Ventilator
[2020-05-24 05:21] LABS: Calcium 8.7 MG/DL (8.5-10.1); Osmolality,Calculated 313.6 MOS/KG (273-304)
[2020-05-24] MEDS: PIPERACILLIN/TAZOBACTAM 3,375 MG in SODIUM CHLORIDE 0.9% 100 ML IV SCH ×2 (06:40→14:52)
[2020-05-24] MEDS: POTASSIUM CHLORIDE INJ 40 MEQ in DEXTROSE 5% 1,000 ML IV SCH ×2 (06:56→17:08)
[2020-05-24] MEDS: POLYETHYLENE GLYCOL POWDER 17 GM PACK PEG SCH ×2 (08:21→21:04)
[2020-05-24] MEDS: POTASSIUM CHLORIDE 20 MEQ/15 ML UDCUP PER TUBE SCH ×3 (08:21→21:04)
[2020-05-24] MEDS: INSULIN REGULAR 100 UNIT/ML SUBCUT SCH ×4 (08:21→21:03)
[2020-05-24] MEDS: PANTOPRAZOLE 40 MG VIAL IV SCH ×2 (08:22→21:05)
[2020-05-24 11:23] LABS: ABG Base Excess -2.4 MMOL/L (-2.5-2.5); ABG HCO3 22.9 MMOL/L (20-26); ABG Oxygen Saturation 98.3 % (95-100); ABG PCO2 41.6 MM HG (35-48); ABG PH 7.359 (7.35-7.45); ABG PO2 139.6 MM HG (80-95); ABG TCO2 24.2 MMOL/L (23-27)
[2020-05-24] MEDS: VANCOMYCIN INJ 1,500 MG in SODIUM CHLORIDE 0.9% 500 ML IV SCH (14:42)
[2020-05-24] MEDS: ERTAPENEM 1,000 MG in SODIUM CHLORIDE 0.9% 100 ML IV SCH (16:22)
[2020-05-24 17:40] LABS: ABG Base Excess -2.6 MMOL/L (-2.5-2.5); ABG HCO3 22.3 MMOL/L (20-26); ABG Oxygen Saturation 99.4 % (95-100); ABG PCO2 44.7 MM HG (35-48); ABG PH 7.327 (7.35-7.45); ABG TCO2 21.8 MMOL/L (23-27)
[2020-05-24] MEDS: INSULIN GLARGINE 100 UNIT/ML SUBCUT SCH (17:44)
[2020-05-25] MEDS: ENOXAPARIN 30 MG/0.3 ML SYRINGE SUBCUT SCH (03:10)
[2020-05-25] MEDS: POTASSIUM CHLORIDE INJ 40 MEQ in DEXTROSE 5% 1,000 ML IV SCH ×2 (03:34→20:30)
[2020-05-25 04:22] LABS: Calcium 7.8 MG/DL (8.5-10.1); Osmolality,Calculated 298.3 MOS/KG (273-304)
[2020-05-25 04:48] LABS: ABG Base Excess -2.7 MMOL/L (-2.5-2.5); ABG HCO3 22.1 MMOL/L (20-26); ABG Oxygen Saturation 93.7 % (95-100); ABG PCO2 36.2 MM HG (35-48); ABG PH 7.387 (7.35-7.45); ABG PO2 65.3 MM HG (80-95); ABG TCO2 19.1 MMOL/L (23-27); Allen Test Positive
[2020-05-25] MEDS: POTASSIUM CHLORIDE 20 MEQ/15 ML UDCUP PER TUBE PRN (06:33)
[2020-05-25] MEDS: PANTOPRAZOLE 40 MG VIAL IV SCH ×2 (08:27→21:40)
[2020-05-25] MEDS: INSULIN REGULAR 100 UNIT/ML SUBCUT SCH ×4 (08:28→21:32)
[2020-05-25] MEDS: POLYETHYLENE GLYCOL POWDER 17 GM PACK PEG SCH ×2 (08:28→21:39)
[2020-05-25] MEDS: POTASSIUM CHLORIDE 20 MEQ/15 ML UDCUP PER TUBE SCH ×3 (08:28→21:39)
[2020-05-25] MEDS: VANCOMYCIN INJ 1,500 MG in SODIUM CHLORIDE 0.9% 500 ML IV SCH (08:28)
[2020-05-25] MEDS: ALBUTEROL/IPRATROPIUM 3 ML NEB RESP TX SCH ×4 (11:05→23:33)
[2020-05-25] MEDS ORDERED: SODIUM CHLORIDE 0.65% NASAL SPRAY 45 ML BOTTLE BOTH NARES PRN (13:48)
[2020-05-25] MEDS ORDERED: POLYVINYL ALCOHOL 1.4% OPH SOLN 15 ML BOTTLE BOTH EYES PRN (13:48)
[2020-05-25] MEDS: SIMETHICONE CHEW 80 MG TABLET PO SCH ×2 (14:55→17:17)
[2020-05-25] MEDS: OXYBUTYNIN 5 MG TABLET PEG SCH ×2 (15:55→21:38)
[2020-05-25] MEDS: ERTAPENEM 1,000 MG in SODIUM CHLORIDE 0.9% 100 ML IV SCH (17:17)
[2020-05-25] MEDS: INSULIN GLARGINE 100 UNIT/ML SUBCUT SCH (17:17)
[2020-05-25] MEDS: METOPROLOL TARTRATE 50 MG TABLET PEG SCH (21:38)
[2020-05-25] MEDS: FAMOTIDINE 20 MG TABLET PEG SCH (21:38)
[2020-05-25] MEDS: METHENAMINE HIPPURATE 1 GM TABLET PEG SCH (21:39)
[2020-05-25] MEDS: MAGNESIUM OXIDE 400 MG TABLET PEG SCH (21:39)
[2020-05-25] MEDS: SPIRONOLACTONE 25 MG TABLET PO SCH (21:39)
[2020-05-26] MEDS: ENOXAPARIN 30 MG/0.3 ML SYRINGE SUBCUT SCH (03:09)
[2020-05-26] MEDS: ALBUTEROL/IPRATROPIUM 3 ML NEB RESP TX SCH ×5 (03:10→19:07)
[2020-05-26] MEDS: VANCOMYCIN INJ 1,500 MG in SODIUM CHLORIDE 0.9% 500 ML IV SCH (03:11)
[2020-05-26 04:56] LABS: Basophils # 0.1 10*3/uL (0.0-0.2); Basophils % 0.7 % (0.0-0.8); Eosinophils # 0.5 10*3/uL (0.0-0.87); Eosinophils % 6.3 % (0.00-10.9); Hematocrit 31.7 VOL% (42.0-52.0); Hemoglobin 9.4 GM/DL (14.0-18.0); Immature Granulocytes % 2.6 %; Lymphocytes # 1.5 10*3/uL (1.4-4.0); Lymphocytes % 19.3 % (21.2-54.2); Mean Corpuscular HGB Conc 29.7 GM/DL (32-36); Mean Corpuscular Volume 93.2 FL (87-102); Mean Platelet Volume 8.7 FL (9.6-12.0); Monocytes % 6.5 % (1.7-12.7); Neutrophils % 64.6 % (38.7-73.9); Platelet Count 294 T/CUMM (130-400); Red Cell Distribution Width 15.9 % (9.3-17.3); White Blood Count 7.7 T/CUMM (4-12)
[2020-05-26 05:16] LABS: Calcium 7.8 MG/DL (8.5-10.1); Osmolality,Calculated 298.1 MOS/KG (273-304)
[2020-05-26] MEDS: POTASSIUM CHLORIDE 20 MEQ/15 ML UDCUP PER TUBE PRN (05:49)
[2020-05-26] MEDS: OXYBUTYNIN 5 MG TABLET PEG SCH ×3 (08:49→21:49)
[2020-05-26] MEDS: METHENAMINE HIPPURATE 1 GM TABLET PEG SCH ×2 (08:49→21:50)
[2020-05-26] MEDS: FAMOTIDINE 20 MG TABLET PEG SCH ×2 (08:49→21:49)
[2020-05-26] MEDS: POLYETHYLENE GLYCOL POWDER 17 GM PACK PEG SCH ×2 (08:49→21:50)
[2020-05-26] MEDS: MAGNESIUM OXIDE 400 MG TABLET PEG SCH ×2 (08:49→21:49)
[2020-05-26] MEDS: METOPROLOL TARTRATE 50 MG TABLET PEG SCH ×2 (08:49→21:49)
[2020-05-26] MEDS: SIMETHICONE CHEW 80 MG TABLET PO SCH ×3 (08:49→17:49)
[2020-05-26] MEDS: amLODIPine 2.5 MG TABLET PEG SCH (08:50)
[2020-05-26] MEDS: CHOLECALCIFEROL 1,000 UNIT TABLET PEG SCH (08:50)
[2020-05-26] MEDS: CLOPIDOGREL 75 MG TABLET PEG SCH (08:50)
[2020-05-26] MEDS: POTASSIUM CHLORIDE 20 MEQ/15 ML UDCUP PER TUBE SCH ×3 (08:50→21:50)
[2020-05-26] MEDS: ASPIRIN EC 81 MG TABLET PO SCH (08:50)
[2020-05-26] MEDS: SPIRONOLACTONE 25 MG TABLET PO SCH ×2 (08:50→21:49)
[2020-05-26] MEDS: OMEPRAZOLE ODT 20 MG TABLET PEG SCH (08:50)
[2020-05-26] MEDS: PANTOPRAZOLE 40 MG VIAL IV SCH ×2 (08:51→22:51)
[2020-05-26] MEDS: INSULIN REGULAR 100 UNIT/ML SUBCUT SCH ×4 (09:56→21:50)
[2020-05-26] MEDS: INSULIN GLARGINE 100 UNIT/ML SUBCUT SCH (17:50)
[2020-05-26] MEDS: ERTAPENEM 1,000 MG in SODIUM CHLORIDE 0.9% 100 ML IV SCH (17:52)
[2020-05-26] MEDS: POTASSIUM PHOS/SOD PHOS POWDER 250 MG PACK PO SCH (21:49)
[2020-05-27] MEDS: ALBUTEROL/IPRATROPIUM 3 ML NEB RESP TX SCH ×5 (01:04→14:48)
[2020-05-27] MEDS: ENOXAPARIN 30 MG/0.3 ML SYRINGE SUBCUT SCH (03:17)
[2020-05-27 05:19] LABS: Basophils # 0.1 10*3/uL (0.0-0.2); Basophils % 0.6 % (0.0-0.8); Eosinophils # 0.5 10*3/uL (0.0-0.87); Eosinophils % 6.3 % (0.00-10.9); Hematocrit 31.2 VOL% (42.0-52.0); Hemoglobin 9.2 GM/DL (14.0-18.0); Immature Granulocytes Absolute 0.16 #; Lymphocytes # 1.2 10*3/uL (1.4-4.0); Lymphocytes % 15.4 % (21.2-54.2); Mean Corpuscular HGB Conc 29.5 GM/DL (32-36); Mean Corpuscular Volume 93.1 FL (87-102); Mean Platelet Volume 8.6 FL (9.6-12.0); Monocytes % 7.6 % (1.7-12.7); Neutrophils % 68.1 % (38.7-73.9); Platelet Count 262 T/CUMM (130-400); Red Blood Count 3.35 MC/CUMM (3.8-5.5); Red Cell Distribution Width 15.9 % (9.3-17.3); White Blood Count 8.1 T/CUMM (4-12)
[2020-05-27 05:54] LABS: Osmolality,Calculated 296.1 MOS/KG (273-304)
[2020-05-27] MEDS ORDERED: POTASSIUM PHOSPHATE 15 MMOL in SODIUM CHLORIDE 0.9% 100 ML IV ONE (07:30)
[2020-05-27] MEDS ORDERED: POTASSIUM CHLORIDE RIDER 10 MEQ in PREMIX 1 EACH IV PRN (07:34)
[2020-05-27] MEDS: INSULIN REGULAR 100 UNIT/ML SUBCUT SCH ×3 (08:54→17:56)
[2020-05-27] MEDS: PANTOPRAZOLE 40 MG VIAL IV SCH (08:56)
[2020-05-27] MEDS: POTASSIUM CHLORIDE 20 MEQ/15 ML UDCUP PER TUBE SCH ×2 (08:56→14:42)
[2020-05-27] MEDS: POLYETHYLENE GLYCOL POWDER 17 GM PACK PEG SCH (08:57)
[2020-05-27] MEDS: amLODIPine 2.5 MG TABLET PEG SCH (08:57)
[2020-05-27] MEDS: SIMETHICONE CHEW 80 MG TABLET PO SCH ×3 (08:57→17:57)
[2020-05-27] MEDS: ASPIRIN EC 81 MG TABLET PO SCH (08:57)
[2020-05-27] MEDS: CLOPIDOGREL 75 MG TABLET PEG SCH (08:57)
[2020-05-27] MEDS: METHENAMINE HIPPURATE 1 GM TABLET PEG SCH (08:58)
[2020-05-27] MEDS: SPIRONOLACTONE 25 MG TABLET PO SCH (08:58)
[2020-05-27] MEDS: CHOLECALCIFEROL 1,000 UNIT TABLET PEG SCH (08:58)
[2020-05-27] MEDS: OMEPRAZOLE ODT 20 MG TABLET PEG SCH (08:58)
[2020-05-27] MEDS: POTASSIUM PHOS/SOD PHOS POWDER 250 MG PACK PO SCH (08:58)
[2020-05-27] MEDS: MAGNESIUM OXIDE 400 MG TABLET PEG SCH (08:58)
[2020-05-27] MEDS: METOPROLOL TARTRATE 50 MG TABLET PEG SCH (08:58)
[2020-05-27] MEDS: FAMOTIDINE 20 MG TABLET PEG SCH (08:58)
[2020-05-27] MEDS: OXYBUTYNIN 5 MG TABLET PEG SCH ×2 (12:36→14:42)
[2020-05-27] MEDS: ERTAPENEM 1,000 MG in SODIUM CHLORIDE 0.9% 100 ML IV SCH (17:56)
[2020-05-27] MEDS: INSULIN GLARGINE 100 UNIT/ML SUBCUT SCH (17:57)
[2020-05-27 17:59] VITALS: BP 151/77
== END 2020-05-27 18:10 | DRG 207 ==
LOC: EDUNIT# → EDBD → N.ED 21:01 → SUATTDRO 05-20 02:20 → N.EDINP 05-20 02:20 → N.ICU 05-20 04:13 → N.4E 05-25 14:39
PROVIDERS: ADMIT Internal Medicine; ATTEND Internal Medicine

== ENCOUNTER 2020-07-07 10:05 | Inpatient (IN) ==
[2020-07-07 11:47] LABS: Basophils # 0.1 10*3/uL (0.0-0.2); Basophils % 0.5 % (0.0-0.8); Eosinophils # 0.4 10*3/uL (0.0-0.87); Eosinophils % 3.6 % (0.00-10.9); Hematocrit 26.5 VOL% (42.0-52.0); Hemoglobin 8.6 GM/DL (14.0-18.0); Immature Granulocytes % 3.6 %; Immature Granulocytes Absolute 0.35 #; Lymphocytes # 1.1 10*3/uL (1.4-4.0); Lymphocytes % 11.6 % (21.2-54.2); Mean Corpuscular HGB Conc 32.5 GM/DL (32-36); Mean Corpuscular Volume 86.6 FL (87-102); Mean Platelet Volume 8.4 FL (9.6-12.0); Monocytes % 10.6 % (1.7-12.7); Neutrophils % 70.1 % (38.7-73.9); Platelet Count 390 T/CUMM (130-400); Red Blood Count 3.06 MC/CUMM (3.8-5.5); Red Cell Distribution Width 17.2 % (9.3-17.3); White Blood Count 9.7 T/CUMM (4-12)
[2020-07-07 11:58] LABS: Osmolality,Calculated 266.3 MOS/KG (273-304)
[2020-07-07 12:03] LABS: Calcium 15.3 MG/DL (8.5-10.1)
[2020-07-07] MEDS ORDERED: SODIUM CHLORIDE 0.9% 1,000 ML IV STA (12:14)
[2020-07-07] MEDS ORDERED: cefTRIAXone 1,000 MG in SODIUM CHLORIDE 0.9% 100 ML IV STA (12:25)
[2020-07-07 12:46] LABS: Thyroid Stimulating Hormone 1.47 uIU/ml (0.358-3.74)
[2020-07-07 13:25] LABS: Alanine Aminotransferase 24 U/L (16-61); Albumin 2.4 G/DL (3.4-5.0); Alkaline Phosphatase 106 U/L (45-117); Aspartate Amino Transferase 14 U/L (0-37); Bilirubin,Total < 0.39 MG/DL (0.2-1.0); Blood Urea Nitrogen 87 MG/DL (7-18); Glucose 95 MG/DL (74-106); Osmolality,Calculated 270.1 MOS/KG (273-304); Total Protein 8.8 G/DL (6.4-8.3)
[2020-07-07 13:30] LABS: Estimated Glom Filtration Rate 0 ML/MIN
[2020-07-07 13:50] LABS: Bacteria,Urine Occasional /HPF (Few); Bilirubin,Urine Negative (Negative); Blood, Urine Large mg/dL (Negative); Glucose,Urine (UA) Negative (Negative); Hyaline Casts,Urine 1 /LPF (0-3); Ketones,Urine Negative (Negative); Mucus,Urine Occasional /LPF (Occasional); Nitrite,Urine Negative (Negative); Protein,Urine Negative; RBC,Urine 79 /HPF (0-4); Squamous Epithelial Cell,Urine Occasional /HPF (0-10); Urine Appearance CLOUDY (Clear); Urine Color Yellow (Yellow); Urine Specific Gravity 1.005 (1.001-1.035); Urine Urobilinogen < 2.0 EU/DL (0.2-1.0); WBC,Urine 82 /HPF (0-6)
[2020-07-07] MEDS ORDERED: DEXTROSE 50% 25 GM/50 ML VIAL IV PRN (14:08)
[2020-07-07] MEDS ORDERED: GLUCAGON 1 MG VIAL IM PRN (14:08)
[2020-07-07] MEDS ORDERED: ONDANSETRON 4 MG/2 ML VIAL IV PRN (14:08)
[2020-07-07] MEDS: CALCITONIN 400 UNIT/2 ML VIAL SUBCUT SCH (14:50)
[2020-07-07] MEDS: SODIUM CHLORIDE 0.9% 1,000 ML IV SCH (16:20)
[2020-07-07] MEDS: INSULIN LISPRO 100 UNIT/ML SUBCUT SCH (20:05)
[2020-07-08] MEDS: CALCITONIN 400 UNIT/2 ML VIAL SUBCUT SCH ×2 (01:22→13:09)
[2020-07-08 06:01] LABS: Basophils # 0.1 10*3/uL (0.0-0.2); Basophils % 0.8 % (0.0-0.8); Eosinophils # 0.3 10*3/uL (0.0-0.87); Eosinophils % 3.5 % (0.00-10.9); Hematocrit 24.7 VOL% (42.0-52.0); Hemoglobin 7.8 GM/DL (14.0-18.0); Immature Granulocytes % 4.4 %; Immature Granulocytes Absolute 0.31 #; Lymphocytes # 0.9 10*3/uL (1.4-4.0); Lymphocytes % 12.2 % (21.2-54.2); Mean Corpuscular HGB Conc 31.6 GM/DL (32-36); Mean Corpuscular Volume 89.8 FL (87-102); Mean Platelet Volume 8.5 FL (9.6-12.0); Monocytes % 12.4 % (1.7-12.7); Neutrophils % 66.7 % (38.7-73.9); Platelet Count 358 T/CUMM (130-400); Red Blood Count 2.75 MC/CUMM (3.8-5.5); Red Cell Distribution Width 17.3 % (9.3-17.3); White Blood Count 7.1 T/CUMM (4-12)
[2020-07-08 06:33] LABS: Albumin 2.2 G/DL (3.4-5.0); Bilirubin,Total 0.6 MG/DL (0.2-1.0); Osmolality,Calculated 278.9 MOS/KG (273-304); Total Protein 8.2 G/DL (6.4-8.3)
[2020-07-08 06:42] LABS: Calcium 14.6 MG/DL (8.5-10.1)
[2020-07-08] MEDS: INSULIN LISPRO 100 UNIT/ML SUBCUT SCH ×4 (08:39→21:47)
[2020-07-08 10:25] LABS: Albumin (SPE) 3.2 G/DL (3.2-5.3); Albumin (SPE) Rel % 39.1 %; Alpha 1 (SPE) 0.4 G/DL (0.1-0.4); Alpha 2 (SPE) 1.3 G/DL (0.4-1.0); Alpha 2 (SPE) Rel % 15.6 %; Beta (SPE) Rel % 11.7 %; Gamma (SPE) 2.4 G/DL (0.7-1.7); Gamma (SPE) Rel % 28.6 %
[2020-07-08] MEDS ORDERED: DEXTROSE 50% 25 GM/50 ML VIAL IV PRN (10:37)
[2020-07-08] MEDS ORDERED: SKIN HEALING OINT (AQUAPHOR) 50 GM TUBE TOP PRN (12:19)
[2020-07-08] MEDS ORDERED: ALBUTEROL 2.5 MG/3 ML NEB RESP TX PRN (12:19)
[2020-07-08] MEDS ORDERED: POLYVINYL ALCOHOL 1.4% OPH SOLN 15 ML BOTTLE BOTH EYES PRN (12:19)
[2020-07-08] MEDS ORDERED: SODIUM CHLORIDE 0.65% NASAL SPRAY 45 ML BOTTLE BOTH NARES PRN (12:19)
[2020-07-08] MEDS ORDERED: ACETAMINOPHEN 325 MG/10.15 ML UDCUP PEG PRN (12:19)
[2020-07-08] MEDS: SIMETHICONE CHEW 80 MG TABLET PO SCH (15:49)
[2020-07-08] MEDS: OXYBUTYNIN 5 MG TABLET PEG SCH ×2 (15:49→21:23)
[2020-07-08] MEDS: ALBUTEROL/IPRATROPIUM 3 ML NEB RESP TX PRN (19:30)
[2020-07-08] MEDS: METOPROLOL TARTRATE 50 MG TABLET PEG SCH (21:23)
[2020-07-08] MEDS: MAGNESIUM OXIDE 400 MG TABLET PEG SCH (21:23)
[2020-07-08] MEDS: FAMOTIDINE 20 MG TABLET PEG SCH (21:23)
[2020-07-08] MEDS: POLYETHYLENE GLYCOL POWDER 17 GM PACK PEG SCH (21:30)
[2020-07-09] MEDS: SODIUM CHLORIDE 0.9% 1,000 ML IV SCH ×4 (00:21→08:29)
[2020-07-09] MEDS: CALCITONIN 400 UNIT/2 ML VIAL SUBCUT SCH ×2 (01:49→15:18)
[2020-07-09 04:52] LABS: Total Protein (Chem) 8.3 G/DL (6.4-8.3)
[2020-07-09 06:52] LABS: Basophils # 0.1 10*3/uL (0.0-0.2); Basophils % 0.5 % (0.0-0.8); Eosinophils # 0.3 10*3/uL (0.0-0.87); Eosinophils % 2.3 % (0.00-10.9); Hematocrit 24.9 VOL% (42.0-52.0); Hemoglobin 7.8 GM/DL (14.0-18.0); Immature Granulocytes % 2.2 %; Immature Granulocytes Absolute 0.26 #; Lymphocytes # 1.2 10*3/uL (1.4-4.0); Lymphocytes % 10.4 % (21.2-54.2); Mean Corpuscular HGB Conc 31.3 GM/DL (32-36); Mean Corpuscular Volume 90.9 FL (87-102); Mean Platelet Volume 8.4 FL (9.6-12.0); Monocytes % 10.3 % (1.7-12.7); Neutrophils % 74.3 % (38.7-73.9); Platelet Count 393 T/CUMM (130-400); Red Blood Count 2.74 MC/CUMM (3.8-5.5); Red Cell Distribution Width 17.6 % (9.3-17.3); White Blood Count 11.9 T/CUMM (4-12)
[2020-07-09 07:17] LABS: Calcium 12.6 MG/DL (8.5-10.1); Osmolality,Calculated 294.1 MOS/KG (273-304)
[2020-07-09] MEDS: INSULIN GLARGINE 100 UNIT/ML SUBCUT SCH (10:40)
[2020-07-09] MEDS: MAGNESIUM OXIDE 400 MG TABLET PEG SCH ×2 (10:41→21:54)
[2020-07-09] MEDS: SIMETHICONE CHEW 80 MG TABLET PO SCH ×3 (10:41→18:29)
[2020-07-09] MEDS: SPIRONOLACTONE 25 MG TABLET PEG SCH (10:41)
[2020-07-09] MEDS: ASPIRIN EC 81 MG TABLET PO SCH (10:41)
[2020-07-09] MEDS: amLODIPine 5 MG TABLET PEG SCH (10:41)
[2020-07-09] MEDS: INSULIN LISPRO 100 UNIT/ML SUBCUT SCH ×4 (10:41→21:53)
[2020-07-09] MEDS: POLYETHYLENE GLYCOL POWDER 17 GM PACK PEG SCH ×2 (10:41→21:54)
[2020-07-09] MEDS: OXYBUTYNIN 5 MG TABLET PEG SCH ×3 (10:41→21:53)
[2020-07-09] MEDS: METOPROLOL TARTRATE 50 MG TABLET PEG SCH ×2 (10:41→21:54)
[2020-07-09] MEDS: CHOLECALCIFEROL 1,000 UNIT TABLET PEG SCH (10:42)
[2020-07-09] MEDS: FAMOTIDINE 20 MG TABLET PEG SCH ×2 (10:42→21:54)
[2020-07-09] MEDS: CLOPIDOGREL 75 MG TABLET PEG SCH (10:42)
[2020-07-09] MEDS: cefTRIAXone 1,000 MG in SYRINGE 1 EACH IV SCH (11:43)
[2020-07-09] MEDS ORDERED: BACITRACIN OINT 0.9 GM PACK TOP ONE (15:01)
[2020-07-09] MEDS: ALBUTEROL/IPRATROPIUM 3 ML NEB RESP TX PRN (22:40)
[2020-07-10 05:01] LABS: Basophils # 0.1 10*3/uL (0.0-0.2); Basophils % 0.3 % (0.0-0.8); Eosinophils # 0.1 10*3/uL (0.0-0.87); Eosinophils % 0.3 % (0.00-10.9); Hematocrit 25.1 VOL% (42.0-52.0); Hemoglobin 7.7 GM/DL (14.0-18.0); Immature Granulocytes Absolute 0.18 #; Lymphocytes # 1.3 10*3/uL (1.4-4.0); Lymphocytes % 7.6 % (21.2-54.2); Mean Corpuscular HGB Conc 30.7 GM/DL (32-36); Mean Corpuscular Volume 91.6 FL (87-102); Monocytes % 6.4 % (1.7-12.7); Neutrophils % 84.4 % (38.7-73.9); Platelet Count 343 T/CUMM (130-400); Red Blood Count 2.74 MC/CUMM (3.8-5.5); White Blood Count 17.7 T/CUMM (4-12)
[2020-07-10 05:23] LABS: Calcium 12.7 MG/DL (8.5-10.1); Osmolality,Calculated 300.7 MOS/KG (273-304)
[2020-07-10] MEDS: INSULIN LISPRO 100 UNIT/ML SUBCUT SCH ×2 (11:35→11:38)
[2020-07-10] MEDS: INSULIN GLARGINE 100 UNIT/ML SUBCUT SCH (11:36)
[2020-07-10] MEDS: SPIRONOLACTONE 25 MG TABLET PEG SCH (11:37)
[2020-07-10] MEDS: SIMETHICONE CHEW 80 MG TABLET PO SCH ×2 (11:37→12:38)
[2020-07-10] MEDS: ASPIRIN EC 81 MG TABLET PO SCH (11:38)
[2020-07-10] MEDS: MAGNESIUM OXIDE 400 MG TABLET PEG SCH (11:38)
[2020-07-10] MEDS: METOPROLOL TARTRATE 50 MG TABLET PEG SCH (11:38)
[2020-07-10] MEDS: OXYBUTYNIN 5 MG TABLET PEG SCH ×2 (11:38→16:50)
[2020-07-10] MEDS: POLYETHYLENE GLYCOL POWDER 17 GM PACK PEG SCH (11:39)
[2020-07-10] MEDS: CHOLECALCIFEROL 1,000 UNIT TABLET PEG SCH (11:39)
[2020-07-10] MEDS: CLOPIDOGREL 75 MG TABLET PEG SCH (11:39)
[2020-07-10] MEDS: FAMOTIDINE 20 MG TABLET PEG SCH (11:39)
[2020-07-10] MEDS: amLODIPine 5 MG TABLET PEG SCH (11:39)
[2020-07-10] MEDS: cefTRIAXone 1,000 MG in SYRINGE 1 EACH IV SCH (11:51)
[2020-07-10] MEDS: CALCITONIN 400 UNIT/2 ML VIAL SUBCUT SCH ×2 (13:33)
[2020-07-10 16:31] VITALS: BP 123/63
== END 2020-07-10 17:42 | disposition home health service (06) | DRG 640 ==
LOC: EDUNIT# → N.ED 10:05 → N.EDINP 14:08 → N.TELEN 18:05
PROVIDERS: ADMIT Internal Medicine Geriatric Medicine; ATTEND Internal Medicine Geriatric Medicine

== ENCOUNTER 2020-07-10 18:22 | Inpatient (IN) ==
[2020-07-10 20:14] LABS: Basophils # 0.1 10*3/uL (0.0-0.2); Basophils % 0.4 % (0.0-0.8); Eosinophils # 0.1 10*3/uL (0.0-0.87); Eosinophils % 0.4 % (0.00-10.9); Hematocrit 27.9 VOL% (42.0-52.0); Hemoglobin 8.3 GM/DL (14.0-18.0); Immature Granulocytes % 1.2 %; Immature Granulocytes Absolute 0.27 #; Lymphocytes # 1.2 10*3/uL (1.4-4.0); Lymphocytes % 5.3 % (21.2-54.2); Mean Corpuscular HGB Conc 29.7 GM/DL (32-36); Mean Corpuscular Volume 94.3 FL (87-102); Mean Platelet Volume 7.8 FL (9.6-12.0); Monocytes % 5.9 % (1.7-12.7); Neutrophils % 86.8 % (38.7-73.9); Platelet Count 406 T/CUMM (130-400); Red Blood Count 2.96 MC/CUMM (3.8-5.5); Red Cell Distribution Width 17.7 % (9.3-17.3); White Blood Count 23.4 T/CUMM (4-12)
[2020-07-10] MEDS ORDERED: cefTRIAXone 1,000 MG in SODIUM CHLORIDE 0.9% 100 ML IV STA (20:25)
[2020-07-10] MEDS ORDERED: SODIUM CHLORIDE 0.9% 1,000 ML IV STA (20:25)
[2020-07-10 20:29] LABS: Calcium 13.8 MG/DL (8.5-10.1); Osmolality,Calculated 302.5 MOS/KG (273-304)
[2020-07-10 20:36] LABS: Lymphocytes 4 % (20-55); Polychromasia 1+; Segmented Neutrophils 93 % (50-85); Total Cells Counted 100
[2020-07-10 20:37] LABS: Platelet Estimate Normal; Reactive Lymphocytes Slight
[2020-07-10 21:10] LABS: ABG Base Excess 8.9 MMOL/L (-2.5-2.5); ABG HCO3 34.6 MMOL/L (20-26); ABG Oxygen Saturation 86.7 % (95-100); ABG PCO2 54.7 MM HG (35-48); ABG PH 7.419 (7.35-7.45); ABG PO2 51.6 MM HG (80-95); ABG TCO2 36.3 MMOL/L (23-27); Allen Test Positive
[2020-07-10] MEDS ORDERED: GLUCAGON 1 MG VIAL IM PRN (21:30)
[2020-07-10] MEDS ORDERED: NICOTINE 21 MG/24 HR PATCH TRANSDERM PRN (21:30)
[2020-07-10] MEDS ORDERED: ONDANSETRON 4 MG/2 ML VIAL IV PRN (21:30)
[2020-07-10] MEDS ORDERED: hydrALAZINE 20 MG/1 ML VIAL IV PRN (21:30)
[2020-07-10] MEDS: MEROPENEM 500 MG in SODIUM CHLORIDE 0.9% 100 ML IV SCH (22:18)
[2020-07-10] MEDS: ALBUTEROL 2.5 MG/3 ML NEB RESP TX SCH (23:30)
[2020-07-11] MEDS: VANCOMYCIN INJ 1,500 MG in SODIUM CHLORIDE 0.9% 500 ML IV SCH (00:30)
[2020-07-11] MEDS: INSULIN LISPRO 100 UNIT/ML SUBCUT SCH ×4 (00:55→18:34)
[2020-07-11] MEDS ORDERED: ALBUTEROL 2.5 MG/3 ML NEB RESP TX PRN (01:52)
[2020-07-11] MEDS: ALBUTEROL 2.5 MG/3 ML NEB RESP TX SCH ×5 (02:43→22:33)
[2020-07-11] MEDS: AZITHROMYCIN INJ 500 MG in SODIUM CHLORIDE 0.9% 250 ML IV SCH (02:55)
[2020-07-11] MEDS: MEROPENEM 500 MG in SODIUM CHLORIDE 0.9% 100 ML IV SCH ×5 (05:15→21:46)
[2020-07-11 05:38] LABS: Basophils % 0.3 % (0.0-0.8); Eosinophils % 0.2 % (0.00-10.9); Hematocrit 23.9 VOL% (42.0-52.0); Hemoglobin 7.1 GM/DL (14.0-18.0); Immature Granulocytes Absolute 0.14 #; Lymphocytes # 0.8 10*3/uL (1.4-4.0); Lymphocytes % 5.5 % (21.2-54.2); Mean Corpuscular HGB Conc 29.7 GM/DL (32-36); Mean Corpuscular Volume 94.5 FL (87-102); Monocytes % 7.6 % (1.7-12.7); Neutrophils % 85.4 % (38.7-73.9); Platelet Count 330 T/CUMM (130-400); Red Blood Count 2.53 MC/CUMM (3.8-5.5); Red Cell Distribution Width 17.7 % (9.3-17.3); White Blood Count 14.4 T/CUMM (4-12)
[2020-07-11 06:02] LABS: Calcium 12.8 MG/DL (8.5-10.1)
[2020-07-11] MEDS ORDERED: SKIN HEALING OINT (AQUAPHOR) 50 GM TUBE TOP PRN (06:17)
[2020-07-11] MEDS ORDERED: ALBUTEROL/IPRATROPIUM 3 ML NEB RESP TX PRN (06:17)
[2020-07-11] MEDS ORDERED: POLYVINYL ALCOHOL 1.4% OPH SOLN 15 ML BOTTLE BOTH EYES PRN (06:21)
[2020-07-11] MEDS ORDERED: ENOXAPARIN 30 MG/0.3 ML SYRINGE SUBCUT SCH (09:00)
[2020-07-11] MEDS: POLYETHYLENE GLYCOL POWDER 17 GM PACK PEG SCH ×2 (09:45→20:38)
[2020-07-11] MEDS: MAGNESIUM OXIDE 400 MG TABLET PEG SCH ×2 (09:45→20:39)
[2020-07-11] MEDS: OXYBUTYNIN 5 MG TABLET PEG SCH ×3 (09:45→20:39)
[2020-07-11] MEDS: METOPROLOL TARTRATE 50 MG TABLET PEG SCH ×2 (09:45→20:39)
[2020-07-11] MEDS: amLODIPine 5 MG TABLET PEG SCH (09:45)
[2020-07-11] MEDS ORDERED: ALBUTEROL/IPRATROPIUM 3 ML NEB RESP TX ONE (12:37)
[2020-07-11] MEDS: ALBUTEROL/IPRATROPIUM 3 ML NEB RESP TX SCH (22:33)
[2020-07-12] MEDS: ALBUTEROL 2.5 MG/3 ML NEB RESP TX SCH (00:33)
[2020-07-12] MEDS: INSULIN LISPRO 100 UNIT/ML SUBCUT SCH ×4 (01:05→17:32)
[2020-07-12] MEDS: VANCOMYCIN INJ 1,500 MG in SODIUM CHLORIDE 0.9% 500 ML IV SCH (01:05)
[2020-07-12] MEDS: ALBUTEROL/IPRATROPIUM 3 ML NEB RESP TX SCH ×4 (02:47→19:03)
[2020-07-12] MEDS: AZITHROMYCIN INJ 500 MG in SODIUM CHLORIDE 0.9% 250 ML IV SCH (02:50)
[2020-07-12] MEDS: MEROPENEM 500 MG in SODIUM CHLORIDE 0.9% 100 ML IV SCH ×4 (05:05→21:32)
[2020-07-12] MEDS ORDERED: ALBUTEROL/IPRATROPIUM 3 ML NEB RESP TX ONE (07:03)
[2020-07-12 07:42] LABS: Calcium 12.3 MG/DL (8.5-10.1); Osmolality,Calculated 310.6 MOS/KG (273-304)
[2020-07-12 07:56] LABS: Basophils # 0.1 10*3/uL (0.0-0.2); Basophils % 0.4 % (0.0-0.8); Eosinophils # 0.2 10*3/uL (0.0-0.87); Eosinophils % 1.5 % (0.00-10.9); Hemoglobin 8.6 GM/DL (14.0-18.0); Immature Granulocytes % 0.9 %; Immature Granulocytes Absolute 0.13 #; Lymphocytes % 7.2 % (21.2-54.2); Mean Corpuscular HGB Conc 28.7 GM/DL (32-36); Mean Corpuscular Volume 97.4 FL (87-102); Mean Platelet Volume 8.3 FL (9.6-12.0); Monocytes % 6.2 % (1.7-12.7); Neutrophils % 83.8 % (38.7-73.9); Platelet Count 408 T/CUMM (130-400); Red Cell Distribution Width 17.7 % (9.3-17.3); White Blood Count 13.9 T/CUMM (4-12)
[2020-07-12 07:59] LABS: Red Blood Count 3.08 MC/CUMM (3.8-5.5)
[2020-07-12 08:30] LABS: ABG Base Excess 6.7 MMOL/L (-2.5-2.5); ABG HCO3 30.5 MMOL/L (20-26); ABG Oxygen Saturation 94.8 % (95-100); ABG PH 7.301 (7.35-7.45); ABG PO2 77.2 MM HG (80-95); ABG TCO2 32.8 MMOL/L (23-27)
[2020-07-12 08:33] LABS: ABG PCO2 70.6 MM HG (35-48)
[2020-07-12] MEDS: OXYBUTYNIN 5 MG TABLET PEG SCH ×3 (09:12→21:31)
[2020-07-12] MEDS: METOPROLOL TARTRATE 50 MG TABLET PEG SCH ×2 (09:12→21:31)
[2020-07-12] MEDS: MAGNESIUM OXIDE 400 MG TABLET PEG SCH ×2 (09:13→21:31)
[2020-07-12] MEDS: amLODIPine 5 MG TABLET PEG SCH (09:13)
[2020-07-12] MEDS: POLYETHYLENE GLYCOL POWDER 17 GM PACK PEG SCH ×2 (09:13→21:32)
[2020-07-12] MEDS: ENOXAPARIN 40 MG/0.4 ML SYRINGE SUBCUT SCH (09:17)
[2020-07-12 10:10] LABS: Hypochromasia 1+
[2020-07-12 10:11] LABS: Anisocytosis 1+; Platelet Estimate Increased; Polychromasia Slight
[2020-07-13] MEDS: INSULIN LISPRO 100 UNIT/ML SUBCUT SCH ×4 (00:48→17:27)
[2020-07-13] MEDS: VANCOMYCIN INJ 1,500 MG in SODIUM CHLORIDE 0.9% 500 ML IV SCH (00:49)
[2020-07-13] MEDS: ALBUTEROL/IPRATROPIUM 3 ML NEB RESP TX SCH ×4 (01:41→19:23)
[2020-07-13 01:54] LABS: Mean Platelet Volume 7.7 FL (9.6-12.0)
[2020-07-13 02:13] LABS: Calcium 11.7 MG/DL (8.5-10.1)
[2020-07-13 02:15] LABS: Basophils % 0.5 % (0.0-0.8); Eosinophils % 0.5 % (0.00-10.9); Hematocrit 29.2 VOL% (42.0-52.0); Immature Granulocytes % 0.9 %; Immature Granulocytes Absolute 0.08 #; Lymphocytes # 0.8 10*3/uL (1.4-4.0); Lymphocytes % 8.9 % (21.2-54.2); Mean Corpuscular HGB Conc 27.7 GM/DL (32-36); Mean Corpuscular Volume 100.3 FL (87-102); Monocytes % 9.4 % (1.7-12.7); Neutrophils % 79.8 % (38.7-73.9); Platelet Count 315 T/CUMM (130-400); Red Blood Count 2.91 MC/CUMM (3.8-5.5); Red Cell Distribution Width 17.7 % (9.3-17.3); White Blood Count 8.8 T/CUMM (4-12)
[2020-07-13 02:18] LABS: Hemoglobin 8.1 GM/DL (14.0-18.0)
[2020-07-13] MEDS: AZITHROMYCIN INJ 500 MG in SODIUM CHLORIDE 0.9% 250 ML IV SCH (03:14)
[2020-07-13] MEDS: MEROPENEM 500 MG in SODIUM CHLORIDE 0.9% 100 ML IV SCH ×4 (05:46→21:04)
[2020-07-13] MEDS: POLYETHYLENE GLYCOL POWDER 17 GM PACK PEG SCH ×2 (10:04→21:03)
[2020-07-13] MEDS: MAGNESIUM OXIDE 400 MG TABLET PEG SCH ×2 (10:04→21:03)
[2020-07-13] MEDS: amLODIPine 5 MG TABLET PEG SCH (10:04)
[2020-07-13] MEDS: ENOXAPARIN 40 MG/0.4 ML SYRINGE SUBCUT SCH (10:05)
[2020-07-13] MEDS: OXYBUTYNIN 5 MG TABLET PEG SCH ×3 (10:10→21:04)
[2020-07-13] MEDS: METOPROLOL TARTRATE 50 MG TABLET PEG SCH ×2 (10:10→21:04)
[2020-07-13] MEDS: DORNASE ALFA 2.5 MG/2.5 ML VIAL RESP TX SCH ×2 (11:50→19:29)
[2020-07-13] MEDS: ACETAMINOPHEN 325 MG/10.15 ML UDCUP PO PRN (21:22)
[2020-07-14] MEDS: ALBUTEROL/IPRATROPIUM 3 ML NEB RESP TX SCH ×4 (00:42→19:21)
[2020-07-14] MEDS: INSULIN LISPRO 100 UNIT/ML SUBCUT SCH ×5 (01:01→18:46)
[2020-07-14] MEDS: VANCOMYCIN INJ 1,500 MG in SODIUM CHLORIDE 0.9% 500 ML IV SCH (01:15)
[2020-07-14] MEDS: AZITHROMYCIN INJ 500 MG in SODIUM CHLORIDE 0.9% 250 ML IV SCH (02:55)
[2020-07-14] MEDS: MEROPENEM 500 MG in SODIUM CHLORIDE 0.9% 100 ML IV SCH ×4 (04:30→21:46)
[2020-07-14 06:22] LABS: Osmolality,Calculated 326.9 MOS/KG (273-304)
[2020-07-14 06:42] LABS: Basophils # 0.1 10*3/uL (0.0-0.2); Basophils % 0.4 % (0.0-0.8); Eosinophils # 0.1 10*3/uL (0.0-0.87); Eosinophils % 0.5 % (0.00-10.9); Hematocrit 30.5 VOL% (42.0-52.0); Hemoglobin 8.1 GM/DL (14.0-18.0); Immature Granulocytes % 0.6 %; Immature Granulocytes Absolute 0.07 #; Lymphocytes # 1.2 10*3/uL (1.4-4.0); Mean Corpuscular HGB Conc 26.6 GM/DL (32-36); Mean Corpuscular Volume 103.7 FL (87-102); Mean Platelet Volume 8.1 FL (9.6-12.0); Monocytes % 9.1 % (1.7-12.7); Neutrophils % 79.4 % (38.7-73.9); Platelet Count 305 T/CUMM (130-400); Red Blood Count 2.94 MC/CUMM (3.8-5.5); Red Cell Distribution Width 17.5 % (9.3-17.3); White Blood Count 11.8 T/CUMM (4-12)
[2020-07-14 06:54] LABS: Hypochromasia 2+; Microcytosis 1+; Platelet Estimate Adequate
[2020-07-14] MEDS: DORNASE ALFA 2.5 MG/2.5 ML VIAL RESP TX SCH ×2 (07:09→19:21)
[2020-07-14] MEDS: METOPROLOL TARTRATE 50 MG TABLET PEG SCH ×2 (10:43→21:44)
[2020-07-14] MEDS: OXYBUTYNIN 5 MG TABLET PEG SCH ×3 (10:43→21:44)
[2020-07-14] MEDS: MAGNESIUM OXIDE 400 MG TABLET PEG SCH ×2 (10:44→23:09)
[2020-07-14] MEDS: POLYETHYLENE GLYCOL POWDER 17 GM PACK PEG SCH ×2 (10:44→21:44)
[2020-07-14] MEDS: ENOXAPARIN 40 MG/0.4 ML SYRINGE SUBCUT SCH (10:44)
[2020-07-14] MEDS: amLODIPine 5 MG TABLET PEG SCH (10:44)
[2020-07-15] MEDS: ALBUTEROL/IPRATROPIUM 3 ML NEB RESP TX SCH ×4 (00:06→19:24)
[2020-07-15] MEDS: AZITHROMYCIN INJ 500 MG in SODIUM CHLORIDE 0.9% 250 ML IV SCH (01:55)
[2020-07-15] MEDS: INSULIN LISPRO 100 UNIT/ML SUBCUT SCH ×4 (01:55→18:53)
[2020-07-15] MEDS: MEROPENEM 500 MG in SODIUM CHLORIDE 0.9% 100 ML IV SCH ×4 (05:35→21:10)
[2020-07-15 06:45] LABS: Calcium 10.8 MG/DL (8.5-10.1); Osmolality,Calculated 340.3 MOS/KG (273-304)
[2020-07-15] MEDS: DORNASE ALFA 2.5 MG/2.5 ML VIAL RESP TX SCH ×2 (07:46→19:24)
[2020-07-15] MEDS ORDERED: VANCOMYCIN INJ 1,250 MG in SODIUM CHLORIDE 0.9% 250 ML IV SCH (09:00)
[2020-07-15] MEDS: METOPROLOL TARTRATE 50 MG TABLET PEG SCH ×2 (09:46→21:10)
[2020-07-15] MEDS: MAGNESIUM OXIDE 400 MG TABLET PEG SCH ×2 (09:46→22:13)
[2020-07-15] MEDS: amLODIPine 5 MG TABLET PEG SCH (09:46)
[2020-07-15] MEDS: OXYBUTYNIN 5 MG TABLET PEG SCH ×3 (09:47→21:09)
[2020-07-15] MEDS: POLYETHYLENE GLYCOL POWDER 17 GM PACK PEG SCH ×2 (09:48→21:10)
[2020-07-15] MEDS: ENOXAPARIN 40 MG/0.4 ML SYRINGE SUBCUT SCH (09:48)
[2020-07-15] MEDS ORDERED: DEXTROSE 5% NACL 0.45% 1,000 ML IV SCH (14:00)
[2020-07-15] MEDS: DEXTROSE 5% 1,000 ML IV SCH (17:27)
[2020-07-16] MEDS: INSULIN LISPRO 100 UNIT/ML SUBCUT SCH ×3 (00:15→14:16)
[2020-07-16] MEDS: ALBUTEROL/IPRATROPIUM 3 ML NEB RESP TX SCH ×4 (02:25→20:14)
[2020-07-16] MEDS: MEROPENEM 500 MG in SODIUM CHLORIDE 0.9% 100 ML IV SCH ×4 (05:03→22:32)
[2020-07-16] MEDS: DEXTROSE 5% 1,000 ML IV SCH (05:04)
[2020-07-16] MEDS: DORNASE ALFA 2.5 MG/2.5 ML VIAL RESP TX SCH ×2 (07:51→20:21)
[2020-07-16 08:54] LABS: Albumin 1.6 G/DL (3.4-5.0); Bilirubin,Total 0.8 MG/DL (0.2-1.0); Calcium 10.8 MG/DL (8.5-10.1); Osmolality,Calculated 331.3 MOS/KG (273-304); Total Protein 7.1 G/DL (6.4-8.3)
[2020-07-16 09:07] LABS: Basophils % 0.3 % (0.0-0.8); Eosinophils # 0.2 10*3/uL (0.0-0.87); Eosinophils % 1.9 % (0.00-10.9); Hematocrit 25.8 VOL% (42.0-52.0); Immature Granulocytes % 0.5 %; Immature Granulocytes Absolute 0.05 #; Lymphocytes # 1.7 10*3/uL (1.4-4.0); Lymphocytes % 18.8 % (21.2-54.2); Mean Corpuscular HGB Conc 27.5 GM/DL (32-36); Mean Corpuscular Volume 101.2 FL (87-102); Mean Platelet Volume 8.7 FL (9.6-12.0); Monocytes % 6.3 % (1.7-12.7); Neutrophils % 72.2 % (38.7-73.9); Platelet Count 210 T/CUMM (130-400); Red Blood Count 2.55 MC/CUMM (3.8-5.5); Red Cell Distribution Width 17.3 % (9.3-17.3); White Blood Count 9.1 T/CUMM (4-12)
[2020-07-16 09:08] LABS: Hemoglobin 7.1 GM/DL (14.0-18.0)
[2020-07-16 09:11] LABS: Hypochromasia 2+; Microcytosis 1+; Platelet Estimate Adequate
[2020-07-16] MEDS: OXYBUTYNIN 5 MG TABLET PEG SCH ×3 (10:35→22:54)
[2020-07-16] MEDS: METOPROLOL TARTRATE 50 MG TABLET PEG SCH ×2 (10:35→22:54)
[2020-07-16] MEDS: MAGNESIUM OXIDE 400 MG TABLET PEG SCH ×2 (10:35→22:54)
[2020-07-16] MEDS: amLODIPine 5 MG TABLET PEG SCH (10:36)
[2020-07-16] MEDS: POLYETHYLENE GLYCOL POWDER 17 GM PACK PEG SCH ×2 (10:36→22:54)
[2020-07-16] MEDS: ENOXAPARIN 40 MG/0.4 ML SYRINGE SUBCUT SCH (10:36)
[2020-07-17] MEDS: DEXTROSE 5% 1,000 ML IV SCH ×5 (00:23→23:10)
[2020-07-17] MEDS: INSULIN LISPRO 100 UNIT/ML SUBCUT SCH ×5 (01:29→17:00)
[2020-07-17] MEDS: ALBUTEROL/IPRATROPIUM 3 ML NEB RESP TX SCH ×4 (02:11→19:24)
[2020-07-17 05:57] LABS: Basophils # 0.1 10*3/uL (0.0-0.2); Basophils % 0.4 % (0.0-0.8); Eosinophils # 0.3 10*3/uL (0.0-0.87); Eosinophils % 2.5 % (0.00-10.9); Hematocrit 24.9 VOL% (42.0-52.0); Hemoglobin 7.2 GM/DL (14.0-18.0); Immature Granulocytes % 0.6 %; Immature Granulocytes Absolute 0.07 #; Lymphocytes % 8.8 % (21.2-54.2); Mean Corpuscular HGB Conc 28.9 GM/DL (32-36); Mean Corpuscular Volume 97.6 FL (87-102); Mean Platelet Volume 8.7 FL (9.6-12.0); Monocytes % 4.7 % (1.7-12.7); Platelet Count 200 T/CUMM (130-400); Red Blood Count 2.55 MC/CUMM (3.8-5.5); Red Cell Distribution Width 16.8 % (9.3-17.3); White Blood Count 11.1 T/CUMM (4-12)
[2020-07-17 06:17] LABS: Hypochromasia 1+; Platelet Estimate Normal
[2020-07-17] MEDS: MEROPENEM 500 MG in SODIUM CHLORIDE 0.9% 100 ML IV SCH ×4 (06:30→22:07)
[2020-07-17 06:38] LABS: Albumin 1.7 G/DL (3.4-5.0); Bilirubin,Total 0.6 MG/DL (0.2-1.0); Calcium 11.2 MG/DL (8.5-10.1); Osmolality,Calculated 310.4 MOS/KG (273-304); Total Protein 7.3 G/DL (6.4-8.3)
[2020-07-17] MEDS: DORNASE ALFA 2.5 MG/2.5 ML VIAL RESP TX SCH ×2 (07:29→19:24)
[2020-07-17] MEDS: METOPROLOL TARTRATE 50 MG TABLET PEG SCH ×2 (10:58→20:15)
[2020-07-17] MEDS: OXYBUTYNIN 5 MG TABLET PEG SCH ×3 (10:58→20:14)
[2020-07-17] MEDS: ENOXAPARIN 40 MG/0.4 ML SYRINGE SUBCUT SCH (10:58)
[2020-07-17] MEDS: POLYETHYLENE GLYCOL POWDER 17 GM PACK PEG SCH ×2 (10:59→22:08)
[2020-07-17] MEDS: amLODIPine 5 MG TABLET PEG SCH (10:59)
[2020-07-17] MEDS: MAGNESIUM OXIDE 400 MG TABLET PEG SCH ×2 (11:02→20:16)
[2020-07-17] MEDS ORDERED: FUROSEMIDE 40 MG/4 ML VIAL ONE (15:38)
[2020-07-17] MEDS ORDERED: FUROSEMIDE 40 MG/4 ML VIAL IV ONE (16:19)
[2020-07-17 17:03] LABS: Bacteria,Urine Occasional /HPF (Few); Bilirubin,Urine Negative (Negative); Blood, Urine Moderate mg/dL (Negative); Glucose,Urine (UA) 150 mg/dL (Negative); Ketones,Urine Negative (Negative); Nitrite,Urine Negative (Negative); Protein,Urine 100 MG/DL; RBC,Urine 831 /HPF (0-4); Urine Appearance CLOUDY (Clear); Urine Color Yellow (Yellow); Urine Specific Gravity 1.012 (1.001-1.035); Urine Urobilinogen < 2.0 EU/DL (0.2-1.0); WBC,Urine 7830 /HPF (0-6)
[2020-07-17] MEDS: TOBRAMYCIN/DEXAMETHASONE 0.3%-0.1% OPH SUSP 2.5 ML BOTTLE BOTH EYES SCH ×3 (17:48→22:44)
[2020-07-17] MEDS ORDERED: LACTATED RINGERS 1,000 ML IV ONE (17:55)
[2020-07-18] MEDS: INSULIN LISPRO 100 UNIT/ML SUBCUT SCH ×4 (00:17→17:23)
[2020-07-18] MEDS: ALBUTEROL/IPRATROPIUM 3 ML NEB RESP TX SCH ×4 (01:08→19:21)
[2020-07-18] MEDS: TOBRAMYCIN/DEXAMETHASONE 0.3%-0.1% OPH SUSP 2.5 ML BOTTLE BOTH EYES SCH ×6 (02:44→22:00)
[2020-07-18 04:49] LABS: Basophils % 0.2 % (0.0-0.8); Eosinophils # 0.1 10*3/uL (0.0-0.87); Eosinophils % 1.1 % (0.00-10.9); Hematocrit 23.4 VOL% (42.0-52.0); Hemoglobin 6.6 GM/DL (14.0-18.0); Immature Granulocytes % 0.6 %; Immature Granulocytes Absolute 0.08 #; Lymphocytes # 0.8 10*3/uL (1.4-4.0); Lymphocytes % 5.9 % (21.2-54.2); Mean Corpuscular HGB Conc 28.2 GM/DL (32-36); Mean Corpuscular Volume 97.1 FL (87-102); Mean Platelet Volume 9.5 FL (9.6-12.0); Monocytes % 4.4 % (1.7-12.7); Neutrophils % 87.8 % (38.7-73.9); Platelet Count 196 T/CUMM (130-400); Red Blood Count 2.41 MC/CUMM (3.8-5.5); Red Cell Distribution Width 16.9 % (9.3-17.3)
[2020-07-18] MEDS: MEROPENEM 500 MG in SODIUM CHLORIDE 0.9% 100 ML IV SCH (04:50)
[2020-07-18] MEDS: DEXTROSE 5% 1,000 ML IV SCH ×3 (05:03→15:38)
[2020-07-18 05:15] LABS: Alanine Aminotransferase 96 U/L (16-61); Albumin 1.4 G/DL (3.4-5.0); Alkaline Phosphatase 98 U/L (45-117); Aspartate Amino Transferase 50 U/L (0-37); Bilirubin,Total < 0.39 MG/DL (0.2-1.0); Blood Urea Nitrogen 57 MG/DL (7-18); Calcium 10.7 MG/DL (8.5-10.1); Estimated Glom Filtration Rate 64 ML/MIN; Glucose 213 MG/DL (74-106); Osmolality,Calculated 304.1 MOS/KG (273-304); Total Protein 6.7 G/DL (6.4-8.3)
[2020-07-18 05:16] LABS: Band Neutrophils 3 % (0-10); Eosinophils 3 % (0-10); Hypochromasia 2+; Lymphocytes 3 % (20-55); Microcytosis 1+; Platelet Estimate Adequate; Segmented Neutrophils 89 % (50-85); Total Cells Counted 100
[2020-07-18] MEDS ORDERED: diphenhydrAMINE 50 MG/1 ML VIAL IV PRN (07:00)
[2020-07-18] MEDS ORDERED: FUROSEMIDE 40 MG/4 ML VIAL IV PRN (07:00)
[2020-07-18] MEDS ORDERED: SODIUM CHLORIDE 0.9% 1,000 ML IV PRN (07:00)
[2020-07-18] MEDS ORDERED: LIDOCAINE 1% 20 ML VIAL MISC INJ ONE (07:30)
[2020-07-18] MEDS ORDERED: LIDOCAINE 2% VISCOUS 100 ML BOTTLE SWISH/SPIT ONE (07:30)
[2020-07-18] MEDS ORDERED: LIDOCAINE 2% 20 ML VIAL RESP TX ONE (07:30)
[2020-07-18] MEDS: DORNASE ALFA 2.5 MG/2.5 ML VIAL RESP TX SCH ×2 (09:17→19:21)
[2020-07-18] MEDS: MAGNESIUM OXIDE 400 MG TABLET PEG SCH (09:31)
[2020-07-18] MEDS: METOPROLOL TARTRATE 50 MG TABLET PEG SCH (09:31)
[2020-07-18] MEDS: amLODIPine 5 MG TABLET PEG SCH (09:31)
[2020-07-18] MEDS: OXYBUTYNIN 5 MG TABLET PEG SCH ×2 (09:31→15:40)
[2020-07-18] MEDS: POLYETHYLENE GLYCOL POWDER 17 GM PACK PEG SCH (09:31)
[2020-07-18] MEDS: ENOXAPARIN 40 MG/0.4 ML SYRINGE SUBCUT SCH (09:31)
[2020-07-18 16:28] LABS: Hematocrit 28.2 VOL% (42.0-52.0); Hemoglobin 8.4 GM/DL (14.0-18.0)
[2020-07-18] MEDS ORDERED: VECURONIUM 10 MG VIAL IV ONE ×3 (21:20→21:25)
[2020-07-18] MEDS ORDERED: ETOMIDATE 20 MG/10 ML VIAL IV ONE ×3 (21:20→21:33)
[2020-07-18] MEDS: ETOMIDATE 20 MG/10 ML VIAL IV ONE (21:25)
[2020-07-18] MEDS ORDERED: MIDAZOLAM 10 MG/2 ML VIAL ONE (21:31)
[2020-07-18] MEDS ORDERED: SODIUM CHLORIDE 0.9% 1,000 ML IV ONE (21:33)
[2020-07-18] MEDS ORDERED: MIDAZOLAM 2 MG/2 ML VIAL IV ONE (21:35)
[2020-07-19 00:07] LABS: ABG HCO3 26.9 MMOL/L (20-26); ABG Oxygen Saturation 86.6 % (95-100); ABG PO2 56.9 MM HG (80-95); ABG TCO2 31.6 MMOL/L (23-27)
[2020-07-19 00:13] LABS: ABG PH 7.199 (7.35-7.45)
[2020-07-19 00:14] LABS: ABG PCO2 85.8 MM HG (35-48)
[2020-07-19] MEDS: OXYBUTYNIN 5 MG TABLET PEG SCH ×4 (00:19→20:09)
[2020-07-19] MEDS: METOPROLOL TARTRATE 50 MG TABLET PEG SCH ×3 (00:20→20:09)
[2020-07-19] MEDS: POLYETHYLENE GLYCOL POWDER 17 GM PACK PEG SCH ×3 (00:20→20:09)
[2020-07-19] MEDS: MAGNESIUM OXIDE 400 MG TABLET PEG SCH ×3 (00:20→20:09)
[2020-07-19] MEDS: ALBUTEROL/IPRATROPIUM 3 ML NEB RESP TX SCH ×4 (01:08→19:32)
[2020-07-19] MEDS: ETOMIDATE 20 MG/10 ML VIAL IV ONE (01:32)
[2020-07-19] MEDS: DEXTROSE 5% 1,000 ML IV SCH ×2 (01:42→13:34)
[2020-07-19] MEDS ORDERED: LORazepam 2 MG/1 ML VIAL IV ONE (01:47)
[2020-07-19] MEDS: INSULIN LISPRO 100 UNIT/ML SUBCUT SCH ×4 (02:09→17:25)
[2020-07-19] MEDS: TOBRAMYCIN/DEXAMETHASONE 0.3%-0.1% OPH SUSP 2.5 ML BOTTLE BOTH EYES SCH ×7 (02:10→22:00)
[2020-07-19] MEDS: NOREPINEPHRINE 8 MG in SODIUM CHLORIDE 0.9% 242 ML IV PRN ×2 (04:32→14:56)
[2020-07-19 05:41] LABS: Basophils % 0.1 % (0.0-0.8); Eosinophils # 0.1 10*3/uL (0.0-0.87); Eosinophils % 0.6 % (0.00-10.9); Hematocrit 28.4 VOL% (42.0-52.0); Hemoglobin 8.8 GM/DL (14.0-18.0); Immature Granulocytes % 0.9 %; Immature Granulocytes Absolute 0.16 #; Lymphocytes % 5.7 % (21.2-54.2); Mean Corpuscular Volume 94.4 FL (87-102); Mean Platelet Volume 9.8 FL (9.6-12.0); Monocytes % 4.1 % (1.7-12.7); Neutrophils % 88.6 % (38.7-73.9); Platelet Count 210 T/CUMM (130-400); Red Blood Count 3.01 MC/CUMM (3.8-5.5); Red Cell Distribution Width 16.5 % (9.3-17.3); White Blood Count 17.4 T/CUMM (4-12)
[2020-07-19 05:43] LABS: ABG Base Excess 4.6 MMOL/L (-2.5-2.5); ABG HCO3 28.6 MMOL/L (20-26); ABG Oxygen Saturation 97.8 % (95-100); ABG PCO2 69.6 MM HG (35-48); ABG PH 7.282 (7.35-7.45); ABG PO2 95.7 MM HG (80-95)
[2020-07-19 05:51] LABS: Calcium 11.2 MG/DL (8.5-10.1)
[2020-07-19] MEDS: DORNASE ALFA 2.5 MG/2.5 ML VIAL RESP TX SCH ×2 (08:35→19:40)
[2020-07-19] MEDS ORDERED: FUROSEMIDE 40 MG/4 ML VIAL IV ONE (08:46)
[2020-07-19] MEDS: ENOXAPARIN 40 MG/0.4 ML SYRINGE SUBCUT SCH (09:21)
[2020-07-19] MEDS: amLODIPine 5 MG TABLET PEG SCH (09:22)
[2020-07-19] MEDS: PIPERACILLIN/TAZOBACTAM 3,375 MG in SODIUM CHLORIDE 0.9% 100 ML IV SCH ×2 (09:27→18:30)
[2020-07-19] MEDS: methylPREDNISolone SOD SUC 40 MG/1 ML VIAL IV SCH ×2 (09:28→17:26)
[2020-07-19 20:26] LABS: Bilirubin,Urine Negative (Negative); Blood, Urine Large mg/dL (Negative); Glucose,Urine (UA) Negative (Negative); Ketones,Urine Negative (Negative); Nitrite,Urine Negative (Negative); Protein,Urine 30 MG/DL; RBC,Urine 318 /HPF (0-4); Urine Appearance CLOUDY (Clear); Urine Color Yellow (Yellow); Urine Specific Gravity 1.006 (1.001-1.035); Urine Urobilinogen < 2.0 EU/DL (0.2-1.0); WBC,Urine 1605 /HPF (0-6)
[2020-07-20] MEDS: INSULIN LISPRO 100 UNIT/ML SUBCUT SCH ×4 (00:40→16:40)
[2020-07-20] MEDS: methylPREDNISolone SOD SUC 40 MG/1 ML VIAL IV SCH ×3 (00:40→16:37)
[2020-07-20] MEDS: PIPERACILLIN/TAZOBACTAM 3,375 MG in SODIUM CHLORIDE 0.9% 100 ML IV SCH ×3 (00:41→16:38)
[2020-07-20] MEDS: ALBUTEROL/IPRATROPIUM 3 ML NEB RESP TX SCH ×4 (01:08→19:21)
[2020-07-20] MEDS: TOBRAMYCIN/DEXAMETHASONE 0.3%-0.1% OPH SUSP 2.5 ML BOTTLE BOTH EYES SCH ×3 (02:00→10:20)
[2020-07-20 03:01] LABS: ABG Base Excess 8.9 MMOL/L (-2.5-2.5); ABG HCO3 32.7 MMOL/L (20-26); ABG Oxygen Saturation 99.6 % (95-100); ABG PCO2 52.4 MM HG (35-48); ABG PH 7.426 (7.35-7.45); ABG TCO2 32.3 MMOL/L (23-27)
[2020-07-20 03:03] LABS: Hemoglobin 8.6 GM/DL (14.0-18.0); Immature Granulocytes % 0.1 %; Immature Granulocytes Absolute 0.01 #; Lymphocytes # 0.2 10*3/uL (1.4-4.0); Mean Corpuscular HGB Conc 31.9 GM/DL (32-36); Mean Corpuscular Volume 90.9 FL (87-102); Mean Platelet Volume 9.9 FL (9.6-12.0); Monocytes % 1.6 % (1.7-12.7); Neutrophils % 95.3 % (38.7-73.9); Platelet Count 171 T/CUMM (130-400); Red Blood Count 2.97 MC/CUMM (3.8-5.5); Red Cell Distribution Width 15.5 % (9.3-17.3); White Blood Count 7.9 T/CUMM (4-12)
[2020-07-20 03:16] LABS: Calcium 10.7 MG/DL (8.5-10.1); Osmolality,Calculated 315.8 MOS/KG (273-304)
[2020-07-20 07:22] LABS: Lymphocytes 3 % (20-55); Microcytosis Slight; Platelet Estimate Normal; Segmented Neutrophils 95 % (50-85); Total Cells Counted 100
[2020-07-20 07:23] LABS: Polychromasia Few
[2020-07-20] MEDS: DORNASE ALFA 2.5 MG/2.5 ML VIAL RESP TX SCH ×2 (08:34→19:22)
[2020-07-20] MEDS: ENOXAPARIN 40 MG/0.4 ML SYRINGE SUBCUT SCH (09:37)
[2020-07-20] MEDS: OXYBUTYNIN 5 MG TABLET PEG SCH ×3 (12:03→20:47)
[2020-07-20] MEDS ORDERED: INSULIN GLARGINE 100 UNIT/ML SUBCUT SCH ×2 (13:00)
[2020-07-20] MEDS: METOPROLOL TARTRATE 50 MG TABLET PEG SCH ×2 (13:05→20:47)
[2020-07-20] MEDS: MAGNESIUM OXIDE 400 MG TABLET PEG SCH ×2 (13:05→20:47)
[2020-07-20] MEDS: POLYETHYLENE GLYCOL POWDER 17 GM PACK PEG SCH ×2 (14:45→20:46)
[2020-07-20] MEDS: PANTOPRAZOLE 40 MG VIAL IV SCH (16:37)
[2020-07-21] MEDS: ALBUTEROL/IPRATROPIUM 3 ML NEB RESP TX SCH ×4 (00:34→20:15)
[2020-07-21] MEDS: methylPREDNISolone SOD SUC 40 MG/1 ML VIAL IV SCH ×3 (01:18→16:19)
[2020-07-21] MEDS: INSULIN LISPRO 100 UNIT/ML SUBCUT SCH ×4 (01:18→18:23)
[2020-07-21] MEDS: PIPERACILLIN/TAZOBACTAM 3,375 MG in SODIUM CHLORIDE 0.9% 100 ML IV SCH ×3 (01:19→16:24)
[2020-07-21 05:11] LABS: Hematocrit 24.5 VOL% (42.0-52.0); Hemoglobin 7.5 GM/DL (14.0-18.0); Immature Granulocytes % 0.5 %; Immature Granulocytes Absolute 0.04 #; Lymphocytes # 0.3 10*3/uL (1.4-4.0); Lymphocytes % 3.5 % (21.2-54.2); Mean Corpuscular HGB Conc 30.6 GM/DL (32-36); Mean Corpuscular Volume 93.9 FL (87-102); Monocytes % 5.2 % (1.7-12.7); Neutrophils % 90.8 % (38.7-73.9); Platelet Count 219 T/CUMM (130-400); Red Blood Count 2.61 MC/CUMM (3.8-5.5); Red Cell Distribution Width 15.6 % (9.3-17.3); White Blood Count 7.9 T/CUMM (4-12)
[2020-07-21 05:17] LABS: ABG Base Excess 8.9 MMOL/L (-2.5-2.5); ABG HCO3 34.7 MMOL/L (20-26); ABG Oxygen Saturation 96.1 % (95-100); ABG PCO2 54.6 MM HG (35-48); ABG PH 7.421 (7.35-7.45); ABG PO2 86.9 MM HG (80-95); ABG TCO2 36.4 MMOL/L (23-27)
[2020-07-21 05:34] LABS: Hypochromasia 2+; Lymphocytes 3 % (20-55); Microcytosis 1+; Platelet Estimate Adequate; Segmented Neutrophils 92 % (50-85); Total Cells Counted 100
[2020-07-21 05:44] LABS: Osmolality,Calculated 318.6 MOS/KG (273-304)
[2020-07-21] MEDS: DORNASE ALFA 2.5 MG/2.5 ML VIAL RESP TX SCH ×2 (07:28→20:20)
[2020-07-21] MEDS ORDERED: LIDOCAINE 2% 5 ML VIAL ONE (09:01)
[2020-07-21] MEDS ORDERED: ETOMIDATE 40 MG/20 ML VIAL IV ONE (09:01)
[2020-07-21] MEDS ORDERED: SUCCINYLCHOLINE 200 MG/10 ML VIAL ONE (09:02)
[2020-07-21] MEDS: POLYETHYLENE GLYCOL POWDER 17 GM PACK PEG SCH ×2 (09:57→21:08)
[2020-07-21] MEDS: OXYBUTYNIN 5 MG TABLET PEG SCH ×3 (09:57→21:08)
[2020-07-21] MEDS: METOPROLOL TARTRATE 50 MG TABLET PEG SCH ×2 (09:57→21:08)
[2020-07-21] MEDS: PANTOPRAZOLE 40 MG VIAL IV SCH ×3 (09:58→21:07)
[2020-07-21] MEDS: MAGNESIUM OXIDE 400 MG TABLET PEG SCH (10:17)
[2020-07-21] MEDS ORDERED: LACTATED RINGERS 1,000 ML IV SCH (10:30)
[2020-07-21] MEDS: INSULIN GLARGINE 100 UNIT/ML SUBCUT SCH (21:07)
[2020-07-22] MEDS: ALBUTEROL/IPRATROPIUM 3 ML NEB RESP TX SCH ×4 (00:33→19:32)
[2020-07-22] MEDS: PIPERACILLIN/TAZOBACTAM 3,375 MG in SODIUM CHLORIDE 0.9% 100 ML IV SCH ×3 (01:15→16:13)
[2020-07-22] MEDS: INSULIN LISPRO 100 UNIT/ML SUBCUT SCH ×4 (01:15→18:30)
[2020-07-22] MEDS: methylPREDNISolone SOD SUC 40 MG/1 ML VIAL IV SCH ×3 (01:18→16:12)
[2020-07-22 04:59] LABS: ABG HCO3 33.6 MMOL/L (20-26); ABG Oxygen Saturation 97.5 % (95-100); ABG PCO2 47.4 MM HG (35-48); ABG PH 7.469 (7.35-7.45); ABG PO2 102.3 MM HG (80-95); ABG TCO2 35.1 MMOL/L (23-27)
[2020-07-22 05:17] LABS: Hematocrit 24.2 VOL% (42.0-52.0); Hemoglobin 7.5 GM/DL (14.0-18.0); Immature Granulocytes % 0.3 %; Immature Granulocytes Absolute 0.02 #; Lymphocytes # 0.3 10*3/uL (1.4-4.0); Lymphocytes % 5.2 % (21.2-54.2); Mean Corpuscular Volume 92.4 FL (87-102); Monocytes % 6.4 % (1.7-12.7); Neutrophils % 88.1 % (38.7-73.9); Platelet Count 237 T/CUMM (130-400); Red Blood Count 2.62 MC/CUMM (3.8-5.5); Red Cell Distribution Width 15.5 % (9.3-17.3); White Blood Count 5.8 T/CUMM (4-12)
[2020-07-22] MEDS: PANTOPRAZOLE 40 MG VIAL IV SCH ×2 (10:00→22:03)
[2020-07-22] MEDS: METOPROLOL TARTRATE 50 MG TABLET PEG SCH ×2 (10:00→22:03)
[2020-07-22] MEDS: OXYBUTYNIN 5 MG TABLET PEG SCH ×3 (10:00→22:03)
[2020-07-22] MEDS: POLYETHYLENE GLYCOL POWDER 17 GM PACK PEG SCH ×2 (10:00→22:02)
[2020-07-22 11:29] LABS: Calcium 9.6 MG/DL (8.5-10.1); Osmolality,Calculated 322.1 MOS/KG (273-304)
[2020-07-22] MEDS: DORNASE ALFA 2.5 MG/2.5 ML VIAL RESP TX SCH ×2 (12:52→19:32)
[2020-07-22] MEDS: LACTATED RINGERS 1,000 ML IV SCH (14:00)
[2020-07-22] MEDS: INSULIN GLARGINE 100 UNIT/ML SUBCUT SCH (22:03)
[2020-07-22] MEDS: POTASSIUM CHLORIDE RIDER 10 MEQ in PREMIX 1 EACH IV PRN ×2 (22:06→23:16)
[2020-07-23] MEDS: PIPERACILLIN/TAZOBACTAM 3,375 MG in SODIUM CHLORIDE 0.9% 100 ML IV SCH ×3 (01:19→16:58)
[2020-07-23] MEDS: INSULIN LISPRO 100 UNIT/ML SUBCUT SCH ×4 (01:19→17:51)
[2020-07-23] MEDS: LACTATED RINGERS 1,000 ML IV SCH ×2 (01:20→18:35)
[2020-07-23] MEDS: POTASSIUM CHLORIDE RIDER 10 MEQ in PREMIX 1 EACH IV PRN ×2 (01:20→02:41)
[2020-07-23] MEDS: ALBUTEROL/IPRATROPIUM 3 ML NEB RESP TX SCH ×4 (01:29→19:29)
[2020-07-23] MEDS: methylPREDNISolone SOD SUC 40 MG/1 ML VIAL IV SCH ×3 (01:40→16:58)
[2020-07-23 05:13] LABS: ABG HCO3 32.7 MMOL/L (20-26); ABG Oxygen Saturation 95.3 % (95-100); ABG PCO2 51.1 MM HG (35-48); ABG PH 7.441 (7.35-7.45); ABG TCO2 30.9 MMOL/L (23-27)
[2020-07-23 05:21] LABS: Hemoglobin 7.8 GM/DL (14.0-18.0); Immature Granulocytes % 0.4 %; Immature Granulocytes Absolute 0.02 #; Lymphocytes # 0.3 10*3/uL (1.4-4.0); Lymphocytes % 5.4 % (21.2-54.2); Mean Corpuscular Volume 93.2 FL (87-102); Mean Platelet Volume 9.7 FL (9.6-12.0); Monocytes % 5.6 % (1.7-12.7); Neutrophils % 88.6 % (38.7-73.9); Platelet Count 259 T/CUMM (130-400); Red Blood Count 2.79 MC/CUMM (3.8-5.5); Red Cell Distribution Width 15.2 % (9.3-17.3); White Blood Count 5.4 T/CUMM (4-12)
[2020-07-23 05:38] LABS: Calcium 9.1 MG/DL (8.5-10.1); Osmolality,Calculated 313.1 MOS/KG (273-304)
[2020-07-23] MEDS: DORNASE ALFA 2.5 MG/2.5 ML VIAL RESP TX SCH ×2 (07:58→19:29)
[2020-07-23] MEDS: PANTOPRAZOLE 40 MG VIAL IV SCH ×2 (08:16→20:28)
[2020-07-23] MEDS: METOPROLOL TARTRATE 50 MG TABLET PEG SCH ×2 (09:40→20:28)
[2020-07-23] MEDS: POLYETHYLENE GLYCOL POWDER 17 GM PACK PEG SCH ×2 (09:40→20:28)
[2020-07-23] MEDS: OXYBUTYNIN 5 MG TABLET PEG SCH ×3 (09:40→20:29)
[2020-07-23] MEDS: METOCLOPRAMIDE 10 MG/2 ML VIAL IV SCH (18:34)
[2020-07-23] MEDS: INSULIN GLARGINE 100 UNIT/ML SUBCUT SCH (20:28)
[2020-07-24] MEDS: ALBUTEROL/IPRATROPIUM 3 ML NEB RESP TX SCH ×4 (00:45→19:35)
[2020-07-24] MEDS: INSULIN LISPRO 100 UNIT/ML SUBCUT SCH ×4 (00:45→18:13)
[2020-07-24] MEDS: METOCLOPRAMIDE 10 MG/2 ML VIAL IV SCH ×4 (00:48→18:13)
[2020-07-24] MEDS: methylPREDNISolone SOD SUC 40 MG/1 ML VIAL IV SCH ×3 (00:55→18:03)
[2020-07-24] MEDS: PIPERACILLIN/TAZOBACTAM 3,375 MG in SODIUM CHLORIDE 0.9% 100 ML IV SCH ×3 (01:08→18:03)
[2020-07-24] MEDS: LACTATED RINGERS 1,000 ML IV SCH (04:19)
[2020-07-24 04:55] LABS: Eosinophils % 0.7 % (0.00-10.9); Hematocrit 24.4 VOL% (42.0-52.0); Hemoglobin 7.3 GM/DL (14.0-18.0); Immature Granulocytes % 0.5 %; Immature Granulocytes Absolute 0.03 #; Lymphocytes # 0.4 10*3/uL (1.4-4.0); Lymphocytes % 6.9 % (21.2-54.2); Mean Corpuscular HGB Conc 29.9 GM/DL (32-36); Mean Corpuscular Volume 94.9 FL (87-102); Mean Platelet Volume 9.1 FL (9.6-12.0); Monocytes % 3.5 % (1.7-12.7); Neutrophils % 88.4 % (38.7-73.9); Platelet Count 262 T/CUMM (130-400); Red Blood Count 2.57 MC/CUMM (3.8-5.5); Red Cell Distribution Width 15.6 % (9.3-17.3); White Blood Count 5.8 T/CUMM (4-12)
[2020-07-24 04:57] LABS: ABG Base Excess 7.8 MMOL/L (-2.5-2.5); ABG HCO3 32.5 MMOL/L (20-26); ABG Oxygen Saturation 97.7 % (95-100); ABG PCO2 47.1 MM HG (35-48); ABG PH 7.457 (7.35-7.45); ABG PO2 106.4 MM HG (80-95)
[2020-07-24 05:06] LABS: Calcium 8.6 MG/DL (8.5-10.1); Osmolality,Calculated 307.1 MOS/KG (273-304)
[2020-07-24] MEDS: DORNASE ALFA 2.5 MG/2.5 ML VIAL RESP TX SCH ×2 (08:00→19:35)
[2020-07-24] MEDS: SODIUM CHLORIDE 0.45% 1,000 ML IV SCH ×3 (09:10→22:32)
[2020-07-24] MEDS: METOPROLOL TARTRATE 50 MG TABLET PEG SCH ×2 (09:22→20:23)
[2020-07-24] MEDS: POLYETHYLENE GLYCOL POWDER 17 GM PACK PEG SCH ×2 (09:22→20:23)
[2020-07-24] MEDS: PANTOPRAZOLE 40 MG VIAL IV SCH ×2 (09:22→20:23)
[2020-07-24] MEDS: OXYBUTYNIN 5 MG TABLET PEG SCH ×3 (09:22→20:23)
[2020-07-24] MEDS ORDERED: POTASSIUM PHOSPHATE 30 MMOL in SODIUM CHLORIDE 0.9% 250 ML IV ONE (10:00)
[2020-07-24] MEDS: INSULIN GLARGINE 100 UNIT/ML SUBCUT SCH (20:23)
[2020-07-25] MEDS: INSULIN LISPRO 100 UNIT/ML SUBCUT SCH ×4 (00:29→18:20)
[2020-07-25] MEDS: METOCLOPRAMIDE 10 MG/2 ML VIAL IV SCH ×4 (00:29→18:20)
[2020-07-25] MEDS: PIPERACILLIN/TAZOBACTAM 3,375 MG in SODIUM CHLORIDE 0.9% 100 ML IV SCH ×3 (00:29→17:55)
[2020-07-25] MEDS: methylPREDNISolone SOD SUC 40 MG/1 ML VIAL IV SCH ×3 (00:29→17:50)
[2020-07-25] MEDS: ALBUTEROL/IPRATROPIUM 3 ML NEB RESP TX SCH ×5 (01:53→19:40)
[2020-07-25 04:47] LABS: ABG Base Excess 6.3 MMOL/L (-2.5-2.5); ABG HCO3 30.1 MMOL/L (20-26); ABG Oxygen Saturation 97.1 % (95-100); ABG PCO2 40.5 MM HG (35-48); ABG PH 7.482 (7.35-7.45); ABG PO2 87.4 MM HG (80-95); ABG TCO2 26.4 MMOL/L (23-27)
[2020-07-25 04:54] LABS: Eosinophils # 0.1 10*3/uL (0.0-0.87); Eosinophils % 1.1 % (0.00-10.9); Hematocrit 25.1 VOL% (42.0-52.0); Hemoglobin 7.5 GM/DL (14.0-18.0); Immature Granulocytes Absolute 0.06 #; Lymphocytes # 0.4 10*3/uL (1.4-4.0); Lymphocytes % 6.2 % (21.2-54.2); Mean Corpuscular HGB Conc 29.9 GM/DL (32-36); Mean Corpuscular Volume 95.8 FL (87-102); Mean Platelet Volume 9.4 FL (9.6-12.0); Monocytes % 3.1 % (1.7-12.7); Neutrophils % 88.6 % (38.7-73.9); Platelet Count 292 T/CUMM (130-400); Red Blood Count 2.62 MC/CUMM (3.8-5.5); White Blood Count 6.1 T/CUMM (4-12)
[2020-07-25 05:15] LABS: Osmolality,Calculated 301.4 MOS/KG (273-304)
[2020-07-25] MEDS: DORNASE ALFA 2.5 MG/2.5 ML VIAL RESP TX SCH ×2 (07:17→19:40)
[2020-07-25] MEDS: SODIUM CHLORIDE 0.45% 1,000 ML IV SCH ×4 (07:37→21:17)
[2020-07-25] MEDS: PANTOPRAZOLE 40 MG VIAL IV SCH ×2 (09:06→20:37)
[2020-07-25] MEDS: METOPROLOL TARTRATE 50 MG TABLET PEG SCH ×2 (09:06→20:36)
[2020-07-25] MEDS: POLYETHYLENE GLYCOL POWDER 17 GM PACK PEG SCH ×2 (09:07→20:37)
[2020-07-25] MEDS: OXYBUTYNIN 5 MG TABLET PEG SCH ×3 (09:10→20:36)
[2020-07-25] MEDS: INSULIN GLARGINE 100 UNIT/ML SUBCUT SCH (20:38)
[2020-07-26] MEDS: INSULIN LISPRO 100 UNIT/ML SUBCUT SCH ×4 (00:26→18:25)
[2020-07-26] MEDS: methylPREDNISolone SOD SUC 40 MG/1 ML VIAL IV SCH ×3 (00:27→18:24)
[2020-07-26] MEDS: PIPERACILLIN/TAZOBACTAM 3,375 MG in SODIUM CHLORIDE 0.9% 100 ML IV SCH ×3 (00:27→18:24)
[2020-07-26] MEDS: METOCLOPRAMIDE 10 MG/2 ML VIAL IV SCH ×4 (00:28→18:00)
[2020-07-26] MEDS: SODIUM CHLORIDE 0.45% 1,000 ML IV SCH ×4 (02:19→19:11)
[2020-07-26] MEDS: ALBUTEROL/IPRATROPIUM 3 ML NEB RESP TX SCH ×4 (02:41→19:25)
[2020-07-26 05:07] LABS: ABG Base Excess 3.9 MMOL/L (-2.5-2.5); ABG HCO3 27.9 MMOL/L (20-26); ABG Oxygen Saturation 98.3 % (95-100); ABG PCO2 41.1 MM HG (35-48); ABG PH 7.445 (7.35-7.45); ABG TCO2 26.3 MMOL/L (23-27)
[2020-07-26 05:20] LABS: Eosinophils % 0.1 % (0.00-10.9); Hematocrit 26.4 VOL% (42.0-52.0); Hemoglobin 7.9 GM/DL (14.0-18.0); Immature Granulocytes % 1.8 %; Immature Granulocytes Absolute 0.13 #; Lymphocytes # 0.4 10*3/uL (1.4-4.0); Lymphocytes % 4.7 % (21.2-54.2); Mean Corpuscular HGB Conc 29.9 GM/DL (32-36); Mean Corpuscular Volume 95.3 FL (87-102); Mean Platelet Volume 9.3 FL (9.6-12.0); Monocytes % 2.7 % (1.7-12.7); Neutrophils % 90.7 % (38.7-73.9); Platelet Count 349 T/CUMM (130-400); Red Blood Count 2.77 MC/CUMM (3.8-5.5); Red Cell Distribution Width 15.9 % (9.3-17.3); White Blood Count 7.4 T/CUMM (4-12)
[2020-07-26 05:39] LABS: Hypochromasia 2+; Lymphocytes 6 % (20-55); Microcytosis Slight; Platelet Estimate Adequate; Segmented Neutrophils 91 % (50-85); Total Cells Counted 100
[2020-07-26] MEDS: DORNASE ALFA 2.5 MG/2.5 ML VIAL RESP TX SCH ×2 (07:40→19:33)
[2020-07-26] MEDS: METOPROLOL TARTRATE 50 MG TABLET PEG SCH ×2 (08:40→21:21)
[2020-07-26] MEDS: OXYBUTYNIN 5 MG TABLET PEG SCH ×3 (08:40→21:21)
[2020-07-26] MEDS: POLYETHYLENE GLYCOL POWDER 17 GM PACK PEG SCH ×2 (08:41→21:22)
[2020-07-26] MEDS: PANTOPRAZOLE 40 MG VIAL IV SCH ×2 (08:41→21:22)
[2020-07-26] MEDS: POTASSIUM CHLORIDE RIDER 10 MEQ in PREMIX 1 EACH IV PRN (09:05)
[2020-07-26] MEDS: INSULIN GLARGINE 100 UNIT/ML SUBCUT SCH (21:23)
[2020-07-27] MEDS: SODIUM CHLORIDE 0.45% 1,000 ML IV SCH ×4 (00:13→18:31)
[2020-07-27] MEDS: INSULIN LISPRO 100 UNIT/ML SUBCUT SCH ×4 (00:28→18:30)
[2020-07-27] MEDS: METOCLOPRAMIDE 10 MG/2 ML VIAL IV SCH ×4 (00:29→18:24)
[2020-07-27] MEDS: methylPREDNISolone SOD SUC 40 MG/1 ML VIAL IV SCH ×3 (00:30→17:21)
[2020-07-27] MEDS: PIPERACILLIN/TAZOBACTAM 3,375 MG in SODIUM CHLORIDE 0.9% 100 ML IV SCH ×3 (00:33→17:21)
[2020-07-27] MEDS: ALBUTEROL/IPRATROPIUM 3 ML NEB RESP TX SCH ×4 (01:16→19:52)
[2020-07-27 04:30] LABS: ABG Base Excess 2.8 MMOL/L (-2.5-2.5); ABG HCO3 26.9 MMOL/L (20-26); ABG Oxygen Saturation 99.3 % (95-100); ABG PCO2 45.3 MM HG (35-48); ABG PH 7.398 (7.35-7.45); ABG TCO2 25.9 MMOL/L (23-27)
[2020-07-27 04:32] LABS: Eosinophils % 0.1 % (0.00-10.9); Hematocrit 26.1 VOL% (42.0-52.0); Immature Granulocytes % 2.1 %; Immature Granulocytes Absolute 0.16 #; Lymphocytes # 0.4 10*3/uL (1.4-4.0); Lymphocytes % 5.2 % (21.2-54.2); Mean Corpuscular HGB Conc 30.7 GM/DL (32-36); Mean Corpuscular Volume 93.9 FL (87-102); Mean Platelet Volume 9.4 FL (9.6-12.0); Monocytes % 2.8 % (1.7-12.7); Neutrophils % 89.8 % (38.7-73.9); Platelet Count 333 T/CUMM (130-400); Red Blood Count 2.78 MC/CUMM (3.8-5.5); White Blood Count 7.6 T/CUMM (4-12)
[2020-07-27 04:49] LABS: Calcium 7.9 MG/DL (8.5-10.1); Osmolality,Calculated 288.3 MOS/KG (273-304)
[2020-07-27] MEDS: DORNASE ALFA 2.5 MG/2.5 ML VIAL RESP TX SCH ×2 (08:00→19:52)
[2020-07-27] MEDS: OXYBUTYNIN 5 MG TABLET PEG SCH ×3 (08:22→20:01)
[2020-07-27] MEDS: POLYETHYLENE GLYCOL POWDER 17 GM PACK PEG SCH ×2 (08:22→20:01)
[2020-07-27] MEDS: amLODIPine 5 MG TABLET PEG SCH (08:22)
[2020-07-27] MEDS: METOPROLOL TARTRATE 50 MG TABLET PEG SCH ×2 (08:22→20:01)
[2020-07-27] MEDS: PANTOPRAZOLE 40 MG VIAL IV SCH ×2 (08:23→20:01)
[2020-07-27] MEDS: INSULIN GLARGINE 100 UNIT/ML SUBCUT SCH (20:02)
[2020-07-28] MEDS: INSULIN LISPRO 100 UNIT/ML SUBCUT SCH ×5 (00:05→23:32)
[2020-07-28] MEDS: METOCLOPRAMIDE 10 MG/2 ML VIAL IV SCH ×2 (00:08→06:27)
[2020-07-28] MEDS: ALBUTEROL/IPRATROPIUM 3 ML NEB RESP TX SCH ×4 (01:44→18:58)
[2020-07-28] MEDS: methylPREDNISolone SOD SUC 40 MG/1 ML VIAL IV SCH ×3 (02:30→21:45)
[2020-07-28] MEDS: SODIUM CHLORIDE 0.45% 1,000 ML IV SCH (02:30)
[2020-07-28 03:27] LABS: ABG Base Excess 0.3 MMOL/L (-2.5-2.5); ABG HCO3 26.3 MMOL/L (20-26); ABG Oxygen Saturation 91.5 % (95-100); ABG PCO2 49.7 MM HG (35-48); ABG PH 7.342 (7.35-7.45); ABG TCO2 27.9 MMOL/L (23-27)
[2020-07-28] MEDS: PIPERACILLIN/TAZOBACTAM 3,375 MG in SODIUM CHLORIDE 0.9% 100 ML IV SCH (03:30)
[2020-07-28 03:53] LABS: Basophils % 0.2 % (0.0-0.8); Eosinophils % 0.2 % (0.00-10.9); Hematocrit 27.9 VOL% (42.0-52.0); Hemoglobin 8.4 GM/DL (14.0-18.0); Immature Granulocytes Absolute 0.27 #; Lymphocytes % 7.3 % (21.2-54.2); Mean Corpuscular HGB Conc 30.1 GM/DL (32-36); Mean Corpuscular Volume 96.5 FL (87-102); Mean Platelet Volume 9.3 FL (9.6-12.0); Monocytes % 7.1 % (1.7-12.7); Neutrophils % 83.2 % (38.7-73.9); Platelet Count 421 T/CUMM (130-400); Red Blood Count 2.89 MC/CUMM (3.8-5.5); Red Cell Distribution Width 16.5 % (9.3-17.3); White Blood Count 13.3 T/CUMM (4-12)
[2020-07-28 04:15] LABS: Calcium 7.7 MG/DL (8.5-10.1)
[2020-07-28] MEDS: POTASSIUM CHLORIDE RIDER 10 MEQ in PREMIX 1 EACH IV PRN ×6 (06:27→22:52)
[2020-07-28] MEDS ORDERED: MAGNESIUM SULF RIDER 2 GM in PREMIX 1 EACH IV PRN (07:10)
[2020-07-28] MEDS ORDERED: MAGNESIUM SULF RIDER 4 GM in PREMIX 1 EACH IV PRN (07:10)
[2020-07-28] MEDS: DORNASE ALFA 2.5 MG/2.5 ML VIAL RESP TX SCH ×2 (07:30→19:06)
[2020-07-28] MEDS ORDERED: FUROSEMIDE 40 MG/4 ML VIAL IV ONE (08:09)
[2020-07-28] MEDS: amLODIPine 5 MG TABLET PEG SCH (08:58)
[2020-07-28] MEDS: OXYBUTYNIN 5 MG TABLET PEG SCH ×3 (08:59→21:44)
[2020-07-28] MEDS: POLYETHYLENE GLYCOL POWDER 17 GM PACK PEG SCH ×2 (08:59→21:44)
[2020-07-28] MEDS: OMEPRAZOLE ODT 20 MG TABLET PER TUBE SCH ×2 (08:59→21:44)
[2020-07-28] MEDS: METOPROLOL TARTRATE 50 MG TABLET PEG SCH ×2 (08:59→21:44)
[2020-07-28] MEDS: METOCLOPRAMIDE 10 MG/10 ML UDCUP PEG SCH ×4 (09:02→21:44)
[2020-07-28 13:19] LABS: ABG Base Excess 2.1 MMOL/L (-2.5-2.5); ABG HCO3 26.3 MMOL/L (20-26); ABG Oxygen Saturation 99.9 % (95-100); ABG PCO2 49.2 MM HG (35-48); ABG PH 7.362 (7.35-7.45); ABG TCO2 26.1 MMOL/L (23-27)
[2020-07-28] MEDS ORDERED: LABETALOL 20 MG/4 ML SYRINGE IV ONE (13:43)
[2020-07-28] MEDS ORDERED: INSULIN GLARGINE 100 UNIT/ML SUBCUT SCH (21:00)
[2020-07-28] MEDS: DEXTROSE 50% 25 GM/50 ML VIAL IV PRN (23:18)
[2020-07-29] MEDS: ALBUTEROL/IPRATROPIUM 3 ML NEB RESP TX SCH ×4 (00:56→19:23)
[2020-07-29] MEDS: DEXTROSE 50% 25 GM/50 ML VIAL IV PRN (05:05)
[2020-07-29 05:10] LABS: ABG HCO3 28.6 MMOL/L (20-26); ABG Oxygen Saturation 97.3 % (95-100); ABG PCO2 56.4 MM HG (35-48); ABG PH 7.323 (7.35-7.45); ABG TCO2 30.3 MMOL/L (23-27)
[2020-07-29 05:13] LABS: Basophils % 0.2 % (0.0-0.8); Eosinophils # 0.1 10*3/uL (0.0-0.87); Eosinophils % 0.8 % (0.00-10.9); Hematocrit 27.4 VOL% (42.0-52.0); Hemoglobin 8.3 GM/DL (14.0-18.0); Immature Granulocytes Absolute 0.52 #; Lymphocytes # 0.5 10*3/uL (1.4-4.0); Lymphocytes % 3.7 % (21.2-54.2); Mean Corpuscular HGB Conc 30.3 GM/DL (32-36); Mean Corpuscular Volume 96.5 FL (87-102); Monocytes % 7.4 % (1.7-12.7); Neutrophils % 83.9 % (38.7-73.9); Platelet Count 413 T/CUMM (130-400); Red Blood Count 2.84 MC/CUMM (3.8-5.5); Red Cell Distribution Width 17.2 % (9.3-17.3); White Blood Count 13.1 T/CUMM (4-12)
[2020-07-29 05:31] LABS: Osmolality,Calculated 283.3 MOS/KG (273-304)
[2020-07-29 05:36] LABS: Eosinophils 1 % (0-10); Lymphocytes 1 % (20-55); Segmented Neutrophils 93 % (50-85); Total Cells Counted 100
[2020-07-29 05:37] LABS: Hypochromasia 2+; Microcytosis Slight; Platelet Estimate Adequate
[2020-07-29] MEDS: DORNASE ALFA 2.5 MG/2.5 ML VIAL RESP TX SCH ×2 (07:12→19:23)
[2020-07-29] MEDS: INSULIN LISPRO 100 UNIT/ML SUBCUT SCH ×3 (07:23→17:24)
[2020-07-29] MEDS: POLYETHYLENE GLYCOL POWDER 17 GM PACK PEG SCH ×2 (08:11→21:27)
[2020-07-29] MEDS: amLODIPine 10 MG TABLET PEG SCH (08:11)
[2020-07-29] MEDS: CLOPIDOGREL 75 MG TABLET PEG SCH (08:11)
[2020-07-29] MEDS: METOPROLOL TARTRATE 50 MG TABLET PEG SCH ×2 (08:11→21:27)
[2020-07-29] MEDS: OXYBUTYNIN 5 MG TABLET PEG SCH ×3 (08:11→21:27)
[2020-07-29] MEDS: OMEPRAZOLE ODT 20 MG TABLET PER TUBE SCH ×2 (08:11→21:27)
[2020-07-29] MEDS: ASPIRIN EC 81 MG TABLET PO SCH (08:11)
[2020-07-29] MEDS: METOCLOPRAMIDE 10 MG/10 ML UDCUP PEG SCH ×4 (08:11→21:27)
[2020-07-29] MEDS: methylPREDNISolone SOD SUC 40 MG/1 ML VIAL IV SCH ×2 (08:12→21:28)
[2020-07-29] MEDS ORDERED: FUROSEMIDE 40 MG/4 ML VIAL IV ONE (08:14)
[2020-07-29] MEDS: ENOXAPARIN 40 MG/0.4 ML SYRINGE SUBCUT SCH (10:02)
[2020-07-29 13:41] LABS: ABG Base Excess 3.4 MMOL/L (-2.5-2.5); ABG HCO3 30.1 MMOL/L (20-26); ABG Oxygen Saturation 97.4 % (95-100); ABG PH 7.333 (7.35-7.45); ABG PO2 94.7 MM HG (80-95); ABG TCO2 31.9 MMOL/L (23-27)
[2020-07-30] MEDS: INSULIN LISPRO 100 UNIT/ML SUBCUT SCH ×4 (00:19→17:45)
[2020-07-30] MEDS: ALBUTEROL/IPRATROPIUM 3 ML NEB RESP TX SCH ×4 (01:45→19:18)
[2020-07-30 03:32] LABS: ABG Base Excess 5.4 MMOL/L (-2.5-2.5); ABG HCO3 29.4 MMOL/L (20-26); ABG Oxygen Saturation 99.3 % (95-100); ABG PH 7.272 (7.35-7.45); ABG TCO2 32.2 MMOL/L (23-27)
[2020-07-30 03:35] LABS: ABG PCO2 73.4 MM HG (35-48)
[2020-07-30 03:39] LABS: Basophils % 0.1 % (0.0-0.8); Eosinophils # 0.1 10*3/uL (0.0-0.87); Eosinophils % 0.8 % (0.00-10.9); Hematocrit 25.8 VOL% (42.0-52.0); Hemoglobin 7.6 GM/DL (14.0-18.0); Immature Granulocytes % 1.3 %; Immature Granulocytes Absolute 0.14 #; Lymphocytes # 0.3 10*3/uL (1.4-4.0); Lymphocytes % 2.8 % (21.2-54.2); Mean Corpuscular HGB Conc 29.5 GM/DL (32-36); Mean Corpuscular Volume 97.4 FL (87-102); Monocytes % 4.4 % (1.7-12.7); Neutrophils % 90.6 % (38.7-73.9); Platelet Count 320 T/CUMM (130-400); Red Blood Count 2.65 MC/CUMM (3.8-5.5); Red Cell Distribution Width 17.4 % (9.3-17.3); White Blood Count 10.6 T/CUMM (4-12)
[2020-07-30 03:57] LABS: Alanine Aminotransferase 18 U/L (16-61); Albumin 1.7 G/DL (3.4-5.0); Alkaline Phosphatase 65 U/L (45-117); Aspartate Amino Transferase 7 U/L (0-37); Bilirubin,Total < 0.39 MG/DL (0.2-1.0); Blood Urea Nitrogen 21 MG/DL (7-18); Calcium 8.3 MG/DL (8.5-10.1); Estimated Glom Filtration Rate 109 ML/MIN; Glucose 83 MG/DL (74-106); Osmolality,Calculated 289.7 MOS/KG (273-304); Total Protein 5.9 G/DL (6.4-8.3)
[2020-07-30 04:08] LABS: Eosinophils 1 % (0-10); Lymphocytes 2 % (20-55); Segmented Neutrophils 94 % (50-85); Total Cells Counted 100
[2020-07-30 04:09] LABS: Hypochromasia 1+; Microcytosis Slight; Platelet Estimate Adequate
[2020-07-30] MEDS: DORNASE ALFA 2.5 MG/2.5 ML VIAL RESP TX SCH ×2 (07:09→19:26)
[2020-07-30] MEDS ORDERED: LIDOCAINE 2% 20 ML VIAL RESP TX ONE (07:30)
[2020-07-30] MEDS ORDERED: LIDOCAINE 2% VISCOUS 100 ML BOTTLE SWISH/SPIT ONE (07:30)
[2020-07-30] MEDS ORDERED: LIDOCAINE 1% 20 ML VIAL MISC INJ ONE (07:30)
[2020-07-30] MEDS: methylPREDNISolone SOD SUC 40 MG/1 ML VIAL IV SCH ×2 (08:01→20:25)
[2020-07-30] MEDS: OMEPRAZOLE ODT 20 MG TABLET PER TUBE SCH ×2 (08:03→20:25)
[2020-07-30] MEDS: METOPROLOL TARTRATE 50 MG TABLET PEG SCH ×2 (08:03→20:25)
[2020-07-30] MEDS: METOCLOPRAMIDE 10 MG/10 ML UDCUP PEG SCH ×4 (08:03→20:25)
[2020-07-30] MEDS: OXYBUTYNIN 5 MG TABLET PEG SCH ×3 (08:03→20:24)
[2020-07-30 08:06] LABS: ABG Base Excess 4.7 MMOL/L (-2.5-2.5); ABG HCO3 28.7 MMOL/L (20-26); ABG Oxygen Saturation 96.7 % (95-100); ABG PCO2 68.7 MM HG (35-48); ABG PH 7.288 (7.35-7.45); ABG PO2 85.8 MM HG (80-95); ABG TCO2 30.9 MMOL/L (23-27)
[2020-07-30] MEDS ORDERED: FUROSEMIDE 40 MG/4 ML VIAL IV ONE (08:52)
[2020-07-30] MEDS: POLYETHYLENE GLYCOL POWDER 17 GM PACK PEG SCH ×2 (09:00→20:24)
[2020-07-30] MEDS: amLODIPine 10 MG TABLET PEG SCH (11:21)
[2020-07-30 13:30] LABS: ABG Base Excess 4.2 MMOL/L (-2.5-2.5); ABG HCO3 28.2 MMOL/L (20-26); ABG PH 7.292 (7.35-7.45); ABG TCO2 29.7 MMOL/L (23-27)
[2020-07-30 13:32] LABS: ABG PCO2 69.1 MM HG (35-48)
[2020-07-31] MEDS: INSULIN LISPRO 100 UNIT/ML SUBCUT SCH ×4 (00:59→17:44)
[2020-07-31] MEDS: ALBUTEROL/IPRATROPIUM 3 ML NEB RESP TX SCH ×4 (01:20→21:00)
[2020-07-31 04:06] LABS: Basophils % 0.1 % (0.0-0.8); Hematocrit 28.1 VOL% (42.0-52.0); Hemoglobin 8.5 GM/DL (14.0-18.0); Immature Granulocytes % 1.4 %; Immature Granulocytes Absolute 0.18 #; Lymphocytes # 0.3 10*3/uL (1.4-4.0); Lymphocytes % 2.2 % (21.2-54.2); Mean Corpuscular HGB Conc 30.2 GM/DL (32-36); Mean Corpuscular Volume 96.9 FL (87-102); Mean Platelet Volume 9.2 FL (9.6-12.0); Neutrophils % 94.3 % (38.7-73.9); Platelet Count 420 T/CUMM (130-400); White Blood Count 13.3 T/CUMM (4-12)
[2020-07-31 04:24] LABS: Calcium 8.6 MG/DL (8.5-10.1); Osmolality,Calculated 294.1 MOS/KG (273-304)
[2020-07-31 04:38] LABS: Hypochromasia 1+; Lymphocytes 3 % (20-55); Microcytosis 1+; Platelet Estimate Adequate; Segmented Neutrophils 96 % (50-85); Total Cells Counted 100
[2020-07-31 05:29] LABS: ABG Base Excess 9.5 MMOL/L (-2.5-2.5); ABG HCO3 33.2 MMOL/L (20-26); ABG Oxygen Saturation 93.2 % (95-100); ABG PCO2 61.5 MM HG (35-48); ABG PH 7.381 (7.35-7.45); ABG PO2 65.8 MM HG (80-95); ABG TCO2 33.7 MMOL/L (23-27)
[2020-07-31] MEDS: DORNASE ALFA 2.5 MG/2.5 ML VIAL RESP TX SCH (07:12)
[2020-07-31] MEDS: methylPREDNISolone SOD SUC 40 MG/1 ML VIAL IV SCH ×2 (08:10→21:11)
[2020-07-31] MEDS: POLYETHYLENE GLYCOL POWDER 17 GM PACK PEG SCH ×2 (08:13→21:11)
[2020-07-31] MEDS: METOPROLOL TARTRATE 50 MG TABLET PEG SCH ×2 (08:13→21:12)
[2020-07-31] MEDS: METOCLOPRAMIDE 10 MG/10 ML UDCUP PEG SCH ×4 (08:13→21:12)
[2020-07-31] MEDS: OMEPRAZOLE ODT 20 MG TABLET PER TUBE SCH ×2 (08:13→21:12)
[2020-07-31] MEDS: amLODIPine 10 MG TABLET PEG SCH (08:13)
[2020-07-31] MEDS: OXYBUTYNIN 5 MG TABLET PEG SCH ×3 (08:13→21:12)
[2020-07-31] MEDS ORDERED: POTASSIUM PHOSPHATE 30 MMOL in SODIUM CHLORIDE 0.9% 250 ML IV ONE (11:00)
[2020-07-31] MEDS ORDERED: ACETYLCYSTEINE 20% 6,000 MG/30 ML VIAL PO SCH (12:30)
[2020-07-31] MEDS ORDERED: FUROSEMIDE 40 MG/4 ML VIAL IV ONE (12:31)
[2020-07-31] MEDS: guaiFENesin 200 MG/10 ML UDCUP PER TUBE SCH ×3 (12:46→21:11)
[2020-07-31] MEDS ORDERED: ACETYLCYSTEINE 20% 800 MG/4 ML VIAL RESP TX SCH (15:00)
[2020-07-31] MEDS: cefTRIAXone 1,000 MG in SYRINGE 1 EACH IV SCH (15:46)
[2020-07-31] MEDS: ACETYLCYSTEINE 20% 800 MG/4 ML VIAL RESP TX SCH (21:00)
[2020-08-01] MEDS: INSULIN LISPRO 100 UNIT/ML SUBCUT SCH ×4 (00:43→18:27)
[2020-08-01] MEDS: guaiFENesin 200 MG/10 ML UDCUP PER TUBE SCH ×6 (01:04→21:26)
[2020-08-01] MEDS: ALBUTEROL/IPRATROPIUM 3 ML NEB RESP TX SCH ×4 (02:00→20:00)
[2020-08-01] MEDS: ACETYLCYSTEINE 20% 800 MG/4 ML VIAL RESP TX SCH ×4 (02:00→20:00)
[2020-08-01 06:03] LABS: ABG Base Excess 13.7 MMOL/L (-2.5-2.5); ABG HCO3 37.5 MMOL/L (20-26); ABG Oxygen Saturation 96.3 % (95-100); ABG PCO2 67.4 MM HG (35-48); ABG PH 7.394 (7.35-7.45); ABG PO2 77.8 MM HG (80-95); ABG TCO2 38.2 MMOL/L (23-27)
[2020-08-01 06:16] LABS: Basophils % 0.1 % (0.0-0.8); Eosinophils # 0.2 10*3/uL (0.0-0.87); Eosinophils % 1.3 % (0.00-10.9); Hematocrit 28.8 VOL% (42.0-52.0); Hemoglobin 8.5 GM/DL (14.0-18.0); Immature Granulocytes % 0.7 %; Immature Granulocytes Absolute 0.09 #; Lymphocytes # 0.9 10*3/uL (1.4-4.0); Lymphocytes % 6.6 % (21.2-54.2); Mean Corpuscular HGB Conc 29.5 GM/DL (32-36); Mean Corpuscular Volume 98.3 FL (87-102); Mean Platelet Volume 9.7 FL (9.6-12.0); Monocytes % 8.1 % (1.7-12.7); NRBC # 0.02 10*3/uL; Neutrophils % 83.2 % (38.7-73.9); Platelet Count 425 T/CUMM (130-400); Red Blood Count 2.93 MC/CUMM (3.8-5.5); Red Cell Distribution Width 17.3 % (9.3-17.3); White Blood Count 13.5 T/CUMM (4-12)
[2020-08-01 06:18] LABS: Calcium 8.3 MG/DL (8.5-10.1); Osmolality,Calculated 295.7 MOS/KG (273-304)
[2020-08-01] MEDS ORDERED: LIDOCAINE 2% 5 ML VIAL ONE ×2 (09:00→10:23)
[2020-08-01] MEDS ORDERED: KETAMINE 500 MG/10 ML VIAL ONE (10:23)
[2020-08-01] MEDS: methylPREDNISolone SOD SUC 40 MG/1 ML VIAL IV SCH ×2 (10:56→21:27)
[2020-08-01] MEDS: METOPROLOL TARTRATE 50 MG TABLET PEG SCH ×2 (11:00→21:26)
[2020-08-01] MEDS: METOCLOPRAMIDE 10 MG/10 ML UDCUP PEG SCH ×4 (11:01→21:27)
[2020-08-01] MEDS: amLODIPine 10 MG TABLET PEG SCH (11:01)
[2020-08-01] MEDS: OMEPRAZOLE ODT 20 MG TABLET PER TUBE SCH ×2 (11:01→21:34)
[2020-08-01] MEDS: OXYBUTYNIN 5 MG TABLET PEG SCH ×3 (11:01→21:26)
[2020-08-01] MEDS: POLYETHYLENE GLYCOL POWDER 17 GM PACK PEG SCH ×2 (11:02→21:27)
[2020-08-01] MEDS: cefTRIAXone 1,000 MG in SYRINGE 1 EACH IV SCH (14:04)
[2020-08-02] MEDS: ALBUTEROL/IPRATROPIUM 3 ML NEB RESP TX SCH ×5 (00:22→23:55)
[2020-08-02] MEDS: ACETYLCYSTEINE 20% 800 MG/4 ML VIAL RESP TX SCH ×5 (00:22→23:55)
[2020-08-02] MEDS: INSULIN LISPRO 100 UNIT/ML SUBCUT SCH ×4 (00:35→17:54)
[2020-08-02] MEDS: guaiFENesin 200 MG/10 ML UDCUP PER TUBE SCH ×6 (00:36→21:50)
[2020-08-02 05:19] LABS: Calcium 8.4 MG/DL (8.5-10.1)
[2020-08-02 05:55] LABS: Basophils % 0.1 % (0.0-0.8); Hematocrit 29.6 VOL% (42.0-52.0); Hemoglobin 8.7 GM/DL (14.0-18.0); Immature Granulocytes % 0.6 %; Immature Granulocytes Absolute 0.09 #; Lymphocytes # 0.2 10*3/uL (1.4-4.0); Lymphocytes % 1.5 % (21.2-54.2); Mean Corpuscular HGB Conc 29.4 GM/DL (32-36); Mean Corpuscular Volume 98.7 FL (87-102); Mean Platelet Volume 9.5 FL (9.6-12.0); Monocytes % 3.2 % (1.7-12.7); Neutrophils % 94.6 % (38.7-73.9); Platelet Count 375 T/CUMM (130-400); Red Cell Distribution Width 16.9 % (9.3-17.3); White Blood Count 16.1 T/CUMM (4-12)
[2020-08-02 06:58] LABS: Band Neutrophils 1 % (0-10); Lymphocytes 2 % (20-55); Metamyelocytes 3 %; Platelet Estimate Normal; Segmented Neutrophils 91 % (50-85); Total Cells Counted 100
[2020-08-02 06:59] LABS: Anisocytosis 2+; Hypochromasia Slight; Macrocytosis 2+; Polychromasia Few
[2020-08-02] MEDS: methylPREDNISolone SOD SUC 40 MG/1 ML VIAL IV SCH ×2 (08:51→21:50)
[2020-08-02] MEDS: OMEPRAZOLE ODT 20 MG TABLET PER TUBE SCH ×2 (08:52→21:51)
[2020-08-02] MEDS: METOCLOPRAMIDE 10 MG/10 ML UDCUP PEG SCH ×4 (08:52→21:53)
[2020-08-02] MEDS: amLODIPine 10 MG TABLET PEG SCH (08:52)
[2020-08-02] MEDS: METOPROLOL TARTRATE 50 MG TABLET PEG SCH ×2 (08:52→21:51)
[2020-08-02] MEDS: POLYETHYLENE GLYCOL POWDER 17 GM PACK PEG SCH ×2 (08:53→21:51)
[2020-08-02] MEDS: OXYBUTYNIN 5 MG TABLET PEG SCH ×3 (08:53→21:50)
[2020-08-02 09:30] LABS: ABG Base Excess 10.5 MMOL/L (-2.5-2.5); ABG HCO3 34.3 MMOL/L (20-26); ABG Oxygen Saturation 98.7 % (95-100); ABG PH 7.344 (7.35-7.45); ABG TCO2 35.8 MMOL/L (23-27)
[2020-08-02 09:32] LABS: ABG PCO2 70.7 MM HG (35-48)
[2020-08-02] MEDS: ALBUMIN 25% 12.5 GM in PREMIX 1 EACH IV SCH ×2 (10:32→22:37)
[2020-08-02] MEDS: MEROPENEM 500 MG in SODIUM CHLORIDE 0.9% 100 ML IV SCH ×3 (10:52→22:00)
[2020-08-03] MEDS: INSULIN LISPRO 100 UNIT/ML SUBCUT SCH ×5 (00:06→23:50)
[2020-08-03] MEDS: guaiFENesin 200 MG/10 ML UDCUP PER TUBE SCH ×6 (00:20→21:23)
[2020-08-03] MEDS: MEROPENEM 500 MG in SODIUM CHLORIDE 0.9% 100 ML IV SCH ×4 (04:11→21:23)
[2020-08-03 04:26] LABS: Hematocrit 28.5 VOL% (42.0-52.0); Hemoglobin 8.5 GM/DL (14.0-18.0); Immature Granulocytes % 0.4 %; Immature Granulocytes Absolute 0.04 #; Lymphocytes # 0.2 10*3/uL (1.4-4.0); Lymphocytes % 2.2 % (21.2-54.2); Mean Corpuscular HGB Conc 29.8 GM/DL (32-36); Mean Corpuscular Volume 98.6 FL (87-102); Mean Platelet Volume 8.9 FL (9.6-12.0); Monocytes % 2.6 % (1.7-12.7); Neutrophils % 94.8 % (38.7-73.9); Platelet Count 269 T/CUMM (130-400); Red Blood Count 2.89 MC/CUMM (3.8-5.5); Red Cell Distribution Width 16.8 % (9.3-17.3); White Blood Count 9.6 T/CUMM (4-12)
[2020-08-03 04:44] LABS: Calcium 8.6 MG/DL (8.5-10.1); Osmolality,Calculated 290.1 MOS/KG (273-304)
[2020-08-03 06:54] LABS: Anisocytosis 1+; Band Neutrophils 9 % (0-10); Lymphocytes 4 % (20-55); Macrocytosis Slight; Segmented Neutrophils 85 % (50-85); Total Cells Counted 100
[2020-08-03] MEDS: ALBUTEROL/IPRATROPIUM 3 ML NEB RESP TX SCH ×3 (07:15→19:13)
[2020-08-03] MEDS: ACETYLCYSTEINE 20% 800 MG/4 ML VIAL RESP TX SCH ×3 (07:15→19:13)
[2020-08-03] MEDS: METOCLOPRAMIDE 10 MG/10 ML UDCUP PEG SCH ×4 (08:56→22:09)
[2020-08-03] MEDS: OMEPRAZOLE ODT 20 MG TABLET PER TUBE SCH ×2 (08:57→21:24)
[2020-08-03] MEDS: amLODIPine 10 MG TABLET PEG SCH (08:57)
[2020-08-03] MEDS: CLOPIDOGREL 75 MG TABLET PEG SCH (08:57)
[2020-08-03] MEDS: OXYBUTYNIN 5 MG TABLET PEG SCH ×3 (08:57→21:23)
[2020-08-03] MEDS: ASPIRIN EC 81 MG TABLET PO SCH (08:57)
[2020-08-03] MEDS: METOPROLOL TARTRATE 50 MG TABLET PEG SCH ×2 (08:57→21:23)
[2020-08-03] MEDS: methylPREDNISolone SOD SUC 40 MG/1 ML VIAL IV SCH ×2 (08:58→21:24)
[2020-08-03] MEDS: POLYETHYLENE GLYCOL POWDER 17 GM PACK PEG SCH ×2 (08:58→21:23)
[2020-08-03] MEDS: ALBUMIN 25% 12.5 GM in PREMIX 1 EACH IV SCH ×2 (10:47→22:09)
[2020-08-04] MEDS: guaiFENesin 200 MG/10 ML UDCUP PER TUBE SCH ×6 (01:19→22:16)
[2020-08-04] MEDS: MEROPENEM 500 MG in SODIUM CHLORIDE 0.9% 100 ML IV SCH ×4 (04:32→22:16)
[2020-08-04 05:36] LABS: Basophils % 0.1 % (0.0-0.8); Eosinophils % 0.1 % (0.00-10.9); Hematocrit 28.2 VOL% (42.0-52.0); Hemoglobin 8.2 GM/DL (14.0-18.0); Immature Granulocytes % 0.8 %; Immature Granulocytes Absolute 0.09 #; Lymphocytes # 0.2 10*3/uL (1.4-4.0); Lymphocytes % 1.8 % (21.2-54.2); Mean Corpuscular HGB Conc 29.1 GM/DL (32-36); Mean Platelet Volume 9.3 FL (9.6-12.0); Neutrophils % 93.2 % (38.7-73.9); Platelet Count 250 T/CUMM (130-400); Red Blood Count 2.82 MC/CUMM (3.8-5.5); White Blood Count 11.4 T/CUMM (4-12)
[2020-08-04 05:59] LABS: Lymphocytes 1 % (20-55); Platelet Estimate Adequate; Segmented Neutrophils 95 % (50-85); Total Cells Counted 100
[2020-08-04 06:00] LABS: Hypochromasia 1+; Microcytosis 1+
[2020-08-04 06:06] LABS: Albumin 2.7 G/DL (3.4-5.0); Bilirubin,Total 0.4 MG/DL (0.2-1.0); Calcium 8.9 MG/DL (8.5-10.1); Total Protein 7.1 G/DL (6.4-8.3)
[2020-08-04] MEDS: INSULIN LISPRO 100 UNIT/ML SUBCUT SCH ×3 (06:36→18:39)
[2020-08-04] MEDS: ACETYLCYSTEINE 20% 800 MG/4 ML VIAL RESP TX SCH ×4 (07:30→19:12)
[2020-08-04] MEDS: ALBUTEROL/IPRATROPIUM 3 ML NEB RESP TX SCH ×4 (07:30→19:12)
[2020-08-04] MEDS ORDERED: INSULIN GLARGINE 100 UNIT/ML SUBCUT SCH ×2 (09:00)
[2020-08-04] MEDS: amLODIPine 10 MG TABLET PEG SCH (09:57)
[2020-08-04] MEDS: CLOPIDOGREL 75 MG TABLET PEG SCH (09:57)
[2020-08-04] MEDS: OMEPRAZOLE ODT 20 MG TABLET PER TUBE SCH ×2 (09:57→22:17)
[2020-08-04] MEDS: predniSONE 10 MG TABLET PO SCH (09:58)
[2020-08-04] MEDS: OXYBUTYNIN 5 MG TABLET PEG SCH ×3 (09:58→22:17)
[2020-08-04] MEDS: ASPIRIN EC 81 MG TABLET PO SCH (09:58)
[2020-08-04] MEDS: METOPROLOL TARTRATE 50 MG TABLET PEG SCH ×2 (09:58→22:17)
[2020-08-04] MEDS: POLYETHYLENE GLYCOL POWDER 17 GM PACK PEG SCH ×2 (09:59→22:17)
[2020-08-04] MEDS: METOCLOPRAMIDE 10 MG/10 ML UDCUP PEG SCH ×4 (09:59→22:17)
[2020-08-04] MEDS ORDERED: SODIUM POLYSTYRENE SULFATE 15 GM/60 ML BOTTLE PO ONE (10:00)
[2020-08-04] MEDS ORDERED: SODIUM PHOSPHATE INJ 15 MMOL in SODIUM CHLORIDE 0.9% 250 ML IV ONE (10:00)
[2020-08-04] MEDS: ALBUMIN 25% 12.5 GM in PREMIX 1 EACH IV SCH ×2 (16:23→22:10)
[2020-08-05] MEDS: guaiFENesin 200 MG/10 ML UDCUP PER TUBE SCH ×6 (00:32→23:00)
[2020-08-05] MEDS: ALBUTEROL/IPRATROPIUM 3 ML NEB RESP TX SCH ×4 (01:57→19:30)
[2020-08-05] MEDS: ACETYLCYSTEINE 20% 800 MG/4 ML VIAL RESP TX SCH ×4 (01:57→19:30)
[2020-08-05] MEDS: INSULIN LISPRO 100 UNIT/ML SUBCUT SCH ×4 (02:53→17:53)
[2020-08-05] MEDS: MEROPENEM 500 MG in SODIUM CHLORIDE 0.9% 100 ML IV SCH ×4 (02:58→21:47)
[2020-08-05 03:54] LABS: Basophils % 0.2 % (0.0-0.8); Eosinophils # 0.2 10*3/uL (0.0-0.87); Eosinophils % 2.6 % (0.00-10.9); Hematocrit 32.7 VOL% (42.0-52.0); Hemoglobin 9.7 GM/DL (14.0-18.0); Immature Granulocytes % 1.3 %; Immature Granulocytes Absolute 0.11 #; Lymphocytes # 0.9 10*3/uL (1.4-4.0); Lymphocytes % 10.8 % (21.2-54.2); Mean Corpuscular HGB Conc 29.7 GM/DL (32-36); Mean Corpuscular Volume 98.8 FL (87-102); Mean Platelet Volume 9.2 FL (9.6-12.0); Monocytes % 7.7 % (1.7-12.7); NRBC # 0.03 10*3/uL; Neutrophils % 77.4 % (38.7-73.9); Platelet Count 234 T/CUMM (130-400); Red Blood Count 3.31 MC/CUMM (3.8-5.5); Red Cell Distribution Width 16.9 % (9.3-17.3); White Blood Count 8.6 T/CUMM (4-12)
[2020-08-05 04:01] LABS: Calcium 9.2 MG/DL (8.5-10.1); Osmolality,Calculated 307.6 MOS/KG (273-304)
[2020-08-05] MEDS: amLODIPine 10 MG TABLET PEG SCH (09:12)
[2020-08-05] MEDS: predniSONE 10 MG TABLET PO SCH (09:13)
[2020-08-05] MEDS: CLOPIDOGREL 75 MG TABLET PEG SCH (09:13)
[2020-08-05] MEDS: METOPROLOL TARTRATE 50 MG TABLET PEG SCH ×2 (09:13→21:48)
[2020-08-05] MEDS: METOCLOPRAMIDE 10 MG/10 ML UDCUP PEG SCH ×4 (09:13→21:48)
[2020-08-05] MEDS: ASPIRIN EC 81 MG TABLET PO SCH (09:13)
[2020-08-05] MEDS: OXYBUTYNIN 5 MG TABLET PEG SCH ×3 (09:13→21:48)
[2020-08-05] MEDS: INSULIN GLARGINE 100 UNIT/ML SUBCUT SCH (09:14)
[2020-08-05] MEDS: POLYETHYLENE GLYCOL POWDER 17 GM PACK PEG SCH ×2 (09:14→21:48)
[2020-08-05] MEDS: OMEPRAZOLE ODT 20 MG TABLET PER TUBE SCH ×2 (10:02→21:48)
[2020-08-06] MEDS: guaiFENesin 200 MG/10 ML UDCUP PER TUBE SCH ×6 (00:40→20:52)
[2020-08-06] MEDS: ALBUTEROL/IPRATROPIUM 3 ML NEB RESP TX SCH ×4 (02:15→19:08)
[2020-08-06] MEDS: ACETYLCYSTEINE 20% 800 MG/4 ML VIAL RESP TX SCH ×4 (02:15→19:08)
[2020-08-06] MEDS: MEROPENEM 500 MG in SODIUM CHLORIDE 0.9% 100 ML IV SCH ×4 (02:40→20:46)
[2020-08-06] MEDS: INSULIN LISPRO 100 UNIT/ML SUBCUT SCH ×4 (02:41→17:20)
[2020-08-06] MEDS: METOPROLOL TARTRATE 50 MG TABLET PEG SCH ×2 (09:24→20:52)
[2020-08-06] MEDS: CLOPIDOGREL 75 MG TABLET PEG SCH (09:24)
[2020-08-06] MEDS: amLODIPine 10 MG TABLET PEG SCH (09:24)
[2020-08-06] MEDS: METOCLOPRAMIDE 10 MG/10 ML UDCUP PEG SCH ×4 (09:24→20:52)
[2020-08-06] MEDS: OMEPRAZOLE ODT 20 MG TABLET PER TUBE SCH ×2 (09:24→20:52)
[2020-08-06] MEDS: POLYETHYLENE GLYCOL POWDER 17 GM PACK PEG SCH ×2 (09:24→20:52)
[2020-08-06] MEDS: ASPIRIN EC 81 MG TABLET PO SCH (09:25)
[2020-08-06] MEDS: predniSONE 10 MG TABLET PO SCH (09:25)
[2020-08-06] MEDS: OXYBUTYNIN 5 MG TABLET PEG SCH ×3 (09:25→20:52)
[2020-08-06] MEDS: INSULIN GLARGINE 100 UNIT/ML SUBCUT SCH (09:25)
[2020-08-06] MEDS ORDERED: fentaNYL 100 MCG/2 ML VIAL ONE (13:45)
[2020-08-06] MEDS ORDERED: INFLUENZA VIRUS VACCINE 0.5 ML SYRINGE IM ONE (15:34)
[2020-08-07] MEDS: ALBUTEROL/IPRATROPIUM 3 ML NEB RESP TX SCH ×4 (00:14→19:05)
[2020-08-07] MEDS: ACETYLCYSTEINE 20% 800 MG/4 ML VIAL RESP TX SCH ×4 (00:41→19:05)
[2020-08-07] MEDS: INSULIN LISPRO 100 UNIT/ML SUBCUT SCH ×4 (01:19→17:31)
[2020-08-07] MEDS: guaiFENesin 200 MG/10 ML UDCUP PER TUBE SCH ×6 (01:19→21:45)
[2020-08-07] MEDS: MEROPENEM 500 MG in SODIUM CHLORIDE 0.9% 100 ML IV SCH ×4 (02:59→21:47)
[2020-08-07 03:38] LABS: Basophils % 0.1 % (0.0-0.8); Eosinophils # 0.5 10*3/uL (0.0-0.87); Eosinophils % 3.7 % (0.00-10.9); Hematocrit 34.4 VOL% (42.0-52.0); Hemoglobin 10.2 GM/DL (14.0-18.0); Immature Granulocytes % 0.8 %; Lymphocytes # 0.7 10*3/uL (1.4-4.0); Lymphocytes % 5.2 % (21.2-54.2); Mean Corpuscular HGB Conc 29.7 GM/DL (32-36); Mean Corpuscular Volume 98.9 FL (87-102); Mean Platelet Volume 9.5 FL (9.6-12.0); Monocytes % 4.5 % (1.7-12.7); Neutrophils % 85.7 % (38.7-73.9); Platelet Count 178 T/CUMM (130-400); Red Blood Count 3.48 MC/CUMM (3.8-5.5); White Blood Count 13.1 T/CUMM (4-12)
[2020-08-07 04:03] LABS: Calcium 9.8 MG/DL (8.5-10.1); Osmolality,Calculated 322.9 MOS/KG (273-304)
[2020-08-07] MEDS: SODIUM CHLORIDE 0.45% 1,000 ML IV SCH ×2 (07:50→21:47)
[2020-08-07] MEDS: INSULIN GLARGINE 100 UNIT/ML SUBCUT SCH (08:12)
[2020-08-07] MEDS: METOCLOPRAMIDE 10 MG/10 ML UDCUP PEG SCH ×4 (08:13→21:45)
[2020-08-07] MEDS: ASPIRIN EC 81 MG TABLET PO SCH (08:13)
[2020-08-07] MEDS: OMEPRAZOLE ODT 20 MG TABLET PER TUBE SCH ×2 (08:13→21:45)
[2020-08-07] MEDS: amLODIPine 10 MG TABLET PEG SCH (08:13)
[2020-08-07] MEDS: OXYBUTYNIN 5 MG TABLET PEG SCH ×3 (08:13→21:46)
[2020-08-07] MEDS: POLYETHYLENE GLYCOL POWDER 17 GM PACK PEG SCH ×2 (08:13→21:30)
[2020-08-07] MEDS: METOPROLOL TARTRATE 50 MG TABLET PEG SCH ×2 (08:13→21:46)
[2020-08-07] MEDS: CLOPIDOGREL 75 MG TABLET PEG SCH (08:13)
[2020-08-07] MEDS: predniSONE 10 MG TABLET PO SCH (08:13)
[2020-08-07] MEDS: ACETAMINOPHEN 325 MG/10.15 ML UDCUP PO PRN (21:45)
[2020-08-08] MEDS: INSULIN LISPRO 100 UNIT/ML SUBCUT SCH ×4 (00:29→18:12)
[2020-08-08] MEDS: ALBUTEROL/IPRATROPIUM 3 ML NEB RESP TX SCH ×4 (00:35→19:18)
[2020-08-08] MEDS: ACETYLCYSTEINE 20% 800 MG/4 ML VIAL RESP TX SCH ×4 (00:35→19:18)
[2020-08-08] MEDS: guaiFENesin 200 MG/10 ML UDCUP PER TUBE SCH ×6 (01:30→21:03)
[2020-08-08] MEDS: MEROPENEM 500 MG in SODIUM CHLORIDE 0.9% 100 ML IV SCH ×4 (02:28→21:03)
[2020-08-08 07:52] LABS: Basophils % 0.2 % (0.0-0.8); Eosinophils # 1.1 10*3/uL (0.0-0.87); Eosinophils % 12.2 % (0.00-10.9); Hematocrit 31.3 VOL% (42.0-52.0); Hemoglobin 9.5 GM/DL (14.0-18.0); Immature Granulocytes % 1.4 %; Immature Granulocytes Absolute 0.13 #; Lymphocytes # 1.4 10*3/uL (1.4-4.0); Lymphocytes % 15.2 % (21.2-54.2); Mean Corpuscular HGB Conc 30.4 GM/DL (32-36); Mean Corpuscular Volume 96.9 FL (87-102); Mean Platelet Volume 9.5 FL (9.6-12.0); Monocytes % 4.6 % (1.7-12.7); Neutrophils % 66.4 % (38.7-73.9); Platelet Count 148 T/CUMM (130-400); Red Blood Count 3.23 MC/CUMM (3.8-5.5); Red Cell Distribution Width 16.5 % (9.3-17.3); White Blood Count 9.2 T/CUMM (4-12)
[2020-08-08] MEDS: CLOPIDOGREL 75 MG TABLET PEG SCH (08:10)
[2020-08-08] MEDS: OMEPRAZOLE ODT 20 MG TABLET PER TUBE SCH ×2 (08:10→21:03)
[2020-08-08] MEDS: predniSONE 10 MG TABLET PO SCH (08:10)
[2020-08-08] MEDS: POLYETHYLENE GLYCOL POWDER 17 GM PACK PEG SCH ×2 (08:10→21:03)
[2020-08-08] MEDS: METOCLOPRAMIDE 10 MG/10 ML UDCUP PEG SCH ×4 (08:10→21:03)
[2020-08-08] MEDS: METOPROLOL TARTRATE 50 MG TABLET PEG SCH ×2 (08:10→21:03)
[2020-08-08] MEDS: amLODIPine 10 MG TABLET PEG SCH (08:10)
[2020-08-08] MEDS: ASPIRIN EC 81 MG TABLET PO SCH (08:10)
[2020-08-08] MEDS: SODIUM CHLORIDE 0.45% 1,000 ML IV SCH (08:10)
[2020-08-08] MEDS: OXYBUTYNIN 5 MG TABLET PEG SCH ×3 (08:10→21:03)
[2020-08-08 08:11] LABS: Band Neutrophils 1 % (0-10); Eosinophils 8 % (0-10); Hypochromasia 1+; Lymphocytes 12 % (20-55); Microcytosis 1+; Platelet Estimate Adequate; Segmented Neutrophils 73 % (50-85); Total Cells Counted 100
[2020-08-08] MEDS: INSULIN GLARGINE 100 UNIT/ML SUBCUT SCH (08:18)
[2020-08-08 08:23] LABS: Calcium 9.4 MG/DL (8.5-10.1)
[2020-08-09] MEDS: guaiFENesin 200 MG/10 ML UDCUP PER TUBE SCH ×6 (01:00→22:09)
[2020-08-09] MEDS: INSULIN LISPRO 100 UNIT/ML SUBCUT SCH ×4 (01:00→17:56)
[2020-08-09] MEDS: ALBUTEROL/IPRATROPIUM 3 ML NEB RESP TX SCH ×4 (01:28→19:16)
[2020-08-09] MEDS: ACETYLCYSTEINE 20% 800 MG/4 ML VIAL RESP TX SCH ×4 (01:28→19:16)
[2020-08-09] MEDS: MEROPENEM 500 MG in SODIUM CHLORIDE 0.9% 100 ML IV SCH ×4 (04:06→22:08)
[2020-08-09] MEDS: ACETAMINOPHEN 325 MG/10.15 ML UDCUP PO PRN (04:18)
[2020-08-09 05:28] LABS: Basophils % 0.4 % (0.0-0.8); Hematocrit 30.3 VOL% (42.0-52.0); Hemoglobin 9.4 GM/DL (14.0-18.0); Immature Granulocytes % 2.2 %; Immature Granulocytes Absolute 0.18 #; Lymphocytes # 1.3 10*3/uL (1.4-4.0); Lymphocytes % 16.2 % (21.2-54.2); Mean Corpuscular Volume 94.4 FL (87-102); Mean Platelet Volume 9.2 FL (9.6-12.0); Monocytes % 6.3 % (1.7-12.7); Neutrophils % 62.9 % (38.7-73.9); Platelet Count 127 T/CUMM (130-400); Red Blood Count 3.21 MC/CUMM (3.8-5.5); Red Cell Distribution Width 15.9 % (9.3-17.3); White Blood Count 8.2 T/CUMM (4-12)
[2020-08-09 05:43] LABS: Calcium 9.2 MG/DL (8.5-10.1); Osmolality,Calculated 283.7 MOS/KG (273-304)
[2020-08-09 06:06] LABS: Band Neutrophils 4 % (0-10); Eosinophils 20 % (0-10); Hypochromasia 1+; Lymphocytes 16 % (20-55); Microcytosis 1+; Myelocytes 1 %; Polychromasia Slight; Segmented Neutrophils 52 % (50-85); Total Cells Counted 100
[2020-08-09] MEDS: INSULIN GLARGINE 100 UNIT/ML SUBCUT SCH (08:47)
[2020-08-09] MEDS: OMEPRAZOLE ODT 20 MG TABLET PER TUBE SCH ×2 (08:49→22:09)
[2020-08-09] MEDS: amLODIPine 10 MG TABLET PEG SCH (08:49)
[2020-08-09] MEDS: ASPIRIN EC 81 MG TABLET PO SCH (08:49)
[2020-08-09] MEDS: METOPROLOL TARTRATE 50 MG TABLET PEG SCH ×2 (08:49→22:09)
[2020-08-09] MEDS: OXYBUTYNIN 5 MG TABLET PEG SCH ×3 (08:49→22:09)
[2020-08-09] MEDS: CLOPIDOGREL 75 MG TABLET PEG SCH (08:49)
[2020-08-09] MEDS: METOCLOPRAMIDE 10 MG/10 ML UDCUP PEG SCH ×4 (08:50→22:09)
[2020-08-09] MEDS: POLYETHYLENE GLYCOL POWDER 17 GM PACK PEG SCH ×2 (08:50→22:09)
[2020-08-10] MEDS: ALBUTEROL/IPRATROPIUM 3 ML NEB RESP TX SCH ×4 (01:01→19:23)
[2020-08-10] MEDS: ACETYLCYSTEINE 20% 800 MG/4 ML VIAL RESP TX SCH ×4 (01:01→19:23)
[2020-08-10] MEDS: INSULIN LISPRO 100 UNIT/ML SUBCUT SCH ×4 (01:04→17:49)
[2020-08-10] MEDS: guaiFENesin 200 MG/10 ML UDCUP PER TUBE SCH ×6 (01:04→21:37)
[2020-08-10] MEDS: POLYETHYLENE GLYCOL POWDER 17 GM PACK PEG SCH ×2 (08:52→21:37)
[2020-08-10] MEDS: METOCLOPRAMIDE 10 MG/10 ML UDCUP PEG SCH ×4 (08:52→21:37)
[2020-08-10] MEDS: OXYBUTYNIN 5 MG TABLET PEG SCH ×3 (08:53→21:37)
[2020-08-10] MEDS: INSULIN GLARGINE 100 UNIT/ML SUBCUT SCH (08:53)
[2020-08-10] MEDS: ASPIRIN EC 81 MG TABLET PO SCH (08:53)
[2020-08-10] MEDS: OMEPRAZOLE ODT 20 MG TABLET PER TUBE SCH ×2 (08:53→21:37)
[2020-08-10] MEDS: METOPROLOL TARTRATE 50 MG TABLET PEG SCH ×2 (08:53→21:37)
[2020-08-10] MEDS: CLOPIDOGREL 75 MG TABLET PEG SCH (08:53)
[2020-08-10] MEDS: amLODIPine 10 MG TABLET PEG SCH (08:53)
[2020-08-11] MEDS: ACETYLCYSTEINE 20% 800 MG/4 ML VIAL RESP TX SCH ×2 (00:23→07:10)
[2020-08-11] MEDS: ALBUTEROL/IPRATROPIUM 3 ML NEB RESP TX SCH ×2 (00:39→07:10)
[2020-08-11] MEDS: INSULIN LISPRO 100 UNIT/ML SUBCUT SCH ×3 (00:54→11:49)
[2020-08-11] MEDS: guaiFENesin 200 MG/10 ML UDCUP PER TUBE SCH ×4 (01:40→12:19)
[2020-08-11 05:39] LABS: Basophils % 0.3 % (0.0-0.8); Eosinophils # 0.8 10*3/uL (0.0-0.87); Eosinophils % 9.7 % (0.00-10.9); Hematocrit 32.2 VOL% (42.0-52.0); Hemoglobin 10.1 GM/DL (14.0-18.0); Immature Granulocytes % 0.9 %; Immature Granulocytes Absolute 0.08 #; Lymphocytes % 11.5 % (21.2-54.2); Mean Corpuscular HGB Conc 31.4 GM/DL (32-36); Mean Corpuscular Volume 93.6 FL (87-102); Monocytes % 4.7 % (1.7-12.7); Neutrophils % 72.9 % (38.7-73.9); Platelet Count 104 T/CUMM (130-400); Red Blood Count 3.44 MC/CUMM (3.8-5.5); Red Cell Distribution Width 16.4 % (9.3-17.3); White Blood Count 8.7 T/CUMM (4-12)
[2020-08-11 06:08] LABS: Eosinophils 12 % (0-10); Hypochromasia 1+; Lymphocytes 8 % (20-55); Microcytosis 1+; Platelet Estimate Decreased; Segmented Neutrophils 78 % (50-85); Total Cells Counted 100
[2020-08-11] MEDS: INSULIN GLARGINE 100 UNIT/ML SUBCUT SCH (08:12)
[2020-08-11] MEDS: METOPROLOL TARTRATE 50 MG TABLET PEG SCH (08:13)
[2020-08-11] MEDS: ASPIRIN EC 81 MG TABLET PO SCH (08:13)
[2020-08-11] MEDS: CLOPIDOGREL 75 MG TABLET PEG SCH (08:13)
[2020-08-11] MEDS: METOCLOPRAMIDE 10 MG/10 ML UDCUP PEG SCH ×2 (08:13→12:19)
[2020-08-11] MEDS: OMEPRAZOLE ODT 20 MG TABLET PER TUBE SCH (08:13)
[2020-08-11] MEDS: OXYBUTYNIN 5 MG TABLET PEG SCH (08:13)
[2020-08-11] MEDS: POLYETHYLENE GLYCOL POWDER 17 GM PACK PEG SCH (08:14)
[2020-08-11] MEDS: amLODIPine 10 MG TABLET PEG SCH (08:14)
[2020-08-11 11:29] VITALS: BP 125/64
== END 2020-08-11 13:03 | DRG 207 ==
LOC: EDUNIT# → EDBD → N.ED 18:22 → SUATTDRO 21:30 → N.EDINP 21:30 → N.TELES 23:34 → N.CC 07-17 15:57 → N.TELEN 07-18 20:30 → N.CC 07-18 21:48 → N.ICU 07-28 19:08 → N.5E 08-02 12:50
PROVIDERS: ADMIT Internal Medicine Geriatric Medicine; ATTEND Internal Medicine Critical Care Medicine
PROC: EGDWPEG (ICD-10-PCS; 2020-07-21 11:05)

== ENCOUNTER 2020-09-15 15:37 | Inpatient (IN) ==
[2020-09-15] MEDS ORDERED: DOPamine 800 MG/250 ML PREMIX IV PRN (18:15)
[2020-09-15] MEDS ORDERED: ACETAMINOPHEN 325 MG TABLET PO PRN (18:15)
[2020-09-15] MEDS ORDERED: ONDANSETRON 4 MG/2 ML VIAL IV PRN (18:15)
[2020-09-15] MEDS ORDERED: ALBUTEROL 2.5 MG/3 ML NEB RESP TX PRN (18:15)
[2020-09-15 18:49] LABS: Bacteria,Urine Occasional /HPF (Few); Bilirubin,Urine Negative (Negative); Blood, Urine Large mg/dL (Negative); Glucose,Urine (UA) Negative (Negative); Ketones,Urine Negative (Negative); Nitrite,Urine Negative (Negative); Protein,Urine 100 MG/DL; RBC,Urine 24 /HPF (0-4); Urine Appearance CLOUDY (Clear); Urine Color Amber (Yellow); Urine Specific Gravity 1.014 (1.001-1.035); Urine Urobilinogen < 2.0 EU/DL (0.2-1.0); WBC,Urine 178 /HPF (0-6)
[2020-09-15 19:03] LABS: Basophils % 0.2 % (0.0-0.8); Eosinophils # 0.2 10*3/uL (0.0-0.87); Hematocrit 20.2 VOL% (42.0-52.0); Immature Granulocytes % 0.6 %; Immature Granulocytes Absolute 0.09 #; Lymphocytes # 0.8 10*3/uL (1.4-4.0); Lymphocytes % 5.3 % (21.2-54.2); Mean Corpuscular HGB Conc 29.2 GM/DL (32-36); Mean Corpuscular Volume 103.1 FL (87-102); Mean Platelet Volume 9.5 FL (9.6-12.0); Monocytes % 4.8 % (1.7-12.7); NRBC # 0.02 10*3/uL; Neutrophils % 88.1 % (38.7-73.9); Platelet Count 304 T/CUMM (130-400); Red Blood Count 1.96 MC/CUMM (3.8-5.5); Red Cell Distribution Width 17.2 % (9.3-17.3); White Blood Count 15.8 T/CUMM (4-12)
[2020-09-15] MEDS: ALBUTEROL/IPRATROPIUM 3 ML NEB RESP TX SCH (19:14)
[2020-09-15] MEDS: FAMOTIDINE 20 MG/2 ML VIAL IV SCH (19:14)
[2020-09-15] MEDS: cefTRIAXone 1,000 MG in SYRINGE 1 EACH IV SCH (19:14)
[2020-09-15] MEDS: methylPREDNISolone SOD SUC 40 MG/1 ML VIAL IV SCH (19:14)
[2020-09-15 19:25] LABS: Hemoglobin 5.9 GM/DL (14.0-18.0)
[2020-09-15 19:39] LABS: Albumin 1.8 G/DL (3.4-5.0); Bilirubin,Total 0.4 MG/DL (0.2-1.0); Osmolality,Calculated 314.5 MOS/KG (273-304); Total Protein 8.6 G/DL (6.4-8.3)
[2020-09-15 19:43] LABS: Calcium 14.7 MG/DL (8.5-10.1)
[2020-09-15 19:54] LABS: Band Neutrophils 10 % (0-10); Eosinophils 1 % (0-10); Hypochromasia 2+; Lymphocytes 4 % (20-55); Macrocytosis 2+; Segmented Neutrophils 80 % (50-85); Total Cells Counted 100
[2020-09-15 19:55] LABS: Platelet Estimate Increased
[2020-09-16] MEDS: ALBUTEROL/IPRATROPIUM 3 ML NEB RESP TX SCH ×4 (01:20→19:52)
[2020-09-16] MEDS: methylPREDNISolone SOD SUC 40 MG/1 ML VIAL IV SCH ×3 (02:22→21:09)
[2020-09-16 05:58] LABS: Basophils % 0.1 % (0.0-0.8); Eosinophils % 0.1 % (0.00-10.9); Hematocrit 27.7 VOL% (42.0-52.0); Hemoglobin 8.5 GM/DL (14.0-18.0); Immature Granulocytes % 0.6 %; Immature Granulocytes Absolute 0.09 #; Lymphocytes # 0.4 10*3/uL (1.4-4.0); Lymphocytes % 2.4 % (21.2-54.2); Mean Corpuscular HGB Conc 30.7 GM/DL (32-36); Mean Corpuscular Volume 96.2 FL (87-102); Mean Platelet Volume 9.5 FL (9.6-12.0); Monocytes % 2.1 % (1.7-12.7); NRBC # 0.02 10*3/uL; Neutrophils % 94.7 % (38.7-73.9); Platelet Count 282 T/CUMM (130-400); Red Blood Count 2.88 MC/CUMM (3.8-5.5); Red Cell Distribution Width 19.4 % (9.3-17.3); White Blood Count 15.7 T/CUMM (4-12)
[2020-09-16 06:19] LABS: Osmolality,Calculated 314.7 MOS/KG (273-304)
[2020-09-16 06:27] LABS: Band Neutrophils 46 % (0-10); Calcium 14.2 MG/DL (8.5-10.1); Lymphocytes 5 % (20-55); Metamyelocytes 4 %; Platelet Estimate Normal; Segmented Neutrophils 42 % (50-85); Total Cells Counted 100
[2020-09-16 06:28] LABS: Anisocytosis 2+; Macrocytosis 1+; Ovalocytes Few
[2020-09-16] MEDS: SODIUM CHLORIDE 0.9% 1,000 ML IV SCH (12:02)
[2020-09-16] MEDS: INSULIN LISPRO 100 UNIT/ML SUBCUT SCH ×2 (12:02→18:05)
[2020-09-16] MEDS ORDERED: SKIN HEALING OINT (AQUAPHOR) 50 GM TUBE TOP PRN (12:46)
[2020-09-16] MEDS: COLLAGENASE OINT 30 GM TUBE TOP SCH (16:45)
[2020-09-16] MEDS: FAMOTIDINE 20 MG/2 ML VIAL IV SCH (18:12)
[2020-09-16] MEDS: cefTRIAXone 1,000 MG in SYRINGE 1 EACH IV SCH (18:14)
[2020-09-17] MEDS: ALBUTEROL/IPRATROPIUM 3 ML NEB RESP TX SCH ×3 (00:45→13:10)
[2020-09-17] MEDS: INSULIN LISPRO 100 UNIT/ML SUBCUT SCH ×4 (01:56→18:19)
[2020-09-17 06:00] LABS: Basophils % 0.1 % (0.0-0.8); Hematocrit 26.8 VOL% (42.0-52.0); Hemoglobin 8.1 GM/DL (14.0-18.0); Immature Granulocytes % 1.1 %; Immature Granulocytes Absolute 0.12 #; Lymphocytes # 0.3 10*3/uL (1.4-4.0); Lymphocytes % 2.4 % (21.2-54.2); Mean Corpuscular HGB Conc 30.2 GM/DL (32-36); Mean Corpuscular Volume 98.5 FL (87-102); Mean Platelet Volume 9.9 FL (9.6-12.0); Monocytes % 3.4 % (1.7-12.7); NRBC # 0.09 10*3/uL; Platelet Count 262 T/CUMM (130-400); Red Blood Count 2.72 MC/CUMM (3.8-5.5); Red Cell Distribution Width 18.3 % (9.3-17.3); White Blood Count 11.4 T/CUMM (4-12)
[2020-09-17 06:28] LABS: Albumin 1.8 G/DL (3.4-5.0); Bilirubin,Total 0.4 MG/DL (0.2-1.0); Calcium 13.9 MG/DL (8.5-10.1); Osmolality,Calculated 323.3 MOS/KG (273-304); Total Protein 8.5 G/DL (6.4-8.3)
[2020-09-17 06:31] LABS: Band Neutrophils 1 % (0-10); Lymphocytes 3 % (20-55); Platelet Estimate Adequate; Segmented Neutrophils 94 % (50-85); Total Cells Counted 100
[2020-09-17 06:32] LABS: Hypochromasia 1+; Microcytosis 1+
[2020-09-17] MEDS ORDERED: ZOLEDRONIC ACID 4 MG in PREMIX 1 EACH IV ONE (08:06)
[2020-09-17] MEDS: methylPREDNISolone SOD SUC 40 MG/1 ML VIAL IV SCH ×2 (08:41→22:08)
[2020-09-17] MEDS: COLLAGENASE OINT 30 GM TUBE TOP SCH (10:12)
[2020-09-17] MEDS ORDERED: ONDANSETRON 4 MG/2 ML VIAL IV PRN (13:48)
[2020-09-17] MEDS ORDERED: ALBUTEROL 2.5 MG/3 ML NEB RESP TX PRN (13:54)
[2020-09-17] MEDS ORDERED: SODIUM POLYSTYRENE SULFATE 15 GM/60 ML BOTTLE PEG ONE (14:30)
[2020-09-17 14:35] LABS: ABG Base Excess 17.5 MMOL/L (-2.5-2.5); ABG HCO3 41.5 MMOL/L (20-26); ABG Oxygen Saturation 92.8 % (95-100); ABG PH 7.384 (7.35-7.45); ABG PO2 70.6 MM HG (80-95); ABG TCO2 42.7 MMOL/L (23-27); Allen Test Positive; Pt O2 Delivery Device BIPAP
[2020-09-17 14:40] LABS: ABG PCO2 76.6 MM HG (35-48)
[2020-09-17] MEDS ORDERED: ACETYLCYSTEINE 20% 6,000 MG/30 ML VIAL RESP TX SCH (15:00)
[2020-09-17] MEDS: MEROPENEM 500 MG in SODIUM CHLORIDE 0.9% 100 ML IV SCH (15:40)
[2020-09-17] MEDS: OXYBUTYNIN 5 MG TABLET PEG SCH ×2 (15:41→22:07)
[2020-09-17] MEDS: DEXTROSE 5% 1,000 ML IV SCH (16:09)
[2020-09-17] MEDS: ACETYLCYSTEINE 20% 800 MG/4 ML VIAL RESP TX SCH (16:57)
[2020-09-17] MEDS: METOCLOPRAMIDE 10 MG/10 ML UDCUP PEG SCH ×2 (17:59→22:07)
[2020-09-17] MEDS: FAMOTIDINE 20 MG/2 ML VIAL IV SCH (19:01)
[2020-09-17] MEDS: MAGNESIUM OXIDE 400 MG TABLET PEG SCH (22:06)
[2020-09-17] MEDS: METOPROLOL TARTRATE 50 MG TABLET PEG SCH (22:07)
[2020-09-17] MEDS: POLYETHYLENE GLYCOL POWDER 17 GM PACK PEG SCH (22:07)
[2020-09-18] MEDS: ALBUTEROL/IPRATROPIUM 3 ML NEB RESP TX SCH ×5 (00:25→21:25)
[2020-09-18] MEDS: ACETYLCYSTEINE 20% 800 MG/4 ML VIAL RESP TX SCH ×4 (00:25→21:25)
[2020-09-18] MEDS: MEROPENEM 500 MG in SODIUM CHLORIDE 0.9% 100 ML IV SCH ×2 (01:11→15:12)
[2020-09-18] MEDS: INSULIN LISPRO 100 UNIT/ML SUBCUT SCH ×5 (01:12→23:59)
[2020-09-18 04:21] LABS: ABG Base Excess 20.5 MMOL/L (-2.5-2.5); ABG HCO3 47.6 MMOL/L (20-26); ABG Oxygen Saturation 98.1 % (95-100); ABG PH 7.406 (7.35-7.45); ABG PO2 122.4 MM HG (80-95); Allen Test Positive; Pt O2 Delivery Device BIPAP
[2020-09-18 04:31] LABS: ABG PCO2 77.6 MM HG (35-48)
[2020-09-18 06:20] LABS: Basophils % 0.1 % (0.0-0.8); Hematocrit 25.2 VOL% (42.0-52.0); Hemoglobin 7.4 GM/DL (14.0-18.0); Immature Granulocytes % 2.7 %; Immature Granulocytes Absolute 0.32 #; Lymphocytes # 0.3 10*3/uL (1.4-4.0); Lymphocytes % 2.7 % (21.2-54.2); Mean Corpuscular HGB Conc 29.4 GM/DL (32-36); Mean Corpuscular Volume 99.6 FL (87-102); Mean Platelet Volume 9.8 FL (9.6-12.0); Monocytes % 5.1 % (1.7-12.7); NRBC # 0.08 10*3/uL; Neutrophils % 89.4 % (38.7-73.9); Platelet Count 238 T/CUMM (130-400); Red Blood Count 2.53 MC/CUMM (3.8-5.5); Red Cell Distribution Width 17.2 % (9.3-17.3); White Blood Count 11.9 T/CUMM (4-12)
[2020-09-18 06:43] LABS: Albumin 1.9 G/DL (3.4-5.0); Bilirubin,Total 0.4 MG/DL (0.2-1.0); Calcium 13.2 MG/DL (8.5-10.1); Total Protein 8.3 G/DL (6.4-8.3)
[2020-09-18 07:03] LABS: Band Neutrophils 5 % (0-10); Hypochromasia 1+; Lymphocytes 2 % (20-55); Microcytosis 1+; Myelocytes 1 %; Segmented Neutrophils 89 % (50-85); Total Cells Counted 100
[2020-09-18 07:04] LABS: Acanthocytes Few; Ovalocytes Slight
[2020-09-18 07:05] LABS: Anisocytosis 1+; Platelet Estimate Normal
[2020-09-18] MEDS: methylPREDNISolone SOD SUC 40 MG/1 ML VIAL IV SCH ×2 (09:10→21:09)
[2020-09-18] MEDS: METOPROLOL TARTRATE 50 MG TABLET PEG SCH ×2 (09:10→21:08)
[2020-09-18] MEDS: CLOPIDOGREL 75 MG TABLET PEG SCH (09:10)
[2020-09-18] MEDS: METOCLOPRAMIDE 10 MG/10 ML UDCUP PEG SCH ×4 (09:10→21:08)
[2020-09-18] MEDS: amLODIPine 5 MG TABLET PEG SCH (09:10)
[2020-09-18] MEDS: MAGNESIUM OXIDE 400 MG TABLET PEG SCH ×2 (09:10→21:08)
[2020-09-18] MEDS: ASPIRIN CHEW 81 MG TABLET PO SCH (09:10)
[2020-09-18] MEDS: OXYBUTYNIN 5 MG TABLET PEG SCH ×3 (09:10→21:08)
[2020-09-18] MEDS: COLLAGENASE OINT 30 GM TUBE TOP SCH (09:11)
[2020-09-18] MEDS: POLYETHYLENE GLYCOL POWDER 17 GM PACK PEG SCH ×2 (09:25→21:08)
[2020-09-18] MEDS ORDERED: SODIUM POLYSTYRENE SULFATE 15 GM/60 ML BOTTLE PO ONE (11:30)
[2020-09-18] MEDS ORDERED: SODIUM CHLORIDE 0.9% 1,000 ML IV PRN (17:35)
[2020-09-18] MEDS: FAMOTIDINE 20 MG/2 ML VIAL IV SCH (18:56)
[2020-09-19] MEDS: ALBUTEROL/IPRATROPIUM 3 ML NEB RESP TX SCH ×4 (00:45→20:21)
[2020-09-19] MEDS: MEROPENEM 500 MG in SODIUM CHLORIDE 0.9% 100 ML IV SCH ×2 (01:14→21:18)
[2020-09-19] MEDS: INSULIN LISPRO 100 UNIT/ML SUBCUT SCH ×3 (06:20→17:39)
[2020-09-19 06:47] LABS: Basophils % 0.1 % (0.0-0.8); Hematocrit 26.2 VOL% (42.0-52.0); Hemoglobin 7.7 GM/DL (14.0-18.0); Immature Granulocytes % 5.3 %; Immature Granulocytes Absolute 0.54 #; Lymphocytes # 0.3 10*3/uL (1.4-4.0); Lymphocytes % 2.7 % (21.2-54.2); Mean Corpuscular HGB Conc 29.4 GM/DL (32-36); Mean Corpuscular Volume 99.6 FL (87-102); Mean Platelet Volume 9.6 FL (9.6-12.0); Monocytes % 4.1 % (1.7-12.7); NRBC # 0.05 10*3/uL; Neutrophils % 87.8 % (38.7-73.9); Platelet Count 209 T/CUMM (130-400); Red Blood Count 2.63 MC/CUMM (3.8-5.5); Red Cell Distribution Width 16.2 % (9.3-17.3); White Blood Count 10.2 T/CUMM (4-12)
[2020-09-19 07:16] LABS: Alanine Aminotransferase 236 U/L (16-61); Albumin 1.9 G/DL (3.4-5.0); Alkaline Phosphatase 151 U/L (45-117); Aspartate Amino Transferase 57 U/L (0-37); Bilirubin,Total < 0.39 MG/DL (0.2-1.0); Blood Urea Nitrogen 156 MG/DL (7-18); Calcium 11.6 MG/DL (8.5-10.1); Estimated Glom Filtration Rate 12 ML/MIN; Glucose 364 MG/DL (74-106); Osmolality,Calculated 346.3 MOS/KG (273-304); Total Protein 8.4 G/DL (6.4-8.3)
[2020-09-19 07:24] LABS: Anisocytosis 1+; Band Neutrophils 15 % (0-10); Lymphocytes 5 % (20-55); Metamyelocytes 2 %; Myelocytes 1 %; Ovalocytes Few; Platelet Estimate Normal; Segmented Neutrophils 75 % (50-85); Total Cells Counted 100
[2020-09-19 07:25] LABS: Basophilic Stippling Slight; Hypochromasia Slight; Poikilocytosis Slight; Polychromasia Slight
[2020-09-19] MEDS: ACETYLCYSTEINE 20% 800 MG/4 ML VIAL RESP TX SCH ×2 (07:26→14:15)
[2020-09-19] MEDS: COLLAGENASE OINT 30 GM TUBE TOP SCH (08:52)
[2020-09-19] MEDS: OXYBUTYNIN 5 MG TABLET PEG SCH ×3 (08:52→21:20)
[2020-09-19] MEDS: MAGNESIUM OXIDE 400 MG TABLET PEG SCH ×2 (08:52→21:20)
[2020-09-19] MEDS: CLOPIDOGREL 75 MG TABLET PEG SCH (08:52)
[2020-09-19] MEDS: METOPROLOL TARTRATE 50 MG TABLET PEG SCH ×2 (08:52→21:20)
[2020-09-19] MEDS: ASPIRIN CHEW 81 MG TABLET PO SCH (08:52)
[2020-09-19] MEDS: amLODIPine 5 MG TABLET PEG SCH (08:52)
[2020-09-19] MEDS: METOCLOPRAMIDE 10 MG/10 ML UDCUP PEG SCH ×4 (08:53→21:20)
[2020-09-19] MEDS: methylPREDNISolone SOD SUC 40 MG/1 ML VIAL IV SCH ×2 (08:53→21:19)
[2020-09-19] MEDS: POLYETHYLENE GLYCOL POWDER 17 GM PACK PEG SCH ×2 (09:21→21:21)
[2020-09-19] MEDS: DEXTROSE 5% 1,000 ML IV SCH (15:56)
[2020-09-19] MEDS: FAMOTIDINE 20 MG/2 ML VIAL IV SCH (17:39)
[2020-09-20] MEDS ORDERED: ETOMIDATE 20 MG/10 ML VIAL IV ONE ×2 (00:47→00:57)
[2020-09-20] MEDS ORDERED: ROCURONIUM 100 MG/10 ML VIAL IV ONE (00:48)
[2020-09-20 01:04] LABS: Basophils # 0.1 10*3/uL (0.0-0.2); Basophils % 0.4 % (0.0-0.8); Hematocrit 31.2 VOL% (42.0-52.0); Immature Granulocytes % 9.1 %; Immature Granulocytes Absolute 1.47 #; Lymphocytes # 0.5 10*3/uL (1.4-4.0); Lymphocytes % 3.2 % (21.2-54.2); Mean Corpuscular HGB Conc 31.1 GM/DL (32-36); Mean Platelet Volume 9.7 FL (9.6-12.0); Monocytes % 5.8 % (1.7-12.7); NRBC # 0.09 10*3/uL; Neutrophils % 81.5 % (38.7-73.9); Platelet Count 205 T/CUMM (130-400); Red Blood Count 3.32 MC/CUMM (3.8-5.5); Red Cell Distribution Width 17.9 % (9.3-17.3); White Blood Count 16.1 T/CUMM (4-12)
[2020-09-20] MEDS ORDERED: SUCCINYLCHOLINE 200 MG/10 ML VIAL IV ONE (01:09)
[2020-09-20] MEDS ORDERED: SUCCINYLCHOLINE 200 MG/10 ML VIAL ONE (01:11)
[2020-09-20 01:12] LABS: Hemoglobin 9.7 GM/DL (14.0-18.0)
[2020-09-20 01:22] LABS: Bilirubin,Total 0.4 MG/DL (0.2-1.0); Calcium 11.2 MG/DL (8.5-10.1); Osmolality,Calculated 350.5 MOS/KG (273-304); Total Protein 8.1 G/DL (6.4-8.3)
[2020-09-20 01:31] LABS: Microcytosis Slight; Platelet Estimate Normal
[2020-09-20] MEDS: ACETYLCYSTEINE 20% 800 MG/4 ML VIAL RESP TX SCH ×4 (01:55→19:41)
[2020-09-20] MEDS: ALBUTEROL/IPRATROPIUM 3 ML NEB RESP TX SCH ×4 (01:55→19:41)
[2020-09-20] MEDS: INSULIN LISPRO 100 UNIT/ML SUBCUT SCH ×6 (02:05→23:40)
[2020-09-20 02:10] LABS: ABG Base Excess 16.2 MMOL/L (-2.5-2.5); ABG HCO3 40.2 MMOL/L (20-26); ABG PCO2 62.8 MM HG (35-48); ABG PH 7.444 (7.35-7.45); ABG TCO2 39.5 MMOL/L (23-27)
[2020-09-20] MEDS: DEXTROSE 5% 1,000 ML IV SCH (02:20)
[2020-09-20] MEDS: SODIUM CHLORIDE 0.9% 1,000 ML IV SCH (05:10)
[2020-09-20] MEDS: METOCLOPRAMIDE 10 MG/10 ML UDCUP PEG SCH ×4 (08:21→20:37)
[2020-09-20] MEDS: CLOPIDOGREL 75 MG TABLET PEG SCH (08:22)
[2020-09-20] MEDS: METOPROLOL TARTRATE 50 MG TABLET PEG SCH ×2 (08:22→20:36)
[2020-09-20] MEDS: OXYBUTYNIN 5 MG TABLET PEG SCH ×3 (08:22→20:36)
[2020-09-20] MEDS: ASPIRIN CHEW 81 MG TABLET PO SCH (08:22)
[2020-09-20] MEDS: amLODIPine 5 MG TABLET PEG SCH (08:22)
[2020-09-20] MEDS: methylPREDNISolone SOD SUC 40 MG/1 ML VIAL IV SCH ×2 (08:23→20:36)
[2020-09-20] MEDS: MEROPENEM 500 MG in SODIUM CHLORIDE 0.9% 100 ML IV SCH ×2 (08:25→20:42)
[2020-09-20] MEDS: POLYETHYLENE GLYCOL POWDER 17 GM PACK PEG SCH ×2 (08:36→20:36)
[2020-09-20] MEDS: MAGNESIUM OXIDE 400 MG TABLET PEG SCH ×2 (08:36→20:37)
[2020-09-20] MEDS: INSULIN GLARGINE 100 UNIT/ML SUBCUT SCH (11:32)
[2020-09-20] MEDS: COLLAGENASE OINT 30 GM TUBE TOP SCH (18:07)
[2020-09-20] MEDS: SKIN HEALING OINT (AQUAPHOR) 50 GM TUBE TOP PRN (18:07)
[2020-09-20] MEDS: FAMOTIDINE 20 MG/2 ML VIAL IV SCH (18:52)
[2020-09-21] MEDS: ALBUTEROL/IPRATROPIUM 3 ML NEB RESP TX SCH ×4 (03:25→19:12)
[2020-09-21 03:31] LABS: Basophils % 0.2 % (0.0-0.8); Eosinophils % 0.1 % (0.00-10.9); Hematocrit 28.4 VOL% (42.0-52.0); Hemoglobin 9.3 GM/DL (14.0-18.0); Immature Granulocytes Absolute 1.07 #; Lymphocytes # 0.6 10*3/uL (1.4-4.0); Lymphocytes % 4.3 % (21.2-54.2); Mean Corpuscular HGB Conc 32.7 GM/DL (32-36); Mean Corpuscular Volume 90.4 FL (87-102); Monocytes % 4.2 % (1.7-12.7); NRBC # 0.02 10*3/uL; Neutrophils % 83.2 % (38.7-73.9); Platelet Count 198 T/CUMM (130-400); Red Blood Count 3.14 MC/CUMM (3.8-5.5); Red Cell Distribution Width 16.6 % (9.3-17.3); White Blood Count 13.4 T/CUMM (4-12)
[2020-09-21 03:48] LABS: Osmolality,Calculated 351.8 MOS/KG (273-304)
[2020-09-21 04:22] LABS: ABG Base Excess 18.1 MMOL/L (-2.5-2.5); ABG HCO3 42.3 MMOL/L (20-26); ABG Oxygen Saturation 98.2 % (95-100); ABG PCO2 45.1 MM HG (35-48); ABG PH 7.584 (7.35-7.45); ABG PO2 99.1 MM HG (80-95); ABG TCO2 38.1 MMOL/L (23-27); Pt O2 Delivery Device Ventilator
[2020-09-21 04:27] LABS: Band Neutrophils 3 % (0-10); Hypochromasia 1+; Lymphocytes 5 % (20-55); Microcytosis 1+; Ovalocytes Slight; Platelet Estimate Adequate; Segmented Neutrophils 86 % (50-85); Total Cells Counted 100
[2020-09-21] MEDS: INSULIN LISPRO 100 UNIT/ML SUBCUT SCH ×5 (04:40→20:27)
[2020-09-21] MEDS: ACETYLCYSTEINE 20% 800 MG/4 ML VIAL RESP TX SCH ×3 (07:40→22:32)
[2020-09-21] MEDS: METOCLOPRAMIDE 10 MG/10 ML UDCUP PEG SCH ×4 (08:30→20:27)
[2020-09-21] MEDS: methylPREDNISolone SOD SUC 40 MG/1 ML VIAL IV SCH ×2 (08:31→20:27)
[2020-09-21] MEDS: INSULIN GLARGINE 100 UNIT/ML SUBCUT SCH (08:31)
[2020-09-21] MEDS: METOPROLOL TARTRATE 50 MG TABLET PEG SCH ×2 (08:32→20:27)
[2020-09-21] MEDS: ASPIRIN CHEW 81 MG TABLET PO SCH (08:32)
[2020-09-21] MEDS: OXYBUTYNIN 5 MG TABLET PEG SCH ×3 (08:32→20:27)
[2020-09-21] MEDS: CLOPIDOGREL 75 MG TABLET PEG SCH (08:32)
[2020-09-21] MEDS: amLODIPine 5 MG TABLET PEG SCH (08:32)
[2020-09-21] MEDS: MEROPENEM 500 MG in SODIUM CHLORIDE 0.9% 100 ML IV SCH ×2 (08:32→20:32)
[2020-09-21] MEDS: POLYETHYLENE GLYCOL POWDER 17 GM PACK PEG SCH ×2 (08:33→20:27)
[2020-09-21] MEDS: MAGNESIUM OXIDE 400 MG TABLET PEG SCH (09:00)
[2020-09-21] MEDS: FAMOTIDINE 20 MG/2 ML VIAL IV SCH (17:35)
[2020-09-21] MEDS: SKIN HEALING OINT (AQUAPHOR) 50 GM TUBE TOP PRN (22:02)
[2020-09-21] MEDS: COLLAGENASE OINT 30 GM TUBE TOP SCH (22:02)
[2020-09-21 23:02] LABS: Osmolality,Calculated 352.8 MOS/KG (273-304)
[2020-09-22] MEDS: INSULIN LISPRO 100 UNIT/ML SUBCUT SCH ×6 (00:12→20:35)
[2020-09-22] MEDS: ALBUTEROL/IPRATROPIUM 3 ML NEB RESP TX SCH ×4 (00:50→19:22)
[2020-09-22 05:12] LABS: Basophils % 0.1 % (0.0-0.8); Hematocrit 29.6 VOL% (42.0-52.0); Hemoglobin 9.3 GM/DL (14.0-18.0); Immature Granulocytes % 5.2 %; Immature Granulocytes Absolute 0.78 #; Lymphocytes # 0.5 10*3/uL (1.4-4.0); Lymphocytes % 3.1 % (21.2-54.2); Mean Corpuscular HGB Conc 31.4 GM/DL (32-36); Mean Corpuscular Volume 93.7 FL (87-102); Mean Platelet Volume 9.9 FL (9.6-12.0); Monocytes % 3.2 % (1.7-12.7); Neutrophils % 88.4 % (38.7-73.9); Platelet Count 206 T/CUMM (130-400); Red Blood Count 3.16 MC/CUMM (3.8-5.5); Red Cell Distribution Width 16.7 % (9.3-17.3); White Blood Count 14.9 T/CUMM (4-12)
[2020-09-22 05:23] LABS: Allen Test Positive; Pt O2 Delivery Device Ventilator
[2020-09-22 05:24] LABS: ABG Base Excess 16.2 MMOL/L (-2.5-2.5); ABG HCO3 40.3 MMOL/L (20-26); ABG Oxygen Saturation 98.8 % (95-100); ABG PH 7.493 (7.35-7.45); ABG TCO2 38.5 MMOL/L (23-27)
[2020-09-22 05:28] LABS: Calcium 10.9 MG/DL (8.5-10.1); Osmolality,Calculated 357.8 MOS/KG (273-304)
[2020-09-22 05:31] LABS: Band Neutrophils 1 % (0-10); Lymphocytes 3 % (20-55); Platelet Estimate Adequate; Segmented Neutrophils 93 % (50-85); Total Cells Counted 100
[2020-09-22 05:32] LABS: Hypochromasia 1+; Microcytosis 1+; Ovalocytes Slight
[2020-09-22] MEDS: ACETYLCYSTEINE 20% 800 MG/4 ML VIAL RESP TX SCH (07:46)
[2020-09-22] MEDS: METOCLOPRAMIDE 10 MG/10 ML UDCUP PEG SCH ×4 (08:44→20:34)
[2020-09-22] MEDS: ASPIRIN CHEW 81 MG TABLET PO SCH (08:45)
[2020-09-22] MEDS: CLOPIDOGREL 75 MG TABLET PEG SCH (08:45)
[2020-09-22] MEDS: METOPROLOL TARTRATE 50 MG TABLET PEG SCH ×2 (08:45→20:34)
[2020-09-22] MEDS: amLODIPine 5 MG TABLET PEG SCH (08:45)
[2020-09-22] MEDS: methylPREDNISolone SOD SUC 40 MG/1 ML VIAL IV SCH ×2 (08:46→20:35)
[2020-09-22] MEDS: INSULIN GLARGINE 100 UNIT/ML SUBCUT SCH (08:47)
[2020-09-22] MEDS: POLYETHYLENE GLYCOL POWDER 17 GM PACK PEG SCH ×2 (08:56→20:35)
[2020-09-22] MEDS: OXYBUTYNIN 5 MG TABLET PEG SCH ×3 (08:56→20:34)
[2020-09-22] MEDS: MEROPENEM 500 MG in SODIUM CHLORIDE 0.9% 100 ML IV SCH (09:10)
[2020-09-22] MEDS ORDERED: LEVOFLOXACIN INJ 750 MG in PREMIX 1 EACH IV ONE (12:00)
[2020-09-22] MEDS: COLLAGENASE OINT 30 GM TUBE TOP SCH (12:35)
[2020-09-22] MEDS: FAMOTIDINE 20 MG/2 ML VIAL IV SCH (18:32)
[2020-09-23] MEDS: INSULIN LISPRO 100 UNIT/ML SUBCUT SCH ×6 (00:30→20:47)
[2020-09-23] MEDS: ALBUTEROL/IPRATROPIUM 3 ML NEB RESP TX SCH ×3 (01:11→13:26)
[2020-09-23 04:33] LABS: Basophils # 0.1 10*3/uL (0.0-0.2); Basophils % 0.3 % (0.0-0.8); Eosinophils # 0.1 10*3/uL (0.0-0.87); Eosinophils % 0.3 % (0.00-10.9); Hematocrit 32.7 VOL% (42.0-52.0); Immature Granulocytes Absolute 0.73 #; Lymphocytes # 0.8 10*3/uL (1.4-4.0); Lymphocytes % 4.1 % (21.2-54.2); Mean Corpuscular HGB Conc 30.6 GM/DL (32-36); Mean Corpuscular Volume 95.9 FL (87-102); Mean Platelet Volume 10.3 FL (9.6-12.0); Monocytes % 6.3 % (1.7-12.7); Platelet Count 234 T/CUMM (130-400); Red Blood Count 3.41 MC/CUMM (3.8-5.5); Red Cell Distribution Width 16.2 % (9.3-17.3); White Blood Count 18.4 T/CUMM (4-12)
[2020-09-23 04:42] LABS: ABG Base Excess 17.4 MMOL/L (-2.5-2.5); ABG HCO3 44.1 MMOL/L (20-26); ABG PCO2 65.5 MM HG (35-48); ABG PH 7.446 (7.35-7.45); ABG PO2 79.4 MM HG (80-95); ABG TCO2 46.1 MMOL/L (23-27); Allen Test Positive; Pt O2 Delivery Device Ventilator
[2020-09-23 04:59] LABS: Eosinophils 1 % (0-10); Hypochromasia 1+; Lymphocytes 7 % (20-55); Microcytosis 1+; Ovalocytes Slight; Platelet Estimate Adequate; Segmented Neutrophils 88 % (50-85); Total Cells Counted 100
[2020-09-23 05:25] LABS: Alanine Aminotransferase 75 U/L (16-61); Albumin 2.2 G/DL (3.4-5.0); Alkaline Phosphatase 156 U/L (45-117); Aspartate Amino Transferase 34 U/L (0-37); Bilirubin,Indirect 0.3 MG/DL (0.0-1.0); Bilirubin,Total < 0.39 MG/DL (0.2-1.0); Blood Urea Nitrogen 194 MG/DL (7-18); Estimated Glom Filtration Rate 11 ML/MIN; Glucose 117 MG/DL (74-106); Total Protein 7.8 G/DL (6.4-8.3)
[2020-09-23] MEDS: METOCLOPRAMIDE 10 MG/10 ML UDCUP PEG SCH ×4 (08:38→20:48)
[2020-09-23] MEDS: INSULIN GLARGINE 100 UNIT/ML SUBCUT SCH (08:38)
[2020-09-23] MEDS: methylPREDNISolone SOD SUC 40 MG/1 ML VIAL IV SCH ×2 (08:38→20:47)
[2020-09-23] MEDS: CLOPIDOGREL 75 MG TABLET PEG SCH (08:39)
[2020-09-23] MEDS: amLODIPine 5 MG TABLET PEG SCH (08:39)
[2020-09-23] MEDS: METOPROLOL TARTRATE 50 MG TABLET PEG SCH ×2 (08:39→20:51)
[2020-09-23] MEDS: ASPIRIN CHEW 81 MG TABLET PO SCH (08:39)
[2020-09-23] MEDS: POLYETHYLENE GLYCOL POWDER 17 GM PACK PEG SCH ×2 (08:39→20:47)
[2020-09-23] MEDS: OXYBUTYNIN 5 MG TABLET PEG SCH ×3 (08:39→20:48)
[2020-09-23] MEDS: COLLAGENASE OINT 30 GM TUBE TOP SCH (08:40)
[2020-09-23] MEDS: SODIUM CHLORIDE 0.9% 1,000 ML IV SCH ×3 (10:22→19:01)
[2020-09-23] MEDS: FAMOTIDINE 20 MG/2 ML VIAL IV SCH (17:30)
[2020-09-24] MEDS: INSULIN LISPRO 100 UNIT/ML SUBCUT SCH ×6 (00:01→20:59)
[2020-09-24] MEDS: ALBUTEROL/IPRATROPIUM 3 ML NEB RESP TX SCH ×3 (00:20→19:55)
[2020-09-24] MEDS: SODIUM CHLORIDE 0.9% 1,000 ML IV SCH ×4 (01:26→17:08)
[2020-09-24 04:14] LABS: Albumin 1.9 G/DL (3.4-5.0); Bilirubin,Direct 0.12 MG/DL (0.0-0.20); Bilirubin,Indirect 0.8 MG/DL (0.0-1.0); Bilirubin,Total 0.9 MG/DL (0.2-1.0); Calcium 10.2 MG/DL (8.5-10.1); Osmolality,Calculated 351.8 MOS/KG (273-304); Total Protein 6.8 G/DL (6.4-8.3)
[2020-09-24 04:35] LABS: ABG Base Excess 14.3 MMOL/L (-2.5-2.5); ABG HCO3 40.1 MMOL/L (20-26); ABG Oxygen Saturation 96.3 % (95-100); ABG PCO2 58.8 MM HG (35-48); ABG PH 7.452 (7.35-7.45); ABG PO2 87.2 MM HG (80-95); ABG TCO2 41.9 MMOL/L (23-27); Allen Test Positive; Pt O2 Delivery Device Ventilator
[2020-09-24 07:41] LABS: Total Protein (Chem) 7.4 G/DL (6.4-8.3)
[2020-09-24] MEDS: METOPROLOL TARTRATE 50 MG TABLET PEG SCH (08:15)
[2020-09-24] MEDS: ASPIRIN CHEW 81 MG TABLET PO SCH (08:15)
[2020-09-24] MEDS: amLODIPine 5 MG TABLET PEG SCH (08:15)
[2020-09-24] MEDS: OXYBUTYNIN 5 MG TABLET PEG SCH ×3 (08:15→20:59)
[2020-09-24] MEDS: CLOPIDOGREL 75 MG TABLET PEG SCH (08:15)
[2020-09-24] MEDS: METOCLOPRAMIDE 10 MG/10 ML UDCUP PEG SCH ×4 (08:15→20:59)
[2020-09-24 08:16] LABS: Albumin (SPE) Rel % 40.1 %; Alpha 1 (SPE) 0.3 G/DL (0.1-0.4); Alpha 1 (SPE) Rel % 3.8 %; Alpha 2 (SPE) Rel % 13.1 %; Beta (SPE) 0.8 G/DL (0.5-1.1); Beta (SPE) Rel % 10.9 %; Gamma (SPE) 2.4 G/DL (0.7-1.7); Gamma (SPE) Rel % 32.1 %
[2020-09-24] MEDS: POLYETHYLENE GLYCOL POWDER 17 GM PACK PEG SCH ×2 (08:16→20:58)
[2020-09-24] MEDS: INSULIN GLARGINE 100 UNIT/ML SUBCUT SCH (08:16)
[2020-09-24] MEDS: methylPREDNISolone SOD SUC 40 MG/1 ML VIAL IV SCH ×2 (08:16→20:58)
[2020-09-24] MEDS: COLLAGENASE OINT 30 GM TUBE TOP SCH (08:17)
[2020-09-24 09:25] LABS: Basophils % 0.1 % (0.0-0.8); Eosinophils % 0.1 % (0.00-10.9); Hematocrit 27.5 VOL% (42.0-52.0); Hemoglobin 8.6 GM/DL (14.0-18.0); Immature Granulocytes % 2.4 %; Immature Granulocytes Absolute 0.37 #; Lymphocytes # 0.4 10*3/uL (1.4-4.0); Lymphocytes % 2.7 % (21.2-54.2); Mean Corpuscular HGB Conc 31.3 GM/DL (32-36); Mean Corpuscular Volume 95.2 FL (87-102); Mean Platelet Volume 10.3 FL (9.6-12.0); Monocytes % 3.2 % (1.7-12.7); Neutrophils % 91.5 % (38.7-73.9); Platelet Count 175 T/CUMM (130-400); Red Blood Count 2.89 MC/CUMM (3.8-5.5); Red Cell Distribution Width 15.9 % (9.3-17.3); White Blood Count 15.2 T/CUMM (4-12)
[2020-09-24 09:46] LABS: Hypochromasia 2+; Lymphocytes 6 % (20-55); Microcytosis 1+; Ovalocytes Slight; Platelet Estimate Adequate; Segmented Neutrophils 92 % (50-85); Total Cells Counted 100
[2020-09-24] MEDS: LEVOFLOXACIN INJ 500 MG in PREMIX 1 EACH IV SCH (11:55)
[2020-09-24] MEDS: FAMOTIDINE 20 MG/2 ML VIAL IV SCH (17:32)
[2020-09-24 18:16] LABS: Total Protein 24 Hr Ur Result 1501 MG/24HR (0-149.1); Total Volume,Urine 975 ML (400-2000)
[2020-09-24] MEDS: METOPROLOL TARTRATE 25 MG TABLET PEG SCH (20:59)
[2020-09-25] MEDS: INSULIN LISPRO 100 UNIT/ML SUBCUT SCH ×6 (00:40→21:42)
[2020-09-25] MEDS: ALBUTEROL/IPRATROPIUM 3 ML NEB RESP TX SCH ×4 (01:21→18:55)
[2020-09-25] MEDS: SODIUM CHLORIDE 0.9% 1,000 ML IV SCH (02:18)
[2020-09-25 03:55] LABS: Basophils % 0.1 % (0.0-0.8); Hematocrit 25.7 VOL% (42.0-52.0); Immature Granulocytes % 2.1 %; Immature Granulocytes Absolute 0.35 #; Lymphocytes # 0.3 10*3/uL (1.4-4.0); Lymphocytes % 1.7 % (21.2-54.2); Mean Corpuscular HGB Conc 31.1 GM/DL (32-36); Mean Corpuscular Volume 95.5 FL (87-102); Mean Platelet Volume 10.3 FL (9.6-12.0); Monocytes % 2.5 % (1.7-12.7); Neutrophils % 93.6 % (38.7-73.9); Platelet Count 155 T/CUMM (130-400); Red Blood Count 2.69 MC/CUMM (3.8-5.5); Red Cell Distribution Width 15.8 % (9.3-17.3); White Blood Count 16.7 T/CUMM (4-12)
[2020-09-25 04:20] LABS: Calcium 9.2 MG/DL (8.5-10.1); Osmolality,Calculated 346.6 MOS/KG (273-304)
[2020-09-25 04:21] LABS: ABG Base Excess 11.4 MMOL/L (-2.5-2.5); ABG HCO3 37.5 MMOL/L (20-26); ABG Oxygen Saturation 97.3 % (95-100); ABG PCO2 58.7 MM HG (35-48); ABG PH 7.423 (7.35-7.45); ABG PO2 101.6 MM HG (80-95); ABG TCO2 39.3 MMOL/L (23-27)
[2020-09-25 04:28] LABS: Lymphocytes 1 % (20-55); Platelet Estimate Adequate; Segmented Neutrophils 95 % (50-85); Total Cells Counted 100
[2020-09-25 04:29] LABS: Hypochromasia 2+; Microcytosis 1+
[2020-09-25 04:31] LABS: Alanine Aminotransferase 44 U/L (16-61); Albumin 1.8 G/DL (3.4-5.0); Alkaline Phosphatase 112 U/L (45-117); Aspartate Amino Transferase 32 U/L (0-37); Bilirubin,Total < 0.39 MG/DL (0.2-1.0); Blood Urea Nitrogen 171 MG/DL (7-18); Calcium 9.3 MG/DL (8.5-10.1); Estimated Glom Filtration Rate 15 ML/MIN; Glucose 121 MG/DL (74-106); Osmolality,Calculated 349.4 MOS/KG (273-304); Total Protein 6.3 G/DL (6.4-8.3)
[2020-09-25] MEDS: POLYETHYLENE GLYCOL POWDER 17 GM PACK PEG SCH ×2 (08:58→21:42)
[2020-09-25] MEDS: methylPREDNISolone SOD SUC 40 MG/1 ML VIAL IV SCH ×2 (08:58→21:42)
[2020-09-25] MEDS: ASPIRIN CHEW 81 MG TABLET PO SCH (08:59)
[2020-09-25] MEDS: amLODIPine 5 MG TABLET PEG SCH (08:59)
[2020-09-25] MEDS: OXYBUTYNIN 5 MG TABLET PEG SCH ×3 (08:59→21:42)
[2020-09-25] MEDS: CLOPIDOGREL 75 MG TABLET PEG SCH (08:59)
[2020-09-25] MEDS: METOCLOPRAMIDE 10 MG/10 ML UDCUP PEG SCH ×4 (08:59→21:41)
[2020-09-25] MEDS: COLLAGENASE OINT 30 GM TUBE TOP SCH (08:59)
[2020-09-25] MEDS: METOPROLOL TARTRATE 25 MG TABLET PEG SCH ×2 (09:01→21:42)
[2020-09-25] MEDS: SODIUM CHLORIDE 0.45% 1,000 ML IV SCH ×2 (09:01→21:44)
[2020-09-25] MEDS: INSULIN GLARGINE 100 UNIT/ML SUBCUT SCH (09:02)
[2020-09-25] MEDS ORDERED: POTASSIUM CHLORIDE 20 MEQ/15 ML UDCUP NG ONE (11:00)
[2020-09-25] MEDS: FAMOTIDINE 20 MG/2 ML VIAL IV SCH (18:17)
[2020-09-26] MEDS: ALBUTEROL/IPRATROPIUM 3 ML NEB RESP TX SCH ×6 (00:16→19:20)
[2020-09-26 04:12] LABS: ABG Base Excess 8.1 MMOL/L (-2.5-2.5); ABG HCO3 31.8 MMOL/L (20-26); ABG PCO2 59.9 MM HG (35-48); ABG PH 7.373 (7.35-7.45); ABG PO2 72.5 MM HG (80-95); ABG TCO2 32.4 MMOL/L (23-27); Allen Test Positive
[2020-09-26] MEDS: SODIUM CHLORIDE 0.45% 1,000 ML IV SCH ×2 (04:30→23:14)
[2020-09-26 05:07] LABS: Basophils % 0.1 % (0.0-0.8); Eosinophils # 0.1 10*3/uL (0.0-0.87); Eosinophils % 0.7 % (0.00-10.9); Hematocrit 26.8 VOL% (42.0-52.0); Hemoglobin 8.5 GM/DL (14.0-18.0); Immature Granulocytes % 1.3 %; Immature Granulocytes Absolute 0.19 #; Lymphocytes # 0.3 10*3/uL (1.4-4.0); Lymphocytes % 1.7 % (21.2-54.2); Mean Corpuscular HGB Conc 31.7 GM/DL (32-36); Mean Corpuscular Volume 96.1 FL (87-102); Mean Platelet Volume 10.9 FL (9.6-12.0); Monocytes % 1.2 % (1.7-12.7); Platelet Count 167 T/CUMM (130-400); Red Blood Count 2.79 MC/CUMM (3.8-5.5); Red Cell Distribution Width 15.5 % (9.3-17.3)
[2020-09-26 05:28] LABS: Calcium 9.5 MG/DL (8.5-10.1); Osmolality,Calculated 345.1 MOS/KG (273-304)
[2020-09-26] MEDS: INSULIN LISPRO 100 UNIT/ML SUBCUT SCH ×6 (05:30→20:40)
[2020-09-26 06:24] LABS: Alanine Aminotransferase 46 U/L (16-61); Albumin 2.1 G/DL (3.4-5.0); Alkaline Phosphatase 127 U/L (45-117); Aspartate Amino Transferase 36 U/L (0-37); Bilirubin,Direct < 0.100 MG/DL (0.0-0.20); Bilirubin,Indirect 0.5 MG/DL (0.0-1.0); Total Protein 6.3 G/DL (6.4-8.3)
[2020-09-26 06:28] LABS: Hypochromasia 1+; Lymphocytes 3 % (20-55); Metamyelocytes 1 %; Segmented Neutrophils 94 % (50-85); Total Cells Counted 100
[2020-09-26 06:29] LABS: Ovalocytes Slight
[2020-09-26 06:30] LABS: Microcytosis 1+; Platelet Estimate Adequate; Stomatocytes Slight
[2020-09-26] MEDS: CLOPIDOGREL 75 MG TABLET PEG SCH (08:10)
[2020-09-26] MEDS: amLODIPine 5 MG TABLET PEG SCH (08:10)
[2020-09-26] MEDS: POLYETHYLENE GLYCOL POWDER 17 GM PACK PEG SCH ×2 (08:10→20:46)
[2020-09-26] MEDS: METOPROLOL TARTRATE 25 MG TABLET PEG SCH ×2 (08:10→20:45)
[2020-09-26] MEDS: INSULIN GLARGINE 100 UNIT/ML SUBCUT SCH (08:10)
[2020-09-26] MEDS: METOCLOPRAMIDE 10 MG/10 ML UDCUP PEG SCH ×4 (08:10→20:45)
[2020-09-26] MEDS: ASPIRIN CHEW 81 MG TABLET PO SCH (08:11)
[2020-09-26] MEDS: OXYBUTYNIN 5 MG TABLET PEG SCH ×3 (08:11→20:45)
[2020-09-26] MEDS: methylPREDNISolone SOD SUC 40 MG/1 ML VIAL IV SCH ×2 (08:11→23:02)
[2020-09-26] MEDS: COLLAGENASE OINT 30 GM TUBE TOP SCH (08:21)
[2020-09-26] MEDS: LEVOFLOXACIN INJ 500 MG in PREMIX 1 EACH IV SCH (11:30)
[2020-09-26] MEDS: FAMOTIDINE 20 MG/2 ML VIAL IV SCH (19:15)
[2020-09-27] MEDS: INSULIN LISPRO 100 UNIT/ML SUBCUT SCH ×6 (00:45→19:42)
[2020-09-27] MEDS: ALBUTEROL/IPRATROPIUM 3 ML NEB RESP TX SCH ×4 (00:46→19:10)
[2020-09-27] MEDS: SODIUM CHLORIDE 0.45% 1,000 ML IV SCH ×3 (04:52→20:25)
[2020-09-27 05:45] LABS: Basophils % 0.1 % (0.0-0.8); Eosinophils % 0.2 % (0.00-10.9); Hemoglobin 8.6 GM/DL (14.0-18.0); Immature Granulocytes % 0.8 %; Immature Granulocytes Absolute 0.12 #; Lymphocytes # 0.3 10*3/uL (1.4-4.0); Lymphocytes % 1.9 % (21.2-54.2); Mean Corpuscular HGB Conc 30.7 GM/DL (32-36); Mean Platelet Volume 11.4 FL (9.6-12.0); Monocytes % 2.7 % (1.7-12.7); Neutrophils % 94.3 % (38.7-73.9); Platelet Count 185 T/CUMM (130-400); Red Blood Count 2.98 MC/CUMM (3.8-5.5); Red Cell Distribution Width 15.7 % (9.3-17.3); White Blood Count 15.6 T/CUMM (4-12)
[2020-09-27 06:12] LABS: Calcium 9.6 MG/DL (8.5-10.1); Osmolality,Calculated 339.3 MOS/KG (273-304)
[2020-09-27 07:37] LABS: Hypochromasia 2+; Lymphocytes 3 % (20-55); Metamyelocytes 1 %; Platelet Estimate Normal; Segmented Neutrophils 94 % (50-85); Total Cells Counted 100
[2020-09-27] MEDS: INSULIN GLARGINE 100 UNIT/ML SUBCUT SCH (09:10)
[2020-09-27] MEDS: ASPIRIN CHEW 81 MG TABLET PO SCH (09:15)
[2020-09-27] MEDS: amLODIPine 5 MG TABLET PEG SCH (09:15)
[2020-09-27] MEDS: CLOPIDOGREL 75 MG TABLET PEG SCH (09:15)
[2020-09-27] MEDS: methylPREDNISolone SOD SUC 40 MG/1 ML VIAL IV SCH ×2 (09:15→21:07)
[2020-09-27] MEDS: OXYBUTYNIN 5 MG TABLET PEG SCH ×3 (09:15→21:07)
[2020-09-27] MEDS: METOPROLOL TARTRATE 25 MG TABLET PEG SCH ×2 (09:15→21:07)
[2020-09-27] MEDS: METOCLOPRAMIDE 10 MG/10 ML UDCUP PEG SCH ×4 (09:15→21:07)
[2020-09-27] MEDS: POLYETHYLENE GLYCOL POWDER 17 GM PACK PEG SCH ×2 (09:16→21:06)
[2020-09-27] MEDS: COLLAGENASE OINT 30 GM TUBE TOP SCH (13:15)
[2020-09-27] MEDS ORDERED: FUROSEMIDE 40 MG/4 ML VIAL IV ONE (17:51)
[2020-09-27 17:55] LABS: ABG Base Excess 6.4 MMOL/L (-2.5-2.5); ABG HCO3 30.2 MMOL/L (20-26); ABG Oxygen Saturation 98.3 % (95-100); ABG PCO2 61.6 MM HG (35-48); ABG PH 7.345 (7.35-7.45); ABG TCO2 31.1 MMOL/L (23-27); Allen Test Positive
[2020-09-27] MEDS: FAMOTIDINE 20 MG/2 ML VIAL IV SCH (18:37)
[2020-09-28] MEDS: INSULIN LISPRO 100 UNIT/ML SUBCUT SCH ×6 (00:48→21:19)
[2020-09-28] MEDS: ALBUTEROL/IPRATROPIUM 3 ML NEB RESP TX SCH ×4 (00:51→19:23)
[2020-09-28 00:55] LABS: ABG Base Excess 6.8 MMOL/L (-2.5-2.5); ABG HCO3 30.7 MMOL/L (20-26); ABG Oxygen Saturation 99.3 % (95-100); ABG PCO2 59.1 MM HG (35-48); ABG PH 7.363 (7.35-7.45); ABG TCO2 31.3 MMOL/L (23-27)
[2020-09-28 05:33] LABS: Basophils % 0.1 % (0.0-0.8); Hemoglobin 7.8 GM/DL (14.0-18.0); Immature Granulocytes % 1.2 %; Immature Granulocytes Absolute 0.18 #; Lymphocytes # 0.3 10*3/uL (1.4-4.0); Lymphocytes % 1.8 % (21.2-54.2); Mean Corpuscular HGB Conc 31.2 GM/DL (32-36); Mean Corpuscular Volume 95.1 FL (87-102); Mean Platelet Volume 11.1 FL (9.6-12.0); Neutrophils % 92.9 % (38.7-73.9); Platelet Count 177 T/CUMM (130-400); Red Blood Count 2.63 MC/CUMM (3.8-5.5); Red Cell Distribution Width 15.7 % (9.3-17.3); White Blood Count 15.5 T/CUMM (4-12)
[2020-09-28 05:47] LABS: Calcium 9.3 MG/DL (8.5-10.1); Osmolality,Calculated 338.1 MOS/KG (273-304)
[2020-09-28] MEDS: SODIUM CHLORIDE 0.45% 1,000 ML IV SCH ×2 (06:02→17:49)
[2020-09-28 06:14] LABS: Band Neutrophils 10 % (0-10); Lymphocytes 2 % (20-55); Platelet Estimate Normal; Segmented Neutrophils 85 % (50-85); Total Cells Counted 100
[2020-09-28 06:15] LABS: Anisocytosis 2+
[2020-09-28 06:16] LABS: Basophilic Stippling 1+; Ovalocytes Few
[2020-09-28] MEDS: methylPREDNISolone SOD SUC 40 MG/1 ML VIAL IV SCH ×2 (09:31→21:19)
[2020-09-28] MEDS: POLYETHYLENE GLYCOL POWDER 17 GM PACK PEG SCH ×2 (09:31→21:18)
[2020-09-28] MEDS: INSULIN GLARGINE 100 UNIT/ML SUBCUT SCH (09:31)
[2020-09-28] MEDS: CLOPIDOGREL 75 MG TABLET PEG SCH (09:32)
[2020-09-28] MEDS: ASPIRIN CHEW 81 MG TABLET PO SCH (09:32)
[2020-09-28] MEDS: amLODIPine 5 MG TABLET PEG SCH (09:32)
[2020-09-28] MEDS: METOCLOPRAMIDE 10 MG/10 ML UDCUP PEG SCH ×4 (09:32→21:19)
[2020-09-28] MEDS: METOPROLOL TARTRATE 25 MG TABLET PEG SCH ×2 (09:32→21:20)
[2020-09-28] MEDS: OXYBUTYNIN 5 MG TABLET PEG SCH ×3 (09:32→21:20)
[2020-09-28] MEDS: COLLAGENASE OINT 30 GM TUBE TOP SCH (09:33)
[2020-09-28] MEDS: LEVOFLOXACIN INJ 500 MG in PREMIX 1 EACH IV SCH (12:28)
[2020-09-28] MEDS: FAMOTIDINE 20 MG/2 ML VIAL IV SCH (17:41)
[2020-09-29] MEDS: INSULIN LISPRO 100 UNIT/ML SUBCUT SCH ×6 (00:29→21:15)
[2020-09-29] MEDS: ALBUTEROL/IPRATROPIUM 3 ML NEB RESP TX SCH ×4 (00:59→20:23)
[2020-09-29] MEDS: ACETAMINOPHEN 325 MG/10.15 ML UDCUP PEG PRN ×2 (01:23→09:17)
[2020-09-29 04:13] LABS: Calcium 8.9 MG/DL (8.5-10.1)
[2020-09-29 04:15] LABS: Calcium 8.9 MG/DL (8.5-10.1); Osmolality,Calculated 339.8 MOS/KG (273-304)
[2020-09-29 04:18] LABS: Basophils % 0.1 % (0.0-0.8); Eosinophils % 0.1 % (0.00-10.9); Hematocrit 23.4 VOL% (42.0-52.0); Hemoglobin 7.3 GM/DL (14.0-18.0); Immature Granulocytes % 0.5 %; Immature Granulocytes Absolute 0.08 #; Lymphocytes # 0.2 10*3/uL (1.4-4.0); Lymphocytes % 1.5 % (21.2-54.2); Mean Corpuscular HGB Conc 31.2 GM/DL (32-36); Mean Corpuscular Volume 96.3 FL (87-102); Monocytes % 4.7 % (1.7-12.7); Neutrophils % 93.1 % (38.7-73.9); Platelet Count 170 T/CUMM (130-400); Red Blood Count 2.43 MC/CUMM (3.8-5.5); Red Cell Distribution Width 15.6 % (9.3-17.3); White Blood Count 16.2 T/CUMM (4-12)
[2020-09-29] MEDS: SODIUM CHLORIDE 0.45% 1,000 ML IV SCH ×2 (06:42→14:21)
[2020-09-29] MEDS: METOCLOPRAMIDE 10 MG/10 ML UDCUP PEG SCH ×4 (09:14→21:53)
[2020-09-29] MEDS: ASPIRIN CHEW 81 MG TABLET PO SCH (09:17)
[2020-09-29] MEDS: METOPROLOL TARTRATE 25 MG TABLET PEG SCH ×2 (09:17→21:53)
[2020-09-29] MEDS: CLOPIDOGREL 75 MG TABLET PEG SCH (09:17)
[2020-09-29] MEDS: amLODIPine 5 MG TABLET PEG SCH (09:17)
[2020-09-29] MEDS: OXYBUTYNIN 5 MG TABLET PEG SCH ×3 (09:17→21:54)
[2020-09-29] MEDS: methylPREDNISolone SOD SUC 40 MG/1 ML VIAL IV SCH ×2 (09:18→21:53)
[2020-09-29] MEDS: INSULIN GLARGINE 100 UNIT/ML SUBCUT SCH (09:18)
[2020-09-29] MEDS: POLYETHYLENE GLYCOL POWDER 17 GM PACK PEG SCH ×2 (09:18→21:54)
[2020-09-29] MEDS: ACETYLCYSTEINE 20% 800 MG/4 ML VIAL RESP TX SCH ×2 (11:26→20:23)
[2020-09-29] MEDS: SKIN HEALING OINT (AQUAPHOR) 50 GM TUBE TOP PRN (13:15)
[2020-09-29] MEDS: COLLAGENASE OINT 30 GM TUBE TOP SCH (13:15)
[2020-09-29] MEDS: FAMOTIDINE 20 MG/2 ML VIAL IV SCH (17:39)
[2020-09-30] MEDS: ALBUTEROL/IPRATROPIUM 3 ML NEB RESP TX SCH ×4 (01:30→20:12)
[2020-09-30 03:23] LABS: ABG HCO3 30.8 MMOL/L (20-26); ABG Oxygen Saturation 98.3 % (95-100); ABG PCO2 64.3 MM HG (35-48); ABG PH 7.332 (7.35-7.45); ABG TCO2 32.6 MMOL/L (23-27)
[2020-09-30] MEDS: INSULIN LISPRO 100 UNIT/ML SUBCUT SCH ×5 (04:14→18:06)
[2020-09-30 05:32] LABS: Hematocrit 20.9 VOL% (42.0-52.0); Immature Granulocytes % 0.4 %; Immature Granulocytes Absolute 0.05 #; Lymphocytes # 0.2 10*3/uL (1.4-4.0); Lymphocytes % 1.9 % (21.2-54.2); Mean Corpuscular HGB Conc 30.1 GM/DL (32-36); Mean Corpuscular Volume 98.6 FL (87-102); Mean Platelet Volume 10.3 FL (9.6-12.0); Monocytes % 4.5 % (1.7-12.7); Neutrophils % 93.2 % (38.7-73.9); Red Blood Count 2.12 MC/CUMM (3.8-5.5); Red Cell Distribution Width 15.8 % (9.3-17.3); White Blood Count 12.5 T/CUMM (4-12)
[2020-09-30 05:44] LABS: Platelet Count 134 T/CUMM (130-400)
[2020-09-30 05:45] LABS: Hemoglobin 6.3 GM/DL (14.0-18.0)
[2020-09-30 05:48] LABS: Calcium 8.9 MG/DL (8.5-10.1); Osmolality,Calculated 344.4 MOS/KG (273-304)
[2020-09-30] MEDS: SODIUM CHLORIDE 0.45% 1,000 ML IV SCH ×2 (06:45→08:33)
[2020-09-30] MEDS: ACETYLCYSTEINE 20% 800 MG/4 ML VIAL RESP TX SCH (07:12)
[2020-09-30 07:19] LABS: Anisocytosis 1+; Band Neutrophils 16 % (0-10); Lymphocytes 1 % (20-55); Ovalocytes Few; Platelet Estimate Adequate; Segmented Neutrophils 82 % (50-85); Total Cells Counted 100
[2020-09-30] MEDS ORDERED: SODIUM CHLORIDE 0.9% 1,000 ML IV PRN (07:57)
[2020-09-30] MEDS: METOCLOPRAMIDE 10 MG/10 ML UDCUP PEG SCH ×4 (08:33→22:07)
[2020-09-30] MEDS: COLLAGENASE OINT 30 GM TUBE TOP SCH (09:15)
[2020-09-30 09:57] LABS: Albumin (UPE) Rel % 31.2 %; Alpha 1 (UPE) Rel % 11.9 %; Alpha 2 (UPE) Rel % 19.8 %; Beta (UPE) Rel % 14.2 %; Gamma (UPE) Rel % 22.9 %
[2020-09-30] MEDS: METOPROLOL TARTRATE 25 MG TABLET PEG SCH ×2 (10:01→22:04)
[2020-09-30] MEDS: amLODIPine 5 MG TABLET PEG SCH (10:01)
[2020-09-30] MEDS: POLYETHYLENE GLYCOL POWDER 17 GM PACK PEG SCH ×2 (10:01→22:04)
[2020-09-30] MEDS: INSULIN GLARGINE 100 UNIT/ML SUBCUT SCH (10:01)
[2020-09-30] MEDS: OXYBUTYNIN 5 MG TABLET PEG SCH ×3 (10:01→22:04)
[2020-09-30] MEDS: ASPIRIN CHEW 81 MG TABLET PO SCH (10:02)
[2020-09-30] MEDS: CLOPIDOGREL 75 MG TABLET PEG SCH (10:02)
[2020-09-30] MEDS: methylPREDNISolone SOD SUC 40 MG/1 ML VIAL IV SCH ×2 (10:02→22:04)
[2020-09-30 10:06] LABS: Albumin (UPE) 468.3 MG/24H; Alpha 1 (UPE) 178.6 MG/24H; Alpha 2 (UPE) 297.2 MG/24H; Beta (UPE) 213.1 MG/24H
[2020-09-30 10:07] LABS: Gamma (UPE) 343.7 MG/24H
[2020-09-30] MEDS ORDERED: FUROSEMIDE 40 MG/4 ML VIAL IV ONE (10:54)
[2020-09-30] MEDS: LEVOFLOXACIN INJ 500 MG in PREMIX 1 EACH IV SCH (14:18)
[2020-09-30] MEDS: FAMOTIDINE 20 MG/2 ML VIAL IV SCH (18:06)
[2020-10-01] MEDS: INSULIN LISPRO 100 UNIT/ML SUBCUT SCH ×4 (00:56→19:12)
[2020-10-01] MEDS: ALBUTEROL/IPRATROPIUM 3 ML NEB RESP TX SCH ×4 (01:58→19:10)
[2020-10-01 06:10] LABS: Basophils % 0.2 % (0.0-0.8); Hematocrit 24.7 VOL% (42.0-52.0); Hemoglobin 7.6 GM/DL (14.0-18.0); Immature Granulocytes % 0.5 %; Immature Granulocytes Absolute 0.05 #; Lymphocytes # 0.2 10*3/uL (1.4-4.0); Lymphocytes % 2.2 % (21.2-54.2); Mean Corpuscular HGB Conc 30.8 GM/DL (32-36); Mean Corpuscular Volume 97.2 FL (87-102); Mean Platelet Volume 11.2 FL (9.6-12.0); Monocytes % 2.7 % (1.7-12.7); Neutrophils % 94.4 % (38.7-73.9); Platelet Count 147 T/CUMM (130-400); Red Blood Count 2.54 MC/CUMM (3.8-5.5); Red Cell Distribution Width 15.7 % (9.3-17.3); White Blood Count 9.6 T/CUMM (4-12)
[2020-10-01 06:48] LABS: Bilirubin,Total 0.7 MG/DL (0.2-1.0); Calcium 9.2 MG/DL (8.5-10.1); Osmolality,Calculated 343.4 MOS/KG (273-304); Total Protein 6.8 G/DL (6.4-8.3)
[2020-10-01] MEDS: ACETYLCYSTEINE 20% 800 MG/4 ML VIAL RESP TX SCH ×2 (07:40→19:10)
[2020-10-01 08:39] LABS: Lymphocytes 2 % (20-55); Polychromasia Slight; Segmented Neutrophils 97 % (50-85); Total Cells Counted 100
[2020-10-01 08:40] LABS: Platelet Estimate Adequate
[2020-10-01] MEDS: METOCLOPRAMIDE 10 MG/10 ML UDCUP PEG SCH ×4 (09:39→20:44)
[2020-10-01] MEDS: amLODIPine 5 MG TABLET PEG SCH (09:39)
[2020-10-01] MEDS: ASPIRIN CHEW 81 MG TABLET PO SCH (09:40)
[2020-10-01] MEDS: METOPROLOL TARTRATE 25 MG TABLET PEG SCH ×2 (09:40→20:44)
[2020-10-01] MEDS: OXYBUTYNIN 5 MG TABLET PEG SCH ×3 (09:40→20:44)
[2020-10-01] MEDS: CLOPIDOGREL 75 MG TABLET PEG SCH (09:40)
[2020-10-01] MEDS: POLYETHYLENE GLYCOL POWDER 17 GM PACK PEG SCH ×2 (09:40→20:44)
[2020-10-01] MEDS: methylPREDNISolone SOD SUC 40 MG/1 ML VIAL IV SCH ×2 (09:40→20:58)
[2020-10-01] MEDS: INSULIN GLARGINE 100 UNIT/ML SUBCUT SCH (10:35)
[2020-10-01] MEDS: COLLAGENASE OINT 30 GM TUBE TOP SCH (10:36)
[2020-10-01] MEDS: ACETAMINOPHEN 325 MG/10.15 ML UDCUP PEG PRN (15:59)
[2020-10-01] MEDS: CEFEPIME 1,000 MG in SODIUM CHLORIDE 0.9% 100 ML IV SCH (19:12)
[2020-10-01] MEDS ORDERED: VANCOMYCIN INJ 1,500 MG in SODIUM CHLORIDE 0.9% 500 ML IV ONE (20:00)
[2020-10-02] MEDS: INSULIN LISPRO 100 UNIT/ML SUBCUT SCH ×4 (01:08→18:27)
[2020-10-02] MEDS: ALBUTEROL/IPRATROPIUM 3 ML NEB RESP TX SCH ×4 (01:12→19:43)
[2020-10-02] MEDS: CEFEPIME 1,000 MG in SODIUM CHLORIDE 0.9% 100 ML IV SCH ×2 (01:37→09:43)
[2020-10-02 06:03] LABS: Calcium 9.1 MG/DL (8.5-10.1)
[2020-10-02] MEDS: ACETYLCYSTEINE 20% 800 MG/4 ML VIAL RESP TX SCH ×2 (07:29→19:43)
[2020-10-02] MEDS ORDERED: PANTOPRAZOLE 40 MG VIAL IV SCH (09:00)
[2020-10-02] MEDS: POLYETHYLENE GLYCOL POWDER 17 GM PACK PEG SCH (09:11)
[2020-10-02] MEDS: METOCLOPRAMIDE 10 MG/10 ML UDCUP PEG SCH ×3 (09:11→18:27)
[2020-10-02] MEDS: methylPREDNISolone SOD SUC 40 MG/1 ML VIAL IV SCH (09:11)
[2020-10-02] MEDS: OXYBUTYNIN 5 MG TABLET PEG SCH ×2 (09:12→18:27)
[2020-10-02] MEDS: COLLAGENASE OINT 30 GM TUBE TOP SCH (09:12)
[2020-10-02] MEDS: METOPROLOL TARTRATE 25 MG TABLET PEG SCH (09:12)
[2020-10-02] MEDS: ASPIRIN CHEW 81 MG TABLET PO SCH (09:12)
[2020-10-02] MEDS: amLODIPine 5 MG TABLET PEG SCH (09:12)
[2020-10-02] MEDS: CLOPIDOGREL 75 MG TABLET PEG SCH (09:12)
[2020-10-02] MEDS: INSULIN GLARGINE 100 UNIT/ML SUBCUT SCH (10:16)
[2020-10-02 11:38] VITALS: BP 127/38
[2020-10-02] MEDS ORDERED: ETOMIDATE 20 MG/10 ML VIAL IV ONE (15:11)
[2020-10-02] MEDS ORDERED: SUCCINYLCHOLINE 200 MG/10 ML VIAL ONE (15:12)
[2020-10-02] MEDS ORDERED: SODIUM BICARBONATE 50 MEQ/50 ML SYRINGE IV ONE (15:15)
[2020-10-02] MEDS ORDERED: EPINEPHrine 1 MG/10 ML SYRINGE ONE ×2 (15:15→19:36)
[2020-10-02] MEDS ORDERED: MAGNESIUM SULFATE 1 GM/2 ML VIAL ONE (15:15)
[2020-10-02] MEDS ORDERED: NOREPINEPHRINE 4 MG/4 ML VIAL IV ONE (15:25)
[2020-10-02] MEDS ORDERED: DOPamine 800 MG/250 ML PREMIX IV PRN (15:28)
[2020-10-02] MEDS ORDERED: DOPamine 800 MG/250 ML PREMIX IV ONE (15:28)
[2020-10-02] MEDS ORDERED: SODIUM BICARBONATE 50 MEQ/50 ML VIAL IV ONE ×3 (15:28→19:18)
[2020-10-02] MEDS ORDERED: MAGNESIUM SULF RIDER 50 ML IV ONE (15:34)
[2020-10-02 15:50] LABS: ABG Base Excess -4.1 MMOL/L (-2.5-2.5); ABG HCO3 20.9 MMOL/L (20-26); ABG Oxygen Saturation 93.1 % (95-100); ABG PO2 90.1 MM HG (80-95); ABG TCO2 26.8 MMOL/L (23-27)
[2020-10-02] MEDS ORDERED: LACTATED RINGERS 1,000 ML IV ONE (15:50)
[2020-10-02 15:51] LABS: Basophils % 0.1 % (0.0-0.8); Hemoglobin 6.8 GM/DL (14.0-18.0); Immature Granulocytes % 0.2 %; Immature Granulocytes Absolute 0.03 #; Lymphocytes # 1.7 10*3/uL (1.4-4.0); Lymphocytes % 11.5 % (21.2-54.2); Mean Corpuscular HGB Conc 29.6 GM/DL (32-36); Monocytes % 4.5 % (1.7-12.7); NRBC # 0.03 10*3/uL; Neutrophils % 83.7 % (38.7-73.9); Platelet Count 146 T/CUMM (130-400); Red Cell Distribution Width 16.6 % (9.3-17.3); White Blood Count 14.7 T/CUMM (4-12)
[2020-10-02 15:54] LABS: ABG PH 7.109 (7.35-7.45)
[2020-10-02 15:57] LABS: ABG PCO2 89.7 MM HG (35-48)
[2020-10-02] MEDS ORDERED: HEPARIN 5,000 UNIT/1 ML VIAL SUBCUT SCH (16:00)
[2020-10-02] MEDS ORDERED: DEXTROSE 5% 1,000 ML IV SCH (16:00)
[2020-10-02] MEDS ORDERED: PIPERACILLIN/TAZOBACTAM 3,375 MG in SODIUM CHLORIDE 0.9% 100 ML IV SCH (16:00)
[2020-10-02 16:04] LABS: Bilirubin,Total 0.4 MG/DL (0.2-1.0); Calcium 8.5 MG/DL (8.5-10.1); Osmolality,Calculated 350.9 MOS/KG (273-304); Total Protein 6.1 G/DL (6.4-8.3)
[2020-10-02] MEDS ORDERED: SODIUM CHLORIDE 0.9% 1,000 ML IV PRN (16:05)
[2020-10-02 16:15] LABS: Anisocytosis 1+; Band Neutrophils 7 % (0-10); Hypochromasia 1+; Lymphocytes 12 % (20-55); Metamyelocytes 1 %; Myelocytes 1 %; Platelet Estimate Adequate; Polychromasia Few; Segmented Neutrophils 75 % (50-85); Total Cells Counted 100
[2020-10-02] MEDS ORDERED: VANCOMYCIN INJ 1,500 MG in SODIUM CHLORIDE 0.9% 500 ML IV PRN (17:30)
[2020-10-02] MEDS ORDERED: NOREPINEPHRINE 8 MG in SODIUM CHLORIDE 0.9% 242 ML IV PRN (18:36)
[2020-10-02] MEDS ORDERED: ATROPINE 1 MG/10 ML SYRINGE IV ONE (19:13)
[2020-10-02] MEDS ORDERED: CALCIUM CHLORIDE 1,000 MG/10 ML SYRINGE IV ONE (19:16)
[2020-10-02] MEDS ORDERED: EPINEPHrine 1 MG/10 ML SYRINGE IV ONE ×2 (19:24→19:26)
== END 2020-10-02 19:49 | disposition expired | DRG 207 ==
LOC: N.ICU 17:59 → SUATTDRO 17:59 → N.3E 09-16 19:02 → N.ICU 09-20 00:44 → N.5E 09-26 13:34 → N.ICU 09-27 17:30 → N.5E 09-30 13:59 → N.ICU 10-02 15:20
PROVIDERS: ADMIT Internal Medicine; ATTEND Internal Medicine